=== PATIENT | male | born 1970 | race American Indian/Alaskan Native ===

== ENCOUNTER 2018-04-13 09:57 | Day surgery (SDC) | payer MEDICAID ==
[~2018-04-13 09:57] MED LIST: TETRACAINE 0.5% OD SCH
[2018-04-13] MEDS: VIGAMOX OD SCH ×3 (11:16→11:34)
[2018-04-13] MEDS: AK-Dilate OD SCH ×3 (11:17→11:33)
[2018-04-13] MEDS: MYDRIACYL OD SCH ×3 (11:17→11:33)
[2018-04-13] MEDS ORDERED: VERSED ONE (11:23)
[2018-04-13] MEDS ORDERED: SUBLIMAZE ONE (11:23)
[2018-04-13] MEDS ORDERED: VERSED PO NR (11:46)
[2018-04-13] MEDS ORDERED: XYLOCAINE MPF 2% ONE (12:06)
[2018-04-13] MEDS ORDERED: DIAMOX PO ONE (12:46)
--- NOTE | 2018-04-13 12:48 | Operative Report ---
Operative Report Operative Report: PATIENT'S NAME: DATE OF : DATE OF SURGERY: 04/13/2018 PREOPERATIVE DIAGNOSIS: Cataract right eye POSTOPERATIVE DIAGNOSIS: Same OPERATIVE PROCEDURE: Phacoemulsification with intraocular lens implantation, right eye SURGEON: France Kimball M.D. RN CARDIAC REHAB SURGEON: Devan Lens: [id number] 16.0 D ANESTHESIA: Monitored anesthesia care in combination with topical and intracameral anesthesia because of the established specific risk of reflux, arrhythmias, or anxiety attacks associated with ocular manipulation, as well as the difficulty of the product designer to manage such potentially catastrophic events while simultaneously attempting to complete the surgical procedure and was deemed necessary for the patient's safety to have an Legal Receptionist present during the procedure whenever possible. An Legal Receptionist was utilized to regulate the intravenous sedation of the patient so the patient was cooperative yet not asleep in order for the patient to successfully maintain fixation of the eye on the operating light of the microscope. COMPLICATIONS: [No surgical complications] No blood loss. ALLERGIES: Penicillin ibuprofen metoclopramide PROGNOSIS: Excellent INDICATIONS FOR SURGERY: The patient is undergoing surgery in the hopes of eliminating or improving these visual difficulties. PROCEDURE: After arriving at the surgery center, the patient was given topical anesthetic and dilating drops, as noted in the record. The patient was then taken into the operating room and given more anesthetic drops. The eyelids , lashes, and lid margins were scrubbed with Betadine solution, and the patient was draped. The Nurse Legal Receptionist administered IV sedation and monitored the patient during the procedure. The eye was then fixated with a 0.12, and a stab incision was made in the peripheral clear cornea into the anterior chamber. This was made on my left side. Viscoelastic was next used to fill the anterior chamber. The eye was once again fixated with the 0.12 forceps and a keratome was used make an incision in clear cornea peripherally on my right hand side temporally. The capsule forceps were used to open the central anterior capsule and then make a continuous round capsulotomy. Hydrodissection was carried out utilizing a cannula and balanced salt solution to delineate the cortical material from the capsule and the nucleus from the cortical material. The phaco tip was introduced into the eye and used to remove the anterior cortical material in the area of the capsulotomy. Then the phaco tip was buried into the nucleus, and a chopping instrument was introduced into the eye and used to provide countertraction in the nucleus between this instrument and the phaco tip fracturing the nucleus. This procedure was repeated multiple times, providing multiple small segments of the lens, and then the phaco tip was used to remove each of these segments. An I/A tip was then used to remove the remaining cortex. The anterior chamber was refilled with viscoelastic. An one-piece, acrylic intraocular lens was then placed into an inserting cartridge. The tip of the inserting cartridge was introduced into the keratome incision and into the anterior chamber. The implant was gently advanced through the cartridge and into the eye, where it unfolded, and both haptics were placed in the capsular bag, where it centered nicely and appeared to be well fixated. After placement of the intraocular lens, the I~and~A handpiece was placed back into the eye and used to remove the viscoelastic, including viscoelastic that was behind the optic of the intraocular lens. The anterior chamber was then filled with balanced salt solution, and hydration of the wound was used to cause swelling of the wound and more appropriate watertight closure. When the wound was found to be firm, the patient was asked to comment on how bright the light was. If there was no light perception at all or if the light was substantially dimmer than during the rest of the surgery, the amount of fluid in the eye was decompressed to lower the intraocular pressure until the patient could see the bright light again. This was done to avoid any damage or decreased blood flow to the optic nerve. Please did drop of reassurance to length at the end of the case because patient had previous PKP and those wounds are weak. MEDICATIONS APPLIED AT END OF SURGERY: One drop of Pred Forte and Vigamox The patient was given a shield to wear at night and was instructed not to rub or push on the eye. DISCHARGE SUMMARY: The patient was released in stable condition. The patient and those with the patient were given a written sheet of postoperative instructions and counseling on any abnormal laboratory studies. The patient is to see us tomorrow for follow-up in the office and is to call immediately for any difficulties. France Kimball M.D. Date
--- NOTE | 2018-04-13 12:51 | Short Stay Summary ---
Short Stay Documentation Date of service: 04/13/18 - History H&P: obtained from office - Allergies and Medications Current Medications: Allergies metoclopramide HCl [From Reglan] Allergy (Verified 04/07/18 15:41) Swelling Penicillins Allergy (Verified 04/07/18 15:41) Swelling ibuprofen Adverse Reaction (Verified 04/13/18 11:12) Swelling Home Medications Medication Instructions Recorded Confirmed Last Taken Type Aspirin [Aspirin BABY CHEW TAB] 81 mg PO QDAY 08/13/15 04/13/18 04/12/18 09:00 History Insulin Aspart [Novolog] 0 unit SQ AC 04/07/18 04/13/18 04/12/18 19:00 History Insulin Glargine,Hum.rec.anlog 35 units SQ QHS 04/07/18 04/13/18 04/12/18 22:00 History [Lantus] levETIRAcetam [Keppra TAB] 1,000 mg PO BID 04/07/18 04/13/18 04/12/18 22:00 History Active Medications Acetazolamide (Diamox) 500 mg PO ONCE ONE Stop: 04/13/18 12:47 Midazolam HCl (Versed) 10 mg PO PREOP NR Stop: 04/13/18 23:59 Last Admin: 04/13/18 11:51 Dose: 10 mg Moxifloxacin HCl (Vigamox) 1 drops OD Q5MIN MIKE Stop: 04/13/18 23:59 Last Admin: 04/13/18 11:34 Dose: 1 drops Phenylephrine HCl (Ak-Dilate) 1 drops OD Q5MIN MIKE Stop: 04/13/18 23:59 Last Admin: 04/13/18 11:33 Dose: 1 drops Prednisolone Acetate (Pred Forte 1%) 1 drops OD QID MIKE Tetracaine HCl (Tetracaine 0.5%) 1 drops OD Q5M MIKE Stop: 04/13/18 23:59 Last Admin: 04/13/18 11:16 Dose: 1 drops Tropicamide (Mydriacyl) 1 drops OD Q5MIN MIKE Stop: 04/13/18 23:59 Last Admin: 04/13/18 11:33 Dose: 1 drops - Brief post op/procedure progress note Date of procedure: 04/13/18 Pre-op diagnosis: cataract right eye Post-op diagnosis: same Procedure: Phacoemulsification with intraocular lens insertion right eye Anesthesia: MAC, local Surgeon: JORDANA COLEMAN Estimated blood loss: none Pathology: none Condition: stable - Disposition Condition at discharge: Good Disposition: DC-01 TO HOME OR SELFCARE - Discharge Diagnoses (1) Nuclear sclerosis of right eye Status: Resolved Short Stay Discharge Plan Follow up with: PRIMARY CARE, [Primary Care Provider] - 7 Days
[2018-04-13] MEDS ORDERED: PRED FORTE 1% OD SCH (14:00)
[2018-04-13 15:17] VITALS: BP 117/83
== END 2018-04-13 15:00 | disposition home or self-care (01) ==
LOC: OR 09:57
DX: H25.11 Age-related nuclear cataract, right eye (principal); I25.10 Atherosclerotic heart disease of native coronary artery without angina pectoris; I10 Essential (primary) hypertension; K21.9 Gastro-esophageal reflux disease without esophagitis; G40.909 Epilepsy, unspecified, not intractable, without status epilepticus; G62.9 Polyneuropathy, unspecified; E11.42 Type 2 diabetes mellitus with diabetic polyneuropathy; I25.2 Old myocardial infarction; G47.30 Sleep apnea, unspecified; Z90.49 Acquired absence of other specified parts of digestive tract; Z86.2 Personal history of diseases of the blood and blood-forming organs and certain disorders involving the immune mechanism; Z85.038 Personal history of other malignant neoplasm of large intestine; Z95.5 Presence of coronary angioplasty implant and graft; Z88.0 Allergy status to penicillin; Z88.8 Allergy status to other drugs, medicaments and biological substances; Z98.890 Other specified postprocedural states; Z98.49 Cataract extraction status, unspecified eye
CPT/HCPCS: 66984; 82962; J3010; J2250; V2632

== ENCOUNTER 2018-07-21 19:58 | Inpatient (IN) | payer MEDICAID ==
[2018-07-21 20:39] LABS: Basophils % (Auto) 0.4 % (0.0-1.8); Eosinophils # (Auto) 0.2 K/mm3 (0.0-0.4); Eosinophils % (Auto) 2.5 % (0.0-4.3); Hematocrit 44.2 % (35.5-45.6); Hemoglobin 15.4 gm/dl (11.8-15.2); Lymphocytes # (Auto) 2.4 K/mm3 (1.2-5.4); Lymphocytes % (Auto) 36.7 % (13.4-35.0); Mean Corpuscular HGB Conc 35 % (32-34); Mean Corpuscular Volume 87 fl (84-94); Monocytes # (Auto) 0.4 K/mm3 (0.0-0.8); Monocytes % (Auto) 6.7 % (0.0-7.3); Platelet Count 169 K/mm3 (140-440); Red Blood Count 5.09 M/mm3 (3.65-5.03); Red Cell Distribution Width 13.8 % (13.2-15.2)
[2018-07-21 21:00] LABS: Alanine Aminotransferase 30 units/L (7-56); BUN/Creatinine Ratio 8; Blood Urea Nitrogen 8 mg/dL (9-20); Calcium 8.7 mg/dL (8.4-10.2); Hemolysis Index 16
[2018-07-21] MEDS ORDERED: NITRO-BID 2% TP ONE (22:09)
[2018-07-21] MEDS ORDERED: SUBLIMAZE IV ONE (22:09)
[2018-07-21] MEDS ORDERED: ZOFRAN IV ONE (22:09)
--- NOTE | 2018-07-21 22:26 | Emergency Department Report ---
HPI - General Chief Complaint: Chest Pain Time Seen by Provider: 07/21/18 21:55 - HPI HPI: Room 17 Patient is a 47-year-old male presenting with a chief complaint of chest pain. The patient states for 4 weeks use of intermittent chest pressure cough and shortness of breath. The patient states he's been to several hospitals at one point was diagnosed with pneumonia and started on a ten-day course of antibiotics. Patient states he flew to [facility]. The patient states he went to a hospital yesterday for more chest pain and shortness of breath and they wanted to admit him. The patient stated he did not allow them to admit him to the hospital because he wanted to get back home. The patient states he flew back to [place] today and came straight to the hospital. Patient states he still has chest pressure associated with nausea/vomiting, shortness of breath and diaphoresis. Patient states his last cardiac catheterization o ccurred April 2018 when he had a stent placed. 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 - Social History Smoking Status: Current Some Day Smoker (cigars) Substance Use Type: None (denies illicit drug use) - Medications Home Medications: Home Medications Medication Instructions Recorded Confirmed Last Taken Type Aspirin [Aspirin BABY CHEW TAB] 81 mg PO QDAY 08/13/15 04/13/18 04/12/18 09:00 History Insulin Aspart [Novolog] 0 unit SQ AC 04/07/18 04/13/18 04/12/18 19:00 History Insulin Glargine,Hum.rec.anlog 35 units SQ QHS 04/07/18 04/13/18 04/12/18 22:00 History [Lantus] levETIRAcetam [Keppra TAB] 1,000 mg PO BID 04/07/18 04/13/18 04/12/18 22:00 History Benzonatate [Tessalon Perles] 100 mg PO Q8HR PRN #30 capsule 06/18/18 Unknown Rx ED Review of Systems ROS: Stated complaint: CHEST PAIN Other details as noted in HPI Constitutional: diaphoresis Eyes: denies: eye pain ENT: denies: throat pain Respiratory: shortness of breath Cardiovascular: chest pain Endocrine: no symptoms reported Gastrointestinal: nausea, vomiting Genitourinary: denies: dysuria Musculoskeletal: denies: back pain Neurological: denies: headache Physical Exam - Physical Exam Vital Signs: Vital Signs 07/21/18 20:24 Temperature 97.6 F Pulse Rate 97 H Respiratory 18 Rate Blood Pressure 144/91 O2 Sat by Pulse 96 Oximetry Physical Exam: GENERAL: The patient is well-developed well-nourished male lying on stretcher not appearing to be in acute distress. [] HEENT: Normocephalic. Atraumatic. Extraocular motions are intact. Patient has moist mucous membranes. NECK: Supple. Trachea midline CHEST/LUNGS: Diminished. There is no respiratory distress noted. HEART/CARDIOVASCULAR: Regular. There is no tachycardia. There is no gallop rub or murmur. ABDOMEN: Abdomen is soft, nontender. Patient has normal bowel sounds. There is no abdominal distention. SKIN: There is no rash. There is no edema. There is no diaphoresis. NEURO: The patient is awake, alert, and oriented. The patient is cooperative. The patient has normal speech MUSCULOSKELETAL: There is no evidence of acute injury. ED Course Vital Signs 07/21/18 20:24 Temperature 97.6 F Pulse Rate 97 H Respiratory 18 Rate Blood Pressure 144/91 O2 Sat by Pulse 96 Oximetry ED Medical Decision Making - Lab Data Result diagrams: 07/21/18 20:25 07/21/18 20:25 Laboratory Tests 07/21/18 07/21/18 07/21/18 20: 20:25 20:25 WBC 6.5 RBC 5.09 H Hgb 15.4 H Hct 44.2 MCV 87 MCH 30 MCHC 35 H RDW 13.8 Plt Count 169 Lymph % (Auto) 36.7 H [place] % (Auto) 6.7 Eos % (Auto) 2.5 Baso % (Auto) 0.4 Lymph # 2.4 [place] # 0.4 Eos # 0.2 Baso # 0.0 Seg Neutrophils % 53.7 Seg Neutrophils # 3.5 Sodium 134 L Potassium 3.6 Chloride 97.8 L Carbon Dioxide 25 Anion Gap 15 BUN 8 L Creatinine 1.0 Estimated GFR > 60 BUN/Creatinine Ratio 8 Glucose 324 H POC Glucose 279 H Calcium 8.7 Total Bilirubin 0.40 AST 20 ALT 30 Alkaline Phosphatase 115 Troponin T < 0.010 Total Protein 6.7 Albumin 4.0 Albumin/Globulin Ratio 1.5 - EKG Data -: EKG Interpreted by Me EKG shows normal: sinus rhythm Rate: normal - EKG Data When compared to previous EKG there are: previous EKG unavailable Interpretation: other (no ischemic changes seen) - Radiology Data Radiology results: image reviewed (chest x-ray) interpreted by me: Chest x-ray-no definite focal infiltrates. No pneumothorax - Differential Diagnosis ACS, pericarditis, pneumonia, influenza, bronchitis Critical care attestation.: If time is entered above; I have spent that time in minutes in the direct care of this critically ill patient, excluding procedure time. ED Disposition Clinical Impression: Chest pain Disposition: OP ADMIT IP TO THIS HOSP Is pt being admited?: Yes Does the pt Need Aspirin: Yes Condition: Fair Instructions: Chest Pain (ED) Time of Disposition: 22:35 (hospitalist paged (Dr Rebecca Hodge))
--- NOTE | 2018-07-21 22:35 | XRay Report ---
FINAL REPORT EXAM: XR CHEST ROUTINE 2V HISTORY: cough/SOB TECHNIQUE: PA and lateral views of the chest. Lateral view is limited by patient breathing motion. PRIORS: CXR 06/18/2018 FINDINGS: Lines, tubes, and devices: N/A Lungs and pleura: Trachea is normal in position. Lungs are clear of infiltrate, pleural effusion, va scular congestion, or pneumothorax. No change. Cardiomediastinal silhouette: Cardiac and mediastinal silhouettes are unremarkable. Other: Bony structures are intact. IMPRESSION: No acute cardiopulmonary process seen. No change.
[2018-07-21] MEDS ORDERED: PLAVIX PO ONE (22:36)
--- NOTE | 2018-07-21 23:53 | History and Physical Report ---
History of Present Illness Date of examination: 07/21/18 History of present illness: 47-year-old man with a history of hypertension, diabetes, coronary artery disease, hyperlipidemia, seizure omes to the emergency room complaining of chest pain. Patient was admitted twice since May 20 for pneumonia. He states that over the last 1 month has been having chest pain on the left side of the chest which feels as if someone is sitting on his chest, it's been constant, intensity, 7/10, no radiation, can't identify exacerbating or relieving factors. Recently went to [place], he was seen in the hospital there for seizure, he states he was nauseous and vomiting, he was not able to take his antiepileptic. Admits to shortness of breath, no diaphoresis or palpitation Review Of Systems: Constitutional: no fever, chills, weight loss Ears, eyes, nose, mouth and throat: no nasal congestion, no nasal discharge, no sinus pressure, blurry vision, diplopia Neck: No neck pain or rigidity. Cardiovascular: no palpitations Respiratory: No cough Gastrointestinal: abdominal pain, hematochezia Genitourinary : no dysuria, frequency , hematuria Musculoskeletal: no joint swelling or muscle ache Integumentary: no rash, no pruritis Neurological: no parathesias, focal weakness Endocrine: no cold or heat intolerance, no polyuria or polydipsia Hematologic/Lymphatic: no easy bruising, no easy bleeding, no gland swelling Allergic/Immunologic: no urticaria, no angioedema. PAST MEDICAL HISTORY:hypertension, diabetes, coronary artery disease, hyperlipidemia, seizure PAST SURGICAL HISTORY Appendectomy, right eye SOCIAL HISTORY: Denies alcohol, tobacco, drugs FAMILY HISTORY:cad, DM Medications and Allergies Allergies Allergy/AdvReac Type Severity Reaction Status Date / Time metoclopramide HCl Allergy Swelling Verified 04/07/18 15:41 [From Reglan] Penicillins Allergy Swelling Verified 04/07/18 15:41 ibuprofen AdvReac Swelling Verified 04/13/18 11:12 iv contract dy Allergy Swelling Uncoded 06/18/18 09:34 Home Medications Medication Instructions Recorded Confirmed Last Taken Type Aspirin [Aspirin BABY CHEW TAB] 81 mg PO QDAY 08/13/15 07/22/18 04/12/18 09:00 History Insulin Aspart [Novolog] 0 unit SQ AC 04/07/18 07/22/18 04/12/18 19:00 History Insulin Glargine,Hum.rec.anlog 35 units SQ QHS 04/07/18 07/22/18 04/12/18 22:00 History [Lantus] levETIRAcetam [Keppra TAB] 1,000 mg PO BID 04/07/18 07/22/18 04/12/18 22:00 History Benzonatate [Tessalon Perles] 100 mg PO Q8HR PRN #30 capsule 06/18/18 07/22/18 Unknown Rx Exam - Physical Exam Narrative exam: General Apperance: The patient lying in bed, breathing comfortable HEENT: Normocephalic, atraumatic. Pupils equally round and reactive to light, EOMI, no sclericterus or JVD or thyromegaly or nodule. , no carotid bruit, mucous membranes moist, no exudate or erythema Heart: S1-S2, regular is rhythm Lungs: Clear to auscultation bilaterally, breathing comfortable Abdomen: Positive bowel sounds, soft, nontender, nondistended, no organomegaly Extremities: No edema cyanosis clubbing Skin: no rash, nodule, warm and dry Neuro: cranial nerves 2-12 intact, speech is fluent, motor/sensory intact - Constitutional Vitals: Temp Pulse Resp BP Pulse Ox 97.6 F 97 H 18 144/91 96 07/21/18 20:24 07/21/18 20:24 07/21/18 20:24 07/21/18 20:24 07/21/18 20:24 Results - Labs CBC & Chem 7: 07/21/18 20:25 07/21/18 20:25 Labs: Abnormal lab results 07/21/18 07/21/18 07/21/18 Range/Units 20:19 20:25 20:25 RBC 5.09 H (3.65-5.03) M/mm3 Hgb 15.4 H (11.8-15.2) gm/dl MCHC 35 H (32-34) % Lymph % (Auto) 36.7 H (13.4-35.0) % Sodium 134 L (137-145) mmol/L Chloride 97.8 L (98-107) mmol/L BUN 8 L (9-20) mg/dL Glucose 324 H (75-100) mg/dL POC Glucose 279 H (70-105) - Imaging and Cardiology EKG: image reviewed Chest x-ray: image reviewed Assessment and Plan Assessment Unstable angina hypertension diabetes coronary artery disease hyperlipidemia seizure Plan Check cardiac enzymes, consult cardiology Check fingersticks, start insulin sliding scale DVT prophylaxis
[2018-07-22] MEDS ORDERED: TESSALON PERLES PO PRN (05:02)
[2018-07-22] MEDS: HumaLOG SUB-Q SCH ×4 (07:35→22:08)
--- NOTE | 2018-07-22 08:13 | Progress Note ---
Assessment and Plan Assessment and plan: Patient is a 47 yo man with history of Hypertension, IDDM type 1, CAD, pna, dyslipidemia, cigars and seizure disorder who presented to [facility] ED with chest pains. may, 2018 he went to [facility] with cold (coughing), cp, n/v and abx given, then went to [place], [place] and again sob and cp jul 09 admitted [facility]. Then he flew to [place] for football game on , he had 2 seizures because not taking keppra because n/v, left [facility] AM. 2vCXR: unremarkable Troponin T negative x 3 Chest pains: I consulted Cardiology, ?type of stress test with history of seizure disorder and no stress test done on Tuesday anymore, so keep NPO until seen by Quality Assurance Practice Manager. patient doesnt want to be npo anymore N/V, intractable caused by coughing DM: ssi Seizure disorder: continue keppra CAD with 3 stents by history: cardiology to see History Interval history: Patient was seen and examined. Follow-up on current diagnosis of chest pains and sob. Overnight uneventful. Patient denies any severe headaches. Imaging, nursing note, chart, labs and old chart reviewed. Discussed with patient. Hospitalist Physical - Physical exam Narrative exam: Gen: WDWN, NAD, Awake, Alert, Orientated HEENT: NCAT, EOMI, PERRL, OP Clear Neck: supple, no adenopathy, no thyromegaly, no JVD CVS/Heart: RRR, normal S1S2, pulses present bilaterally Chest/Lungs: CTA B, Symmetrical chest expansion, good air entry bilaterally GI/Abdomen: soft, NTND, good bowel sounds, no guarding or rebound /Bladder: no suprapubic tenderness, no CVA or paraspinal tenderness Extermity/Skin: no c/c/e, no obvious rash MSK: FROM x 4 Neuro: CN 2-12 grossly intact, no new focal deficits Psych: calm - Constitutional Vitals: Temp Pulse Resp BP Pulse Ox 97.8 F 68 20 133/78 97 07/22/18 07:23 07/22/18 07:23 07/22/18 07:23 07/22/18 07:23 07/22/18 07:23 Results - Labs CBC & Chem 7: 07/21/18 20:25 07/21/18 20:25 Labs: Laboratory Last Values WBC 6.5 K/mm3 (4.5-11.0) 07/21/18 20:25 RBC 5.09 M/mm3 (3.65-5.03) H 07/21/18 20:25 Hgb 15.4 gm/dl (11.8-15.2) H 07/21/18 20:25 Hct 44.2 % (35.5-45.6) 07/21/18 20:25 MCV 87 fl (84-94) 07/21/18 20:25 MCH 30 pg (28-32) 07/21/18 20:25 MCHC 35 % (32-34) H 07/21/18 20:25 RDW 13.8 % (13.2-15.2) 07/21/18 20:25 Plt Count 169 K/mm3 (140-440) 07/21/18 20:25 Lymph % (Auto) 36.7 % (13.4-35.0) H 07/21/18 20:25 [place] % (Auto) 6.7 % (0.0-7.3) 07/21/18 20:25 Eos % (Auto) 2.5 % (0.0-4.3) 07/21/18 20:25 Baso % (Auto) 0.4 % (0.0-1.8) 07/21/18 20:25 Lymph # 2.4 K/mm3 (1.2-5.4) 07/21/18 20:25 [place] # 0.4 K/mm3 (0.0-0.8) 07/21/18 20: Eos # 0.2 K/mm3 (0.0-0.4) 07/21/18 20:25 Baso # 0.0 K/mm3 (0.0-0.1) 07/21/18 20:25 Seg Neutrophils % 53.7 % (40.0-70.0) 07/21/18 20:25 Seg Neutrophils # 3.5 K/mm3 (1.8-7.7) 07/21/18 20:25 D-Dimer 153.37 ng/mlDDU (0-234) 07/21/18 23:15 Sodium 134 mmol/L (137-145) L 01/04/19 20:25 Potassium 3.6 mmol/L (3.6-5.0) 07/21/18 20:25 Chloride 97.8 mmol/L (98-107) L 07/21/18 20:25 Carbon Dioxide 25 mmol/L (22-30) 07/21/18 20:25 Anion Gap 15 mmol/L 07/21/18 20:25 BUN 8 mg/dL (9-20) L 07/21/18 20:25 Creatinine 1.0 mg/dL (0.8-1.5) 07/21/18 20:25 Estimated GFR > 60 ml/min 07/21/18 20:25 BUN/Creatinine Ratio 8 % 07/21/18 20:25 Glucose 324 mg/dL (75-100) H 07/21/18 20:25 POC Glucose 209 (70-105) H 07/22/18 06:30 Calcium 8.7 mg/dL (8.4-10.2) 07/21/18 20:25 Total Bilirubin 0.40 mg/dL (0.1-1.2) 07/21/18 20:25 AST 20 units/L (5-40) 07/21/18 20:25 ALT 30 units/L (7-56) 07/21/18 20:25 Alkaline Phosphatase 115 units/L (35-129) 07/21/18 20:25 Troponin T < 0.010 ng/mL (0.00-0.029) 07/22/18 04:48 Total Protein 6.7 g/dL (6.3-8.2) 07/21/18 20:25 Albumin 4.0 g/dL (3.9-5) 07/21/18 20:25 Albumin/Globulin Ratio 1.5 % 07/21/18 20:25 Influenza A (Rapid) Negative (Negative) 07/21/18 22:40 Influenza B (Rapid) Negative (Negative) 07/21/18 22:40
[2018-07-22 08:15] LABS: Bacteria,Urine 1+ /HPF (Negative); Bilirubin,Urine NEG (Negative); Blood,Urine NEG (Negative); Color,Urine Yellow (Yellow); Mucus,Urine FEW /HPF; Protein,Urine <15 mg/dL mg/dL (Negative); RBC,Urine < 1.0 /HPF (0.0-6.0); Sperm,Urine FEW /HPF (NP)
[2018-07-22] MEDS ORDERED: LOVENOX SUB-Q SCH (10:00)
[2018-07-22] MEDS ORDERED: NON-FORMULARY (Levetiracetam [Keppra Tab] 1,000 MG) PO SCH (10:00)
[2018-07-22] MEDS: MORPHINE IV PRN ×2 (10:10→20:30)
[2018-07-22] MEDS ORDERED: ROBITUSSIN AC PO PRN (11:16)
[2018-07-22] MEDS ORDERED: PROVENTIL IH PRN (11:17)
[2018-07-22] MEDS: MUCINEX ER PO SCH ×2 (13:00→22:10)
[2018-07-22] MEDS: KEPPRA PO SCH ×2 (13:00→22:09)
[2018-07-22] MEDS: BABY ASPIRIN PO SCH (13:00)
[2018-07-22] MEDS: TESSALON PERLES PO PRN (13:05)
[2018-07-22] MEDS: LOVENOX SUB-Q SCH (13:35)
[2018-07-22] MEDS ORDERED: ZOFRAN IV ONE (13:42)
[2018-07-22] MEDS: ZOFRAN IV PRN ×2 (13:50→20:30)
[2018-07-22] MEDS: LYRICA PO SCH ×4 (14:00→20:32)
[2018-07-22] MEDS ORDERED: LYRICA 25 MG, LYRICA 75 MG PO SCH (14:00)
[2018-07-22] MEDS: DUONEB *Not for PRN Use IH SCH ×2 (14:27→20:46)
--- NOTE | 2018-07-22 19:22 | Consultation ---
History of Present Illness Consult date: 07/22/18 Requesting physician: KUSH GORE Consult reason: chest pain History of present illness: Patient in the bed sleeping. When I walked in the room and awoke the patient he suddenly began complaining of severe chest pain. Past History Past Medical History: CAD ( ), diabetes, hypertension, hyperlipidemia, seizures Past Surgical History: PTCA Social history: smoking. denies: alcohol abuse, prescription drug abuse Family history: CAD Medications and Allergies Allergies Allergy/AdvReac Type Severity Reaction Status Date / Time metoclopramide HCl Allergy Swelling Verified 04/07/18 15:41 [From Reglan] Penicillins Allergy Swelling Verified 04/07/18 15:41 ibuprofen AdvReac Swelling Verified 04/13/18 11:12 iv contract dy Allergy Swelling Uncoded 06/18/18 09:34 Home Medications Medication Instructions Recorded Confirmed Last Taken Type Aspirin [Aspirin BABY CHEW TAB] 81 mg PO QDAY 08/13/15 07/22/18 04/12/18 09:00 History Insulin Aspart [Novolog] 0 unit SQ AC 04/07/18 07/22/18 04/12/18 19:00 History Insulin Glargine,Hum.rec.anlog 35 units SQ QHS 04/07/18 07/22/18 04/12/18 22:00 History [Lantus] levETIRAcetam [Keppra TAB] 1,000 mg PO BID 04/07/18 07/22/18 04/12/18 22:00 History Benzonatate [Tessalon Perles] 100 mg PO Q8HR PRN #30 capsule 06/18/18 07/22/18 Unknown Rx Active Meds: Active Medications Albuterol (Proventil) 2.5 mg IH Q4HRT PRN PRN Reason: Shortness Of Breath Albuterol/Ipratropium (Duoneb *Not For Prn Use*) 1 ampul IH TIDRT [facility] Last Admin: 07/22/18 14:27 Dose: 1 ampul Documented by: Arformoterol Tartrate (Brovana Nebu) 15 mcg IH Q12HRT [facility] Aspirin (Baby Aspirin) 81 mg PO QDAY [facility] Last Admin: 07/22/18 13:00 Dose: 81 mg Documented by: Benzonatate (Tessalon Perles) 100 mg PO Q8H PRN PRN Reason: Cough Last Admin: 07/22/18 13:05 Dose: 100 mg Documented by: Budesonide (Pulmicort) 0.5 mg IH Q12HRT [facility] Enoxaparin Sodium (Lovenox) 40 mg SUB-Q QDAY@1000 [facility] Last Admin: 07/22/18 13:35 Dose: 40 mg Documented by: Guaifenesin (Mucinex Er) 600 mg PO BID [facility] Last Admin: 07/22/18 13:00 Dose: 600 mg Documented by: Insulin Glargine (Lantus) 35 units SUB-Q QHS [facility] Insulin Human Lispro (Humalog) 0 unit SUB-Q ACHS [facility]; Protocol Last Admin: 07/22/18 16:50 Dose: 6 unit Documented by: Levetiracetam (Keppra) 1,000 mg PO BID [facility] Last Admin: 07/22/18 13:00 Dose: 1,000 mg Documented by: Morphine Sulfate (Morphine) 2 mg IV Q4H PRN PRN Reason: Pain, Moderate (4-6) Ondansetron HCl (Zofran) 4 mg IV Q4H PRN PRN Reason: Nausea And Vomiting Last Admin: 07/22/18 13:50 Dose: 4 mg Documented by: Pregabalin (Lyrica) 75 mg PO TID [facility] Last Admin: 07/22/18 14:00 Dose: 75 mg Documented by: Pregabalin (Lyrica) 25 mg PO TID [facility] Last Admin: 07/22/18 14:00 Dose: 25 mg Documented by: Pseudoephedrine/Acetam/Chlorphenir (Robitussin Ac) 15 ml PO Q4H PRN PRN Reason: Cough Review of Systems Constitutional: no weight loss, no weight gain, no fever, no chills, no sweats Ears, nose, mouth and throat: no ear pain, no ear discharge Cardiovascular: chest pain, dyspnea on exertion, no syncope, no lightheadedness, no leg edema Respiratory: cough Gastrointestinal: no abdominal pain, no BRBPR Genitourinary Male: no hematuria, no flank pain Rectal: no incontinence, no bleeding Musculoskeletal: no neck stiffness, no neck pain Integumentary: no rash, no pruritis Psychiatric: no anxiety, no memory loss Endocrine: no heat intolerance, no polyphagia Hematologic/Lymphatic: no easy bruising, no easy bleeding Allergic/Immunologic: no urticaria Physical Examination Vital Signs Temp Pulse Resp BP Pulse Ox 97.6 F 97 H 18 144/91 96 07/21/18 20:24 07/21/18 20:24 07/21/18 20:24 07/21/18 20:24 07/21/18 20:24 General appearance: no acute distress HEENT: Positive: PERRL, EOMI Neck: Positive: neck supple, trachea midline Cardiac: Positive: Reg Rate and Rhythm Lungs: Positive: Normal Exam, Normal Breath Sounds Neuro: Positive: Grossly Intact Abdomen: Positive: Unremarkable, Soft, Active Bowel Sounds Male genitourinary: Positive: deferred Skin: Negative: Rash, Suspicious Lesions Extremities: Present: warm. Absent: edema Results 07/21/18 20:25 07/21/18 20:25 Cardiac Enzymes 07/21/18 Range/Units 20:25 AST 20 (5-40) units/L CBC 07/21/18 Range/Units 20:25 WBC 6.5 (4.5-11.0) K/mm3 RBC 5.09 H (3.65-5.03) M/mm3 Hgb 15.4 H (11.8-15.2) gm/dl Hct 44.2 (35.5-45.6) % Plt Count 169 (140-440) K/mm3 Lymph # 2.4 (1.2-5.4) K/mm3 [place] # 0.4 (0.0-0.8) K/mm3 Eos # 0.2 (0.0-0.4) K/mm3 Baso # 0.0 (0.0-0.1) K/mm3 Comprehensive Metabolic Panel 07/21/18 Range/Units 20:25 Sodium 134 L (137-145) mmol/L Potassium 3.6 (3.6-5.0) mmol/L Chloride 97.8 L (98-107) mmol/L Carbon Dioxide 25 (22-30) mmol/L BUN 8 L (9-20) mg/dL Creatinine 1.0 (0.8-1.5) mg/dL Glucose 324 H (75-100) mg/dL Calcium 8.7 (8.4-10.2) mg/dL AST 20 (5-40) units/L ALT 30 (7-56) units/L Alkaline Phosphatase 115 (35-129) units/L Total Protein 6.7 (6.3-8.2) g/dL Albumin 4.0 (3.9-5) g/dL EKG interpretations - Telemetry EKG Rhythm: Sinus Rhythm Assessment and Plan Atypical chest pain/Persistent cough (nonproductive) MPI 08/14/15: no ischemia/no necrosis/normal LV systolic function No EKG changes, negative troponin Will attempt to get records from [facility] Recommend ECHO Coronary artery disease status post stents Hypertension hyperlipidemia seizure disorder tobacco abuse diabetes
[2018-07-22] MEDS: BROVANA NEBU IH SCH (20:46)
[2018-07-22] MEDS: PULMICORT IH SCH (20:46)
[2018-07-22] MEDS: LANTUS SUB-Q SCH (22:09)
[2018-07-23] MEDS: ZOFRAN IV PRN (06:45)
[2018-07-23] MEDS: MORPHINE IV PRN ×2 (06:45→17:51)
[2018-07-23] MEDS: PULMICORT IH SCH ×2 (08:30→20:39)
[2018-07-23] MEDS: BROVANA NEBU IH SCH ×2 (08:52→20:39)
[2018-07-23] MEDS: DUONEB *Not for PRN Use IH SCH ×3 (08:59→20:39)
[2018-07-23] MEDS: HumaLOG SUB-Q SCH ×4 (09:58→21:45)
[2018-07-23] MEDS: BABY ASPIRIN PO SCH (11:42)
[2018-07-23] MEDS: KEPPRA PO SCH ×2 (11:42→21:35)
[2018-07-23] MEDS: MUCINEX ER PO SCH ×2 (11:42→21:35)
[2018-07-23] MEDS: LOVENOX SUB-Q SCH (11:43)
[2018-07-23] MEDS: TESSALON PERLES PO PRN (11:54)
[2018-07-23] MEDS: LYRICA PO SCH ×6 (11:55→21:35)
--- NOTE | 2018-07-23 14:45 | Progress Note ---
Assessment and Plan Atypical chest pain/Persistent cough (nonproductive) MPI 08/14/15: no ischemia/no necrosis/normal LV systolic function No EKG changes, negative troponin Will attempt to get records from [facility] ECHO Coronary artery disease status post stents Hypertension hyperlipidemia seizure disorder tobacco abuse diabetes Subjective Date of service: 07/23/18 Principal diagnosis: atypical chest pain Interval history: Patient is sitting up in bed without complaints Objective Vital Signs Temp Pulse Pulse Resp Resp BP BP 07/23/18 14:32 92 H 16 07/23/18 14:26 92 H 16 07/23/18 11:37 97.3 F L 83 20 115/75 07/23/18 08:39 88 18 07/23/18 08:30 88 18 07/23/18 07:26 97.4 F L 83 20 106/73 07/23/18 03:45 97.0 F L 88 20 103/56 07/23/18 00:37 97.0 F L 94 H 18 106/73 07/22/18 22:00 108 H 07/22/18 20:53 84 20 07/22/18 20:00 82 21 07/22/18 19:44 98.0 F 109 H 18 97/62 07/22/18 16:05 97.7 F 114 H 20 115/81 07/22/18 14:54 102 H 18 Pulse Ox 07/23/18 14:32 07/23/18 14:26 07/23/18 11:37 97 07/23/18 08:39 07/23/18 08:30 07/23/18 07:26 93 07/23/18 03:45 95 07/23/18 00:37 95 07/22/18 22:00 07/22/18 20:53 07/22/18 20:00 07/22/18 19:44 97 07/22/18 16:05 94 07/22/18 14:54 - Physical Examination HEENT: Positive: PERRL, EOMI Neck: Positive: neck supple, trachea midline Cardiac: Positive: Reg Rate and Rhythm, Regular Rate Lungs: Positive: Normal Exam, Normal Breath Sounds Neuro: Positive: Grossly Intact Abdomen: Positive: Unremarkable, Soft, Active Bowel Sounds Skin: Negative: Rash, Suspicious Lesions Extremities: Present: warm. Absent: edema - Imaging and Cardiology EKG: image reviewed
--- NOTE | 2018-07-23 15:53 | Progress Note ---
Assessment and Plan Assessment and plan: Patient is a 47 yo man with history of Hypertension, IDDM type 1, CAD, pna, dyslipidemia, cigars and seizure disorder who presented to [facility] ED with chest pains. may, 2018 he went to [facility] with cold (coughing), cp, n/v and abx given, then went to [place], [place] and again sob and cp jul 09 admitted [facility]. Then he flew to [place] for football game on , he had 2 seizures because not taking keppra because n/v, left [facility]. 2vCXR: unremarkable Troponin T negative x 3 Chest pains: I consulted Cardiology, ?type of stress test with history of seizure disorder and no stress test done on Tuesday anymore, so keep NPO until seen by [facility]. patient doesnt want to be npo anymore N/V, intractable with Dysphagia to solids; start ivf, downgrade diet, consult GI DM: ssi Seizure disorder: continue keppra CAD with 3 stents by history: cardiology to see History Interval history: Patient was seen and examined. Follow-up on current diagnosis of chest pains and sob. Overnight uneventful. Patient denies any severe headaches. Imaging, nursing note, chart, labs and old chart reviewed. Discussed with patient. He complains of dyphagia to solids causing n/v. Hospitalist Physical - Physical exam Narrative exam: Gen: WDWN, NAD, Awake, Alert, Orientated HEENT: NCAT, EOMI, PERRL, OP Clear Neck: supple, no adenopathy, no thyromegaly, no JVD CVS/Heart: RRR, normal S1S2, pulses present bilaterally Chest/Lungs: CTA B, Symmetrical chest expansion, good air entry bilaterally GI/Abdomen: soft, NTND, good bowel sounds, no guarding or rebound /Bladder: no suprapubic tenderness, no CVA or paraspinal tenderness Extermity/Skin: no c/c/e, no obvious rash MSK: FROM x 4 Neuro: CN 2-12 grossly intact, no new focal deficits Psych: anxious - Constitutional Vitals: Temp Pulse Resp BP Pulse Ox 97.3 F L 92 H 16 115/75 97 07/23/18 11:37 07/23/18 14:32 01/06/19 14:32 07/23/18 11:37 07/23/18 11:37 General appearance: Present: no acute distress Results - Labs CBC & Chem 7: 07/21/18 20:25 07/21/18 20:25 Labs: Laboratory Last Values WBC 6.5 K/mm3 (4.5-11.0) 07/21/18 20:25 RBC 5.09 M/mm3 (3.65-5.03) H 07/21/18 20:25 Hgb 15.4 gm/dl (11.8-15.2) H 07/21/18 20:25 Hct 44.2 % (35.5-45.6) 07/21/18 20:25 MCV 87 fl (84-94) 07/21/18 20:25 MCH 30 pg (28-32) 07/21/18 20:25 MCHC 35 % (32-34) H 07/21/18 20:25 RDW 13.8 % (13.2-15.2) 07/21/18 20:25 Plt Count 169 K/mm3 (140-440) 07/21/18 20:25 Lymph % (Auto) 36.7 % (13.4-35.0) H 07/21/18 20:25 [place] % (Auto) 6.7 % (0.0-7.3) 07/21/18 20:25 Eos % (Auto) 2.5 % (0.0-4.3) 07/21/18 20:25 Baso % (Auto) 0.4 % (0.0-1.8) 07/21/18 20:25 Lymph # 2.4 K/mm3 (1.2-5.4) 07/21/18 20:25 [place] # 0.4 K/mm3 (0.0-0.8) 07/21/18 20:25 Eos # 0.2 K/mm3 (0.0-0.4) 07/21/18 20:25 Baso # 0.0 K/mm3 (0.0-0.1) 07/21/18 20:25 Seg Neutrophils % 53.7 % (40.0-70.0) 07/21/18 20:25 Seg Neutrophils # 3.5 K/mm3 (1.8-7.7) 07/21/18 20:25 D-Dimer 153.37 ng/mlDDU (0-234) 07/21/18 23:15 Sodium 134 mmol/L (137-145) L 07/21/18 20:25 Potassium 3.6 mmol/L (3.6-5.0) 07/21/18 20:25 Chloride 97.8 mmol/L (98-107) L 07/21/18 20:25 Carbon Dioxide 25 mmol/L (22-30) 07/21/18 20:25 Anion Gap 15 mmol/L 07/21/18 20:25 BUN 8 mg/dL (9-20) L 07/21/18 20:25 Creatinine 1.0 mg/dL (0.8-1.5) 07/21/18 20:25 Estimated GFR > 60 ml/min 07/21/18 20:25 BUN/Creatinine Ratio 8 % 07/21/18 20:25 Glucose 324 mg/dL (75-100) H 07/21/18 20:25 POC Glucose 193 (70-105) H 07/23/18 11:42 Calcium 8.7 mg/dL (8.4-10.2) 07/21/18 20:25 Total Bilirubin 0.40 mg/dL (0.1-1.2) 07/21/18 20:25 AST 20 units/L (5-40) 07/21/18 20:25 ALT 30 units/L (7-56) 07/21/18 20:25 Alkaline Phosphatase 115 units/L (35-129) 07/21/18 20:25 Troponin T < 0.010 ng/mL (0.00-0.029) 07/22/18 04:48 Total Protein 6.7 g/dL (6.3-8.2) 07/21/18 20:25 Albumin 4.0 g/dL (3.9-5) 07/21/18 20:25 Albumin/Globulin Ratio 1.5 % 07/21/18 20:25 Urine Color Yellow (Yellow) 07/22/18 07:44 Urine Turbidity Clear (Clear) 07/22/18 07:44 Urine pH 6.0 (5.0-7.0) 07/22/18 07:44 Ur Specific [place] 1.030 (1.003-1.030) 07/22/18 07:44 Urine Protein <15 mg/dl mg/dL (Negative) 07/22/18 07:44 Urine Glucose (UA) >=500 mg/dL (Negative) 07/22/18 07:44 Urine Ketones Tr mg/dL (Negative) 07/22/18 07:44 Urine Blood Neg (Negative) 07/22/18 07:44 Urine Nitrite Neg (Negative) 07/22/18 07:44 Urine Bilirubin Neg (Negative) 07/22/18 07:44 Urine Urobilinogen 4.0 mg/dL (<2.0) 07/22/18 07:44 Ur Leukocyte Esterase Neg (Negative) 07/22/18 07:44 Urine WBC (Auto) 1.0 /HPF (0.0-6.0) 07/22/18 07:44 Urine RBC (Auto) < 1.0 /HPF (0.0-6.0) 07/22/18 07:44 U Epithel Cells (Auto) 1.0 /HPF (0-13.0) 07/22/18 07:44 Urine Bacteria (Auto) 1+ /HPF (Negative) 07/22/18 07:44 Urine Mucus Few /HPF 07/22/18 07:44 Urine Sperm Few /HPF ([employer]) 07/22/18 07:44 Influenza A (Rapid) Negative (Negative) 07/21/18 22:40 Influenza B (Rapid) Negative (Negative) 07/21/18 22:40
--- NOTE | 2018-07-23 17:55 | Gastroenterology Consultation ---
History of Present Illness - Reason for Consult Consult date: 07/23/18 Dysphagia Requesting physician: KUSH GORE - History of Present Illness The patient is a 47 yo male admitted with chest pain (known hx of CAD) but also dysphagia for meats (particularly chicken and starches) for the last 2-3 weeks. His cardiac testing (here and elsewhere) has been negative, but he is to get a TTE tomorrow. He has no N/V/abdominal pain. He says he has only very mild, and rare indigestion, and takes no meds for this. The dysphagia is in the suprasternal region. There has been no food impaction, or abnormal loss of weight. He has had no imaging or endoscopy. He has no family hx of esophageal cancer. The patient does have a hx of seizures from head trauma. He says he has no problems with liquids, and has seen no melena. He does smoke rare cigars. Past History Past Medical History: CAD ( ), diabetes, hypertension, hyperlipidemia, seizures Past Surgical History: PTCA (Stent x 3) Social history: smoking. denies: alcohol abuse, prescription drug abuse Family history: CAD Medications and Allergies Allergies Allergy/AdvReac Type Severity Reaction Status Date / Time metoclopramide HCl Allergy Swelling Verified 04/07/18 15:41 [From Reglan] Penicillins Allergy Swelling Verified 04/07/18 15:41 ibuprofen AdvReac Swelling Verified 04/13/18 11:12 iv contract dy Allergy Swelling Uncoded 06/18/18 09:34 Home Medications Medication Instructions Recorded Confirmed Last Taken Type Aspirin [Aspirin BABY CHEW TAB] 81 mg PO QDAY 08/13/15 07/22/18 04/12/18 09:00 History Insulin Aspart [Novolog] 0 unit SQ AC 04/07/18 07/22/18 04/12/18 19:00 History Insulin Glargine,Hum.rec.anlog 35 units SQ QHS 04/07/18 07/22/18 04/12/18 22:00 History [Lantus] levETIRAcetam [Keppra TAB] 1,000 mg PO BID 04/07/18 07/22/18 04/12/18 22:00 History Benzonatate [Tessalon Perles] 100 mg PO Q8HR PRN #30 capsule 06/18/18 07/22/18 Unknown Rx Active Meds: Active Medications Albuterol (Proventil) 2.5 mg IH Q4HRT PRN PRN Reason: Shortness Of Breath Albuterol/Ipratropium (Duoneb *Not For Prn Use*) 1 ampul IH TIDRT [facility] Last Admin: 07/23/18 14:25 Dose: 1 ampul Documented by: Arformoterol Tartrate (Brovana Nebu) 15 mcg IH Q12HRT [facility] Last Admin: 07/23/18 08:52 Dose: 15 mcg Documented by: Aspirin (Baby Aspirin) 81 mg PO QDAY [facility] Last Admin: 07/23/18 11:42 Dose: 81 mg Documented by: Benzonatate (Tessalon Perles) 100 mg PO Q8H PRN PRN Reason: Cough Last Admin: 07/23/18 11:54 Dose: 100 mg Documented by: Budesonide (Pulmicort) 0.5 mg IH Q12HRT [facility] Last Admin: 07/23/18 08:30 Dose: 0.5 mg Documented by: Enoxaparin Sodium (Lovenox) 40 mg SUB-Q QDAY@1000 [facility] Last Admin: 07/23/18 11:43 Dose: 40 mg Documented by: Guaifenesin (Mucinex Er) 600 mg PO BID [facility] Last Admin: 07/23/18 11:42 Dose: 600 mg Documented by: Insulin Glargine (Lantus) 35 units SUB-Q QHS [facility] Last Admin: 07/22/18 22:09 Dose: 35 units Documented by: Insulin Human Lispro (Humalog) 0 unit SUB-Q [facility]; Protocol Last Admin: 07/23/18 11:55 Dose: 3 unit Documented by: Levetiracetam (Keppra) 1,000 mg PO BID [facility] Last Admin: 07/23/18 11:42 Dose: 1,000 mg Documented by: Morphine Sulfate (Morphine) 2 mg IV Q4H PRN PRN Reason: Pain, Moderate (4-6) Last Admin: 07/23/18 06:45 Dose: 2 mg Documented by: Ondansetron HCl (Zofran) 4 mg IV Q4H PRN PRN Reason: Nausea And Vomiting Last Admin: 07/23/18 06:45 Dose: 4 mg Documented by: Pregabalin (Lyrica) 75 mg PO TID [facility] Last Admin: 07/23/18 17:11 Dose: 75 mg Documented by: Pregabalin (Lyrica) 25 mg PO TID [facility] Last Admin: 07/23/18 17:11 Dose: 25 mg Documented by: Pseudoephedrine/Acetam/Chlorphenir (Robitussin Ac) 15 ml PO Q4H PRN PRN Reason: Cough I HAVE REVIEWED AND RECONCILED MEDICATIONS Review of Systems - Review of Systems All systems: negative (as noted in the HPI.) Exam - Constitutional Vital Signs: Temp Pulse Resp BP Pulse Ox 97.7 F 101 H 20 101/70 97 07/23/18 16:52 07/23/18 16:52 07/23/18 16:52 07/23/18 16:52 07/23/18 16:52 General appearance: no acute distress - EENT ENT: hearing intact, clear oral mucosa, no thrush - Neck Neck: supple, normal ROM - Respiratory Respiratory effort: normal Respiratory: bilateral: CTA - Cardiovascular Rhythm: regular Heart Sounds: Present: S1 & S2 Extremities: No edema - Gastrointestinal General gastrointestinal: Present: soft, non-tender, non-distended - Integumentary Integumentary: Present: clear, warm, dry - Neurologic Neurological: alert and oriented x3 - Labs CBC & Chem 7: 07/21/18 20:25 07/21/18 20:25 Lab Results: Laboratory Results - last 24 hr 07/22/18 07/23/18 07/23/18 21:28 06:40 11:42 POC Glucose 250 H 152 H 193 H 07/23/18 16:56 POC Glucose 294 H Assessment and Plan - Patient Problems (1) Dysphagia Current Visit: Yes Status: Acute Plan to address problem: - Subacute onset most consistent with reflux-related stricture or web (if not cardiac-related). - Will plan EGD with dilation if TTE tomorrow AM is acceptable. - For now, continue mechanical soft diet and protonix daily.
[2018-07-23] MEDS ORDERED: NACL 0.9% 1000 ML 1,000 ML IV SCH (19:00)
[2018-07-23] MEDS: LANTUS SUB-Q SCH (21:44)
[2018-07-24] MEDS: ZOFRAN IV PRN (06:14)
[2018-07-24] MEDS: MORPHINE IV PRN ×3 (06:15→23:53)
[2018-07-24 06:49] LABS: Hematocrit 41.1 % (35.5-45.6); Hemoglobin 14.1 gm/dl (11.8-15.2); Mean Corpuscular HGB Conc 34 % (32-34); Mean Corpuscular Volume 87 fl (84-94); Platelet Count 159 K/mm3 (140-440); Red Blood Count 4.73 M/mm3 (3.65-5.03); Red Cell Distribution Width 13.9 % (13.2-15.2)
[2018-07-24 07:02] LABS: BUN/Creatinine Ratio 6; Blood Urea Nitrogen 6 mg/dL (9-20); Calcium 8.2 mg/dL (8.4-10.2); Hemolysis Index 23
[2018-07-24] MEDS: LYRICA PO SCH ×6 (08:00→21:31)
[2018-07-24] MEDS: PULMICORT IH SCH (09:47)
[2018-07-24] MEDS: DUONEB *Not for PRN Use IH SCH ×3 (09:48→20:23)
[2018-07-24] MEDS: BROVANA NEBU IH SCH (09:48)
[2018-07-24] MEDS: MUCINEX ER PO SCH ×2 (10:00→21:31)
[2018-07-24] MEDS: KEPPRA PO SCH ×2 (10:00→21:31)
[2018-07-24] MEDS: HumaLOG SUB-Q SCH ×4 (11:00→22:16)
--- NOTE | 2018-07-24 12:00 | Progress Note ---
Assessment and Plan Atypical chest pain/Persistent cough (nonproductive) MPI 08/14/15: no ischemia/no necrosis/normal LV systolic function No EKG changes, negative troponin Will attempt to get records from [facility] reviewed - EF 50-55%, mild LVH. Dysphagia Per GI, most c/w reflux-related stricture or web (if not cardiac-related), will plan EGD with dilation if TTE tomorrow AM is acceptable. May proceed with EGD from cardiac standpoint. Coronary artery disease status post stents Pt reports one PCI in 2005 and another in 05/2018 Pt reports home medication regimen includes ASA 81 and Plavix. Recommend resuming Plavix today following EGD. Hypertension hyperlipidemia seizure disorder tobacco abuse diabetes The patient has been seen in conjunction with Dr. Daniels who agrees with the assessment and plan of care. Subjective Date of service: 07/24/18 Principal diagnosis: atypical chest pain Interval history: pt resting in bed, still c/o intermittent chest pressure and burning which is associated with solid food intake. Objective Last Vital Signs Temp 98.1 F 07/24/18 09:46 Pulse 88 07/24/18 09:51 Resp 18 07/24/18 09:51 BP 112/51 07/24/18 09:46 Pulse Ox 96 07/24/18 09:46 - Physical Examination General: No Apparent Distress HEENT: Positive: PERRL, EOMI Neck: Positive: neck supple, trachea midline Cardiac: Positive: Reg Rate and Rhythm, S1/S2 Lungs: Positive: clear to auscultation Neuro: Positive: Grossly Intact Abdomen: Positive: Unremarkable, Soft, Active Bowel Sounds Skin: Negative: Rash, Suspicious Lesions Extremities: Present: warm. Absent: edema - Labs and Meds CBC 07/24/18 Range/Units 06:26 WBC 5.2 (4.5-11.0) K/mm3 RBC 4.73 (3.65-5.03) M/mm3 Hgb 14.1 (11.8-15.2) gm/dl Hct 41.1 (35.5-45.6) % Plt Count 159 (140-440) K/mm3 Comprehensive Metabolic Panel 07/24/18 Range/Units 06:26 Sodium 139 (137-145) mmol/L Potassium 3.7 (3.6-5.0) mmol/L Chloride 103.4 (98-107) mmol/L Carbon Dioxide 25 (22-30) mmol/L BUN 6 L (9-20) mg/dL Creatinine 1.0 (0.8-1.5) mg/dL Glucose 261 H (75-100) mg/dL Calcium 8.2 L (8.4-10.2) mg/dL - Imaging and Cardiology EKG: image reviewed
--- NOTE | 2018-07-24 12:24 | Progress Note ---
Assessment and Plan Assessment and plan: Patient is a 47 yo man with history of Hypertension, IDDM type 1, CAD, pna, dyslipidemia, cigars and seizure disorder who presented to [facility] ED with chest pains. may, 2018 he went to [facility] with cold (coughing), cp, n/v and abx given, then went to [place], [place] and again sob and cp jul 09 admitted [facility]. Then he flew to [place] for football game on , he had 2 seizures because not taking keppra because n/v, left [facility] AM. 2vCXR: unremarkable Troponin T negative x 3 Chest pains: I consulted Cardiology, ?type of stress test with history of seizure disorder and no stress test done on Tuesday anymore, so keep NPO until seen by Customer Orders Clerk. patient doesnt want to be npo anymore N/V, intractable with Dysphagia to solids; start ivf, downgrade diet, consult GI DM: ssi Seizure disorder: continue keppra CAD with 3 stents by history: cardiology did evaluate and ordered ECHO which appears unremarkable. EGD tomorrow History Interval history: Patient was seen and examined. Follow-up on current diagnosis of chest pains and sob. Overnight uneventful. Patient denies any severe headaches. Imaging, nursing note, chart, labs and old chart reviewed. Discussed with patient. He complains of dyphagia to solids causing n/v. Hospitalist Physical - Physical exam Narrative exam: Gen: WDWN, NAD, Awake, Alert, Orientated HEENT: NCAT, EOMI, PERRL, OP Clear Neck: supple, no adenopathy, no thyromegaly, no JVD CVS/Heart: RRR, normal S1S2, pulses present bilaterally Chest/Lungs: CTA B, Symmetrical chest expansion, good air entry bilaterally GI/Abdomen: soft, NTND, good bowel sounds, no guarding or rebound /Bladder: no suprapubic tenderness, no CVA or paraspinal tenderness Extermity/Skin: no c/c/e, no obvious rash MSK: FROM x 4 Neuro: CN 2-12 grossly intact, no new focal deficits Psych: anxious - Constitutional Vitals: Temp Pulse Resp BP Pulse Ox 98.1 F 88 18 112/51 96 07/24/18 09:46 07/24/18 09:51 07/24/18 09:51 07/24/18 09:46 07/24/18 09:46 General appearance: Present: no acute distress Results - Labs CBC & Chem 7: 07/24/18 06:26 07/24/18 06:26 Labs: Laboratory Last Values WBC 5.2 K/mm3 (4.5-11.0) 07/24/18 06:26 RBC 4.73 M/mm3 (3.65-5.03) 07/24/18 06:26 Hgb 14.1 gm/dl (11.8-15.2) 07/24/18 06:26 Hct 41.1 % (35.5-45.6) 07/24/18 06:26 MCV 87 fl (84-94) 07/24/18 06:26 MCH 30 pg (28-32) 07/24/18 06:26 MCHC 34 % (32-34) 07/24/18 06:26 RDW 13.9 % (13.2-15.2) 07/24/18 06:26 Plt Count 159 K/mm3 (140-440) 07/24/18 06:26 Lymph % (Auto) 36.7 % (13.4-35.0) H 07/21/18 20:25 Valencia % (Auto) 6.7 % (0.0-7.3) 07/21/18 20:25 Eos % (Auto) 2.5 % (0.0-4.3) 07/21/18 20:25 Baso % (Auto) 0.4 % (0.0-1.8) 07/21/18 20:25 Lymph # 2.4 K/mm3 (1.2-5.4) 07/21/18 20:25 Valencia # 0.4 K/mm3 (0.0-0.8) 07/21/18 20:25 Eos # 0.2 K/mm3 (0.0-0.4) 07/21/18 20:25 Baso # 0.0 K/mm3 (0.0-0.1) 07/21/18 20:25 Seg Neutrophils % 53.7 % (40.0-70.0) 07/21/18 20:25 Seg Neutrophils # 3.5 K/mm3 (1.8-7.7) 07/21/18 20:25 D-Dimer 153.37 ng/mlDDU (0-234) 07/21/18 23:15 Sodium 139 mmol/L (137-145) 07/24/18 06:26 Potassium 3.7 mmol/L (3.6-5.0) 07/24/18 06:26 Chloride 103.4 mmol/L (98-107) 07/24/18 06:26 Carbon Dioxide 25 mmol/L (22-30) 07/24/18 06:26 Anion Gap 14 mmol/L 07/24/18 06:26 BUN 6 mg/dL (9-20) L 07/24/18 06:26 Creatinine 1.0 mg/dL (0.8-1.5) 07/24/18 06:26 Estimated GFR > 60 ml/min 07/24/18 06:26 BUN/Creatinine Ratio 6 % 07/24/18 06:26 Glucose 261 mg/dL (75-100) H 07/24/18 06:26 POC Glucose 225 (70-105) H 07/24/18 05:52 Calcium 8.2 mg/dL (8.4-10.2) L 07/24/18 06:26 Total Bilirubin 0.40 mg/dL (0.1-1.2) 07/21/18 20:25 AST 20 units/L (5-40) 07/21/18 20:25 ALT 30 units/L (7-56) 07/21/18 20:25 Alkaline Phosphatase 115 units/L (35-129) 07/21/18 20:25 Troponin T < 0.010 ng/mL (0.00-0.029) 07/22/18 04:48 Total Protein 6.7 g/dL (6.3-8.2) 07/21/18 20:25 Albumin 4.0 g/dL (3.9-5) 07/21/18 20:25 Albumin/Globulin Ratio 1.5 % 07/21/18 20:25 Urine Color Yellow (Yellow) 07/22/18 07:44 Urine Turbidity Clear (Clear) 07/22/18 07:44 Urine pH 6.0 (5.0-7.0) 07/22/18 07:44 Ur Specific Elizabeth 1.030 (1.003-1.030) 07/22/18 07:44 Urine Protein <15 mg/dl mg/dL (Negative) 07/22/18 07:44 Urine Glucose (UA) >=500 mg/dL (Negative) 07/22/18 07:44 Urine Ketones Tr mg/dL (Negative) 07/22/18 07:44 Urine Blood Neg (Negative) 07/22/18 07:44 Urine Nitrite Neg (Negative) 07/22/18 07:44 Urine Bilirubin Neg (Negative) 07/22/18 07:44 Urine Urobilinogen 4.0 mg/dL (<2.0) 07/22/18 07:44 Ur Leukocyte Esterase Neg (Negative) 07/22/18 07:44 Urine WBC (Auto) 1.0 /HPF (0.0-6.0) 07/22/18 07:44 Urine RBC (Auto) < 1.0 /HPF (0.0-6.0) 07/22/18 07:44 U Epithel Cells (Auto) 1.0 /HPF (0-13.0) 07/22/18 07:44 Urine Bacteria (Auto) 1+ /HPF (Negative) 07/22/18 07:44 Urine Mucus Few /HPF 07/22/18 07:44 Urine Sperm Few /HPF (SLASHER HAND) 07/22/18 07:44 Influenza A (Rapid) Negative (Negative) 07/21/18 22:40 Influenza B (Rapid) Negative (Negative) 07/21/18 22:40
[2018-07-24] MEDS: BABY ASPIRIN PO SCH (13:39)
[2018-07-24] MEDS: LOVENOX SUB-Q SCH (13:40)
[2018-07-24] MEDS ORDERED: NACL 0.9% 1000 ML 1,000 ML IV SCH ×2 (15:00→17:00)
--- NOTE | 2018-07-24 16:58 | Anesthesia Consultation ---
Anesthesia Consult and Med Hx Date of service: 07/24/18 - Airway Anesthetic Teeth Evaluation: Poor ROM Head & Neck: Adequate Mental/Hyoid Distance: Adequate Mallampati Class: Class II Intubation Access Assessment: Probably Good - Pre-Operative Health Status ASA Pre-Surgery Classification: ASA3 Proposed Anesthetic Plan: MAC - Pulmonary Hx Smoking: Yes Hx Asthma: No COPD: No Hx Pneumonia: Yes Hx Sleep Apnea: Yes - Cardiovascular System Hx Hypertension: Yes Hx Heart Attack/AMI: Yes (2007 and 2015 with stents placement) - Central Nervous System Hx Seizures: Yes Hx Psychiatric Problems: Yes - Endocrine Hx End Stage Renal Disease: No - Other Systems Hx Cancer: Yes Hx Obesity: Yes (BMi 39.1)
--- NOTE | 2018-07-24 16:59 | Anesthesia Day of Surgery ---
Anesthesia Day of Surgery - Day of Surgery Patient Examined: Yes Patient H&P Reviewed: Yes Patient is NPO: Yes
[2018-07-24] MEDS ORDERED: DIPRIVAN 10 MG/ML IV ONE (17:05)
--- NOTE | 2018-07-24 17:14 | Post Operative Note ---
Pre-op diagnosis: Dysphagia Post-op diagnosis: other (Gastritis/Esophagitis) Findings: 1. Moderate natalie esophagitis; random biopsy of mid-esophagus 2. Mild antrum gastritis; cold bx 3. Normal duodenum Procedure: EGD with cold biopsy Anesthesia: MAC Surgeon: ROBERTO MORRIS Estimated blood loss: minimal Pathology: list (1. Gastric antrum. 2. Middle third of esophagus.) Specimen disposition: to lab Condition: stable Disposition: floor (1. Protonix daily, and fluconazole x 7 days. 2. Resume diabetic diet. 3. Compliance with DM diet and weight loss encouraged.)
[2018-07-24] MEDS: PROTONIX PO SCH (18:48)
[2018-07-24] MEDS: DIFLUCAN PO SCH (18:49)
--- NOTE | 2018-07-24 20:01 | Operative Report ---
PROCEDURE PERFORMED: Esophagogastroduodenoscopy with cold biopsy. PREOPERATIVE DIAGNOSIS: Dysphagia. POSTOPERATIVE DIAGNOSES: Gastritis and esophagitis. ENDOSCOPIST: José Miguel Pardo MD INSTRUMENT: Animated Speech video endoscope. MEDICATIONS: MAC anesthesia by Anesthesia Services. COMPLICATIONS: No apparent complications. ESTIMATED BLOOD LOSS: Minimal. SPECIMENS: 1. Gastric antrum. 2. Middle third of the esophagus. IMPLANTS: None. ASSISTANTS: None. CONDITION AT COMPLETION: Stable. TECHNIQUE: The patient was informed of the risks and benefits of the procedure. He signed the informed consent to proceed. He was placed in the left lateral decubitus position. The above sedative medications were given. His vital signs remained stable throughout the procedure. The instrument was advanced from the mouth to the second portion of the duodenum under direct visualization. At that point, the bowel was insufflated and the endoscope was slowly withdrawn. FINDINGS: 1. Normal duodenum. 2. Mild erythema in the antrum of the stomach consistent with gastritis, status post cold biopsy. 3. No significant hiatal hernia. 4. Moderate Anita esophagitis throughout the mid and lower third of the esophagus with underlying esophagitis. ____ cold biopsies were taken of the middle third. RECOMMENDATIONS: 1. Protonix daily therapy. 2. Fluconazole for the next 7 days. 3. Resume diabetic diet. 4. Compliance with diabetic diet and weight loss encouraged. 5. Okay to discharge the patient home for our service and follow up in clinic. JOB# [id number] DARREN/NTS
[2018-07-24] MEDS: LANTUS SUB-Q SCH (21:31)
[2018-07-25 08:01] VITALS: BP 129/69
[2018-07-25] MEDS: DUONEB *Not for PRN Use IH SCH ×2 (09:02→14:02)
[2018-07-25] MEDS: MUCINEX ER PO SCH (09:53)
[2018-07-25] MEDS: DIFLUCAN PO SCH (09:53)
[2018-07-25] MEDS: PROTONIX PO SCH (09:53)
[2018-07-25] MEDS: LOVENOX SUB-Q SCH (09:53)
[2018-07-25] MEDS: BABY ASPIRIN PO SCH (09:53)
[2018-07-25] MEDS: KEPPRA PO SCH (09:53)
[2018-07-25] MEDS: HumaLOG SUB-Q SCH (09:58)
[2018-07-25] MEDS: LYRICA PO SCH ×2 (09:58)
--- NOTE | 2018-07-25 11:30 | Discharge Summary ---
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 In may, 2018 he went to [facility] with cold (coughing), cp, n/v and abx given, then went to [place], [place] and again sob and cp jul 09 admitted at [facility]. Then he flew to [place] for the football game on , he had 2 seizures because not taking keppra because n/v, left [facility]. * 2vCXR: unremarkable * Troponin T negative x 3 Chest pains due to Esophagitis/GERD N/V, intractable with Dysphagia to solids from [place] Esophagitis DM uncontrolled DM Seizure disorder: continue keppra CAD with 3 stents by history: cardiology did evaluate and ordered ECHO which appears unremarkable. EGD by Dr. Roberto Morris Date: 07/24/18 17:12 Pre-op diagnosis: Dysphagia Post-op diagnosis: other (Gastritis/Esophagitis) Findings: 1. Moderate natalie esophagitis; random biopsy of mid-esophagus 2. Mild antrum gastritis; cold bx 3. Normal duodenum Procedure: EGD with cold biopsy Anesthesia: MAC Surgeon: ROBERTO MORRIS Estimated blood loss: minimal Pathology: list (1. Gastric antrum. 2. Middle third of esophagus.) Specimen disposition: to lab Condition: stable Disposition: floor (1. Protonix daily, and fluconazole x 7 days. 2. Resume diabetic diet. 3. Compliance with DM diet and weight loss encouraged.) Disposition: TO HOME OR SELFCARE Time spent for discharge: 36 minutes Core Measure Documentation - Palliative Care Palliative Care/ Comfort Measures: Not Applicable - Core Measures Any of the following diagnoses?: none - VTE Discharge Requirements Deep Vein Thrombosis/Pulmonary Embolism Present on Admission: No Has pt received <5 days of overlap therapy or INR<2.0: No Anticoagulant overlap therapy prescribed at discharge: No Contraindication No Overlap Therapy order at DC: Not Indicated Exam - Physical Exam Narrative exam: Gen: WDWN, NAD, Awake, Alert, Orientated HEENT: NCAT, EOMI, PERRL, OP Clear Neck: supple, no adenopathy, no thyromegaly, no JVD CVS/Heart: RRR, normal S1S2, pulses present bilaterally Chest/Lungs: CTA B, Symmetrical chest expansion, good air entry bilaterally GI/Abdomen: soft, NTND, good bowel sounds, no guarding or rebound /Bladder: no suprapubic tenderness, no CVA or paraspinal tenderness Extermity/Skin: no c/c/e, no obvious rash MSK: FROM x 4 Neuro: CN 2-12 grossly intact, no new focal deficits Psych: anxious - Constitutional Vitals: Temp Pulse Resp BP Pulse Ox 98.1 F 86 18 129/69 95 07/25/18 08:00 07/25/18 08:00 07/25/18 08:00 07/25/18 08:00 07/25/18 08:00 Plan Activity: other (no strenous activity until cleared by PCP) Diet: low salt, diabetic Special Instructions: record daily BP diary, record blood sugar diary, smoking cessation Follow up with: [facility] [Provider Group] - 7 Days LINNEA JIMENEZ MD [Staff Physician] - 14 Days Prescriptions: Fluconazole [Diflucan TAB] 100 mg PO QDAY #7 tablet Pantoprazole [Protonix TAB] 40 mg PO QDAY #30 tablet
--- NOTE | 2018-07-25 13:14 | Gastroenterology Progress Note ---
Addendum entered and electronically signed by ROBERTO MORRIS MD 07/25/18 19:23: I have personally interviewed and examined the patient. I agree with the above A/P. Patient to f/u in the clinic for biopsy results. Original Note: Assessment and Plan 1.dysphagia -s/p EGD yesterday that showed moderate natalie esophagitis and mild gastritis -bx results pending -clinically, patient reports dysphagia is improved today. Denies abd pain or N/V. Tolerating diet. -continue PPI and fluconazole x 7 days -optimize glycemic control (compliance with DM diet/wt loss encouraged) -continue supportive care -patient okay to be d/c per GI standpoint on current medications with follow up in clinic in 2-3 weeks -will sign off, please call if needed Subjective Date of service: 07/25/18 Principal diagnosis: dysphagia Interval history: Patient w/o acute distress. Reports feeling better today with dysphagia improve d. Tolerating diet. Denies abd pain or N/V. Objective - Constitutional Vitals: Temp Pulse Resp BP Pulse Ox 98.1 F 87 18 129/69 95 07/25/18 08:00 07/25/18 10:00 07/25/18 08:00 07/25/18 08:00 07/25/18 08:00 General appearance: no acute distress - Respiratory Respiratory: bilateral: CTA - Cardiovascular Rhythm: regular Heart Sounds: Present: S1 & S2 - Gastrointestinal General gastrointestinal: Present: soft, non-tender, non-distended, normal bowel sounds - Labs CBC & Chem 7: 07/24/18 06:26 07/24/18 06:26 Labs: Laboratory Results - last 24 hr 07/24/18 07/24/18 07/24/18 11:27 16:21 21:55 POC Glucose 208 H 110 H 215 H 07/25/18 06:23 POC Glucose 114 H
--- NOTE | 2018-07-25 13:55 | Progress Note ---
Assessment and Plan Atypical chest pain/Persistent cough (nonproductive) Chest pain currently resolved MPI 08/14/15: no ischemia/no necrosis/normal LV systolic function No EKG changes, negative troponin Echo reviewed - EF 50-55%, mild LVH. Dysphagia S/p EGD. GI recs noted. Coronary artery disease status post stents Pt reports one PCI in 2005 and another in 05/2018 Cont home medication regimen, including ASA 81 and Plavix. Hypertension hyperlipidemia seizure disorder tobacco abuse diabetes Currently stable cardiac status. Pt may discharge home from cardiology standpoint. Recommend pt follow up with his primary cardiology team at [facility] within 1-2 weeks of hospital discharge. Pt verbalizes understanding. The patient has been seen in conjunction with Dr. Daniels who agrees with the assessment and plan of care. Subjective Date of service: 07/25/18 Principal diagnosis: dysphagia Interval history: pt resting in bed, no current complaints. Objective Last Vital Signs Temp 98.1 F 07/25/18 08:00 Pulse 87 07/25/18 10:00 Resp 18 07/25/18 08:00 BP 129/69 07/25/18 08:00 Pulse Ox 95 07/25/18 08:00 - Physical Examination General: No Apparent Distress HEENT: Positive: PERRL, EOMI Neck: Positive: neck supple, trachea midline Cardiac: Positive: Reg Rate and Rhythm, S1/S2 Lungs: Positive: clear to auscultation Neuro: Positive: Grossly Intact Abdomen: Positive: Unremarkable, Soft, Active Bowel Sounds Skin: Negative: Rash, Suspicious Lesions Extremities: Present: warm. Absent: edema - Imaging and Cardiology EKG: image reviewed
[2018-07-25] MEDS ORDERED: PLAVIX PO SCH (14:00)
[2018-07-25] MEDS: BROVANA NEBU IH SCH (14:01)
[2018-07-25] MEDS: PULMICORT IH SCH ×2 (14:01→14:02)
== END 2018-07-25 14:00 | disposition home or self-care (01) | DRG 369 ==
LOC: ED 19:58 → 4A 23:53
PROVIDERS: ADMIT Internal Medicine; ATTEND Internal Medicine
PROC: 0DB28ZX Excision of Middle Esophagus, Via Natural or Artificial Opening Endoscopic, Diagnostic (ICD-10-PCS; principal; 2018-07-24)
PROC: 0DB68ZX Excision of Stomach, Via Natural or Artificial Opening Endoscopic, Diagnostic (ICD-10-PCS; 2018-07-24)
DX: B37.81 Candidal esophagitis (principal); I25.110 Atherosclerotic heart disease of native coronary artery with unstable angina pectoris; K21.0 Gastro-esophageal reflux disease with esophagitis; I25.2 Old myocardial infarction; E10.9 Type 1 diabetes mellitus without complications; F41.9 Anxiety disorder, unspecified; F17.210 Nicotine dependence, cigarettes, uncomplicated; E78.5 Hyperlipidemia, unspecified; I10 Essential (primary) hypertension; G40.909 Epilepsy, unspecified, not intractable, without status epilepticus; R13.10 Dysphagia, unspecified; E66.9 Obesity, unspecified; K29.70 Gastritis, unspecified, without bleeding; Z90.49 Acquired absence of other specified parts of digestive tract; Z94.7 Corneal transplant status; Z68.39 Body mass index [BMI] 39.0-39.9, adult; Z82.49 Family history of ischemic heart disease and other diseases of the circulatory system; Z83.3 Family history of diabetes mellitus; Z88.0 Allergy status to penicillin; Z88.8 Allergy status to other drugs, medicaments and biological substances; Z91.041 Radiographic dye allergy status; Z79.4 Long term (current) use of insulin; Z95.5 Presence of coronary angioplasty implant and graft
CPT/HCPCS: 36415; 71046; 80048; 80053; 81001; 82962; 84484; 85025; 85027; 85379; 87400; 88305; 88342; 93005; 93010; 93306; 94640; 99406; G0378; J1650; J1815; J2270; J2405; J2704; J3010; J7030

== ENCOUNTER 2018-08-01 20:09 | Emergency (ER) | payer MEDICAID ==
[2018-08-01 21:11] LABS: Basophils % (Auto) 0.9 % (0.0-1.8); Eosinophils # (Auto) 0.1 K/mm3 (0.0-0.4); Eosinophils % (Auto) 2.1 % (0.0-4.3); Hematocrit 48.6 % (35.5-45.6); Hemoglobin 16.5 gm/dl (11.8-15.2); Lymphocytes % (Auto) 38.5 % (13.4-35.0); Mean Corpuscular HGB Conc 34 % (32-34); Mean Corpuscular Volume 86 fl (84-94); Monocytes # (Auto) 0.4 K/mm3 (0.0-0.8); Monocytes % (Auto) 7.9 % (0.0-7.3); Platelet Count 183 K/mm3 (140-440); Red Blood Count 5.63 M/mm3 (3.65-5.03); Red Cell Distribution Width 13.8 % (13.2-15.2)
[2018-08-01 21:29] LABS: Alanine Aminotransferase 30 units/L (7-56); Albumin 4.1 g/dL (3.9-5); BUN/Creatinine Ratio 12; Blood Urea Nitrogen 12 mg/dL (9-20); Calcium 9.1 mg/dL (8.4-10.2); Hemolysis Index 27
[2018-08-01] MEDS ORDERED: ALUM-MAG HYDROX-SIMETH 200-200-20MG/5ML PO ONE (21:48)
[2018-08-01] MEDS ORDERED: LIDOCAINE VISCOUS 2% PO ONE (21:48)
--- NOTE | 2018-08-01 21:52 | Emergency Department Report ---
ED General Adult HPI - General Chief complaint: Dyspnea/Respdistress Stated complaint: SOB Time Seen by Provider: 08/01/18 21:42 Source: patient Mode of arrival: Ambulatory Limitations: No Limitations - History of Present Illness Initial comments: Patient is 47 years old male with history of asthma, diabetes and coronary artery disease with 3 stents. Patient was recently discharged from the hospital for similar complaint. Patient presented today complaining of difficulty breathing, nausea vomiting and diarrhea. He also stated that he has been having and chest tightness minutes of the left side. Cold sweats. Sore throat. Patient denied any fever. - Related Data Home Medications Medication Instructions Recorded Confirmed Last Taken Aspirin [Aspirin BABY CHEW TAB] 81 mg PO QDAY 08/13/15 07/22/18 04/12/18 09:00 Insulin Aspart [NovoLOG 100 0 unit SQ AC 04/07/18 07/22/18 04/12/18 19:00 UNITS/ML VIAL] Insulin Glargine,Hum.rec.anlog 35 units SQ QHS 04/07/18 07/22/18 04/12/18 22:00 [Lantus] levETIRAcetam [Keppra TAB] 1,000 mg PO BID 04/07/18 07/22/18 04/12/18 22:00 Previous Rx's Medication Instructions Recorded Last Taken Type Benzonatate [Tessalon Perles] 100 mg PO Q8HR PRN #30 capsule 06/18/18 Unknown Rx Fluconazole [Diflucan TAB] 100 mg PO QDAY #7 tablet 07/25/18 Unknown Rx Pantoprazole [Protonix TAB] 40 mg PO QDAY #30 tablet 07/25/18 Unknown Rx Allergies Allergy/AdvReac Type Severity Reaction Status Date / Time metoclopramide HCl Allergy Swelling Verified 04/07/18 15:41 [From Reglan] Penicillins Allergy Swelling Verified 04/07/18 15:41 ibuprofen AdvReac Swelling Verified 04/13/18 11:12 iv contract dy Allergy Swelling Uncoded 06/18/18 09:34 ED Review of Systems ROS: Stated complaint: SOB Other details as noted in HPI Comment: All other systems reviewed and negative Constitutional: denies: chills, fever Respiratory: shortness of breath, SOB with exertion. denies: cough, orthopnea, SOB at rest, wheezing Cardiovascular: chest pain Gastrointestinal: denies: abdominal pain, nausea, vomiting, diarrhea, constipat ion, hematemesis, melena, hematochezia Musculoskeletal: denies: back pain Neurological: denies: headache, weakness, numbness, paresthesias, confusion, abnormal gait ED Past Medical Hx - Past Medical History Previous Medical History?: Yes Hx Hypertension: Yes Hx Heart Attack/AMI: Yes (2007 and 2015 with stents placement) Hx Congestive Heart Failure: No Hx Diabetes: Yes (Type 1) Hx Seizures: Yes Hx Psychiatric Treatment: Yes (anxiety) Hx Asthma: No Hx COPD: No Hx HIV: No - Surgical History Hx Coronary Stent: Yes (2007, 3 stents) Hx Appendectomy: Yes 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 - Social History Smoking Status: Former Smoker Substance Use Type: None - Medications Home Medications: Home Medications Medication Instructions Recorded Confirmed Last Taken Type Aspirin [Aspirin BABY CHEW TAB] 81 mg PO QDAY 08/13/15 07/22/18 04/12/18 09:00 History Insulin Aspart [NovoLOG 100 0 unit SQ AC 04/07/18 07/22/18 04/12/18 19:00 History UNITS/ML VIAL] Insulin Glargine,Hum.rec.anlog 35 units SQ QHS 04/07/18 07/22/18 04/12/18 22:00 History [Lantus] levETIRAcetam [Keppra TAB] 1,000 mg PO BID 04/07/18 07/22/18 04/12/18 22:00 History Benzonatate [Tessalon Perles] 100 mg PO Q8HR PRN #30 capsule 06/18/18 07/22/18 Unknown Rx Fluconazole [Diflucan TAB] 100 mg PO QDAY #7 tablet 07/25/18 Unknown Rx Pantoprazole [Protonix TAB] 40 mg PO QDAY #30 tablet 07/25/18 Unknown Rx ED Physical Exam - General Limitations: No Limitations General appearance: alert, in no apparent distress - Head Head exam: Present: atraumatic, normocephalic, normal inspection - Eye Eye exam: Present: normal appearance - ENT ENT exam: Present: normal exam, normal orophraynx, mucous membranes moist - Neck Neck exam: Present: normal inspection, full ROM. Absent: tenderness, meningism us, lymphadenopathy, thyromegaly - Respiratory Respiratory exam: Present: normal lung sounds bilaterally. Absent: respiratory distress, wheezes, rales, rhonchi, stridor, accessory muscle use, decreased breath sounds, prolonged expiratory - Cardiovascular Cardiovascular Exam: Present: regular rate, normal rhythm, normal heart sounds - GI/Abdominal GI/Abdominal exam: Present: soft, normal bowel sounds. Absent: distended, tenderness, guarding, rebound, rigid, organomegaly, mass, bruit, pulsatile mass, hernia - Extremities Exam Extremities exam: Present: normal inspection, full ROM, normal capillary refill. Absent: pedal edema, calf tenderness - Back Exam Back exam: Present: normal inspection, full ROM. Absent: tenderness, CVA tenderness (R), CVA tenderness (L), muscle spasm, paraspinal tenderness, vertebral tenderness - Neurological Exam Neurological exam: Present: alert, oriented X3, CN II-XII intact, normal gait - Skin Skin exam: Present: warm, intact, normal color ED Course Vital Signs 08/01/18 08/01/18 08/01/18 20:18 22:00 22:14 Temperature 97.8 F Pulse Rate 109 H 92 H Respiratory 20 18 18 Rate Blood Pressure 142/89 120/84 O2 Sat by Pulse 100 98 Oximetry 08/01/18 08/01/18 08/01/18 22:16 22:30 22:46 Temperature 98.5 F Pulse Rate 97 H 92 H 100 H Respiratory 20 22 16 Rate Blood Pressure 120/84 136/88 120/84 O2 Sat by Pulse 98 Oximetry 08/01/18 08/01/18 23:00 23:16 Temperature Pulse Rate 92 H 94 H Respiratory 16 18 Rate Blood Pressure 131/86 136/88 O2 Sat by Pulse Oximetry ED Medical Decision Making - Lab Data Result diagrams: 08/01/18 20:51 08/01/18 20:51 - EKG Data -: EKG Interpreted by Ca EKG shows normal: sinus rhythm Rate: tachycardia - EKG Data Interpretation: no acute changes - Radiology Data Radiology results: report reviewed Referring Physician: MARLO GONZALEZ Patient Name: QUINCY CORDERO Date of : 1970 Sex: Male Report Date: 2018-08-01 Report Status: Finalized Findings [address] [address] XRay Report Signed Patient: QUINCY CORDERO JR MR#: [id number] : 1970 Acct:[id number] Age/Sex: 47 / M ADM Date: 08/01/18 Loc: ED Attending Dr: Ordering Physician: NOEMI BENNETT Date of Service: 08/01/18 Procedure(s): XR chest routine 2V Accession Number(s): [id number] cc: NOEMI BENNETT Fluoro Time In Minutes: FINAL REPORT EXAM: XR CHEST ROUTINE 2V HISTORY: DEEP with chest pain TECHNIQUE: 2 views of the chest. PRIORS: 07/21/2018 FINDINGS: The cardiomediastinal silhouette appears normal. The lungs are clear. The bones and soft tissues are unremarkable. IMPRESSION: No evidence of acute cardiopulmonary disease Transcribed By: YANI Dictated By: JOSÉ LUIS SAUCEDA MD Electronically Authenticated By: JOSÉ LUIS SAUCEDA MD Signed Date/Time: 08/01/182218 DD/ 20 TD/TT: 08/01/182220 - Medical Decision Making Patient is 47 years old male with history of asthma, diabetes and coronary artery disease with 3 stents. Patient was recently discharged from the hospital for similar complaint. Patient presented today complaining of difficulty breathing, nausea vomiting and diarrhea. He also stated that he has been having and chest tightness minutes of the left side. Cold sweats. Sore throat. Patient denied any fever. Patient is stated that he is feeling much better after GI cocktail. At sets of troponin is negative. Chest x-ray is negative for acute findings. 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 Also patient would need to follow up with his GI doctor. [facility] agreed with the plan. Critical care attestation.: If time is entered above; I have spent that time in minutes in the direct care of this critically ill patient, excluding procedure time. ED Disposition Clinical Impression: Chest pain, Esophagitis Disposition: DC-01 TO HOME OR SELFCARE Is pt being admited?: No Condition: Stable Instructions: Chest Pain (ED), Diet for Ulcers and Gastritis (ED) Referrals: MARU KNIGHT MD [Primary Care Provider] - 3-5 Days
--- NOTE | 2018-08-01 22:19 | XRay Report ---
FINAL REPORT EXAM: XR CHEST ROUTINE 2V HISTORY: DEEP with chest pain TECHNIQUE: 2 views of the chest. PRIORS: 07/21/2018 FINDINGS: The cardiomediastinal silhouette appears normal. The lungs are clear. The bones and soft tissues are unremarkable. IMPRESSION: No evidence of acute cardiopulmonary disease
[2018-08-01 23:18] VITALS: BP 136/88
== END 2018-08-02 00:52 | disposition home or self-care (01) ==
LOC: ED 20:09
DX: K20.9 Esophagitis, unspecified (principal); R07.89 Other chest pain; I11.0 Hypertensive heart disease with heart failure; E10.9 Type 1 diabetes mellitus without complications; J45.909 Unspecified asthma, uncomplicated; F41.9 Anxiety disorder, unspecified; Z95.1 Presence of aortocoronary bypass graft; Z79.4 Long term (current) use of insulin; Z79.82 Long term (current) use of aspirin; Z88.0 Allergy status to penicillin; Z88.5 Allergy status to narcotic agent; Z90.49 Acquired absence of other specified parts of digestive tract; Z87.891 Personal history of nicotine dependence
CPT/HCPCS: 36415; 71046; 80053; 83880; 84484; 85025; 85379; 93005; 93010; 99284

== ENCOUNTER 2018-08-17 22:07 | Inpatient (IN) | payer MEDICAID ==
[2018-08-18 00:26] LABS: Basophils % (Auto) 0.6 % (0.0-1.8); Eosinophils # (Auto) 0.2 K/mm3 (0.0-0.4); Eosinophils % (Auto) 2.7 % (0.0-4.3); Hematocrit 46.6 % (35.5-45.6); Hemoglobin 16.2 gm/dl (11.8-15.2); Lymphocytes # (Auto) 2.6 K/mm3 (1.2-5.4); Lymphocytes % (Auto) 45.5 % (13.4-35.0); Mean Corpuscular HGB Conc 35 % (32-34); Mean Corpuscular Volume 86 fl (84-94); Monocytes # (Auto) 0.5 K/mm3 (0.0-0.8); Monocytes % (Auto) 8.5 % (0.0-7.3); Platelet Count 180 K/mm3 (140-440); Red Blood Count 5.43 M/mm3 (3.65-5.03); Red Cell Distribution Width 13.6 % (13.2-15.2)
[2018-08-18] MEDS ORDERED: LIDOCAINE VISCOUS 2% PO ONE (00:29)
[2018-08-18] MEDS ORDERED: ZOFRAN IV ONE ×2 (00:30→01:14)
[2018-08-18] MEDS ORDERED: NACL 0.9% 1000 ML 1,000 ML IV ONE (00:30)
[2018-08-18 00:49] LABS: Alanine Aminotransferase 32 units/L (7-56); Albumin 4.2 g/dL (3.9-5); BUN/Creatinine Ratio 10; Blood Urea Nitrogen 11 mg/dL (9-20); Calcium 9.3 mg/dL (8.4-10.2); Hemolysis Index 18
--- NOTE | 2018-08-18 00:55 | Emergency Department Report ---
ED General Adult HPI - General Chief complaint: Sore Throat Stated complaint: CP Time Seen by Provider: 08/17/18 23:16 Source: patient Mode of arrival: Ambulatory Limitations: No Limitations - History of Present Illness Initial comments: Patient presents to emergency department with chief complaint difficulty with swallowing. The patient was diagnosed with esophagitis secondary to candidiasis EGD. The patient has been on 21 days of Diflucan to no avail. Patient presents to the ED today because he cannot eat or drink anything without vomiting. Dandy vang states he feels like his throat was closing off. Patient has chest pain, shortness breath, headache. -: Gradual Radiation: non-radiation Severity scale (0 -10): 3 Quality: burning Consistency: constant Improves with: rest Worsens with: eating Associated Symptoms: denies other symptoms Treatments Prior to Arrival: none - Related Data Home Medications Medication Instructions Recorded Confirmed Last Taken Aspirin [Aspirin BABY CHEW TAB] 81 mg PO QDAY 08/13/15 07/22/18 04/12/18 09:00 Insulin Aspart [NovoLOG 100 0 unit SQ AC 04/07/18 07/22/18 04/12/18 19:00 UNITS/ML VIAL] Insulin Glargine,Hum.rec.anlog 35 units SQ QHS 04/07/18 07/22/18 04/12/18 22:00 [Lantus] levETIRAcetam [Keppra TAB] 1,000 mg PO BID 04/07/18 07/22/18 04/12/18 22:00 Previous Rx's Medication Instructions Recorded Last Taken Type Benzonatate [Tessalon Perles] 100 mg PO Q8HR PRN #30 capsule 06/18/18 Unknown Rx Fluconazole [Diflucan TAB] 100 mg PO QDAY #7 tablet 07/25/18 Unknown Rx Pantoprazole [Protonix TAB] 40 mg PO QDAY #30 tablet 07/25/18 Unknown Rx Budesonide/Formoterol Fumarate 10.2 gm IH DAILY #1 hfa.aer.ad 08/02/18 Unknown Rx [Symbicort 160-4.5 Mcg Inhaler] Fluconazole [Diflucan TAB] 100 mg PO QDAY #7 tablet 08/02/18 Unknown Rx Sucralfate [Carafate] 1 gm PO ACHS #120 tablet 08/02/18 Unknown Rx Allergies Allergy/AdvReac Type Severity Reaction Status Date / Time metoclopramide HCl Allergy Swelling Verified 04/07/18 15:41 [From Reglan] Penicillins Allergy Swelling Verified 04/07/18 15:41 ibuprofen AdvReac Swelling Verified 04/13/18 11:12 iv contract dy Allergy Swelling Uncoded 06/18/18 09:34 ED Review of Systems ROS: Stated complaint: CP Other details as noted in HPI Comment: All other systems reviewed and negative Constitutional: denies: chills, fever Eyes: denies: eye pain, eye discharge, vision change ENT: denies: ear pain, throat pain Respiratory: denies: cough, shortness of breath, wheezing Cardiovascular: denies: chest pain, palpitations Endocrine: no symptoms reported Gastrointestinal: denies: abdominal pain, nausea, diarrhea Genitourinary: denies: urgency, dysuria Musculoskeletal: denies: back pain, joint swelling, arthralgia Skin: denies: rash, lesions Neurological: denies: headache, weakness, paresthesias Psychiatric: denies: anxiety, depression Hematological/Lymphatic: denies: easy bleeding, easy bruising ED Past Medical Hx - Past Medical History Previous Medical History?: Yes Hx Hypertension: Yes Hx Heart Attack/AMI: Yes (2007 and 2015 with 3 stents placement) Hx Congestive Heart Failure: No Hx Diabetes: Yes (Type 1) Hx Seizures: Yes Hx Psychiatric Treatment: Yes (anxiety) Hx Asthma: No Hx COPD: No Hx HIV: No - Surgical History Hx Coronary Stent: Yes (2007, 3 stents) Hx Appendectomy: Yes 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 - Social History Smoking Status: Light Tobacco Smoker Substance Use Type: None - Medications Home Medications: Home Medications Medication Instructions Recorded Confirmed Last Taken Type Aspirin [Aspirin BABY CHEW TAB] 81 mg PO QDAY 08/13/15 07/22/18 04/12/18 09:00 History Insulin Aspart [NovoLOG 100 0 unit SQ AC 04/07/18 07/22/18 04/12/18 19:00 Hist ory UNITS/ML VIAL] Insulin Glargine,Hum.rec.anlog 35 units SQ QHS 04/07/18 07/22/18 04/12/18 22:00 History [Lantus] levETIRAcetam [Keppra TAB] 1,000 mg PO BID 04/07/18 07/22/18 04/12/18 22:00 History Benzonatate [Tessalon Perles] 100 mg PO Q8HR PRN #30 capsule 06/18/18 07/22/18 Unknown Rx Fluconazole [Diflucan TAB] 100 mg PO QDAY #7 tablet 07/25/18 Unknown Rx Pantoprazole [Protonix TAB] 40 mg PO QDAY #30 tablet 07/25/18 Unknown Rx Budesonide/Formoterol Fumarate 10.2 gm IH DAILY #1 hfa.aer.ad 08/02/18 Unknown Rx [Symbicort 160-4.5 Mcg Inhaler] Fluconazole [Diflucan TAB] 100 mg PO QDAY #7 tablet 08/02/18 Unknown Rx Sucralfate [Carafate] 1 gm PO ACHS #120 tablet 08/02/18 Unknown Rx ED Physical Exam - General Limitations: No Limitations General appearance: alert, in no apparent distress - Head Head exam: Present: atraumatic, normocephalic - Eye Eye exam: Present: normal appearance, PERRL, EOMI - ENT ENT exam: Present: mucous membranes dry - Neck Neck exam: Present: normal inspection - Respiratory Respiratory exam: Present: normal lung sounds bilaterally. Absent: respiratory distress, wheezes, rales - Cardiovascular Cardiovascular Exam: Present: normal rhythm, tachycardia. Absent: systolic murmur, diastolic murmur, rubs, gallop - GI/Abdominal GI/Abdominal exam: Present: soft, normal bowel sounds. Absent: distended, tenderness - Rectal Rectal exam: Present: deferred - Extremities Exam Extremities exam: Present: normal inspection - Back Exam Back exam: Present: normal inspection - Neurological Exam Neurological exam: Present: alert, oriented X3, CN II-XII intact. Absent: motor sensory deficit - Psychiatric Psychiatric exam: Present: normal affect, normal mood - Skin Skin exam: Present: warm, dry, intact, normal color. Absent: rash ED Course Vital Signs 08/17/18 08/17/18 22:24 23:22 Temperature 97.7 F 97.7 F Pulse Rate 99 H 90 Respiratory 19 Rate Blood Pressure 135/90 Blood Pressure 138/107 [Left] O2 Sat by Pulse 98 98 Oximetry ED Medical Decision Making - Lab Data Result diagrams: 08/18/18 00:09 08/18/18 00:09 Lab Results 08/18/18 08/18/18 Range/Units 00:09 00:09 WBC 5.6 (4.5-11.0) K/mm3 RBC 5.43 H (3.65-5.03) M/mm3 Hgb 16.2 H (11.8-15.2) gm/dl Hct 46.6 H (35.5-45.6) % MCV 86 (84-94) fl MCH 30 (28-32) pg MCHC 35 H (32-34) % RDW 13.6 (13.2-15.2) % Plt Count 180 (140-440) K/mm3 Lymph % (Auto) 45.5 H (13.4-35.0) % [place] % (Auto) 8.5 H (0.0-7.3) % Eos % (Auto) 2.7 (0.0-4.3) % Baso % (Auto) 0.6 (0.0-1.8) % Lymph # 2.6 (1.2-5.4) K/mm3 [place] # 0.5 (0.0-0.8) K/mm3 Eos # 0.2 (0.0-0.4) K/mm3 Baso # 0.0 (0.0-0.1) K/mm3 Seg Neutrophils % 42.7 (40.0-70.0) % Seg Neutrophils # 2.4 (1.8-7.7) K/mm3 Sodium 137 (137-145) mmol/L Potassium 4.1 (3.6-5.0) mmol/L Chloride 96.7 L (98-107) mmol/L Carbon Dioxide 26 (22-30) mmol/L Anion Gap 18 mmol/L BUN 11 (9-20) mg/dL Creatinine 1.1 (0.8-1.5) mg/dL Estimated GFR > 60 ml/min BUN/Creatinine Ratio 10 % Glucose 317 H (75-100) mg/dL Calcium 9.3 (8.4-10.2) mg/dL Total Bilirubin 0.40 (0.1-1.2) mg/dL AST 21 (5-40) units/L ALT 32 (7-56) units/L Alkaline Phosphatase 106 (35-129) units/L Total Protein 7.4 (6.3-8.2) g/dL Albumin 4.2 (3.9-5) g/dL Albumin/Globulin Ratio 1.3 % - Medical Decision Making The patient failed a PO challenge Spoke with Dr. Burrows from [facility] and the patient was discussed in detail including his prior EGD. He feels the patient needs to be admitted due to him not being able to eat or drink with plans to repeat EGD Critical care attestation.: If time is entered above; I have spent that time in minutes in the direct care of this critically ill patient, excluding procedure time. ED Disposition Clinical Impression: Dysphagia Disposition: DC-[id number] OP ADMIT IP TO THIS HOSP Is pt being admited?: Yes Does the pt Need Aspirin: No Condition: Stable Referrals: BRYAN FABIAN MD [Primary Care Provider] - 3-5 Days
[2018-08-18] MEDS ORDERED: MORPHINE IV ONE (01:14)
[2018-08-18] MEDS ORDERED: D50W (25GM) Syringe IV PRN ×2 (02:04→15:03)
[2018-08-18] MEDS ORDERED: SODIUM CHLORIDE FLUSH SYRINGE 10 ML IV PRN (02:04)
[2018-08-18] MEDS ORDERED: ZOFRAN IV PRN (02:04)
[2018-08-18] MEDS ORDERED: MORPHINE IV PRN (02:04)
--- NOTE | 2018-08-18 02:09 | History and Physical Report ---
History of Present Illness Date of examination: 08/18/18 History of present illness: 47-year-old man with a history of hypertension, diabetes, coronary artery disease, hyperlipidemia, seizure omes to the emergency room complaining of dysphagia to solid and liquid. He is s/p EGD which showed esophagitis due to Anita. He was given a seven-day course of fluconazole, without any improvement in his symptoms, he saw his primary care physician who gave him 14 day supply same medication. Patient stated he has no improvement in his symptoms Review of systems Constitutional: no weight loss, chills, fever Ears, eyes, nose, mouth and throat: no nasal congestion, no nasal discharge, no sinus pressure, no vision change, no red eye. Neck: No neck pain or rigidity. Cardiovascular: no palpitations, chest pain Respiratory: no cough, shortness of breath Gastrointestinal: no hematochezia, abdominal pain Genitourinary : no frequency , no hematuria Musculoskeletal: no joint swelling or muscle ache Integumentary: no rash, no pruritis Neurological: no parathesias, no focal weakness Endocrine: no cold or heat intolerance, no polyuria or polydipsia Hematologic/Lymphatic: no easy bruising, no easy bleeding, no gland swelling Allergic/Immunologic: no urticaria, no angioedema. PAST MEDICAL HISTORY:hypertension, diabetes, coronary artery disease, hyperlipidemia, seizure PAST SURGICAL HISTORY Appendectomy, right eye SOCIAL HISTORY: Denies alcohol, tobacco, drugs FAMILY HISTORY:cad, DM Medications and Allergies Allergies Allergy/AdvReac Type Severity Reaction Status Date / Time metoclopramide HCl Allergy Swelling Verified 04/07/18 15:41 [From Reglan] Penicillins Allergy Swelling Verified 04/07/18 15:41 ibuprofen AdvReac Swelling Verified 04/13/18 11:12 iv contract dy Allergy Swelling Uncoded 06/18/18 09:34 Home Medications Medication Instructions Recorded Confirmed Last Taken Type Aspirin [Aspirin BABY CHEW TAB] 81 mg PO QDAY 08/13/15 08/18/18 04/12/18 09:00 History Insulin Aspart [NovoLOG 100 0 unit SQ AC 04/07/18 08/18/18 04/12/18 19:00 History UNITS/ML VIAL] Insulin Glargine,Hum.rec.anlog 35 units SQ QHS 04/07/18 08/18/18 04/12/18 22:00 History [Lantus] levETIRAcetam [Keppra TAB] 1,000 mg PO BID 04/07/18 08/18/18 04/12/18 22:00 History Benzonatate [Tessalon Perles] 100 mg PO Q8HR PRN #30 capsule 06/18/18 08/18/18 Unknown Rx Pantoprazole [Protonix TAB] 40 mg PO QDAY #30 tablet 07/25/18 08/18/18 Unknown Rx Sucralfate [Carafate] 1 gm PO ACHS #120 tablet 08/02/18 08/18/18 Unknown Rx Active Meds: Active Medications Dextrose (D50w (25gm) Syringe) 50 ml IV PRN PRN PRN Reason: Hypoglycemia Enoxaparin Sodium (Lovenox) 30 mg SUB-Q QDAY MIKE Sodium Chloride (Nacl 0.45% 1000 Ml) 1,000 mls @ 75 mls/hr IV DIRECT MIKE Morphine Sulfate (Morphine) 2 mg IV Q4H PRN PRN Reason: Pain, Moderate (4-6) Ondansetron HCl (Zofran) 4 mg IV Q4H PRN PRN Reason: Nausea And Vomiting Sodium Chloride (Sodium Chloride Flush Syringe 10 Ml) 10 ml IV BID MIKE Sodium Chloride (Sodium Chloride Flush Syringe 10 Ml) 10 ml IV PRN PRN PRN Reason: LINE FLUSH Exam - Physical Exam Narrative exam: General Apperance: The patient lying in bed, breathing comfortable HEENT: Normocephalic, atraumatic. Pupils equally round and reactive to light, EOMI, no sclericterus or JVD or thyromegaly or nodule. , no carotid bruit, mucous membranes moist, no exudate or erythema Heart: S1-S2, regular is rhythm Lungs: Clear to auscultation bilaterally, breathing comfortable Abdomen: Positive bowel sounds, soft, nontender, nondistended, no organomegaly Extremities: No edema cyanosis clubbing Skin: no rash, nodule, warm and dry Neuro: cranial nerves 2-12 intact, speech is fluent, motor/sensory intact - Constitutional Vitals: Temp Pulse Resp BP Pulse Ox 97.7 F 90 19 148/100 97 08/17/18 23:22 08/17/18 23:22 08/17/18 23:22 08/18/18 01:00 08/18/18 01:00 Results - Labs CBC & Chem 7: 08/18/18 00:09 08/18/18 00:09 Labs: Abnormal lab results 08/18/18 08/18/18 Range/Units 00:09 00:09 RBC 5.43 H (3.65-5.03) M/mm3 Hgb 16.2 H (11.8-15.2) gm/dl Hct 46.6 H (35.5-45.6) % MCHC 35 H (32-34) % Lymph % (Auto) 45.5 H (13.4-35.0) % [place] % (Auto) 8.5 H (0.0-7.3) % Chloride 96.7 L (98-107) mmol/L Glucose 317 H (75-100) mg/dL Assessment and Plan Assessment Dysphagia to solid/liquid hypertension diabetes coronary artery disease hyperlipidemia seizure Plan NPO, consult GI Check fingersticks,DVT prophylaxis
[2018-08-18] MEDS ORDERED: NACL 0.45% 1000 ML 1,000 ML IV SCH (03:00)
[2018-08-18 06:15] LABS: Basophils % (Auto) 0.6 % (0.0-1.8); Eosinophils # (Auto) 0.1 K/mm3 (0.0-0.4); Eosinophils % (Auto) 2.5 % (0.0-4.3); Hematocrit 44.7 % (35.5-45.6); Hemoglobin 15.3 gm/dl (11.8-15.2); Lymphocytes # (Auto) 2.7 K/mm3 (1.2-5.4); Lymphocytes % (Auto) 49.8 % (13.4-35.0); Mean Corpuscular HGB Conc 34 % (32-34); Mean Corpuscular Volume 86 fl (84-94); Monocytes # (Auto) 0.5 K/mm3 (0.0-0.8); Monocytes % (Auto) 8.6 % (0.0-7.3); Platelet Count 150 K/mm3 (140-440); Red Cell Distribution Width 13.5 % (13.2-15.2)
[2018-08-18 06:33] LABS: BUN/Creatinine Ratio 11; Blood Urea Nitrogen 12 mg/dL (9-20); Calcium 8.9 mg/dL (8.4-10.2); Hemolysis Index 17
--- NOTE | 2018-08-18 07:49 | Progress Note ---
Assessment and Plan Assessment and plan: Patient is a 47 yo black man with a history of Hypertension, IDDM type 1, CAD, pna, dyslipidemia, cigar smoking and seizure disorder who initially presented to [facility] ED with chest pains on 07/21/2018 and he was seen by Cardiology and chest pains was thought to be GI related because he was having dysphagia; therefore, he underwent EGD on 07/24/2018 which showed Moderate anita esophagitis and antrum gastritis. I discharged him on 07/25/2018. He came back to [facility] ED on 08/01/2018 with similar compliant and GI cocktail helped his symptoms and he was discharged from ED. He comes back this morning 08/18/2018 with same symptoms. HIV testing never done here, will request. Chest pains due to Esophagitis/GERD N/V, intractable with Dysphagia to solids from Tristan Esophagitis DM uncontrolled DM: SSI, ada diet Seizure disorder: continue keppra CAD with 3 stents by history: Cardiology seen recently Patient saw PCP, Dr. Perez in the office after discharge, HIV testing was done in his office which patient said was negative less than 3 weeks ago. I called Dr. Perez to see if he wants patient transferred to his service and the result of HIV==>will transfer to Dr. Perez's service and he will follow up HIV test results prolonged inpatient services 32 minutes History Interval history: Patient was seen and examined. Follow-up on current diagnosis of Dysphagia/Anita esophagitis. Overnight uneventful. Imaging, nursing note, chart, labs and old chart reviewed. Discussed with patient. Hospitalist Physical - Physical exam Narrative exam: Gen: WDWN, NAD, Awake, Alert, Orientated HEENT: NCAT, EOMI, PERRL, OP Clear Neck: supple, no adenopathy, no thyromegaly, no JVD CVS/Heart: RRR, normal S1S2, pulses present bilaterally Chest/Lungs: CTA B, Symmetrical chest expansion, good air entry bilaterally GI/Abdomen: soft, NTND, good bowel sounds, no guarding or rebound /Bladder: no suprapubic tenderness, no CVA or paraspinal tenderness Extermity/Skin: no c/c/e, no obvious rash MSK: FROM x 4 Neuro: CN 2-12 grossly intact, no new focal deficits Psych: calm - Constitutional Vitals: Temp Pulse Resp BP Pulse Ox 98.3 F 88 19 147/82 95 08/18/18 05:38 08/18/18 05:38 08/18/18 05:38 08/18/18 05:38 08/18/18 05:38 Results - Labs CBC & Chem 7: 08/18/18 05:57 08/18/18 05:57 Labs: Laboratory Last Values WBC 5.5 K/mm3 (4.5-11.0) 08/18/18 05:57 RBC 5.20 M/mm3 (3.65-5.03) H 08/18/18 05:57 Hgb 15.3 gm/dl (11.8-15.2) H 08/18/18 05:57 Hct 44.7 % (35.5-45.6) 08/18/18 05:57 MCV 86 fl (84-94) 08/18/18 05:57 MCH 29 pg (28-32) 08/18/18 05:57 MCHC 34 % (32-34) 08/18/18 05:57 RDW 13.5 % (13.2-15.2) 08/18/18 05:57 Plt Count 150 K/mm3 (140-440) 08/18/18 05:57 Lymph % (Auto) 49.8 % (13.4-35.0) H 08/18/18 05:57 [place] % (Auto) 8.6 % (0.0-7.3) H 08/18/18 05:57 Eos % (Auto) 2.5 % (0.0-4.3) 08/18/18 05:57 Baso % (Auto) 0.6 % (0.0-1.8) 08/18/18 05:57 Lymph # 2.7 K/mm3 (1.2-5.4) 08/18/18 05:57 Barron # 0.5 K/mm3 (0.0-0.8) 08/18/18 05:57 Eos # 0.1 K/mm3 (0.0-0.4) 08/18/18 05:57 Baso # 0.0 K/mm3 (0.0-0.1) 08/18/18 05:57 Seg Neutrophils % 38.5 % (40.0-70.0) L 08/18/18 05:57 Seg Neutrophils # 2.1 K/mm3 (1.8-7.7) 08/18/18 05:57 Sodium 140 mmol/L (137-145) 08/18/18 05:57 Potassium 4.2 mmol/L (3.6-5.0) 08/18/18 05:57 Chloride 102.6 mmol/L (98-107) 08/18/18 05:57 Carbon Dioxide 28 mmol/L (22-30) 08/18/18 05:57 Anion Gap 14 mmol/L 08/18/18 05:57 BUN 12 mg/dL (9-20) 08/18/18 05:57 Creatinine 1.1 mg/dL (0.8-1.5) 08/18/18 05:57 Estimated GFR > 60 ml/min 08/18/18 05:57 BUN/Creatinine Ratio 11 % 08/18/18 05:57 Glucose 292 mg/dL (75-100) H 08/18/18 05:57 Calcium 8.9 mg/dL (8.4-10.2) 08/18/18 05:57 Total Bilirubin 0.40 mg/dL (0.1-1.2) 08/18/18 00:09 AST 21 units/L (5-40) 08/18/18 00:09 ALT 32 units/L (7-56) 08/18/18 00:09 Alkaline Phosphatase 106 units/L (35-129) 08/18/18 00:09 Total Protein 7.4 g/dL (6.3-8.2) 08/18/18 00:09 Albumin 4.2 g/dL (3.9-5) 08/18/18 00:09 Albumin/Globulin Ratio 1.3 % 08/18/18 00:09
--- NOTE | 2018-08-18 09:35 | Gastroenterology Consultation ---
Addendum entered and electronically signed by LINNEA JIMENEZ MD 08/18/18 18:31: pt seen and examined, chart reviewed, consult below reviewed - pt presents w/ dysphagia - denies other GI complaints vss p.e.: nad abd: soft - EGD today - other rec as noted below Original Note: History of Present Illness - Reason for Consult Consult date: 08/18/18 esophagitis Requesting physician: TANNER LAU - History of Present Illness Patient is a 47 y/o male with PMH of CAD, DM, HTN, COPD, hyperlipidemia, and seizures who presented to ED with c/o difficulty swallowing to which GI has been consulted. Patient is previously known to our service from a recent consult on 07/23/2018 for similar symptoms with undergoing an EGD on 07/24/2018 that showed natalie esophagitis and mild gastritis. This morning patient was resting in bed w/o acute distress. He reports his dysphagia has continued w/o change despite completing previously prescribed Diflucan, along with being compliant with daily PPI. He c/o dysphagia to both liquids and solids with associated N/V and epigastric discomfort. Denies CP, SOB, wt loss, signs of bleeding or LGI symptoms. Takes daily ASA. Past History Past Surgical History: appendectomy, PTCA ( (Stent x 3)), Other (right eye) Social history: smoking (occasional cigars). denies: alcohol abuse Family history: CAD, diabetes Medications and Allergies Allergies Allergy/AdvReac Type Severity Reaction Status Date / Time metoclopramide HCl Allergy Swelling Verified 04/07/18 15:41 [From Reglan] Penicillins Allergy Swelling Verified 04/07/18 15:41 ibuprofen AdvReac Swelling Verified 04/13/18 11:12 iv contract dy Allergy Swelling Uncoded 06/18/18 09:34 Home Medications Medication Instructions Recorded Confirmed Last Taken Type Aspirin [Aspirin BABY CHEW TAB] 81 mg PO QDAY 08/13/15 08/18/18 04/12/18 09:00 History Insulin Aspart [NovoLOG 100 0 unit SQ AC 04/07/18 08/18/18 04/12/18 19:00 History UNITS/ML VIAL] Insulin Glargine,Hum.rec.anlog 35 units SQ QHS 04/07/18 08/18/18 04/12/18 22:00 History [Lantus] levETIRAcetam [Keppra TAB] 1,000 mg PO BID 04/07/18 08/18/18 04/12/18 22:00 History Benzonatate [Tessalon Perles] 100 mg PO Q8HR PRN #30 capsule 06/18/18 08/18/18 Unknown Rx Pantoprazole [Protonix TAB] 40 mg PO QDAY #30 tablet 07/25/18 08/18/18 Unknown Rx Sucralfate [Carafate] 1 gm PO ACHS #120 tablet 08/02/18 08/18/18 Unknown Rx Active Meds: Active Medications Dextrose (D50w (25gm) Syringe) 50 ml IV PRN PRN PRN Reason: Hypoglycemia Enoxaparin Sodium (Lovenox) 40 mg SUB-Q QDAY@1000 MIKE Sodium Chloride (Nacl 0.45% 1000 Ml) 1,000 mls @ 75 mls/hr IV DIRECT MIKE Last Admin: 08/18/18 05:51 Dose: 75 mls/hr Documented by: Morphine Sulfate (Morphine) 2 mg IV Q4H PRN PRN Reason: Pain, Moderate (4-6) Last Admin: 08/18/18 05:50 Dose: 2 mg Documented by: Ondansetron HCl (Zofran) 4 mg IV Q4H PRN PRN Reason: Nausea And Vomiting Sodium Chloride (Sodium Chloride Flush Syringe 10 Ml) 10 ml IV BID MIKE Sodium Chloride (Sodium Chloride Flush Syringe 10 Ml) 10 ml IV PRN PRN PRN Reason: LINE FLUSH medications reviewed/updated as required Review of Systems - Review of Systems All systems: negative Gastrointestinal: abdominal pain (epigastric), nausea, vomiting, other (dysphagia) Exam - Constitutional Vital Signs: Temp Pulse Resp BP Pulse Ox 98.3 F 88 19 147/82 95 08/18/18 05:38 08/18/18 05:38 08/18/18 05:38 08/18/18 05:38 08/18/18 05:38 General appearance: no acute distress - EENT Eyes: PERRL, EOM intact ENT: hearing intact - Respiratory Respiratory: bilateral: CTA (anterior) - Cardiovascular Rhythm: regular Heart Sounds: Present: S1 & S2 - Gastrointestinal General gastrointestinal: Present: soft, non-tender, non-distended, normal bowel sounds - Neurologic Neurological: alert and oriented x3 - Labs CBC & Chem 7: 08/18/18 05:57 08/18/18 05:57 Lab Results: Laboratory Results - last 24 hr 08/18/18 08/18/18 08/18/18 00:09 00:09 05:57 WBC 5.6 5.5 RBC 5.43 H 5.20 H Hgb 16.2 H 15.3 H Hct 46.6 H 44.7 MCV 86 86 MCH 30 29 MCHC 35 H 34 RDW 13.6 13.5 Plt Count 180 150 Lymph % (Auto) 45.5 H 49.8 H [place] % (Auto) 8.5 H 8.6 H Eos % (Auto) 2.7 2.5 Baso % (Auto) 0.6 0.6 Lymph # 2.6 2.7 [place] # 0.5 0.5 Eos # 0.2 0.1 Baso # 0.0 0.0 Seg Neutrophils % 42.7 38.5 L Seg Neutrophils # 2.4 2.1 Sodium 137 Potassium 4.1 Chloride 96.7 L Carbon Dioxide 26 Anion Gap 18 BUN 11 Creatinine 1.1 Estimated GFR > 60 BUN/Creatinine Ratio 10 Glucose 317 H POC Glucose Calcium 9.3 Total Bilirubin 0.40 AST 21 ALT 32 Alkaline Phosphatase 106 Total Protein 7.4 Albumin 4.2 Albumin/Globulin Ratio 1.3 08/18/18 08/18/18 05:57 08:05 WBC RBC Hgb Hct MCV MCH MCHC RDW Plt Count Lymph % (Auto) [place] % (Auto) Eos % (Auto) Baso % (Auto) Lymph # [place] # Eos # Baso # Seg Neutrophils % Seg Neutrophils # Sodium 140 Potassium 4.2 Chloride 102.6 Carbon Dioxide 28 Anion Gap 14 BUN 12 Creatinine 1.1 Estimated GFR > 60 BUN/Creatinine Ratio 11 Glucose 292 H POC Glucose 215 H Calcium 8.9 Total Bilirubin AST ALT Alkaline Phosphatase Total Protein Albumin Albumin/Globulin Ratio Assessment and Plan 1.dysphagia 2.N/V 3.epigastric discomfort -patient presented with continued dysphagia with associated N/V and epigastric discomfort despite completing treat with Diflucan and daily PPI as previously presecirbed for similar symptoms -s/p EGD on 07/24/18 that showed moderate natalie esophagitis and mild gastritis -bx results were positive for natalie and H.pylori (no evidence of malignancy) -will schedule for repeat EGD today for further evaluation -Keep NPO -start on treatment for H. pylori (give Flagyl, clarithromycin and PPI x 14 days given PCN allergy) -optimize glycemic control (compliance with DM diet/wt loss encouraged) -continue supportive care -will follow
[2018-08-18] MEDS ORDERED: LOVENOX SUB-Q SCH ×2 (10:00)
[2018-08-18] MEDS ORDERED: SODIUM CHLORIDE FLUSH SYRINGE 10 ML IV SCH (10:00)
[2018-08-18] MEDS ORDERED: NACL 0.9% 1000 ML 1,000 ML ONE ×2 (12:59→16:19)
[2018-08-18] MEDS ORDERED: NACL 0.9% 1000 ML 1,000 ML IV SCH (14:00)
[2018-08-18] MEDS ORDERED: HumaLOG SUB-Q SCH (16:30)
--- NOTE | 2018-08-18 16:52 | Anesthesia Consultation ---
Anesthesia Consult and Med Hx Date of service: 08/18/18 - Airway Anesthetic Teeth Evaluation: Good ROM Head & Neck: Adequate Mental/Hyoid Distance: Adequate Mallampati Class: Class IV Intubation Access Assessment: Difficult - Pulmonary Exam CTA: Yes - Cardiac Exam Cardiac Exam: RRR - Pre-Operative Health Status ASA Pre-Surgery Classification: ASA3 Proposed Anesthetic Plan: MAC - Pulmonary Hx Smoking: Yes (cigars) Hx Asthma: Yes COPD: No Hx Sleep Apnea: Yes - Cardiovascular System Hx Hypertension: Yes Hx Coronary Artery Disease: Yes Hx Heart Attack/AMI: Yes (2007 and 2015 with 3 stents placement) Hx Percutaneous Transluminal Coronary Angioplasty (PTCA): Yes - Central Nervous System Hx Seizures: Yes Hx Psychiatric Problems: Yes - Endocrine Hx End Stage Renal Disease: No Hx Non-Insulin Dependent Diabetes: Yes - Other Systems Hx Cancer: Yes Hx Obesity: Yes (BMi 39.1)
--- NOTE | 2018-08-18 16:55 | Anesthesia Day of Surgery ---
Anesthesia Day of Surgery - Day of Surgery Patient Examined: Yes Patient H&P Reviewed: Yes Patient is NPO: Yes
[2018-08-18] MEDS ORDERED: DIPRIVAN 10 MG/ML IV ONE (18:09)
--- NOTE | 2018-08-18 18:30 | Post Operative Note ---
Pre-op diagnosis: dysphagia Post-op diagnosis: same Findings: EGD: hiatal hernia - irregular z-line - Blak[place] 54 F - gastritis (bx's) - negative other Procedure: EGD Anesthesia: MAC Surgeon: LINNEA JIMENEZ Estimated blood loss: none Pathology: list Specimen disposition: to lab Condition: stable Disposition: floor
[2018-08-18] MEDS ORDERED: ZOFRAN ONE (18:51)
--- NOTE | 2018-08-18 19:28 | Operative Report ---
PROCEDURE: EGD with cold biopsies. INDICATION: 1. GERD. 2. Dysphagia. MEDICATIONS: Propofol per SENIOR OPERATIONS MANAGER. COMPLICATIONS: None. DESCRIPTION OF PROCEDURE: The patient brought to procedure suite. The patient had the procedure discussed with him at length. All risks, complications, and benefits discussed, after which the patient signed for the procedure to be performed. The patient was placed in left lateral decubitus position. Mouth block was placed in the patient's oral cavity. After adequate sedation medication as above, endoscope was introduced into the mouth and brought to the second portion of duodenum. Retroflexion view performed. The patient's vital signs remained stable throughout the procedure. FINDINGS: There was an irregular Z line with a small hiatal hernia at GE junction at 38 cm from the gums. No obvious strictures or rings were noted. The esophagus showed a small hiatal hernia. The esophagus otherwise appeared to be normal. There is mild antral gastritis noted. Biopsies were taken and sent to pathology. Remaining stomach otherwise appeared to be normal. Duodenum appeared to be normal. Retroflexion view performed in the stomach showed no other pathology other than noted above. After this, especially using standard technique, Blakely dilatation using a 6-Czech balloon was performed. Post-procedure appearance was satisfactory. The patient tolerated the procedure well. No complications noted during the procedure. IMPRESSION: 1. Hiatal hernia 2. Otherwise, normal esophagus. 3. Gastritis, biopsies performed. 4. Otherwise, normal esophagogastroduodenoscopy. 5. Blakely dilatation as noted above. RECOMMENDATIONS: 1. PPI daily. 2. Advance diet. 3. Avoid NSAIDs and aspirin. 4. Okay to discharge from GI standpoint, call if needed. JOB# [id number] CAB/NTS
--- NOTE | 2018-08-18 20:15 | Event Note ---
Date: 08/18/18 Patient being discharged at his request and GI PO Protonix qd-patient has the Protonix at home
--- NOTE | 2018-08-19 08:39 | Discharge Summary ---
Providers - Providers Date of Admission: 08/18/18 02:04 Date of discharge: 08/18/18 Attending physician: KUSH GORE 08/18/18 02:04 Consult to Physician [CONS] Routine Comment: DR KARY MADRIGAL W/DR HOPKINS @[id number] Consulting Provider: KARO HOPKINS Physician Instructions: Reason For Exam: esophagitis Primary care physician: BRYAN FABIAN Hospitalization Condition: Stable Hospital course: Patient is a 47 yo black man with a history of Hypertension, IDDM type 1, CAD, PNA, dyslipidemia, cigar smoking and seizure disorder who initially presented to [facility] ED with chest pains on 07/21/2018 and he was seen by Cardiology and chest pains was thought to be GI related because he was having dysphagia; therefore, he underwent EGD on 07/24/2018 which showed Moderate natalie esophagitis and antrum gastritis. I discharged him on 07/25/2018. He came back to [facility] ED on 08/01/2018 with similar compliant and GI cocktail helped his symptoms and he was discharged from ED. He comes back this morning 08/18/2018 with same symptoms. HIV testing never done here, will request. HIV test done in Dr. Perez' office on 08/14/2018 was negative. Chest pains due to Esophagitis/GERD N/V, intractable with Dysphagia to solids from [place] Esophagitis DM uncontrolled DM: SSI, ada diet Seizure disorder: continue keppra CAD with 3 stents by history: Cardiology seen recently Procedure: EGD Plan: f/u bx's - PPI qd - advance diet - ok to d/c from GI standpoint with follow up Dr. Pardo as outpt - Dr. Mendez on this wknd, call if needed Original Note: Pre-op diagnosis: dysphagia Post-op diagnosis: same Findings: EGD: hiatal hernia - irregular z-line - Blakely 54 F - gastritis (bx's) - negative other Disposition: [place]-01 TO HOME OR SELFCARE Time spent for discharge: 36 MIN Core Measure Documentation - Palliative Care Palliative Care/ Comfort Measures: Not Applicable - Core Measures Any of the following diagnoses?: none - VTE Discharge Requirements Deep Vein Thrombosis/Pulmonary Embolism Present on Admission: No Has pt received <5 days of overlap therapy or INR<2.0: No Anticoagulant overlap therapy prescribed at discharge: No Contraindication No Overlap Therapy order at DC: Not Indicated Exam - Physical Exam Narrative exam: Gen: WDWN, NAD, Awake, Alert, Orientated HEENT: NCAT, EOMI, PERRL, OP Clear Neck: supple, no adenopathy, no thyromegaly, no JVD CVS/Heart: RRR, normal S1S2, pulses present bilaterally Chest/Lungs: CTA B, Symmetrical chest expansion, good air entry bilaterally GI/Abdomen: soft, NTND, good bowel sounds, no guarding or rebound /Bladder: no suprapubic tenderness, no CVA or paraspinal tenderness Extermity/Skin: no c/c/e, no obvious rash MSK: FROM x 4 Neuro: CN 2-12 grossly intact, no new focal deficits Psych: calm - Constitutional Vitals: Temp Pulse Resp BP Pulse Ox 98.1 F 87 20 105/64 97 08/18/18 18:32 08/18/18 18:47 08/18/18 18:47 08/18/18 18:47 08/18/18 18:47 Plan Activity: other (NO STRENOUS ACTIVITY UNTIL CLEARED BY PCP) Diet: low salt Additional Instructions: Take Protonix Follow up with: BRYAN FABIAN MD [Primary Care Provider] - 3-5 Days Prescriptions: ALBUTEROL Inhaler (OR & NICU) [ProAir HFA Inhaler] 2 puff IH QID PRN #1 inhalation PRN Reason: Shortness Of Breath
[2018-08-20 11:23] VITALS: BP 105/64
== END 2018-08-18 21:17 | disposition home or self-care (01) | DRG 370 ==
LOC: ED 22:07 → 3A 08-18 02:04
PROVIDERS: ADMIT Internal Medicine; ATTEND Internal Medicine
PROC: 0D758ZZ Dilation of Esophagus, Via Natural or Artificial Opening Endoscopic (ICD-10-PCS; principal; 2018-08-18)
PROC: 0DB68ZX Excision of Stomach, Via Natural or Artificial Opening Endoscopic, Diagnostic (ICD-10-PCS; 2018-08-18)
DX: B37.81 Candidal esophagitis (principal); K22.8 Other specified diseases of esophagus; G40.909 Epilepsy, unspecified, not intractable, without status epilepticus; R13.10 Dysphagia, unspecified; I25.10 Atherosclerotic heart disease of native coronary artery without angina pectoris; K44.9 Diaphragmatic hernia without obstruction or gangrene; E78.5 Hyperlipidemia, unspecified; F41.9 Anxiety disorder, unspecified; F17.210 Nicotine dependence, cigarettes, uncomplicated; K21.9 Gastro-esophageal reflux disease without esophagitis; G47.30 Sleep apnea, unspecified; Z90.49 Acquired absence of other specified parts of digestive tract; Z82.49 Family history of ischemic heart disease and other diseases of the circulatory system; Z83.3 Family history of diabetes mellitus; Z79.899 Other long term (current) drug therapy; Z88.0 Allergy status to penicillin; Z88.6 Allergy status to analgesic agent; Z91.041 Radiographic dye allergy status; Z79.82 Long term (current) use of aspirin; Z79.4 Long term (current) use of insulin; I25.2 Old myocardial infarction; Z95.5 Presence of coronary angioplasty implant and graft; Z94.7 Corneal transplant status
CPT/HCPCS: 36415; 80048; 80053; 82962; 85025; 88305; 88342; 93005; 93010; 99406; G0378; J2270; J2405; J2704; J7030

== ENCOUNTER 2018-09-10 01:19 | Emergency (ER) | payer MEDICAID ==
[2018-09-10] MEDS ORDERED: NACL 0.9% 1000 ML 1,000 ML IV ONE (01:42)
[2018-09-10 03:22] LABS: Basophils % (Auto) 0.6 % (0.0-1.8); Eosinophils # (Auto) 0.1 K/mm3 (0.0-0.4); Eosinophils % (Auto) 1.4 % (0.0-4.3); Hematocrit 47.6 % (35.5-45.6); Hemoglobin 16.4 gm/dl (11.8-15.2); Lymphocytes # (Auto) 2.6 K/mm3 (1.2-5.4); Lymphocytes % (Auto) 42.9 % (13.4-35.0); Mean Corpuscular HGB Conc 34 % (32-34); Mean Corpuscular Volume 86 fl (84-94); Monocytes # (Auto) 0.5 K/mm3 (0.0-0.8); Monocytes % (Auto) 9.1 % (0.0-7.3); Platelet Count 161 K/mm3 (140-440); Red Blood Count 5.54 M/mm3 (3.65-5.03)
[2018-09-10] MEDS ORDERED: ZOFRAN IV ONE (03:35)
[2018-09-10] MEDS ORDERED: SUBLIMAZE IV ONE ×2 (03:35→05:27)
[2018-09-10] MEDS ORDERED: PEPCID IV ONE (03:36)
[2018-09-10 03:37] LABS: Alanine Aminotransferase 37 units/L (7-56); Albumin 4.3 g/dL (3.9-5); BUN/Creatinine Ratio 9; Blood Urea Nitrogen 11 mg/dL (9-20); Calcium 9.3 mg/dL (8.4-10.2); Hemolysis Index 20
--- NOTE | 2018-09-10 03:52 | Emergency Department Report ---
HPI - General Chief Complaint: Abdominal Pain Time Seen by Provider: 09/10/18 03:29 - HPI HPI: Room 3 The patient is a 47-year-old male presenting with a chief complaint of abdominal pain and vomiting. The patient states she was in his usual state of health until this evening developed periumbilical and epigastric abdominal pain feeling as though something was "cutting" him. Patient states his pain has been constant. Patient states he then developed nausea vomiting and noticed blood next with his vomitus. Patient denies bright red blood per rectum or melena. Patient states his last bowel movement occurred this morning. Patient denies diarrhea or fever. The patient gets his pain a score of 10/10. Patient was recently diagnosed with H. 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 - Family History Family history: no significant - Social History Smoking Status: Current Every Day Smoker (cigars) Substance Use Type: None (denies illicit drug use) - Medications Home Medications: Home Medications Medication Instructions Recorded Confirmed Last Taken Type Aspirin [Aspirin BABY CHEW TAB] 81 mg PO QDAY 08/13/15 08/18/18 04/12/18 09:00 History Insulin Aspart [NovoLOG 100 0 unit SQ AC 04/07/18 08/18/18 04/12/18 19:00 History UNITS/ML VIAL] Insulin Glargine,Hum.rec.anlog 35 units SQ QHS 04/07/18 08/18/18 04/12/18 22:00 History [Lantus] levETIRAcetam [Keppra TAB] 1,000 mg PO BID 04/07/18 08/18/18 04/12/18 22:00 History Benzonatate [Tessalon Perles] 100 mg PO Q8HR PRN #30 capsule 06/18/18 08/18/18 Unknown Rx Pantoprazole [Protonix TAB] 40 mg PO QDAY #30 tablet 07/25/18 08/18/18 Unknown Rx Sucralfate [Carafate] 1 gm PO ACHS #120 tablet 08/02/18 08/18/18 Unknown Rx ALBUTEROL Inhaler (OR & NICU) 2 puff IH QID PRN #1 inhalation 08/18/18 Unknown Rx [ProAir HFA Inhaler] HYDROcodone/APAP 5-325 [[place] [facility] 1 - 2 each PO Q6HR PRN #14 tablet 09/10/18 Un known Rx 5/325] Promethazine [Phenergan TAB] 25 mg PO Q6HR PRN #20 tab 09/10/18 Unknown Rx Promethazine [Phenergan] 25 mg [place] Q6HR PRN #5 supp.rect 09/10/18 Unknown Rx ED Review of Systems ROS: Stated complaint: ABDOMINAL PAIN/VOMITING/DIAG H.PYLORI Other details as noted in HPI Constitutional: denies: fever Eyes: denies: eye pain ENT: denies: throat pain Respiratory: no symptoms reported Cardiovascular: denies: chest pain Endocrine: no symptoms reported Gastrointestinal: abdominal pain, nausea, vomiting, hematemesis. denies: melena Genitourinary: denies: dysuria Musculoskeletal: denies: back pain Neurological: denies: headache Physical Exam - Physical Exam Vital Signs: Vital Signs 09/10/18 09/10/18 01:25 01:37 Temperature 97.9 F 97.9 F Pulse Rate 116 H 116 H Respiratory 18 Rate Blood Pressure 152/103 152/103 O2 Sat by Pulse 99 98 Oximetry Physical Exam: GENERAL: The patient is well-developed well-nourished male lying on stretcher not appearing to be in acute distress. [] HEENT: Normocephalic. Atraumatic. Extraocular motions are intact. Patient has moist mucous membranes. NECK: Supple. Trachea midline CHEST/LUNGS: Clear to auscultation. There is no respiratory distress noted. HEART/CARDIOVASCULAR: Regular. There is no tachycardia. There is no gallop rub or murmur. ABDOMEN: Abdomen is soft, with diffuse tenderness to palpation. There is no garry ound or guarding. Patient has normal bowel sounds. There is no abdominal distention. SKIN: There is no rash. There is no edema. There is no diaphoresis. NEURO: The patient is awake, alert, and oriented. The patient is cooperative. The patient has normal speech MUSCULOSKELETAL:There is no evidence of acute injury. ED Course Vital Signs 09/10/18 09/10/18 01:25 01:37 Temperature 97.9 F 97.9 F Pulse Rate 116 H 116 H Respiratory 18 Rate Blood Pressure 152/103 152/103 O2 Sat by Pulse 99 98 Oximetry - Consultations Consultation #1: 09/10/18 05:32 Gastroenterology paged 09/10/18 05:[address] Burrows- recommends prescription for analgesics and have patient call office tomorrow to schedule follow-up appointment ED Medical Decision Making - Lab Data Result diagrams: 09/10/18 01:51 09/10/18 01:51 Laboratory Tests 09/10/18 09/10/18 09/10/18 01:50 01:51 01:51 WBC 6.0 RBC 5.54 H Hgb 16.4 H Hct 47.6 H MCV 86 MCH 30 MCHC 34 RDW 14.0 Plt Count 161 Lymph % (Auto) 42.9 H Posey % (Auto) 9.1 H Eos % (Auto) 1.4 Baso % (Auto) 0.6 Lymph # 2.6 Posey # 0.5 Eos # 0.1 Baso # 0.0 Seg Neutrophils % 46.0 Seg Neutrophils # 2.7 Sodium 141 Potassium 3.9 Chloride 99.5 Carbon Dioxide 29 Anion Gap 16 BUN 11 Creatinine 1.2 Estimated GFR > 60 BUN/Creatinine Ratio 9 Glucose 187 H POC Glucose 184 H Calcium 9.3 Total Bilirubin 0.50 AST 26 ALT 37 Alkaline Phosphatase 94 Total Protein 7.3 Albumin 4.3 Albumin/Globulin Ratio 1.4 Lipase 18 Urine Color Urine Turbidity Urine pH Ur Specific Ribera Urine Protein Urine Glucose (UA) Urine Ketones Urine Blood Urine Nitrite Urine Bilirubin Urine Urobilinogen Ur Leukocyte Esterase Urine WBC (Auto) Urine RBC (Auto) U Epithel Cells (Auto) 09/10/18 01:59 WBC RBC Hgb Hct MCV MCH MCHC RDW Plt Count Lymph % (Auto) Posey % (Auto) Eos % (Auto) Baso % (Auto) Lymph # Posey # Eos # Baso # Seg Neutrophils % Seg Neutrophils # Sodium Potassium Chloride Carbon Dioxide Anion Gap BUN Creatinine Estimated GFR BUN/Creatinine Ratio Glucose POC Glucose Calcium Total Bilirubin AST ALT Alkaline Phosphatase Total Protein Albumin Albumin/Globulin Ratio Lipase Urine Color Yellow Urine Turbidity Clear Urine pH 6.0 Ur Specific Ribera 1.029 Urine Protein <15 mg/dl Urine Glucose (UA) >=500 Urine Ketones Neg Urine Blood Neg Urine Nitrite Neg Urine Bilirubin Neg Urine Urobilinogen 4.0 Ur Leukocyte Esterase Neg Urine WBC (Auto) < 1.0 Urine RBC (Auto) < 1.0 U Epithel Cells (Auto) < 1.0 - Radiology Data Radiology results: report reviewed (CT abdomen and pelvis), image reviewed (CT abdomen and pelvis) - Differential Diagnosis gastritis, peptic ulcer disease, small bowel obstruction Critical care attestation.: If time is entered above; I have spent that time in minutes in the direct care of this critically ill patient, excluding procedure time. ED Disposition Clinical Impression: Abdominal pain, Nausea & vomiting, Gastritis Disposition: TO HOME OR SELFCARE Is pt being admited?: No Does the pt Need Aspirin: No Condition: Stable Instructions: Abdominal Pain (ED) Additional Instructions: Return to the emergency department immediately should you develop worsening symptoms, fever, inability to tolerate food or liquid or any other concerns. Prescriptions: HYDROcodone/APAP 5-325 [[place] [facility] 5/325] 1 - 2 each PO Q6HR PRN #14 tablet PRN Reason: Pain Promethazine [Phenergan TAB] 25 mg PO Q6HR PRN #20 tab PRN Reason: Nausea Promethazine [Phenergan] 25 mg NJ Q6HR PRN #5 supp.rect PRN Reason: Vomiting Referrals: PRIMARY CARE, [Primary Care Provider] - 3-5 Days LINNEA DAILEY MD [Staff Physician] - [facility] (Dr. Dailey was a private equity analyst. Please follow up with him for further evaluation) Time of Disposition: 05:46
[2018-09-10 04:00] LABS: Bilirubin,Urine NEG (Negative); Blood,Urine NEG (Negative); Color,Urine Yellow (Yellow); Protein,Urine <15 mg/dL mg/dL (Negative); WBC,Urine < 1.0 /HPF (0.0-6.0)
[2018-09-10 04:12] LABS: RBC,Urine < 1.0 /HPF (0.0-6.0)
[2018-09-10 05:24] VITALS: BP 129/88
--- NOTE | 2018-09-10 05:28 | Cat Scan Report ---
FINAL REPORT PROCEDURE: CT ABDOMEN PELVIS WO CON TECHNIQUE: Computerized axial tomography of the abdomen and pelvis was performed without intravenous contrast. This study is performed without intravascular contrast material and its sensitivity for ab dominal and pelvic pathology, including neoplasms, inflammation, abscess, free fluid, thrombosis, art erial dissection and infarction, is reduced compared with a contrast enhanced study. HISTORY: epigastric, periumbilical abdominal pain, hemateme COMPARISON: No prior studies are available for comparison. FINDINGS: Visualized lower thorax: No significant abnormality. Liver: Normal size and attenuation. Spleen: Normal size and attenuation. Gallbladder and biliary system: Normal. Pancreas: Normal. Adrenals: Normal. Kidneys: There are no kidney stones or ureteral stones. There is no hydronephrosis.. GI tract: There is no bowel obstruction, colitis or enteritis. The appendix is not identified.. Lymph nodes and mesentery: There is mild induration of the small bowel mesentery with borderline enla rged lymph nodes. This is nonspecific. Mesenteric adenitis or panniculitis considered.. Vasculature: Normal. Bladder: Normal. Reproductive organs: Normal. Peritoneum: There is no ascites or free air, abscess or adenopathy.. Musculoskeletal structures: No significant abnormality. Other: None. IMPRESSION: There are no kidney stones or ureteral stones. There is no hydronephrosis.. There is no bowel obstruction, colitis or enteritis. The appendix is not identified.. There is mild induration of the small bowel mesentery with borderline enlarged lymph nodes. This is n onspecific. Mesenteric adenitis or panniculitis considered.. There is no ascites or free air, abscess or adenopathy.. .
== END 2018-09-10 06:03 | disposition home or self-care (01) ==
LOC: ED 01:19
DX: K29.70 Gastritis, unspecified, without bleeding (principal); R11.2 Nausea with vomiting, unspecified; I10 Essential (primary) hypertension; E11.9 Type 2 diabetes mellitus without complications; F41.9 Anxiety disorder, unspecified; J45.909 Unspecified asthma, uncomplicated; F17.200 Nicotine dependence, unspecified, uncomplicated; Z90.49 Acquired absence of other specified parts of digestive tract; Z88.0 Allergy status to penicillin; Z88.5 Allergy status to narcotic agent; Z79.82 Long term (current) use of aspirin; Z79.4 Long term (current) use of insulin
CPT/HCPCS: 36415; 74176; 80053; 81001; 82962; 83690; 85025; 96361; 96374; 96375; 96376; 99284; J2405; J3010; J7030

== ENCOUNTER 2018-09-27 21:58 | Emergency (ER) | payer MEDICAID ==
--- NOTE | 2018-09-27 22:20 | Emergency Department Report ---
Chief Complaint: Anxiety Stated Complaint: N/V/D/SWEATING/ANXIETY Time Seen by Provider: 09/27/18 22:14 - HPI History of Present Illness: This is a 47 y.o. male that presents to ER with concern of possible opioid withdrawal. Patient had cornea transplant on left last Tuesday. Patient is afraid to take keppra because he took to many percocet and tramadol pills since surgery. patient states he is completely out of percocet and have a few tramadols left. - ROS Review of Systems: sluggish and anxious - Exam Vital Signs: Vital Signs 09/27/18 09/27/18 22:17 22:21 Temperature 97.9 F Pulse Rate 105 H Respiratory 24 Rate Blood Pressure 165/114 [Right] O2 Sat by Pulse 99 Oximetry MSE screening note: Focused history and physical exam performed. Due to findings the following was ordered: labs ED Disposition for MSE Condition: Stable
[2018-09-27 22:40] LABS: Basophils # (Auto) 0.1 K/mm3 (0.0-0.1); Basophils % (Auto) 0.9 % (0.0-1.8); Eosinophils # (Auto) 0.2 K/mm3 (0.0-0.4); Eosinophils % (Auto) 2.2 % (0.0-4.3); Hematocrit 49.5 % (35.5-45.6); Hemoglobin 17.2 gm/dl (11.8-15.2); Lymphocytes # (Auto) 2.6 K/mm3 (1.2-5.4); Lymphocytes % (Auto) 36.2 % (13.4-35.0); Mean Corpuscular HGB Conc 35 % (32-34); Mean Corpuscular Volume 85 fl (84-94); Monocytes # (Auto) 0.4 K/mm3 (0.0-0.8); Monocytes % (Auto) 6.1 % (0.0-7.3); Platelet Count 210 K/mm3 (140-440); Red Blood Count 5.81 M/mm3 (3.65-5.03); Red Cell Distribution Width 13.7 % (13.2-15.2)
[2018-09-27 23:15] LABS: BUN/Creatinine Ratio 10; Blood Urea Nitrogen 10 mg/dL (9-20); Calcium 9.4 mg/dL (8.4-10.2); Hemolysis Index 9
[2018-09-27 23:27] LABS: Amphetamine Screen,Urine PRESUMPTIVE NEGATIVE; Benzodiazepines Screen,Urine PRESUMPTIVE NEGATIVE; Cannabinoid Screen,Urine PRESUMPTIVE NEGATIVE; Cocaine Screen,Urine PRESUMPTIVE NEGATIVE; Methadone Screen,Urine PRESUMPTIVE NEGATIVE; Opiate Screen,Urine PRESUMPTIVE NEGATIVE
[2018-09-27 23:34] LABS: Bilirubin,Urine NEG (Negative); Blood,Urine NEG (Negative); Color,Urine Yellow (Yellow); Mucus,Urine 2+ /HPF
[2018-09-27 23:54] VITALS: BP 154/106
[2018-09-28 00:47] LABS: Alanine Aminotransferase 30 units/L (7-56); Albumin 4.3 g/dL (3.9-5)
[2018-09-28 00:48] LABS: Bilirubin,Direct < 0.2 mg/dL (0-0.2)
--- NOTE | 2018-09-28 00:54 | Emergency Department Report ---
ED General Adult HPI - General Chief complaint: Anxiety Stated complaint: N/V/D/SWEATING/ANXIETY Time Seen by Provider: 09/27/18 22:14 Source: patient Mode of arrival: Ambulatory Limitations: No Limitations - History of Present Illness Initial comments: 47-year-old male presents to ED with nausea, vomiting, cold sweats 3 days. Patient believes he may have taken too much pain medicine following his corneal transplant surgery. States he took 14 percocet and 20 tramadol over the course of 4 days. Patient thought he was taking the medication every 6 hours. States he would fall asleep and wake up and take another dose, thinking 6 hours had passed, but in reality less time had gone by. -: days(s) (3) Severity scale (0 -10): 3 Consistency: intermittent Improves with: none Worsens with: none Associated Symptoms: nausea/vomiting - Related Data Home Medications Medication Instructions Recorded Confirmed Last Taken Aspirin [Aspirin BABY CHEW TAB] 81 mg PO QDAY 08/13/15 08/18/18 04/12/18 09:00 Insulin Aspart [NovoLOG 100 0 unit SQ AC 04/07/18 08/18/18 04/12/18 19:00 UNITS/ML VIAL] Insulin Glargine,Hum.rec.anlog 35 units SQ QHS 04/07/18 08/18/18 04/12/18 22:00 [Lantus] levETIRAcetam [Keppra TAB] 1,000 mg PO BID 04/07/18 08/18/18 04/12/18 22:00 Previous Rx's Medication Instructions Recorded Last Taken Type Benzonatate [Tessalon Perles] 100 mg PO Q8HR PRN #30 capsule 06/18/18 Unknown Rx Pantoprazole [Protonix TAB] 40 mg PO QDAY #30 tablet 07/25/18 Unknown Rx Sucralfate [Carafate] 1 gm PO ACHS #120 tablet 08/02/18 Unknown Rx ALBUTEROL Inhaler (OR & NICU) 2 puff IH QID PRN #1 inhalation 08/18/18 Unknown Rx [ProAir HFA Inhaler] HYDROcodone/APAP 5-325 [[place] 1 - 2 each PO Q6HR PRN #14 tablet 09/10/18 Unknown Rx 5/325] Promethazine [Phenergan TAB] 25 mg PO Q6HR PRN #20 tab 09/10/18 Unknown Rx Promethazine [Phenergan] 25 mg [place] Q6HR PRN #5 supp.rect 09/10/18 Unknown Rx Ondansetron [Zofran Odt] 4 mg PO Q8HR PRN #20 tab.rapdis 09/28/18 Unknown Rx Allergies Allergy/AdvReac Type Severity Reaction Status Date / Time metoclopramide HCl Allergy Swelling Verified 04/07/18 15:41 [From Reglan] Penicillins Allergy Swelling Verified 04/07/18 15:41 ibuprofen AdvReac Swelling Verified 04/13/18 11:12 iv contract dy Allergy Swelling Uncoded 06/18/18 09:34 ED Review of Systems ROS: Stated complaint: N/V/D/SWEATING/ANXIETY Other details as noted in HPI Comment: All other systems reviewed and negative Constitutional: chills Gastrointestinal: nausea, vomiting Psychiatric: anxiety ED Past Medical Hx - Past Medical History Hx Hypertension: Yes Hx Heart Attack/AMI: Yes (2007 and 2015 with 3 stents placement) Hx Congestive Heart Failure: No Hx Diabetes: Yes Hx Seizures: Yes Hx Psychiatric Treatment: Yes (anxiety) Hx Asthma: Yes Hx COPD: No Hx HIV: No Additional medical history: H.pylori - Surgical History Hx Coronary Stent: Yes (2007, 3 stents) Hx Appendectomy: Yes 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 - Social History Smoking Status: Never Smoker Substance Use Type: None - Medications Home Medications: Home Medications Medication Instructions Recorded Confirmed Last Taken Type Aspirin [Aspirin BABY CHEW TAB] 81 mg PO QDAY 08/13/15 08/18/18 04/12/18 09:00 History Insulin Aspart [NovoLOG 100 0 unit SQ AC 04/07/18 08/18/18 04/12/18 19:00 History UNITS/ML VIAL] Insulin Glargine,Hum.rec.anlog 35 units SQ QHS 04/07/18 08/18/18 04/12/18 22:00 History [Lantus] levETIRAcetam [Keppra TAB] 1,000 mg PO BID 04/07/18 08/18/18 04/12/18 22:00 History Benzonatate [Tessalon Perles] 100 mg PO Q8HR PRN #30 capsule 06/18/18 08/18/18 Unknown Rx Pantoprazole [Protonix TAB] 40 mg PO QDAY #30 tablet 07/25/18 08/18/18 Unknown Rx Sucralfate [Carafate] 1 gm PO ACHS #120 tablet 08/02/18 08/18/18 Unknown Rx ALBUTEROL Inhaler (OR & NICU) 2 puff IH QID PRN #1 inhalation 08/18/18 Unknown Rx [ProAir HFA Inhaler] HYDROcodone/APAP 5-325 [[place] 1 - 2 each PO Q6HR PRN #14 tablet 09/10/18 Unknown Rx 5/325] Promethazine [Phenergan TAB] 25 mg PO Q6HR PRN #20 tab 09/10/18 Unknown Rx Promethazine [Phenergan] 25 mg [place] Q6HR PRN #5 supp.rect 09/10/18 Unknown Rx Ondansetron [Zofran Odt] 4 mg PO Q8HR PRN #20 tab.rapdis 09/28/18 Unknown Rx ED Physical Exam - General Limitations: No Limitations General appearance: alert, in no apparent distress - Head Head exam: Present: atraumatic, normocephalic - Eye Eye exam: Present: normal appearance - ENT ENT exam: Present: mucous membranes moist - Neck Neck exam: Present: normal inspection - Respiratory Respiratory exam: Present: normal lung sounds bilaterally. Absent: respiratory distress - Cardiovascular Cardiovascular Exam: Present: regular rate, normal rhythm - GI/Abdominal GI/Abdominal exam: Present: soft. Absent: distended - Extremities Exam Extremities exam: Present: normal inspection - Neurological Exam Neurological exam: Present: alert, oriented X3 - Psychiatric Psychiatric exam: Present: normal affect, normal mood - Skin Skin exam: Present: warm, dry, intact, normal color ED Course Vital Signs 09/27/18 09/27/18 09/27/18 22:17 22:21 23:53 Temperature 97.9 F 97.9 F Pulse Rate 105 H 93 H Respiratory 24 18 Rate Blood Pressure 165/114 154/106 [Right] O2 Sat by Pulse 99 98 Oximetry ED Medical Decision Making - Lab Data Result diagrams: 09/27/18 22:28 09/27/18 22:28 - Medical Decision Making Labs normal, including Tylenol level and LFTs. Outpatient follow-up advised. Return precautions given. Critical care attestation.: If time is entered above; I have spent that time in minutes in the direct care of this critically ill patient, excluding procedure time. ED Disposition Clinical Impression: Nausea & vomiting Disposition: DC-01 TO HOME OR SELFCARE Is pt being admited?: No Condition: Stable Instructions: Acute Nausea and Vomiting (ED) Prescriptions: Ondansetron [Zofran Odt] 4 mg PO Q8HR PRN #20 tab.rapdis PRN Reason: Vomiting Referrals: PRIMARY CARE, [Referring] - 3-5 Days Time of Disposition: 00:54
== END 2018-09-28 01:11 | disposition home or self-care (01) ==
LOC: ED 21:58
DX: R11.2 Nausea with vomiting, unspecified (principal); I10 Essential (primary) hypertension; I25.2 Old myocardial infarction; E11.9 Type 2 diabetes mellitus without complications; F41.9 Anxiety disorder, unspecified; J45.909 Unspecified asthma, uncomplicated; Z95.5 Presence of coronary angioplasty implant and graft; Z90.49 Acquired absence of other specified parts of digestive tract; Z79.899 Other long term (current) drug therapy; Z88.1 Allergy status to other antibiotic agents; Z88.2 Allergy status to sulfonamides; Z88.6 Allergy status to analgesic agent; Z91.09 Other allergy status, other than to drugs and biological substances
CPT/HCPCS: 36415; 80048; 80076; 80307; 81001; 85025; 99283; G0480; 80320

== ENCOUNTER 2018-10-22 11:18 | Emergency (ER) | payer MEDICAID ==
[2018-10-22 11:27] VITALS: BP 142/96
[2018-10-22] MEDS ORDERED: PERCOCET 5/325 PO STA (11:28)
--- NOTE | 2018-10-22 11:32 | Emergency Department Report ---
Blank Doc - Documentation Documentation: was at sisters house and walking on a floating deck that gave way and he fell thru the deck resulting in pain to back and right knee.
--- NOTE | 2018-10-22 11:58 | XRay Report ---
PROCEDURE: XR KNEE 3V RT TECHNIQUE: 3 views right knee HISTORY: fall thru floating deck COMPARISONS: None FINDINGS: Enthesophyte superior pole patella. No joint effusion. Joint space is maintained. No advanced arthrit ic change. No acute fracture noted. IMPRESSION: No acute fracture or malalignment.. This document is electronically signed by Frederic Ricketts MD., October 22 2018 11:56:26 AM ET
--- NOTE | 2018-10-22 12:01 | XRay Report ---
PROCEDURE: XR SPINE LUMBOSACRAL 2-3V TECHNIQUE: 3 views lumbosacral spine HISTORY: fall thru floating deck COMPARISONS: None FINDINGS: Vertebral body height and alignment unremarkable. Mild multilevel osteophyte formation. No significan t disc space narrowing. Sacrum and coccyx appear unremarkable. SI joints unremarkable. IMPRESSION: No acute abnormality identified Mild spondylosis. This document is electronically signed by Frederic Ricketts MD., October 22 2018 11:59:08 AM ET
--- NOTE | 2018-10-22 14:07 | Emergency Department Report ---
ED Fall HPI - General Chief Complaint: Fall Stated Complaint: FALLEN/BACK INJURY Time Seen by Provider: 10/22/18 11:27 Source: patient Mode of arrival: Wheelchair - History of Present Illness Initial Comments: This is a 47-year-old male nontoxic, well nourished in appearance, no acute signs of distress presents to the ED with c/o of acute lower back pain and right knee pain. Patient stated that today he fell from a few stairs at his sisters house. Patient denies any head trauma or neck pain. Patient deneis any other trauma or pain. Denies any bladder or bowel instability. Patient denies any urinary symptoms. Denies any fever, chills, nausea, vomiting, headache, stiff neck, chest pain or shortness of breath. Patient denies any numbness or tingling. Posterior allergies to penicillin, ibuprofen and metoclopramide. MD Complaint: fall -: This morning Fall From: down stairs (#) Fall Witnessed: yes, by bystander Place Fall Occurred: home Loss of Consciousness: none Prolonged Down Time?: no Symptoms Prior to Fall: none Location: back Location - Extremities: Right: Knee Severity: mild Severity scale (0 -10): 8 Quality: aching Context: tripped/slipped Associated Symptoms: denies. denies: headache, neck pain, numbness, weakness, chest paint, shortness of breath, abdominal pain, hematuria, unable to walk, lightheaded, vertigo, confusion - Related Data Home Medications Medication Instructions Recorded Confirmed Last Taken Aspirin [Aspirin BABY CHEW TAB] 81 mg PO QDAY 08/13/15 08/18/18 04/12/18 09:00 Insulin Aspart [NovoLOG 100 0 unit SQ AC 04/07/18 08/18/18 04/12/18 19:00 UNITS/ML VIAL] Insulin Glargine,Hum.rec.anlog 35 units SQ QHS 04/07/18 08/18/18 04/12/18 22:00 [Lantus] levETIRAcetam [Keppra TAB] 1,000 mg PO BID 04/07/18 08/18/18 04/12/18 22:00 Previous Rx's Medication Instructions Recorded Last Taken Type Benzonatate [Tessalon Perles] 100 mg PO Q8HR PRN #30 capsule 12/02/18 Unknown Rx Pantoprazole [Protonix TAB] 40 mg PO QDAY #30 tablet 07/25/18 Unknown Rx Sucralfate [Carafate] 1 gm PO ACHS #120 tablet 08/02/18 Unknown Rx ALBUTEROL Inhaler (OR & NICU) 2 puff IH QID PRN #1 inhalation 08/18/18 Unknown Rx [ProAir HFA Inhaler] HYDROcodone/APAP 5-325 [[place] 1 - 2 each PO Q6HR PRN #14 tablet 09/10/18 Unknown Rx 5/325] Promethazine [Phenergan TAB] 25 mg PO Q6HR PRN #20 tab 09/10/18 Unknown Rx Promethazine [Phenergan] 25 mg [place] Q6HR PRN #5 supp.rect 09/10/18 Unknown Rx Ondansetron [Zofran Odt] 4 mg PO Q8HR PRN #20 tab.rapdis 09/28/18 Unknown Rx Acetaminophen/Codeine [Tylenol 1 tab PO Q6H PRN #12 tab 10/22/18 Unknown Rx /Codeine # 3 tab] Cyclobenzaprine [Flexeril] 10 mg PO QHS PRN #10 tablet 10/22/18 Unknown Rx Allergies Allergy/AdvReac Type Severity Reaction Status Date / Time metoclopramide HCl Allergy Swelling Verified 04/07/18 15:41 [From Reglan] Penicillins Allergy Swelling Verified 04/07/18 15:41 ibuprofen AdvReac Swelling Verified 04/13/18 11:12 iv contract dy Allergy Swelling Uncoded 06/18/18 09:34 ED Review of Systems ROS: Stated complaint: FALLEN/BACK INJURY Other details as noted in HPI Constitutional: denies: chills, fever Eyes: denies: eye pain, eye discharge, vision change ENT: denies: ear pain, throat pain Respiratory: denies: cough, shortness of breath, wheezing Cardiovascular: denies: chest pain, palpitations Endocrine: no symptoms reported Gastrointestinal: denies: abdominal pain, nausea, diarrhea Genitourinary: denies: urgency, dysuria Musculoskeletal: back pain, arthralgia. 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 - Social History Smoking Status: Never Smoker Substance Use Type: None - Medications Home Medications: Home Medications Medication Instructions Recorded Confirmed Last Taken Type Aspirin [Aspirin BABY CHEW TAB] 81 mg PO QDAY 08/13/15 08/18/18 04/12/18 09:00 History Insulin Aspart [NovoLOG 100 0 unit SQ AC 04/07/18 08/18/18 04/12/18 19:00 History UNITS/ML VIAL] Insulin Glargine,Hum.rec.anlog 35 units SQ QHS 04/07/18 08/18/18 04/12/18 22:00 History [Lantus] levETIRAcetam [Keppra TAB] 1,000 mg PO BID 04/07/18 08/18/18 04/12/18 22:00 History Benzonatate [Tessalon Perles] 100 mg PO Q8HR PRN #30 capsule 06/18/18 08/18/18 Unknown Rx Pantoprazole [Protonix TAB] 40 mg PO QDAY #30 tablet 07/25/18 08/18/18 Unknown Rx Sucralfate [Carafate] 1 gm PO ACHS #120 tablet 08/02/18 08/18/18 Unknown Rx ALBUTEROL Inhaler (OR & NICU) 2 puff IH QID PRN #1 inhalation 08/18/18 Unknown Rx [ProAir HFA Inhaler] HYDROcodone/APAP 5-325 [[place] 1 - 2 each PO Q6HR PRN #14 tablet 09/10/18 Unknown Rx 5/325] Promethazine [Phenergan TAB] 25 mg PO Q6HR PRN #20 tab 09/10/18 Unknown Rx Promethazine [Phenergan] 25 mg TX Q6HR PRN #5 supp.rect 09/10/18 Unknown Rx Ondansetron [Zofran Odt] 4 mg PO Q8HR PRN #20 tab.rapdis 09/28/18 Unknown Rx Acetaminophen/Codeine [Tylenol 1 tab PO Q6H PRN #12 tab 10/22/18 Unknown Rx /Codeine # 3 tab] Cyclobenzaprine [Flexeril] 10 mg PO QHS PRN #10 tablet 10/22/18 Unknown Rx ED Physical Exam - General Limitations: No Limitations General appearance: alert, in no apparent distress - Head Head exam: Present: atraumatic, normocephalic - Eye Eye exam: Present: normal appearance - Neck Neck exam: Present: normal inspection, full ROM. Absent: tenderness, meningismus, lymphadenopathy - Respiratory Respiratory exam: Present: normal lung sounds bilaterally. Absent: respiratory distress, wheezes, rales, rhonchi, stridor, chest wall tenderness, accessory muscle use, decreased breath sounds, prolonged expiratory - Cardiovascular Cardiovascular Exam: Present: regular rate, normal rhythm, normal heart sounds. Absent: irregular rhythm, systolic murmur, diastolic murmur, rubs, gallop - GI/Abdominal GI/Abdominal exam: Present: soft, normal bowel sounds. Absent: distended, tenderness, guarding, rebound, rigid, diminished bowel sounds - Rectal Rectal exam: Present: deferred - Extremities Exam Extremities exam: Present: normal inspection, full ROM, tenderness, normal capillary refill. Absent: joint swelling, calf tenderness - Expanded Lower Extremity Exam Right Hip exam: Present: normal inspection, full ROM. Absent: tenderness, swelling Upper Leg exam: Present: normal inspection, full ROM. Absent: tenderness, swelling Knee exam: Present: normal inspection, full ROM, tenderness, swelling, abrasion, full knee extension. Absent: laceration, ecchymosis, deformity, crepidus, dislocation, erythema, effusion, pain w/ pronation/supination, posterior draw sign, pain/laxity with valgus, pain/laxity with varus Lower Leg exam: Present: normal inspection, full ROM. Absent: tenderness, swelling Ankle exam: Present: normal inspection, full ROM. Absent: tenderness, swelling Foot/Toe exam: Present: normal inspection, full ROM. Absent: tenderness, swelling Neuro vascular tendon exam: Present: no vascular compromise Gait: Positive: observed and limited by pain - Back Exam Back exam: Present: normal inspection, full ROM, paraspinal tenderness (lumbar parapsinal). Absent: tenderness, CVA tenderness (R), CVA tenderness (L), muscle spasm, vertebral tenderness, rash noted - Expanded Back Exam Expanded Back exam: Absent: saddle anesthesia Back exam: Negative Straight Leg Raising: Left, Right - Neurological Exam Neurological exam: Present: alert, oriented X3, normal gait - Psychiatric Psychiatric exam: Present: normal affect, normal mood - Skin Skin exam: Present: warm, dry, intact, normal color. Absent: rash ED Course Vital Signs 10/22/18 11:25 Temperature 97.6 F Pulse Rate 99 H Respiratory 18 Rate Blood Pressure 142/96 O2 Sat by Pulse 97 Oximetry - Reevaluation(s) Reevaluation #1: 10/22/18 14:09 Patient is speaking in full sentences with no signs of distress noted. ED Medical Decision Making - Medical Decision Making This is a 47-year-old male that presents with low back strain and right knee strain. Patient is stable was examined by me. There is no spinal tenderness. There is no cauda equina syndrome during examination. No bladder or bowel instability. Patient received pain medication in the ED which stated his symptoms has resolved and subsided. Patient is from [place] in stable condition home after discharge due to possible drowsiness of Percocet that was given in the ER. Patient is discharged with muscle relaxant and Motrin. Patient also received a knee immobilizer. Patient was instructed not to operate any machinery while taking muscle relaxant as they cause her drowsiness. Patient was referred to Follow-up with a primary care doctor in 3-5 days or if symptoms worsen and continue return to emergency room as soon as possible. At time of discharge, the patient does not seem toxic or ill in appearance. No acute signs of distress noted. Patient agrees to discharge treatment plan of care. No further questions noted by the patient. This chart is dictated with using [employer] Critical care attestation.: If time is entered above; I have spent that time in minutes in the direct care of this critically ill patient, excluding procedure time. ED Disposition Clinical Impression: Low back strain Qualifiers: Encounter type: initial encounter Qualified Code(s): S39.012A - Strain of muscle, fascia and tendon of lower back, initial encounter Strain of right knee Qualifiers: Encounter type: initial encounter Qualified Code(s): S86.911A - Strain of unspecified muscle(s) and tendon(s) at lower leg level, right leg, initial encounter Fall Qualifiers: Encounter type: initial encounter Qualified Code(s): W19.XXXA - Unspecified fall, initial encounter Disposition: DC-01 TO HOME OR SELFCARE Is pt being admited?: No Does the pt Need Aspirin: No Condition: Stable Instructions: Knee Pain (ED), Knee Immobilizer (ED), RICE Therapy (ED), Acetaminophen/Codeine (By mouth), Low Back Strain (ED) Additional Instructions: Follow-up with your primary care doctor in 3-5 days or if symptoms worsen such as bladder or bowel stability, chest pain, short of breath, numbness or tingling sensation in extremities, headache, dizziness, visual changes, nausea vomiting, or abdominal pain, return back to emergency room as was possible. Take Flexeril as prescribed. Do not operate heavy machinery while taking Flexeril due to sedation Do not operate any machinery while taking Tylenol with codeine as this may cause drowsiness. Prescriptions: Cyclobenzaprine [Flexeril] 10 mg PO QHS PRN #10 tablet PRN Reason: Muscle Spasm Acetaminophen/Codeine [Tylenol /Codeine # 3 tab] 1 tab PO Q6H PRN #12 tab PRN Reason: Pain , Severe (7-10) Referrals: MONICA GURROLA MD [Primary Care Provider] - 3-5 Days PRIMARY CAREMD [Referring] - 3-5 Days JULIA MAGANA MD [Staff Physician] - 3-5 Days [facility] [Outside] - 3-5 Days [facility] [Outside] - 3-5 Days QUOC JEFFERSON MD [Staff Physician] - 3-5 Days Forms: Work/School Release Form(ED)
== END 2018-10-22 14:29 | disposition home or self-care (01) ==
LOC: ED 11:18
DX: S86.911A Strain of unspecified muscle(s) and tendon(s) at lower leg level, right leg, initial encounter (principal); S39.012A Strain of muscle, fascia and tendon of lower back, initial encounter; W10.9XXA Fall (on) (from) unspecified stairs and steps, initial encounter; Y93.89 Activity, other specified; Y92.89 Other specified places as the place of occurrence of the external cause; Y99.8 Other external cause status
CPT/HCPCS: 72100

== ENCOUNTER 2018-12-11 00:41 | Emergency (ER) | payer MEDICAID ==
--- NOTE | 2018-12-11 02:17 | Emergency Department Report ---
ED General Adult HPI - General Chief complaint: Dyspnea/Respdistress Stated complaint: HIGH BP Time Seen by Provider: 12/11/18 02:06 Source: patient Mode of arrival: Ambulatory Limitations: No Limitations - History of Present Illness Initial comments: Patient is 48 years old male with history of asthma, hypertension and seizure. Patient presented to the ER with multiple complaints. Patient stated that he been having some shortness of breath for the last 2-3 days. Patient also stated that he has been diagnosed with esophageal candidemia exists most likely secondary to his chronic use of steroid. He also stated that he had history of coronary artery disease and stent. Patient denied any fever or chills. Patient also denied any difficulty swallowing. - Related Data Home Medications Medication Instructions Recorded Confirmed Last Taken Aspirin [Aspirin BABY CHEW TAB] 81 mg PO QDAY 08/13/15 08/18/18 04/12/18 09:00 Insulin Aspart [NovoLOG 100 0 unit SQ AC 04/07/18 08/18/18 04/12/18 19:00 UNITS/ML VIAL] Insulin Glargine,Hum.rec.anlog 35 units SQ QHS 04/07/18 08/18/18 04/12/18 22:00 [Lantus] levETIRAcetam [Keppra TAB] 1,000 mg PO BID 04/07/18 08/18/18 04/12/18 22:00 Previous Rx's Medication Instructions Recorded Last Taken Type Benzonatate [Tessalon Perles] 100 mg PO Q8HR PRN #30 capsule 06/18/18 Unknown Rx Pantoprazole [Protonix TAB] 40 mg PO QDAY #30 tablet 07/25/18 Unknown Rx Sucralfate [Carafate] 1 gm PO ACHS #120 tablet 08/02/18 Unknown Rx ALBUTEROL Inhaler (OR & NICU) 2 puff IH QID PRN #1 inhalation 08/18/18 Unknown Rx [ProAir HFA Inhaler] HYDROcodone/APAP 5-325 [[place] 1 - 2 each PO Q6HR PRN #14 tablet 09/10/18 Unknown Rx 5/325] Promethazine [Phenergan TAB] 25 mg PO Q6HR PRN #20 tab 09/10/18 Unknown Rx Promethazine [Phenergan] 25 mg MD Q6HR PRN #5 supp.rect 09/10/18 Unknown Rx Ondansetron [Zofran Odt] 4 mg PO Q8HR PRN #20 tab.rapdis 09/28/18 Unknown Rx Acetaminophen/Codeine [Tylenol 1 tab PO Q6H PRN #12 tab 10/22/18 Unknown Rx /Codeine # 3 tab] Cyclobenzaprine [Flexeril] 10 mg PO QHS PRN #10 tablet 10/22/18 Unknown Rx Allergies Allergy/AdvReac Type Severity Reaction Status Date / Time metoclopramide HCl Allergy Swelling Verified 04/07/18 15:41 [From Reglan] Penicillins Allergy Swelling Verified 04/07/18 15:41 ibuprofen AdvReac Swelling Verified 04/13/18 11:12 iv contract dy Allergy Swelling Uncoded 06/18/18 09:34 ED Review of Systems ROS: Stated complaint: HIGH BP Other details as noted in HPI Comment: All other systems reviewed and negative Respiratory: shortness of breath, SOB at rest. denies: cough, orthopnea, wheezing Cardiovascular: palpitations. 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 - Social History Smoking Status: Never Smoker Substance Use Type: None - Medications Home Medications: Home Medications Medication Instructions Recorded Confirmed Last Taken Type Aspirin [Aspirin BABY CHEW TAB] 81 mg PO QDAY 08/13/15 08/18/18 04/12/18 09:00 History Insulin Aspart [NovoLOG 100 0 unit SQ AC 04/07/18 08/18/18 04/12/18 19:00 History UNITS/ML VIAL] Insulin Glargine,Hum.rec.anlog 35 units SQ QHS 04/07/18 08/18/18 04/12/18 22:00 History [Lantus] levETIRAcetam [Keppra TAB] 1,000 mg PO BID 04/07/18 08/18/18 04/12/18 22:00 History Benzonatate [Tessalon Perles] 100 mg PO Q8HR PRN #30 capsule 06/18/18 08/18/18 Unknown Rx Pantoprazole [Protonix TAB] 40 mg PO QDAY #30 tablet 07/25/18 08/18/18 Unknown Rx Sucralfate [Carafate] 1 gm PO ACHS #120 tablet 08/02/18 08/18/18 Unknown Rx ALBUTEROL Inhaler (OR & NICU) 2 puff IH QID PRN #1 inhalation 08/18/18 Unknown Rx [ProAir HFA Inhaler] HYDROcodone/APAP 5-325 [[place] 1 - 2 each PO Q6HR PRN #14 tablet 09/10/18 Unknown Rx 5/325] Promethazine [Phenergan TAB] 25 mg PO Q6HR PRN #20 tab 09/10/18 Unknown Rx Promethazine [Phenergan] 25 mg MD Q6HR PRN #5 supp.rect 09/10/18 Unknown Rx Ondansetron [Zofran Odt] 4 mg PO Q8HR PRN #20 tab.rapdis 09/28/18 Unknown Rx Acetaminophen/Codeine [Tylenol 1 tab PO Q6H PRN #12 tab 10/22/18 Unknown Rx /Codeine # 3 tab] Cyclobenzaprine [Flexeril] 10 mg PO QHS PRN #10 tablet 10/22/18 Unknown Rx ED Physical Exam - General Limitations: No Limitations General appearance: alert, in no apparent distress - Head Head exam: Present: atraumatic, normocephalic, normal inspection - Eye Eye exam: Present: normal appearance, PERRL - ENT ENT exam: Present: normal exam, normal orophraynx, mucous membranes moist - Neck Neck exam: Present: normal inspection, full ROM. Absent: tenderness, meningismus, lymphadenopathy, thyromegaly - Respiratory Respiratory exam: Present: normal lung sounds bilaterally - Cardiovascular Cardiovascular Exam: Present: regular rate, normal rhythm, normal heart sounds - GI/Abdominal GI/Abdominal exam: Present: soft, normal bowel sounds. Absent: distended, tenderness, guarding, rebound, rigid, organomegaly, mass, pulsatile mass, hernia - Extremities Exam Extremities exam: Present: normal inspection, full ROM, normal capillary refill. Absent: pedal edema, calf tenderness - Back Exam Back exam: Present: normal inspection, full ROM - Neurological Exam Neurological exam: Present: alert, oriented X3, CN II-XII intact, normal gait - Skin Skin exam: Present: warm, intact, normal color ED Course Vital Signs 12/11/18 12/11/18 12/11/18 00:44 00:46 01:28 Temperature 98.6 F 98.6 F 97.9 F Pulse Rate 115 H 113 H 110 H Respiratory 18 16 20 Rate Blood Pressure 155/114 155/114 Blood Pressure 150/110 [Right] O2 Sat by Pulse 99 99 100 Oximetry 12/11/18 12/11/18 12/11/18 01:42 02:00 03:00 Temperature 98.2 F Pulse Rate 103 H 96 H 99 H Respiratory 28 H 11 L 13 Rate Blood Pressure 158/101 150/82 Blood Pressure 158/101 [Right] O2 Sat by Pulse 99 99 100 Oximetry ED Medical Decision Making - Lab Data Result diagrams: 12/11/18 02:21 12/11/18 02:21 - EKG Data -: EKG Interpreted by Ga EKG shows normal: sinus rhythm Rate: normal - EKG Data Interpretation: no acute changes - Radiology Data Radiology results: report reviewed Chest x-ray is unremarkable. - Medical Decision Making Patient is 48 years old male with history of asthma, hypertension and seizure. Patient presented to the ER with multiple complaints. Patient stated that he been having some shortness of breath for the last 2-3 days. Patient also stated that he has been diagnosed with esophageal candidemia exists most likely secondary to his chronic use of steroid. He also stated that he had history of coronary artery disease and stent. Patient denied any fever or chills. Patient also denied any difficulty swallowing. Patient stated that he is feeling much better. Labs reviewed and is unremarkable. D-dimer is negative. Troponin is negative. EKG is unremarkable. Chest x-ray is negative for acute finding. I advised patient to follow-up with Dr. Funes for his esophageal candidiasis. I also advised him to return to the ER if symptoms are not improved. Critical care attestation.: If time is entered above; I have spent that time in minutes in the direct care of this critically ill patient, excluding procedure time. ED Disposition Clinical Impression: Shortness of breath, Leg pain Disposition: DC- TO HOME OR SELFCARE Is pt being admited?: No Condition: Stable Instructions: Dyspnea (ED) Referrals: PRIYA HOUSTON MD [Primary Care Provider] - 3-5 Days ADRIANE VELASQUEZ MD [Staff Physician] - 3-5 Days
[2018-12-11 02:45] LABS: Basophils % (Auto) 0.6 % (0.0-1.8); Eosinophils # (Auto) 0.1 K/mm3 (0.0-0.4); Eosinophils % (Auto) 1.7 % (0.0-4.3); Hematocrit 47.9 % (35.5-45.6); Hemoglobin 16.5 gm/dl (11.8-15.2); Mean Corpuscular HGB Conc 34 % (32-34); Mean Corpuscular Volume 86 fl (84-94); Monocytes # (Auto) 0.5 K/mm3 (0.0-0.8); Monocytes % (Auto) 7.8 % (0.0-7.3); Platelet Count 146 K/mm3 (140-440); Red Blood Count 5.59 M/mm3 (3.65-5.03); Red Cell Distribution Width 13.8 % (13.2-15.2)
[2018-12-11 03:03] LABS: Albumin 3.6 g/dL (3.9-5); BUN/Creatinine Ratio 13; Blood Urea Nitrogen 14 mg/dL (9-20); Calcium 9.2 mg/dL (8.4-10.2); Hemolysis Index 122
[2018-12-11] MEDS ORDERED: NEURONTIN PO ONE (03:08)
--- NOTE | 2018-12-11 03:09 | XRay Report ---
PROCEDURE: XR CHEST 1V AP TECHNIQUE: Chest radiograph single view. HISTORY: chest pain COMPARISONS: July 30, 2018 . FINDINGS: Heart: Normal. Mediastinum/Vessels: Normal. Lungs/Pleural space: Normal. Bony thorax: No acute osseous abnormality. Life support devices: None. IMPRESSION: No acute cardiopulmonary abnormality. This document is electronically signed by Elyssa David DO., Dec 11 2018 03:07:27 AM ET
[2018-12-11] MEDS ORDERED: ULTRAM PO ONE (03:14)
[2018-12-11] MEDS ORDERED: ZOFRAN ODT PO ONE (03:15)
[2018-12-11 03:34] LABS: Alanine Aminotransferase 31 units/L (7-56)
[2018-12-11 06:02] VITALS: BP 151/91
== END 2018-12-11 04:18 | disposition home or self-care (01) ==
LOC: ED 00:41
DX: R06.02 Shortness of breath (principal); M79.606 Pain in leg, unspecified; I10 Essential (primary) hypertension; E11.9 Type 2 diabetes mellitus without complications; I25.2 Old myocardial infarction; F41.9 Anxiety disorder, unspecified; R56.9 Unspecified convulsions; J45.909 Unspecified asthma, uncomplicated; Z90.89 Acquired absence of other organs; Z95.5 Presence of coronary angioplasty implant and graft; Z79.4 Long term (current) use of insulin; Z88.8 Allergy status to other drugs, medicaments and biological substances; Z88.0 Allergy status to penicillin; Z88.6 Allergy status to analgesic agent; Z91.041 Radiographic dye allergy status
CPT/HCPCS: 36415; 71045; 80053; 83880; 84484; 85025; 85379; 93005; 93010; Q0162

== ENCOUNTER 2019-01-12 08:46 | Day surgery (SDC) | payer MEDICAID ==
--- NOTE | 2019-01-12 09:13 | Anesthesia Consultation ---
Anesthesia Consult and Med Hx Date of service: 01/12/19 - Airway Anesthetic Teeth Evaluation: Crowns ROM Head & Neck: Adequate Mental/Hyoid Distance: Adequate Mallampati Class: Class II Intubation Access Assessment: Probably Good - Pulmonary Exam CTA: Yes - Cardiac Exam Cardiac Exam: RRR - Pre-Operative Health Status ASA Pre-Surgery Classification: ASA3 Proposed Anesthetic Plan: General (Was seen by through freight engineer one day ago and told he was cleared for anesthesia) - Pulmonary Hx Smoking: Yes (cigars) Hx Asthma: Yes COPD: No Hx Pneumonia: Yes Hx Sleep Apnea: Yes - Cardiovascular System Hx Hypertension: Yes Hx Coronary Artery Disease: Yes Hx Heart Attack/AMI: Yes (2007 and 2016 with 3 stents placement) Hx Percutaneous Transluminal Coronary Angioplasty (PTCA): Yes - Central Nervous System Hx Seizures: Yes Hx Psychiatric Problems: Yes - Endocrine Hx End Stage Renal Disease: No Hx Non-Insulin Dependent Diabetes: Yes - Other Systems Hx Cancer: Yes Hx Obesity: Yes (BMi 39.1)
--- NOTE | 2019-01-12 09:14 | Anesthesia Day of Surgery ---
Anesthesia Day of Surgery - Day of Surgery Patient Examined: Yes Patient H&P Reviewed: Yes Patient is NPO: Yes
[2019-01-12] MEDS ORDERED: NACL 0.9% 1000 ML 1,000 ML IV SCH (10:00)
[2019-01-12] MEDS ORDERED: DIPRIVAN 10 MG/ML IV ONE ×2 (10:03)
--- NOTE | 2019-01-12 11:25 | Procedure Note ---
Date of procedure: 01/12/19 Pre-op diagnosis: Dysphagia/ Colon Polyp Screening Post-op diagnosis: other (No Colon Polyps noted/Minor,Internal Hemorrhoid/ Mild, Anita Esophagitis/Gastritis) Procedure: EGD with Biopsy and Colonoscopy Anesthesia: MAC Surgeon: ANTOINETTE STEPHENSON Estimated blood loss: minimal Pathology: list Specimen disposition: to lab Condition: stable Disposition: same day (Treat with PPI and Fluconazole. Advice patient to avoid aspirin and NSAID for 5 days. Follow up in 1 to 2 weeks ([phone]).)
[2019-01-12 11:47] VITALS: BP 102/63
--- NOTE | 2019-01-12 13:25 | Operative Report ---
PROCEDURE: EGD. INDICATIONS FOR SURGERY: A 48-year-old -[place] gentleman with an underlying history of diabetes mellitus type 2, asthma, seizure disorder, hypertension and coronary artery disease. He also has a history of smoking cigars and has been advised not to do so. EGD was done because he has been having some problems with dysphagia. DESCRIPTION OF PROCEDURE: The procedure was done after getting informed consent with MAC anesthesia. Instrument was passed through the hypopharynx into the esophagus, which showed evidence of mild Anita esophagitis. Photo documentation and biopsy was obtained. The patient's dysphagia was possibly secondary to the Anita esophagitis. The distal esophagus was patent. The stomach showed some antral gastritis. Biopsy was done from the gastric antrum, gastric body and angularis incisura to rule out for H. pylori and atrophic gastritis. Pylorus is patent. Duodenum in the first and the second portion appeared normal. There was minimal bleeding from the biopsy sites. No complications associated with the procedure. ASSESSMENT: Dysphagia secondary to mild Anita esophagitis, gastritis. No peptic ulcer disease noted. Patent pylorus. PLAN: Plan is to treat the patient with PPI and fluconazole. Have the patient avoid aspirin and aspirin-related products for the next few days and follow up in the office in 1-2 weeks' time. A colonoscopy will be done as part of colon polyp screening. RNMonserrat was in the room throughout the entirety of the procedure. JOB# [id number] CARLY/HERNÁN
--- NOTE | 2019-01-12 13:49 | Operative Report ---
PROCEDURE: Colonoscopy. INDICATIONS: This is a 48-year-old -[place] gentleman with multiple medical issues like coronary artery disease, hypertension, diabetes mellitus type 2, and asthma. EGD done prior to this test had shown presence of mild Anita esophagitis and gastritis. Colonoscopy was done as part of colon polyp screening. DESCRIPTION OF PROCEDURE: The procedure was done after getting informed consent with MAC anesthesia. Initial rectal exam was unremarkable. Instrument was passed through the rectum onto the cecum, which was identified with the ileocecal valve and the appendiceal orifice. The scope was retroflexed in the cecum. No additional pathology was noted in the cecum on withdrawn. The cecum, ascending colon, transverse colon, descending colon, and sigmoid showed normal mucosa. There was no evidence of any polyps, colitis or diverticular disease. Rectum showed minor internal hemorrhoids on the retroverted view. There were no biopsies done and no bleeding associated with the procedure and no complications associated with the procedure. ASSESSMENT: Colon polyp screening, no colon polyps noted. Minor internal hemorrhoid. EGD had shown presence of mild Anita esophagitis and gastritis. PLAN: The patient is to be treated with fluconazole and omeprazole, asked to avoid aspirin and aspirin-related products because of the mild bleeding associated with the biopsies done during the EGD and asked to follow up in the office in 1-2 weeks' time. RN, Monserrat Smith was in the room throughout the entirety of the procedure. JOB# [id number] CARLY/HERNÁN
== END 2019-01-12 08:47 | disposition home or self-care (01) ==
LOC: GIO 08:46
DX: Z12.11 Encounter for screening for malignant neoplasm of colon (principal); K57.30 Diverticulosis of large intestine without perforation or abscess without bleeding; K64.8 Other hemorrhoids; K29.50 Unspecified chronic gastritis without bleeding; B37.81 Candidal esophagitis; I25.10 Atherosclerotic heart disease of native coronary artery without angina pectoris; I10 Essential (primary) hypertension; E78.5 Hyperlipidemia, unspecified; E11.9 Type 2 diabetes mellitus without complications; J45.909 Unspecified asthma, uncomplicated; F17.210 Nicotine dependence, cigarettes, uncomplicated; K21.0 Gastro-esophageal reflux disease with esophagitis; Z98.41 Cataract extraction status, right eye; G47.30 Sleep apnea, unspecified; E66.9 Obesity, unspecified; E11.51 Type 2 diabetes mellitus with diabetic peripheral angiopathy without gangrene; F41.9 Anxiety disorder, unspecified; Z79.899 Other long term (current) drug therapy; Z88.0 Allergy status to penicillin; Z79.82 Long term (current) use of aspirin; Z79.4 Long term (current) use of insulin; Z95.5 Presence of coronary angioplasty implant and graft; G40.909 Epilepsy, unspecified, not intractable, without status epilepticus; Z80.0 Family history of malignant neoplasm of digestive organs; Z90.49 Acquired absence of other specified parts of digestive tract; Z68.36 Body mass index [BMI] 36.0-36.9, adult; Z98.890 Other specified postprocedural states; Z85.89 Personal history of malignant neoplasm of other organs and systems; Z88.8 Allergy status to other drugs, medicaments and biological substances
CPT/HCPCS: 43239; 45378; 88305; 88342; J2704; J7030

== ENCOUNTER 2019-04-25 16:37 | Emergency (ER) | payer MEDICAID ==
[2019-04-25 17:05] VITALS: BP 148/92
--- NOTE | 2019-04-25 18:18 | XRay Report ---
CHEST 2 VIEWS INDICATION / CLINICAL INFORMATION: cough with chest pain. COMPARISON: Chest x-ray 12/11/2018 FINDINGS: SUPPORT DEVICES: None. HEART / MEDIASTINUM: No significant abnormality. LUNGS / PLEURA: No significant pulmonary or pleural abnormality. No pneumothorax. ADDITIONAL FINDINGS: No significant additional findings. IMPRESSION: 1. No acute findings. Signer Name: Yamil Carrion MD Signed: 04/25/2019 6:14 PM Workstation Name: [id number]
[2019-04-25] MEDS ORDERED: methylPREDNISolone Sod Succinate 125 MG/2 ML INJ IV ONE (20:13)
[2019-04-25] MEDS ORDERED: IPRATROPIUM/ALBUTEROL SULFATE 3 ML AMPUL.NEB IH ONE (20:13)
[2019-04-25 20:35] LABS: Basophils # (Auto) 0.1 K/mm3 (0.0-0.1); Basophils % (Auto) 2.2 % (0.0-1.8); Eosinophils # (Auto) 0.2 K/mm3 (0.0-0.4); Eosinophils % (Auto) 3.2 % (0.0-4.3); Hematocrit 44.2 % (35.5-45.6); Hemoglobin 15.6 gm/dl (11.8-15.2); Lymphocytes # (Auto) 1.4 K/mm3 (1.2-5.4); Lymphocytes % (Auto) 23.7 % (13.4-35.0); Mean Corpuscular HGB Conc 35 % (32-34); Mean Corpuscular Volume 85 fl (84-94); Monocytes # (Auto) 0.4 K/mm3 (0.0-0.8); Monocytes % (Auto) 7.3 % (0.0-7.3); Platelet Count 164 K/mm3 (140-440); Red Blood Count 5.23 M/mm3 (3.65-5.03); Red Cell Distribution Width 13.9 % (13.2-15.2)
[2019-04-25] MEDS ORDERED: SODIUM CHLORIDE 0.9% 1000 ML 1,000 ML IV ONE (20:53)
[2019-04-25] MEDS ORDERED: ONDANSETRON 4 MG/2 ML INJ IV ONE (20:53)
[2019-04-25 20:56] LABS: Alanine Aminotransferase 20 units/L (7-56); Albumin 3.7 g/dL (3.9-5); BUN/Creatinine Ratio 8; Blood Urea Nitrogen 8 mg/dL (9-20); Calcium 8.4 mg/dL (8.4-10.2); Hemolysis Index 77
--- NOTE | 2019-04-25 23:01 | Emergency Department Report ---
- General Chief Complaint: Upper Respiratory Infection Stated Complaint: CHEST PAIN/DEEP Time Seen by Provider: 04/25/19 17:45 Source: patient Mode of arrival: Ambulatory Limitations: No Limitations - History of Present Illness Initial Comments: Patient is a 48-year-old Afro-[place] male with a history of seizures, hypertension, [id number] diabetes, coronary artery disease status post MD who presents to the ED with complaint of acute onset persistent nasal and sinus congestion, frontal sinus pressure, persistent dry cough, nausea and vomiting for the last 2 weeks. Patient states that he just returned from a trip to [place], and had to go to the hospital while in [place] and was treated with Diflucan for 14 days for a suspected fungal esophagitis. Patient also complains of subjective fever, diaphoresis, generalized weakness and fatigue. Patient denies chest pain, shortness of breath, abdominal pain, diarrhea, change in vision, syncope, seizures, hemoptysis, dysuria, urinary frequency and urgency and back pain. MD Complaint: fever, cough, sore throat, rhinorrhea, nasal congestion, sinus pain -: Gradual, week(s) (2) Severity: severe Severity scale (0 -10): 7 Quality: aching Consistency: constant Improves With: OTC cold medicine Worsens With: nothing Context: sick contacts, recent travel, other (recent trip) Associated Symptoms: denies other symptoms, fever, chills, myalgias, headache, rhinorrhea, nasal congestion, sore throat, cough, nausea, vomiting. denies: shortness of breath, abdominal pain, rash, confusion, right sweats, epistaxis, hoarseness, ear pain - Related Data Home Medications Medication Instructions Recorded Confirmed Last Taken Aspirin [Aspirin BABY CHEW TAB] 81 mg PO QDAY 08/13/15 01/12/19 01/11/19 Insulin Glargine,Hum.rec.anlog 40 units SQ QHS 04/07/18 08/18/18 01/11/19 [Lantus] levETIRAcetam [Keppra TAB] 1,000 mg PO BID 04/07/18 01/12/19 01/11/19 Previous Rx's Medication Instructions Recorded Last Taken Type ALBUTEROL Inhaler (OR & NICU) 2 puff IH QID PRN #1 inhalation 08/18/18 Unknown Rx [ProAir HFA Inhaler] Fluconazole [Diflucan ORAL SOLN] 100 mg PO QDAY 10 Days #10 01/12/19 Unknown Rx oral.liqd raNITIdine HCl [Zantac] 150 mg PO BID 30 Days #60 tablet 01/12/19 Unknown Rx Benzonatate [Tessalon Perles] 100 mg PO Q8HR #30 capsule 04/25/19 Unknown Rx Cetirizine HCl [Zyrtec 10mg tab] 10 mg PO DAILY #30 tablet 04/25/19 Unknown Rx Doxycycline Hyclate [Doxycycline 100 mg PO Q12HR #20 tab 04/25/19 Unknown Rx Hyclate TAB] Ondansetron [Zofran Odt] 4 mg PO Q6HR PRN #21 tab.rapdis 04/25/19 Unknown Rx methylPREDNISolone [Medrol 4MG 4 mg PO DAILY #21 tab.ds.pk 04/25/19 Unknown Rx DOSEPAK (21 tabs)] Allergies Allergy/AdvReac Type Severity Reaction Status Date / Time metoclopramide HCl Allergy Swelling Verified 04/25/19 17:07 [From Reglan] Penicillins Allergy Swelling Verified 04/25/19 17:07 ibuprofen AdvReac Swelling Verified 04/25/19 17:07 iv contract dy Allergy Swelling Uncoded 04/25/19 17:07 ED Review of Systems ROS: Stated complaint: CHEST PAIN/DEEP Other details as noted in HPI Constitutional: denies: chills, fever Eyes: denies: eye pain, eye discharge, vision change ENT: congestion. denies: ear pain, throat pain Respiratory: cough. denies: shortness of breath, SOB with exertion, SOB at rest, wheezing Cardiovascular: denies: chest pain, palpitations, dyspnea on exertion, syncope, paroxysmal nocturnal dyspnea Endocrine: no symptoms reported Gastrointestinal: nausea, vomiting. denies: abdominal pain, diarrhea, constipation, hematemesis Genitourinary: denies: urgency, dysuria Musculoskeletal: denies: back pain, joint swelling, arthralgia Skin: denies: rash, lesions Neurological: headache. 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 - Social History Smoking Status: Unknown if ever smoked Substance Use Type: None - Medications Home Medications: Home Medications Medication Instructions Recorded Confirmed Last Taken Type Aspirin [Aspirin BABY CHEW TAB] 81 mg PO QDAY 08/13/15 01/12/19 01/11/19 History Insulin Glargine,Hum.rec.anlog 40 units SQ QHS 04/07/18 08/18/18 01/11/19 History [Lantus] levETIRAcetam [Keppra TAB] 1,000 mg PO BID 04/07/18 01/12/19 01/11/19 History ALBUTEROL Inhaler (OR & NICU) 2 puff IH QID PRN #1 inhalation 08/18/18 01/12/19 Unknown Rx [ProAir HFA Inhaler] Fluconazole [Diflucan ORAL SOLN] 100 mg PO QDAY 10 Days #10 01/12/19 Unknown Rx oral.liqd raNITIdine HCl [Zantac] 150 mg PO BID 30 Days #60 tablet 01/12/19 Unknown Rx Benzonatate [Tessalon Perles] 100 mg PO Q8HR #30 capsule 04/25/19 Unknown Rx Cetirizine HCl [Zyrtec 10mg tab] 10 mg PO DAILY #30 tablet 04/25/19 Unknown Rx Doxycycline Hyclate [Doxycycline 100 mg PO Q12HR #20 tab 04/25/19 Unknown Rx Hyclate TAB] Ondansetron [Zofran Odt] 4 mg PO Q6HR PRN #21 tab.rapdis 04/25/19 Unknown Rx methylPREDNISolone [Medrol 4MG 4 mg PO DAILY #21 tab.ds.pk 04/25/19 Unknown Rx DOSEPAK (21 tabs)] ED Physical Exam - General Limitations: No Limitations General appearance: alert, in no apparent distress - Head Head exam: Present: atraumatic, normocephalic, normal inspection - Eye Eye exam: Present: normal appearance, PERRL, EOMI Pupils: Present: normal accommodation - ENT ENT exam: Present: normal orophraynx, mucous membranes moist, TM's normal bilaterally, normal external ear exam, other (grossly congested nasal passages) - Neck Neck exam: Present: normal inspection, full ROM. Absent: tenderness - Respiratory Respiratory exam: Present: normal lung sounds bilaterally, wheezes (mildly diffuse intermittent wheezes). Absent: respiratory distress, rales, rhonchi, stridor, chest wall tenderness, accessory muscle use, decreased breath sounds, prolonged expiratory - Cardiovascular Cardiovascular Exam: Present: regular rate, normal rhythm, normal heart sounds. Absent: systolic murmur, diastolic murmur, rubs, gallop - GI/Abdominal GI/Abdominal exam: Present: soft, normal bowel sounds. Absent: tenderness, guarding, hyperactive bowel sounds, hypoactive bowel sounds, organomegaly, mass - Rectal Rectal exam: Present: deferred - Extremities Exam Extremities exam: Present: normal inspection, full ROM, normal capillary refill - Back Exam Back exam: Present: normal inspection, full ROM. Absent: muscle spasm, paraspinal tenderness, vertebral tenderness - Neurological Exam Neurological exam: Present: alert, oriented X3, CN II-XII intact, normal gait - Psychiatric Psychiatric exam: Present: normal affect, normal mood - Skin Skin exam: Present: warm, dry, intact, normal color. Absent: rash ED Course Vital Signs 04/25/19 04/25/19 04/25/19 16:46 16:47 17:44 Temperature 98 F Pulse Rate 95 H 86 85 Respiratory 18 18 Rate Blood Pressure 148/92 148/92 O2 Sat by Pulse 99 100 100 Oximetry - Reevaluation(s) Reevaluation #1: 04/25/19 23:19 This is a 48-year-old -[place] male who presented to the ED with nasal and sinus congestion, dry cough, nausea and vomiting for the last 2 weeks. In the ED, patient is alert and oriented 3 and is not in distress. Patient received DuoNeb treatment in the ED, Solu-Medrol, also treated with antiemetics and also given normal saline 1 L IV bolus. Chest x-ray shows no acute cardiopulmonary abnormalities or pneumonitis. On reevaluation, patient's symptoms improved significantly. Patient was discharged home on medications and advised follow-up with his primary care physician in 7-10 days for reevaluation. Patient was also advised to return to the ED immediately if symptoms get worse. ED Medical Decision Making - Lab Data Result diagrams: 04/25/19 20:12 04/25/19 20:19 - Radiology Data Radiology results: report reviewed, image reviewed Chest x-ray shows no acute cardiopulmonary abnormalities or pneumonitis. - Medical Decision Making This is a 48-year-old -[place] male who presented to the ED with nasal and sinus congestion, dry cough, nausea and vomiting for the last 2 weeks. In the ED, patient is alert and oriented 3 and is not in distress. Patient received DuoNeb treatment in the ED, Solu-Medrol, also treated with antiemetics and also given normal saline 1 L IV bolus. Chest x-ray shows no acute cardiopulmonary abnormalities or pneumonitis. On reevaluation, patient's symptoms improved significantly. Patient was discharged home on medications and advised follow-up with his primary care physician in 7-10 days for reevaluation. Patient was also advised to return to the ED immediately if symptoms get worse. - Differential Diagnosis acute bronchitis; acute URI; Sinusitis; Pneumonia Critical care attestation.: If time is entered above; I have spent that time in minutes in the direct care of this critically ill patient, excluding procedure time. ED Disposition Clinical Impression: Acute upper respiratory infection, Nausea and vomiting in adult Acute frontal sinusitis Qualifiers: Recurrence: recurrent Qualified Code(s): J01.11 - Acute recurrent frontal sinusitis Acute bronchitis Qualifiers: Bronchitis organism: other organism Qualified Code(s): J20.8 - Acute bronchitis due to other specified organisms Disposition: DC-01 TO HOME OR SELFCARE Is pt being admited?: No Does the pt Need Aspirin: No Condition: Stable Instructions: Acute Bronchitis (ED), Acute Bacterial Rhinosinusitis (ED), Acute Nausea and Vomiting (ED), Upper Respiratory Infection (ED) Additional Instructions: Take medication with food, drink plenty of fluids and follow-up with your primary care physician in 7-10 days for reevaluation. Return to the ED immediately if symptoms get worse. Prescriptions: Doxycycline Hyclate [Doxycycline Hyclate TAB] 100 mg PO Q12HR #20 tab methylPREDNISolone [Medrol 4MG DOSEPAK (21 tabs)] 4 mg PO DAILY #21 tab.ds.pk Benzonatate [Tessalon Perles] 100 mg PO Q8HR #30 capsule Ondansetron [Zofran Odt] 4 mg PO Q6HR PRN #21 tab.rapdis PRN Reason: Nausea Cetirizine HCl [Zyrtec 10mg tab] 10 mg PO DAILY #30 tablet Referrals: MONICA GURROLA MD [Primary Care Provider] - 3-5 Days Time of Disposition: 23:15 Print Language: JAPANESE
== END 2019-04-25 23:00 | disposition home or self-care (01) ==
LOC: ED 16:37
DX: J20.9 Acute bronchitis, unspecified (principal); J01.10 Acute frontal sinusitis, unspecified; I10 Essential (primary) hypertension; F41.9 Anxiety disorder, unspecified; J45.909 Unspecified asthma, uncomplicated; Z90.49 Acquired absence of other specified parts of digestive tract
CPT/HCPCS: 36415; 71046; 80053; 85025; 94640; 96361; 96374; 96375; 99284; J2405; J2930; J7030

== ENCOUNTER 2019-06-06 06:02 | Observation (INO) | payer MEDICAID ==
[2019-06-06] MEDS ORDERED: ASPIRIN 325 MG TAB PO ONE (06:12)
--- NOTE | 2019-06-06 06:42 | XRay Report ---
CHEST 1 VIEW INDICATION: Chest Pain. COMPARISON: 04/25/2019. FINDINGS: Support devices: None. Heart: Within normal limits. Lungs/Pleura: No acute air space or interstitial disease. Additional findings: None. IMPRESSION: No acute abnormality. Signer Name: Antonino Ventura MD Signed: 06/06/2019 6:37 AM Workstation Name: [id number]
[2019-06-06 07:27] LABS: BUN/Creatinine Ratio 11; Blood Urea Nitrogen 10 mg/dL (9-20); Calcium 9.1 mg/dL (8.4-10.2); Hemolysis Index 7
[2019-06-06 07:53] LABS: Basophils % (Auto) 0.6 % (0.0-1.8); Eosinophils # (Auto) 0.1 K/mm3 (0.0-0.4); Eosinophils % (Auto) 1.9 % (0.0-4.3); Hematocrit 47.1 % (35.5-45.6); Hemoglobin 16.1 gm/dl (11.8-15.2); Lymphocytes # (Auto) 2.4 K/mm3 (1.2-5.4); Lymphocytes % (Auto) 31.1 % (13.4-35.0); Mean Corpuscular HGB Conc 34 % (32-34); Mean Corpuscular Volume 87 fl (84-94); Monocytes # (Auto) 0.6 K/mm3 (0.0-0.8); Monocytes % (Auto) 8.2 % (0.0-7.3); Platelet Count 155 K/mm3 (140-440); Red Cell Distribution Width 13.9 % (13.2-15.2)
--- NOTE | 2019-06-06 08:08 | Emergency Department Report ---
ED General Adult HPI - General Chief complaint: Chest Pain Stated complaint: COLD, CHEST PAIN,BACK AND LEG PAIN Time Seen by Provider: 06/06/19 07:41 Source: patient Mode of arrival: Ambulatory Limitations: No Limitations - History of Present Illness Initial comments: Patient is a 48-year-old male that presents emergency room with complaints of body aches, cough, chest pain, nausea vomiting, sob. Patient states she's had these symptoms for 3 weeks. Patient states the symptoms started after returning from [facility]. Patient states she's been seen in [facility] and by his primary care. Patient states she has taken for antibiotics, cough syrup and prednisone pack's. Patient states he is not getting any relief. Patient states he's having difficulties breathing today. Patient states his chest pain is a 9 out of 10. Patient states the chest pain is in both sides of his chest laterally. . Patient states that he is still having occasional fever. Patient states his symptoms are worse with exertion and better with rest. Patient states she's also taken Diflucan for this problem. -: Sudden - Related Data Home Medications Medication Instructions Recorded Confirmed Last Taken Aspirin [Aspirin BABY CHEW TAB] 81 mg PO QDAY 08/13/15 01/12/19 01/11/19 Insulin Glargine,Hum.rec.anlog 40 units SQ QHS 04/07/18 08/18/18 01/11/19 [Lantus] levETIRAcetam [Keppra TAB] 1,000 mg PO BID 04/07/18 01/12/19 01/11/19 Previous Rx's Medication Instructions Recorded Last Taken Type ALBUTEROL Inhaler (OR & NICU) 2 puff IH QID PRN #1 inhalation 08/18/18 Unknown Rx [ProAir HFA Inhaler] Fluconazole [Diflucan ORAL SOLN] 100 mg PO QDAY 10 Days #10 01/12/19 Unknown Rx oral.liqd raNITIdine HCl [Zantac] 150 mg PO BID 30 Days #60 tablet 01/12/19 Unknown Rx Benzonatate [Tessalon Perles] 100 mg PO Q8HR #30 capsule 04/25/19 Unknown Rx Cetirizine HCl [Zyrtec 10mg tab] 10 mg PO DAILY #30 tablet 04/25/19 Unknown Rx Doxycycline Hyclate [Doxycycline 100 mg PO Q12HR #20 tab 10/09/19 Unknown Rx Hyclate TAB] Ondansetron [Zofran Odt] 4 mg PO Q6HR PRN #21 tab.rapdis 04/25/19 Unknown Rx methylPREDNISolone [Medrol 4MG 4 mg PO DAILY #21 tab.ds.pk 04/25/19 Unknown Rx DOSEPAK (21 tabs)] Allergies Allergy/AdvReac Type Severity Reaction Status Date / Time metoclopramide HCl Allergy Swelling Verified 04/25/19 17:07 [From Reglan] Penicillins Allergy Swelling Verified 04/25/19 17:07 ibuprofen AdvReac Swelling Verified 04/25/19 17:07 iv contract dy Allergy Swelling Uncoded 04/25/19 17:07 ED Review of Systems ROS: Stated complaint: COLD, CHEST PAIN,BACK AND LEG PAIN Other details as noted in HPI Constitutional: denies: chills, fever Eyes: denies: eye pain, eye discharge, vision change ENT: denies: ear pain, throat pain Respiratory: cough, shortness of breath, SOB with exertion, SOB at rest, wheezing Cardiovascular: chest pain, dyspnea on exertion. denies: palpitations Endocrine: no symptoms reported Gastrointestinal: denies: abdominal pain, nausea, diarrhea Genitourinary: denies: urgency, dysuria Musculoskeletal: denies: back pain, joint swelling, arthralgia Skin: denies: rash, lesions Neurological: denies: headache, weakness, paresthesias Psychiatric: denies: anxiety, depression Hematological/Lymphatic: denies: easy bleeding, easy bruising ED Past Medical Hx - Past Medical History Previous Medical History?: Yes Hx Hypertension: Yes Hx Heart Attack/AMI: Yes Hx Congestive Heart Failure: No Hx Diabetes: Yes Hx Seizures: Yes Hx Psychiatric Treatment: Yes (anxiety) Hx Asthma: Yes Hx COPD: No Hx HIV: No Additional medical history: H.pylori - Surgical History Past Surgical History?: Yes Hx Coronary Stent: Yes (CARDIAC STENTS X3) Hx Appendectomy: Yes 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 - Family History Family history: no significant - Social History Smoking Status: Never Smoker Substance Use Type: None - Medications Home Medications: Home Medications Medication Instructions Recorded Confirmed Last Taken Type Aspirin [Aspirin BABY CHEW TAB] 81 mg PO QDAY 08/13/15 01/12/19 01/11/19 History Insulin Glargine,Hum.rec.anlog 40 units SQ QHS 04/07/18 08/18/18 01/11/19 Hist ory [Lantus] levETIRAcetam [Keppra TAB] 1,000 mg PO BID 04/07/18 01/12/19 01/11/19 History ALBUTEROL Inhaler (OR & NICU) 2 puff IH QID PRN #1 inhalation 08/18/18 01/12/19 Unknown Rx [ProAir HFA Inhaler] Fluconazole [Diflucan ORAL SOLN] 100 mg PO QDAY 10 Days #10 01/12/19 Unknown Rx oral.liqd raNITIdine HCl [Zantac] 150 mg PO BID 30 Days #60 tablet 01/12/19 Unknown Rx Benzonatate [Tessalon Perles] 100 mg PO Q8HR #30 capsule 04/25/19 Unknown Rx Cetirizine HCl [Zyrtec 10mg tab] 10 mg PO DAILY #30 tablet 04/25/19 Unknown Rx Doxycycline Hyclate [Doxycycline 100 mg PO Q12HR #20 tab 04/25/19 Unknown Rx Hyclate TAB] Ondansetron [Zofran Odt] 4 mg PO Q6HR PRN #21 tab.rapdis 04/25/19 Unknown Rx methylPREDNISolone [Medrol 4MG 4 mg PO DAILY #21 tab.ds.pk 04/25/19 Unknown Rx DOSEPAK (21 tabs)] ED Physical Exam - General Limitations: No Limitations General appearance: alert, in distress - Head Head exam: Present: atraumatic, normocephalic - Eye Eye exam: Present: normal appearance, PERRL Pupils: Present: normal accommodation - ENT ENT exam: Present: mucous membranes dry - Neck Neck exam: Present: normal inspection - Respiratory Respiratory exam: Present: respiratory distress, wheezes, decreased breath sounds - Cardiovascular Cardiovascular Exam: Present: regular rate, normal rhythm. Absent: systolic murmur, diastolic murmur, rubs, gallop - GI/Abdominal GI/Abdominal exam: Present: soft, normal bowel sounds. Absent: distended, tenderness, guarding - Rectal Rectal exam: Present: deferred - Extremities Exam Extremities exam: Present: normal inspection - Back Exam Back exam: Present: normal inspection - Neurological Exam Neurological exam: Present: alert, oriented X3 - Psychiatric Psychiatric exam: Present: normal affect, normal mood - Skin Skin exam: Present: warm, dry, intact, normal color. Absent: rash ED Course Vital Signs 06/06/19 06/06/19 06/06/19 06:08 07:45 08:58 Temperature 98.7 F Pulse Rate 95 H 95 H 95 H Pulse Rate [ Anterior Bilateral Throughout] Respiratory 18 18 16 Rate Respiratory Rate [Anterior Bilateral Throughout] Blood Pressure 129/89 Blood Pressure 136/86 155/93 [Left] O2 Sat by Pulse 98 98 95 Oximetry 06/06/19 06/06/19 10:05 10:53 Temperature Pulse Rate 95 H Pulse Rate [ 99 H Anterior Bilateral Throughout] Respiratory 14 Rate Respiratory 18 Rate [Anterior Bilateral Throughout] Blood Pressure Blood Pressure 136/56 [Left] O2 Sat by Pulse 96 Oximetry - Reevaluation(s) Reevaluation #1: Patient continues to wheeze. Patient continues of shortness of breath. Patient was given magnesium. Nuclear med study is pending due to the hospital being out of the medication.. 06/06/19 10:02 Reevaluation #2: I discussed all results with patient. Patient agrees with plan of care and admission. Patient will be admitted to the hospitalist service. 06/06/19 10:51 - Consultations Consultation #1: Hospitalist consult for admission. Hospitalist admit patient. Bridge orders place. 06/06/19 10:45 ED Medical Decision Making - Lab Data Result diagrams: 06/06/19 06:43 06/06/19 06:43 - EKG Data -: EKG Interpreted by Ne EKG shows normal: sinus rhythm, axis, intervals, QRS complexes, ST-T waves Rate: normal - Radiology Data Radiology results: report reviewed, image reviewed CHEST 1 VIEW INDICATION: Chest Pain. COMPARISON: 04/25/2019. FINDINGS: Support devices: None. Heart: Within normal limits. Lungs/Pleura: No acute air space or interstitial disease. Additional findings: None. IMPRESSION: No acute abnormality. CT CHEST WITHOUT CONTRAST INDICATION: Chest pain. Shortness of breath. Cough. TECHNIQUE: Axial CT images were obtained through the chest without contrast. Lack of IV contrast limits evaluation of the vascular and solid organs. Coronal and sagittal reformats were produced. All CT scans at this location are performed using CT dose reduction for ALARA by means of automated exposure control. COMPARISON: One view of the chest from earlier today. FINDINGS: MEDIASTINUM: No significant abnormality. HEART: No significant abnormality. THORACIC AORTA AND ARTERIES: The aorta is normal in caliber. No significant atherosclerosis is seen. LUNGS: The lungs are clear without a pleural effusion or pneumothorax. ADDITIONAL FINDINGS: None. UPPER ABDOMEN: No significant abnormality. SKELETAL SYSTEM: No significant abnormality. IMPRESSION: No significant abnormality of the chest. NUCLEAR MEDICINE VENTILATION/PERFUSION LUNG SCAN INDICATION: SOB. History of DVT. Recent flight to [place] 3 weeks ago. TECHNIQUE: 18.3 mCi of Xe-133 were given by inhalation. 5.2 mCi of Tc-99m MAA were given by IV. COMPARISON: CT chest without contrast and one view of the chest from earlier today. FINDINGS: VENTILATION: No significant ventilation defects. PERFUSION: No significant perfusion defects. ADDITIONAL FINDINGS: None. IMPRESSION: 1. Low probability for pulmonary embolism. - Medical Decision Making Patient is a 48-year-old male that presents emergency room with complaints of chest pain, shortness of breath and cough and worsening asthma times to reach. Patient states she's been seen in 2 different ERs and at his primary care's office and he has received a total of 4 rounds of antibiotics. Patient has also used prednisone pack. Patient found to have status asthmaticus. Patient will be admitted to the hospitalist service for further evaluation treatment as well as observation and rule out ACS. Patient given multiple medications to treat the status asthmaticus. Patient responded well to therapy. Patient admitted to the hospitalist service. Patient's labs unremarkable. Patient had multiple diagnostics done. Patient's chest CT negative. Patient's chest x-ray negative. Patient nuclear scan negative for a PE. - Differential Diagnosis ACS. Status asthmaticus. sob . CP. Failure of outpatient treatment. Critical Care Time: Yes Critical care time in (mins) excluding proc time.: 35 Critical care attestation.: If time is entered above; I have spent that time in minutes in the direct care of this critically ill patient, excluding procedure time. Critical Care Time: 35 minutes ED Disposition Clinical Impression: SOB (shortness of breath), Failure of outpatient treatment, Hx of heart artery stent Chest pain Qualifiers: Chest pain type: unspecified Qualified Code(s): R07.9 - Chest pain, unspecified Status asthmaticus Qualifiers: Asthma severity: severe Asthma persistence: unspecified Qualified Code(s): J45.902 - Unspecified asthma with status asthmaticus Coronary artery disease Qualifiers: Coronary Disease-Associated Artery/Lesion type: [place] artery [place] vs. transplanted heart: [place] heart Associated angina: with unspecified angina Qualified Code(s): I25.119 - Atherosclerotic heart disease of [place] coronary artery with unspecified angina pectoris Disposition: -09 OP ADMIT IP TO THIS HOSP Is pt being admited?: Yes Does the pt Need Aspirin: No Condition: Critical Time of Disposition: 10:51
[2019-06-06] MEDS ORDERED: methylPREDNISolone Sod Succinate 125 MG/2 ML INJ IV ONE (09:03)
[2019-06-06] MEDS ORDERED: diphenhydrAMINE 50 MG/ML VIAL IV ONE (09:04)
[2019-06-06] MEDS ORDERED: IPRATROPIUM/ALBUTEROL SULFATE 3 ML AMPUL.NEB IH ONE (09:07)
[2019-06-06] MEDS ORDERED: diphenhydrAMINE 50 MG/ML VIAL ONE (09:13)
[2019-06-06] MEDS ORDERED: ASPIRIN 325 MG TAB ONE (09:14)
--- NOTE | 2019-06-06 09:53 | Cat Scan Report ---
CT CHEST WITHOUT CONTRAST INDICATION: Chest pain. Shortness of breath. Cough. TECHNIQUE: Axial CT images were obtained through the chest without contrast. Lack of IV contrast limits evaluati on of the vascular and solid organs. Coronal and sagittal reformats were produced. All CT scans at [facility] location are performed using CT dose reduction for ALARA by means of automated exposure control. COMPARISON: One view of the chest from earlier today. FINDINGS: MEDIASTINUM: No significant abnormality. HEART: No significant abnormality. THORACIC AORTA AND ARTERIES: The aorta is normal in caliber. No significant atherosclerosis is seen. LUNGS: The lungs are clear without a pleural effusion or pneumothorax. ADDITIONAL FINDINGS: None. UPPER ABDOMEN: No significant abnormality. SKELETAL SYSTEM: No significant abnormality. IMPRESSION: No significant abnormality of the chest. Signer Name: Rafal Hughes MD Signed: 06/06/2019 9:48 AM Workstation Name: [id number]
[2019-06-06] MEDS ORDERED: MAGNESIUM SULFATE 2 GM/50 ML BAG IV ONE (10:16)
--- NOTE | 2019-06-06 12:10 | Nuclear Medicine Report ---
NUCLEAR MEDICINE VENTILATION/PERFUSION LUNG SCAN INDICATION: SOB. History of DVT. Recent flight to [place] 3 weeks ago. TECHNIQUE: 18.3 mCi of Xe-133 were given by inhalation. 5.2 mCi of Tc-99m MAA were given by IV. COMPARISON: CT chest without contrast and one view of the chest from earlier today. FINDINGS: VENTILATION: No significant ventilation defects. PERFUSION: No significant perfusion defects. ADDITIONAL FINDINGS: None. IMPRESSION: 1. Low probability for pulmonary embolism. Signer Name: Rafal Hughes MD Signed: 06/06/2019 12:06 PM Workstation Name: [id number]
--- NOTE | 2019-06-06 13:39 | History and Physical Report ---
History of Present Illness Date of examination: 06/06/19 Date of admission: 06/06/19 10:46 Chief complaint: SOB with N/V and cough History of present illness: Patient is a 47 y/o male with PMH of recent natalie esophagitis, CAD, DM, HTN, COPD, hyperlipidemia, and seizures who presented to ED with c/o body aches, cough, chest pain, nausea vomiting and sob with exertion. Patient states he's had these symptoms for 3 weeks. Patient states the symptoms started after returning from [facility]. Patient states she's been seen in [facility] [place] and by his primary care. Patient states he has taken antibiotics, cough syrup and prednisone pack's. Patient states he is not getting any relief. Patient states the chest pain is in both sides of his chest laterally when he cough. Patient states that he is still having occasional fever. Patient states his symptoms are worse with exertion and better with rest. During his previous admission EGD on 07/24/2018 that showed natalie esophagitis and mild gastritis. He reports his dysphagia has continued w/o change despite completing previously prescribed Diflucan, along with being compliant with daily PPI. In ther ER his CXR showed no infiltrates, CTA showed no PE. He is being admitted for further evaluation and Mx Review of System: Constitutional: no fever, no chills, no weight loss Ears, eyes, nose, mouth and throat: no nasal congestion, no nasal discharge, no sinus pressure, no vision change, no red eye. Neck: No neck pain or rigidity. Cardiovascular: no chest pain, no orthopnea, no palpitations, no leg swelling Respiratory: + shortness of breath, + cough, + congestion, + wheezing Gastrointestinal: no abdominal pain, no nausea, no vomiting Genitourinary : no dysuria, no hematuria Musculoskeletal: no joint swelling or muscle ache Integumentary: no rash, no pruritis Neurological: no parathesias, no numbness, no tingling Endocrine: no cold or heat intolerance, no polyuria or polydipsia Hematologic/Lymphatic: no easy bruising, no easy bleeding, no gland swelling Allergic/Immunologic: no urticaria, no angioedema. Past History Past Medical History: acute SD, COPD, diabetes, hypertension, hyperlipidemia, seizures Past Surgical History: Other (angiogram with PCI) Social history: smoking (cigers ). denies: alcohol abuse, prescription drug abuse Family history: diabetes, hypertension Medications and Allergies Allergies Allergy/AdvReac Type Severity Reaction Status Date / Time metoclopramide HCl Allergy Swelling Verified 04/25/19 17:07 [From Reglan] Penicillins Allergy Swelling Verified 04/25/19 17:07 ibuprofen AdvReac Swelling Verified 04/25/19 17:07 iv contract dy Allergy Swelling Uncoded 04/25/19 17:07 Home Medications Medication Instructions Recorded Confirmed Last Taken Type Aspirin [Aspirin BABY CHEW TAB] 81 mg PO QDAY 08/13/15 06/06/19 01/11/19 History Insulin Glargine,Hum.rec.anlog 42 units SQ QHS 04/07/18 06/06/19 01/11/19 His tory [Lantus] levETIRAcetam [Keppra TAB] 1,000 mg PO BID 04/07/18 06/06/19 01/11/19 History ALBUTEROL Inhaler (OR & NICU) 2 puff IH QID PRN #1 inhalation 08/18/18 06/06/19 Unknown Rx [ProAir HFA Inhaler] Fluconazole [Diflucan ORAL SOLN] 100 mg PO QDAY 10 Days #10 01/12/19 06/06/19 Unknown Rx oral.liqd raNITIdine HCl [Zantac] 150 mg PO BID 30 Days #60 tablet 01/12/19 06/06/19 Unknown Rx Benzonatate [Tessalon Perles] 100 mg PO Q8HR #30 capsule 04/25/19 06/06/19 Unknown Rx Cetirizine HCl [Zyrtec 10mg tab] 10 mg PO DAILY #30 tablet 04/25/19 06/06/19 Unknown Rx Doxycycline Hyclate [Doxycycline 100 mg PO Q12HR #20 tab 04/25/19 06/06/19 Unknown Rx Hyclate TAB] Ondansetron [Zofran Odt] 4 mg PO Q6HR PRN #21 tab.rapdis 04/25/19 06/06/19 Unknown Rx methylPREDNISolone [Medrol 4MG 4 mg PO DAILY #21 tab.ds.pk 04/25/19 06/06/19 Unknown Rx DOSEPAK (21 tabs)] Exam - Physical Exam Narrative exam: GENERAL: well-developed morbidly obese AAM lying on bed appeared to be in no discomfort. HEENT: Normocephalic. Atraumatic. No conjunctival congestion or icterus. Patient has moist mucous membranes. NECK: Supple. Trachea midline. CHEST/LUNGS: + wheezes auscultated bilaterally, breathing nonlabored. No crackles or rhonchi. HEART/CARDIOVASCULAR: Regular in rate and rhythm. S1 and S2 positive. ABDOMEN: Abdomen is soft, nontender. Patient has normal bowel sounds. SKIN: There is no rash. Warm and dry. NEURO: No focal motor deficit. Follows command. MUSCULOSKELETAL: No joint effusion or tenderness. EXTRIMITY: No edema, no cyanosis or clubbing. PSYCH: Cooperative. - Constitutional Vitals: Temp Pulse Resp BP Pulse Ox 98.4 F 92 H 20 145/92 91 06/06/19 12:09 06/06/19 12:09 06/06/19 12:09 06/06/19 12:09 06/06/19 12:09 Results - Labs CBC & Chem 7: 06/06/19 06:43 06/06/19 06:43 Labs: Abnormal lab results 06/06/19 06/06/19 Range/Units 06:43 06:43 RBC 5.40 H (3.65-5.03) M/mm3 Hgb 16.1 H (11.8-15.2) gm/dl Hct 47.1 H (35.5-45.6) % [place] % (Auto) 8.2 H (0.0-7.3) % Glucose 164 H (75-100) mg/dL Assessment and Plan Acute Asthma/COPD exacerbation - We'll admit the patient to telemetry - Will provide scheduled nebulizer breathing treatment and as needed - Place on empiric steroid , chest x-ray was unremarkable - Provide supplemental oxygen to keep oxygen saturation above 92% - Consider to consult pulmonary if no improvement in next 24 hours Nausea vomiting - likely from [place] Esophagitis related dysphagia - supportive care, consult GI Chest pain, likely due to chronic cough and underlying dysphagia Recent h/o PNA, completed abx, no infiltrates on cxr h/o natalie esophagitis - completed fluconazole, has outpt f/u with GI CAD s/p PCI, cont home meds DM type on insulin - - We'll place on sliding scale of insulin, consistent carb diet HTN - - We will resume home medications, monitor BP Morbid obesity, wt reduction diet and exercise when clinically stable Seizure disorder: continue keppra Tobacco abuse, counselled - Provide DVT prophylaxis with Lovenox. Radiological data: Pulmonary VQ scan: 1. Low probability for pulmonary embolism. CTA chest: No significant abnormality of the chest. Chest x-ray: No acute abnormality.
[2019-06-06] MEDS: IPRATROPIUM/ALBUTEROL SULFATE 3 ML AMPUL.NEB IH SCH ×2 (14:16→19:57)
[2019-06-06] MEDS: methylPREDNISolone Sod Succinate 40 MG/1 ML INJ IV SCH (15:21)
[2019-06-06] MEDS ORDERED: hydrALAZINE 20 MG/1 ML INJ IV PRN (16:32)
[2019-06-06] MEDS ORDERED: ACETAMINOPHEN 325 MG TAB PO PRN (16:32)
[2019-06-06] MEDS: oxyCODONE /ACETAMINOPHEN 5-325MG TAB PO PRN (18:08)
[2019-06-06] MEDS: ONDANSETRON 4 MG/2 ML INJ IV PRN (18:46)
[2019-06-06] MEDS ORDERED: NON-FORMULARY EACH (Levetiracetam [Keppra Tab] 1,000 MG) PO SCH (22:00)
[2019-06-06] MEDS: ENOXAPARIN 40 MG/0.4 ML INJ SUB-Q SCH (22:15)
[2019-06-06] MEDS: INSULIN GLARGINE 100 UNITS/ML SUB-Q SCH (22:15)
[2019-06-06] MEDS: levETIRAcetam 500 MG TAB PO SCH (22:16)
[2019-06-06] MEDS: INSULIN REGULAR, HUMAN 100 UNITS/1 ML SUB-Q SCH (22:16)
[2019-06-06] MEDS: FAMOTIDINE 10 MG TAB PO SCH (22:16)
[2019-06-06] MEDS: DOCUSATE SODIUM 100 MG CAP PO SCH (22:20)
[2019-06-07] MEDS: IPRATROPIUM/ALBUTEROL SULFATE 3 ML AMPUL.NEB IH SCH ×4 (02:01→20:09)
[2019-06-07] MEDS: oxyCODONE /ACETAMINOPHEN 5-325MG TAB PO PRN ×2 (02:58→21:56)
[2019-06-07] MEDS: INSULIN REGULAR, HUMAN 100 UNITS/1 ML SUB-Q SCH ×4 (08:00→21:55)
[2019-06-07] MEDS: ONDANSETRON 4 MG/2 ML INJ IV PRN (08:42)
[2019-06-07] MEDS: methylPREDNISolone Sod Succinate 40 MG/1 ML INJ IV SCH (10:15)
[2019-06-07] MEDS: levETIRAcetam 500 MG TAB PO SCH ×2 (10:15→21:55)
[2019-06-07] MEDS: ASPIRIN 81 MG TAB CHEW PO SCH (10:15)
[2019-06-07] MEDS: DOCUSATE SODIUM 100 MG CAP PO SCH ×2 (10:15→21:59)
[2019-06-07] MEDS: FAMOTIDINE 10 MG TAB PO SCH ×2 (10:15→21:55)
--- NOTE | 2019-06-07 11:44 | Gastroenterology Consultation ---
<JANE SPARKS - Last Filed: 06/07/19 13:40> History of Present Illness - Reason for Consult Consult date: 06/07/19 N/V Requesting physician: IDRIS ROSADO - History of Present Illness Patient is a 47 y/o male with PMH of CAD, DM, HTN, COPD, HLD, and seizures who presented to ED with multiple complaints to include occasional fever, body aches, cough, CP, N/V, and SOB with exertion x 3 weeks after returning from [facility]. Previously was treated with antibiotics, cough syrup, and prednisone by primary care w/o improvement in symptoms. Upon admission, CXR showed no infiltrates and CTA negative for PE. GI has been consulted for N/V and recurrent dysphagia. Reports N/V now improving with antiemetics. Previous diarrhea also now resolved. Admits to associated odynophagia but denies wt loss, abd pain or signs fo GI bleeding. Patient is previously known to our service for dysphagia with undergoing multiple EGDs this year (07/24/18, 08/18/18, and last 01/12/19 that showed natalie esophagitis and gastritis (bx + H pylori; s/p tx). Past History Past Medical History: acute LA, COPD, diabetes, hypertension, hyperlipidemia, seizures Past Surgical History: appendectomy, Other (angiogram with PCI; eye surgery) Social history: smoking (cigers ). denies: alcohol abuse, prescription drug abuse Family history: diabetes, hypertension Medications and Allergies Allergies Allergy/AdvReac Type Severity Reaction Status Date / Time metoclopramide HCl Allergy Swelling Verified 04/25/19 17:07 [From Reglan] Penicillins Allergy Swelling Verified 04/25/19 17:07 ibuprofen AdvReac Swelling Verified 04/25/19 17:07 iv contract dy Allergy Swelling Uncoded 04/25/19 17:07 Home Medications Medication Instructions Recorded Confirmed Last Taken Type Aspirin [Aspirin BABY CHEW TAB] 81 mg PO QDAY 08/13/15 06/06/19 01/11/19 History Insulin Glargine,Hum.rec.anlog 42 units SQ QHS 04/07/18 06/06/19 01/11/19 History [Lantus] levETIRAcetam [Keppra TAB] 1,000 mg PO BID 04/07/18 06/06/19 01/11/19 History ALBUTEROL Inhaler (OR & NICU) 2 puff IH QID PRN #1 inhalation 08/18/18 06/06/19 Unknown Rx [ProAir HFA Inhaler] Fluconazole [Diflucan ORAL SOLN] 100 mg PO QDAY 10 Days #10 01/12/19 06/06/19 Unknown Rx oral.liqd raNITIdine HCl [Zantac] 150 mg PO BID 30 Days #60 tablet 01/12/19 06/06/19 Unknown Rx Benzonatate [Tessalon Perles] 100 mg PO Q8HR #30 capsule 04/25/19 06/06/19 Unknown Rx Cetirizine HCl [Zyrtec 10mg tab] 10 mg PO DAILY #30 tablet 04/25/19 06/06/19 Unknown Rx Doxycycline Hyclate [Doxycycline 100 mg PO Q12HR #20 tab 04/25/19 06/06/19 Unknown Rx Hyclate TAB] Ondansetron [Zofran Odt] 4 mg PO Q6HR PRN #21 tab.rapdis 04/25/19 06/06/19 Unknown Rx methylPREDNISolone [Medrol 4MG 4 mg PO DAILY #21 tab.ds.pk 04/25/19 06/06/19 Unknown Rx DOSEPAK (21 tabs)] Active Meds: Active Medications Acetaminophen (Tylenol) 650 mg PO Q4H PRN PRN Reason: Pain MILD(1-3)/Fever >100.5/LOVE Albuterol/Ipratropium (Duoneb *Not For Prn Use*) 1 ampul IH Q6HRT [facility] Last Admin: 06/07/19 09:30 Dose: 1 ampul Documented by: Aspirin (Baby Aspirin) 81 mg PO QDAY [facility] Last Admin: 06/07/19 10:15 Dose: 81 mg Documented by: Docusate Sodium (Colace) 100 mg PO BID [facility] Last Admin: 06/07/19 10:15 Dose: Not Given Documented by: Enoxaparin Sodium (Enoxaparin) 40 mg SUB-Q QDAY@2200 [facility] Last Admin: 06/06/19 22:15 Dose: 40 mg Documented by: Famotidine (Pepcid) 10 mg PO BID [facility] Last Admin: 06/07/19 10:15 Dose: 10 mg Documented by: Hydralazine HCl (Apresoline) 5 mg IV Q30MIN PRN PRN Reason: Hypertension Insulin Glargine (Lantus) 20 units SUB-Q QHS [facility] Last Admin: 06/06/19 22:15 Dose: 20 units Documented by: Insulin Human Regular (Humulin R) 0 units SUB-Q ACHS [facility]; Protocol Last Admin: 06/07/19 08:00 Dose: 2 units Documented by: Levetiracetam (Keppra) 1,000 mg PO BID [facility] Last Admin: 06/07/19 10:15 Dose: 1,000 mg Documented by: Methylprednisolone Sodium Succinate (Solu-Medrol) 40 mg IV Q24HR [facility] Last Admin: 06/07/19 10:15 Dose: 40 mg Documented by: Ondansetron HCl (Zofran) 4 mg IV Q8H PRN PRN Reason: Nausea And Vomiting Last Admin: 06/07/19 08:42 Dose: 4 mg Documented by: Oxycodone/Acetaminophen (Percocet 5/325) 1 tab PO Q6H PRN PRN Reason: Pain, Moderate (4-6) Last Admin: 06/07/19 02:58 Dose: 1 tab Documented by: medications reviewed/updated as required Review of Systems - Review of Systems All systems: negative Gastrointestinal: nausea, vomiting, other (dysphagia/odynophagia) Exam - Constitutional Vital Signs: Temp Pulse Resp BP Pulse Ox 98.0 F 99 H 16 117/77 93 06/07/19 04:37 06/07/19 10:59 06/07/19 09:30 06/07/19 04:37 06/07/19 04:37 General appearance: no acute distress - EENT Eyes: PERRL, EOM intact ENT: hearing intact - Respiratory Respiratory effort: normal - Cardiovascular Rhythm: other (tachycardia) - Gastrointestinal General gastrointestinal: Present: soft, non-tender, non-distended, normal bowel sounds - Integumentary Integumentary: Present: warm, dry - Neurologic Neurological: alert and oriented x3 - Labs CBC & Chem 7: 06/06/19 06:43 06/06/19 06:43 Lab Results: Laboratory Results - last 24 hr 06/06/19 06/06/19 06/07/19 12:50 22:14 09:00 POC Glucose 365 H 256 H Troponin T 0.018 Assessment and Plan 1.dysphagia/odynophagia-recurrent 2.N/V-improving -s/p multiple EGDs this year (07/24/18, 08/18/18, and last 01/12/19) that showed natalie esophagitis and gastritis (bx + H pylori; s/p tx) -etiology-likely recurrent natalie esophagitis given recent steroids -will order esophagram for further evaluation -consider repeat EGD based on results -continue PPI -start on carafate -optimize glycemic control -continue supportive care -further recommendations to follow <KARO HOPKINS - Last Filed: 06/07/19 17:39> Medications and Allergies Active Meds: Active Medications Acetaminophen (Tylenol) 650 mg PO Q4H PRN PRN Reason: Pain MILD(1-3)/Fever >100.5/LOVE Albuterol/Ipratropium (Duoneb *Not For Prn Use*) 1 ampul IH Q6HRT [facility] Last Admin: 06/07/19 14:22 Dose: 1 ampul Documented by: Aspirin (Baby Aspirin) 81 mg PO QDAY [facility] Last Admin: 06/07/19 10:15 Dose: 81 mg Documented by: Docusate Sodium (Colace) 100 mg PO BID [facility] Last Admin: 06/07/19 10:15 Dose: Not Given Documented by: Enoxaparin Sodium (Enoxaparin) 40 mg SUB-Q QDAY@2200 [facility] Last Admin: 06/06/19 22:15 Dose: 40 mg Documented by: Famotidine (Pepcid) 10 mg PO BID [facility] Last Admin: 06/07/19 10:15 Dose: 10 mg Documented by: Hydralazine HCl (Apresoline) 5 mg IV Q30MIN PRN PRN Reason: Hypertension Insulin Glargine (Lantus) 20 units SUB-Q QHS [facility] Last Admin: 06/06/19 22:15 Dose: 20 units Documented by: Insulin Human Regular (Humulin R) 0 units SUB-Q [facility]; Protocol Last Admin: 06/07/19 16:57 Dose: 2 units Documented by: Levetiracetam (Keppra) 1,000 mg PO BID [facility] Last Admin: 06/07/19 10:15 Dose: 1,000 mg Documented by: Methylprednisolone Sodium Succinate (Solu-Medrol) 40 mg IV Q24HR [facility] Last Admin: 06/07/19 10:15 Dose: 40 mg Documented by: Ondansetron HCl (Zofran) 4 mg IV Q8H PRN PRN Reason: Nausea And Vomiting Last Admin: 06/07/19 08:42 Dose: 4 mg Documented by: Oxycodone/Acetaminophen (Percocet 5/325) 1 tab PO Q6H PRN PRN Reason: Pain, Moderate (4-6) Last Admin: 06/07/19 02:58 Dose: 1 tab Documented by: Pantoprazole Sodium (Protonix) 40 mg IV QDAY [facility] Last Admin: 06/07/19 14:00 Dose: 40 mg Documented by: Sucralfate (Carafate) 1 gm PO ACHS [facility] Last Admin: 06/07/19 16:57 Dose: 1 gm Documented by: Exam - Constitutional Vital Signs: Temp Pulse Resp BP Pulse Ox 98.0 F 101 H 16 117/77 93 06/07/19 04:37 06/07/19 14:00 06/07/19 14:00 06/07/19 04:37 06/07/19 04:37 - Labs CBC & Chem 7: 06/06/19 06:43 06/06/19 06:43 Lab Results: Laboratory Results - last 24 hr 06/06/19 06/07/19 06/07/19 22:14 09:00 11:46 POC Glucose 365 H 256 H 232 H 06/07/19 16:31 POC Glucose 223 H Assessment and Plan Pt seen and examined; agree with note above. h/o natalie esophagitis. most recent egd in December with bx's negative for natalie. esophagram for dysphagia sx's as above. currently on droplet precautions so will hold off on further endoscopy while acute medical issues are being managed/evaluated.
[2019-06-07] MEDS: PANTOPRAZOLE 40 MG INJ IV SCH (14:00)
--- NOTE | 2019-06-07 15:13 | Progress Note ---
Assessment and Plan Assessment and plan: Acute Asthma/COPD exacerbation - Admitted the patient to telemetry - Will provide scheduled nebulizer breathing treatment and as needed - Place on empiric steroid , chest x-ray was unremarkable - Provide supplemental oxygen to keep oxygen saturation above 92% - Consult Pulmonology Nausea vomiting - likely from Tristan Esophagitis related dysphagia - supportive care, consulted GI -He was evaluated by Dr. Burrows Chest pain, likely due to chronic cough and underlying dysphagia Recent h/o PNA, completed abx, no infiltrates on cxr h/o natalie esophagitis - completed fluconazole, has outpt f/u with GI CAD s/p PCI, cont home meds DM type on insulin - - We'll place on sliding scale of insulin, consistent carb diet HTN - - We will resume home medications, monitor BP Morbid obesity, wt reduction diet and exercise when clinically stable Seizure disorder: continue keppra Tobacco abuse, counselled -DVT prophylaxis with Lovenox. History Interval history: Cough SOB Nausea and vomiting Hospitalist Physical - Physical exam Narrative exam: Gen: Not in acute distress, lying in bed, HEENT: Normocephalic, atraumatic Neck: supple, no JVD Heart: S1 and S2 reg, no murmurs, rubs or gallop Lungs: Clear to auscultation bilaterally, Abd: soft, non tender, non distended, normal BS, Ext: No edema, no clubbing, no cyanosis Neuro: Awake, alert, oriented X 3, no focal neurological signs - Constitutional Vitals: Temp Pulse Resp BP Pulse Ox 98.0 F 101 H 16 117/77 93 06/07/19 04:37 06/07/19 14:00 06/07/19 14:00 06/07/19 04:37 06/07/19 04:37 Results - Labs CBC & Chem 7: 06/06/19 06:43 06/06/19 06:43 Labs: Laboratory Last Values WBC 7.7 K/mm3 (4.5-11.0) 06/06/19 06:43 RBC 5.40 M/mm3 (3.65-5.03) H 06/06/19 06:43 Hgb 16.1 gm/dl (11.8-15.2) H 06/06/19 06:43 Hct 47.1 % (35.5-45.6) H 06/06/19 06:43 MCV 87 fl (84-94) 06/06/19 06:43 MCH 30 pg (28-32) 06/06/19 06:43 MCHC 34 % (32-34) 06/06/19 06:43 RDW 13.9 % (13.2-15.2) 06/06/19 06:43 Plt Count 155 K/mm3 (140-440) 06/06/19 06:43 Lymph % (Auto) 31.1 % (13.4-35.0) 06/06/19 06:43 Camas % (Auto) 8.2 % (0.0-7.3) H 06/06/19 06:43 Eos % (Auto) 1.9 % (0.0-4.3) 06/06/19 06:43 Baso % (Auto) 0.6 % (0.0-1.8) 06/06/19 06:43 Lymph # 2.4 K/mm3 (1.2-5.4) 06/06/19 06:43 [place] # 0.6 K/mm3 (0.0-0.8) 06/06/19 06:43 Eos # 0.1 K/mm3 (0.0-0.4) 06/06/19 06:43 Baso # 0.0 K/mm3 (0.0-0.1) 06/06/19 06:43 Seg Neutrophils % 58.2 % (40.0-70.0) 06/06/19 06:43 Seg Neutrophils # 4.5 K/mm3 (1.8-7.7) 06/06/19 06:43 Sodium 141 mmol/L (137-145) 06/06/19 06:43 Potassium 3.9 mmol/L (3.6-5.0) 06/06/19 06:43 Chloride 103.4 mmol/L (98-107) 06/06/19 06:43 Carbon Dioxide 23 mmol/L (22-30) 06/06/19 06:43 Anion Gap 19 mmol/L 06/06/19 06:43 BUN 10 mg/dL (9-20) 06/06/19 06:43 Creatinine 0.9 mg/dL (0.8-1.5) 06/06/19 06:43 Estimated GFR > 60 ml/min 06/06/19 06:43 BUN/Creatinine Ratio 11 % 06/06/19 06:43 Glucose 164 mg/dL (75-100) H 06/06/19 06:43 POC Glucose 232 (70-105) H 06/07/19 11:46 Calcium 9.1 mg/dL (8.4-10.2) 06/06/19 06:43 Troponin T 0.018 ng/mL (0.00-0.029) 06/06/19 12:50 Active Medications - Current Medications Current Medications: Generic Name Dose Route Start Last Admin Trade Name Freq PRN Reason Stop Dose Admin Acetaminophen 650 mg 06/06/19 16:32 Tylenol PO Q4H PRN Pain MILD(1-3)/Fever >100.5/LOVE Albuterol/Ipratropium 1 ampul 06/06/19 14:00 06/07/19 14:22 Duoneb *Not For Prn Use* IH 1 ampul Q6HRT [facility] Administration Aspirin 81 mg 06/07/19 10:00 06/07/19 10:15 Baby Aspirin PO 81 mg QDAY [facility] Administration Docusate Sodium 100 mg 06/06/19 22:00 06/07/19 10:15 Colace PO Not Given BID [facility] Enoxaparin Sodium 40 mg 06/06/19 22:00 06/06/19 22:15 Enoxaparin SUB-Q 40 mg QDAY@2200 [facility] Administration Famotidine 10 mg 06/06/19 22:00 06/07/19 10:15 Pepcid PO 10 mg BID [facility] Administration Hydralazine HCl 5 mg 06/06/19 16:32 Apresoline IV Q30MIN PRN Hypertension Insulin Glargine 20 units 06/06/19 22:00 06/06/19 22:15 Lantus SUB-Q 20 units QHS [facility] Administration Insulin Human Regular 0 units 06/06/19 22:00 06/07/19 12:34 Humulin R SUB-Q 2 units ACHS [facility] Administration Protocol Levetiracetam 1,000 mg 06/06/19 22:00 06/07/19 10:15 Keppra PO 1,000 mg BID [facility] Administration Methylprednisolone Sodium Succinate 40 mg 06/06/19 14:00 06/07/19 10:15 Solu-Medrol IV 40 mg Q24HR [facility] Administration Ondansetron HCl 4 mg 06/06/19 18:08 06/07/19 08:42 Zofran IV 4 mg Q8H PRN Administration Nausea And Vomiting Oxycodone/Acetaminophen 1 tab 06/06/19 16:32 06/07/19 02:58 Percocet 5/325 PO 1 tab Q6H PRN Administration Pain, Moderate (4-6) Pantoprazole Sodium 40 mg 06/07/19 14:00 06/07/19 14:00 Protonix IV 40 mg QDAY [facility] Administration Sucralfate 1 gm 06/07/19 16:30 Carafate PO ACHS [facility] Nutrition/Malnutrition Assess - Dietary Evaluation Nutrition/Malnutrition Findings: Nutrition Notes Start: 06/07/19 11:17 Freq: Status: Active Protocol: Document 06/07/19 11:17 RICHELLE (Rec: 06/07/19 12:08 RICHELLE [id number]) Co-Sign 06/07/19 11:17 Nutrition Notes 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 Pt stated he vomited 30 minutes prior, and threw up dinner from last night. Pt stated his last full meal was a week ago. Pt said he's willing to try glucerna. Explained the full liquid diet to pt. Pt wants to continue his regular diet. Burn Absent Trauma Absent GI Symptoms Nausea,Vomiting Current % PO Negligible Minimum of two criteria No Energy Intake (severe) < or equal to 50% Estimated Energy Requirement > or equal to 5 days #1 Nutrition Diagnosis Inadequate oral intake Etiology N/V As Evidenced by Signs and Symptoms Pt vomiting 30 minutes prior to assessment. Last full meal was a week ago. Is patient on ventilator? No Is Patient Ambulatory and/or Out of Bed Yes REE-([place]-St. Jeor-ambulatory/OOB) [ 2700.425 NUTR.MSJOOB] Kcal/Kg value to use for calculation 18 Approximate Energy Requirements Using 2180 kcal/Kg Calculation Used for Recommendations Kcal/kg Additional Notes Protein: 78-98g/kg (0.8-1g/kg AdjBW 98) Fluid: 1ml/kcal Nutrition Intervention Change Diet Order: Change to cardiac consistent carb diet Add Supplement/Snack (indicate name/kcal Glucerna chocolate or /protein ) strawberry daily Provides kCal: 220 Provides Protein (gm) 10 Goal #1 Meet at least 80% of energy and protein needs via PO and ONS intakes Anticipated Discharge Needs: Cardiac consistent carb diet Follow-Up By: 06/12/19 Additional Comments F/U for PO and ONS intakes.
[2019-06-07] MEDS: SUCRALFATE 1 GM TAB PO SCH ×2 (16:57→21:55)
[2019-06-07] MEDS: INSULIN GLARGINE 100 UNITS/ML SUB-Q SCH (21:54)
[2019-06-07] MEDS: ENOXAPARIN 40 MG/0.4 ML INJ SUB-Q SCH (21:55)
[2019-06-08] MEDS: IPRATROPIUM/ALBUTEROL SULFATE 3 ML AMPUL.NEB IH SCH ×3 (01:13→13:58)
[2019-06-08] MEDS: INSULIN REGULAR, HUMAN 100 UNITS/1 ML SUB-Q SCH ×3 (08:00→17:06)
[2019-06-08] MEDS: SUCRALFATE 1 GM TAB PO SCH ×3 (08:00→17:06)
[2019-06-08 08:06] LABS: Hematocrit 46.1 % (35.5-45.6); Hemoglobin 15.6 gm/dl (11.8-15.2); Mean Corpuscular HGB Conc 34 % (32-34); Mean Corpuscular Volume 87 fl (84-94); Platelet Count 169 K/mm3 (140-440); Red Blood Count 5.32 M/mm3 (3.65-5.03); Red Cell Distribution Width 14.1 % (13.2-15.2)
[2019-06-08 08:34] VITALS: BP 135/74
[2019-06-08 08:53] LABS: BUN/Creatinine Ratio 15; Blood Urea Nitrogen 17 mg/dL (9-20); Calcium 8.9 mg/dL (8.4-10.2); Hemolysis Index 11
[2019-06-08] MEDS: PANTOPRAZOLE 40 MG INJ IV SCH (10:07)
[2019-06-08] MEDS: methylPREDNISolone Sod Succinate 40 MG/1 ML INJ IV SCH (10:07)
[2019-06-08] MEDS: FAMOTIDINE 10 MG TAB PO SCH (10:08)
[2019-06-08] MEDS: ASPIRIN 81 MG TAB CHEW PO SCH (10:08)
[2019-06-08] MEDS: DOCUSATE SODIUM 100 MG CAP PO SCH ×2 (10:08→10:18)
[2019-06-08] MEDS: levETIRAcetam 500 MG TAB PO SCH (10:08)
[2019-06-08] MEDS: ONDANSETRON 4 MG/2 ML INJ IV PRN (10:09)
--- NOTE | 2019-06-08 12:44 | Event Note ---
Date: 06/08/19 Reviewed imaging and interviewed patient at bedside. All symptoms are from the GI tract, nausea, choking sensation when drinking liquids and pain with swallowing (dysphagia). Patient is currently on room air with no active pulmonary complaints. If he truly has active natalie, steroids would only make it worse. At this point, will sign off but suggest stopping systemic steroid therapy for Asthma
--- NOTE | 2019-06-08 12:52 | Discharge Summary ---
Providers - Providers Date of Admission: 06/06/19 10:46 Date of discharge: 06/08/19 Attending physician: IDRIS ROSADO 06/07/19 10:09 Consult to Physician [CONS] Routine Comment: Consulting Provider: KARO HOPKINS Physician Instructions: Reason For Exam: N/V Primary care physician: SURGICAL ONCOLOGIST Hospitalization Condition: Critical Pertinent studies: Radiological data: Pulmonary VQ scan: 1. Low probability for pulmonary embolism. CTA chest: No significant abnormality of the chest. Chest x-ray: No acute abnormality. Hospital course: Patient is a 47 y/o male with PMH of recent natalie esophagitis, CAD, DM, HTN, COPD, hyperlipidemia, and seizures who presented to ED with c/o body aches, cough, chest pain, nausea vomiting and sob with exertion. Patient states his symptoms are worse with exertion and better with rest. During his previous admission EGD on 07/24/2018 that showed natalie esophagitis and mild gastritis. He reports his dysphagia has continued w/o change despite completing previously prescribed Diflucan, along with being compliant with daily PPI. In ther ER his CXR showed no infiltrates, CTA showed no PE. He was admitted for further evaluation and Mx. Discharge Diagnosis and Mx: Acute Asthma/COPD exacerbation - Admitted the patient to telemetry - Provided scheduled nebulizer breathing treatment and as needed - Placed on empiric steroid , chest x-ray was unremarkable - Provided supplemental oxygen to keep oxygen saturation above 92% - Consulted Pulmonology, symptom improved with supportive care - discharged home in stable condition Nausea vomiting - likely from Tristan Esophagitis related dysphagia - supportive care, consulted GI -He was evaluated by Dr. Hopkins - was tolerating diet - will f/u outpt Chest pain, likely due to chronic cough and underlying dysphagia - resolved Recent h/o PNA, completed abx, no infiltrates on cxr h/o natalie esophagitis - completed fluconazole, has outpt f/u with GI CAD s/p PCI, cont home meds DM type on insulin - Placed on sliding scale of insulin, consistent carb diet HTN - Resumed home medications, monitored BP Morbid obesity, wt reduction diet and exercise as outpt Seizure disorder: continue keppra Tobacco abuse, counselled -DVT prophylaxis with Lovenox. Disposition: - TO HOME OR SELFCARE Time spent for discharge: 34 minutes Core Measure Documentation - Palliative Care Palliative Care/ Comfort Measures: Not Applicable - Core Measures Any of the following diagnoses?: none Exam - Physical Exam Narrative exam: GENERAL: well-developed morbidly obese AAM lying on bed appeared to be in no discomfort. HEENT: Normocephalic. Atraumatic. No conjunctival congestion or icterus. Patient has moist mucous membranes. NECK: Supple. Trachea midline. CHEST/LUNGS: + wheezes auscultated bilaterally, breathing nonlabored. No crackles or rhonchi. HEART/CARDIOVASCULAR: Regular in rate and rhythm. S1 and S2 positive. ABDOMEN: Abdomen is soft, nontender. Patient has normal bowel sounds. SKIN: There is no rash. Warm and dry. NEURO: No focal motor deficit. Follows command. MUSCULOSKELETAL: No joint effusion or tenderness. EXTRIMITY: No edema, no cyanosis or clubbing. PSYCH: Cooperative. - Constitutional Vitals: Temp Pulse Resp BP Pulse Ox 97.5 F L 94 H 18 135/74 99 06/08/19 08:29 06/08/19 08:29 06/08/19 08:29 06/08/19 08:29 06/08/19 08:29 Plan Activity: advance as tolerated Weight Bearing Status: Weight Bear as Tolerated Diet: advance as tolerated Special Instructions: record blood sugar diary, smoking cessation Additional Instructions: F/u with GI in one week Follow up with: PRIMARY CARE, [Primary Care Provider] - 7 Days Prescriptions: Sucralfate [Carafate] 1 gm PO ACHS #30 tablet Ipratropium/Albuterol Sulfate [DUONEB *Not for PRN Use*] 1 ampul IH Q6HRT PRN #30 ampul.neb PRN Reason: Shortness Of Breath
--- NOTE | 2019-06-08 14:05 | Gastroenterology Progress Note ---
Assessment and Plan 1. Dysphagia - improved, tolerating po; had recent EGD by Dr Johnson in December without esophageal stricture 2. History of natalie esophagitis - path from December neg for natalie -no further inpt work-up from gi stand point. instructed to f/u with his primary GI physician after d/c if repeat endoscopy is indicated based on symptoms. will sign off, please call as needed Subjective Date of service: 06/08/19 Principal diagnosis: dysphagia Interval history: pt seen and examined; tolerating po. no n/v and denies abd pain Objective - Constitutional Vitals: Temp Pulse Resp BP Pulse Ox 97.5 F L 85 18 135/74 99 06/08/19 08:29 06/08/19 13:59 06/08/19 13:59 06/08/19 08:29 06/08/19 08:29 General appearance: no acute distress - Respiratory Respiratory effort: normal Respiratory: bilateral: CTA - Cardiovascular Rhythm: regular Heart Sounds: Present: S1 & S2 - Gastrointestinal General gastrointestinal: Present: soft, non-tender, non-distended - Neurologic Neurological: alert and oriented x3 - Labs CBC & Chem 7: 06/08/19 06:45 06/08/19 06:45 Labs: Laboratory Results - last 24 hr 06/07/19 06/07/19 06/08/19 16:31 20:34 06:45 WBC 14.1 H RBC 5.32 H Hgb 15.6 H Hct 46.1 H MCV 87 MCH 29 MCHC 34 RDW 14.1 Plt Count 169 Sodium Potassium Chloride Carbon Dioxide Anion Gap BUN Creatinine Estimated GFR BUN/Creatinine Ratio Glucose POC Glucose 223 H 284 H Calcium NT-Pro-B Natriuret Pep 06/08/19 06/08/19 06/08/19 06:45 08:38 11:21 WBC RBC Hgb Hct MCV MCH MCHC RDW Plt Count Sodium 140 Potassium 4.0 Chloride 100.2 Carbon Dioxide 25 Anion Gap 19 BUN 17 Creatinine 1.1 Estimated GFR > 60 BUN/Creatinine Ratio 15 Glucose 132 H POC Glucose 116 H Calcium 8.9 NT-Pro-B Natriuret Pep 34.55
== END 2019-06-08 17:10 | disposition home or self-care (01) ==
LOC: ED 06:02 → 4A 10:46
PROVIDERS: ADMIT Internal Medicine; ATTEND Internal Medicine
DX: I25.10 Atherosclerotic heart disease of native coronary artery without angina pectoris (principal); J44.1 Chronic obstructive pulmonary disease with (acute) exacerbation; R11.2 Nausea with vomiting, unspecified; R07.89 Other chest pain; E11.9 Type 2 diabetes mellitus without complications; I10 Essential (primary) hypertension; F41.9 Anxiety disorder, unspecified; E78.5 Hyperlipidemia, unspecified; R56.9 Unspecified convulsions; I25.2 Old myocardial infarction; E66.01 Morbid (severe) obesity due to excess calories; F17.290 Nicotine dependence, other tobacco product, uncomplicated; Z98.61 Coronary angioplasty status; Z87.39 Personal history of other diseases of the musculoskeletal system and connective tissue; Z71.6 Tobacco abuse counseling; Z79.82 Long term (current) use of aspirin; Z79.4 Long term (current) use of insulin; Z79.899 Other long term (current) drug therapy; Z88.0 Allergy status to penicillin; Z88.6 Allergy status to analgesic agent; Z91.041 Radiographic dye allergy status; Z88.8 Allergy status to other drugs, medicaments and biological substances; Z68.38 Body mass index [BMI] 38.0-38.9, adult
CPT/HCPCS: 36415; 71045; 71250; 78582; 80048; 82962; 83880; 84484; 85025; 85027; 93005; 93010; 94640; 94644; 96365; 96372; 96375; 96376; 99291; A9540; A9558; C9113; G0378; J1200; J1650; J2405; J2920; J2930; J3475; J1815

== ENCOUNTER 2019-08-07 07:24 | Emergency (ER) | payer MEDICAID ==
[2019-08-07 07:31] VITALS: BP 176/103
[2019-08-07] MEDS ORDERED: MORPHINE 4 MG/1 ML INJ IV ONE (07:58)
[2019-08-07] MEDS ORDERED: ONDANSETRON 4 MG/2 ML INJ IV ONE (07:58)
--- NOTE | 2019-08-07 08:24 | Emergency Department Report ---
ED Abdominal Pain HPI - General Chief Complaint: Abdominal Pain Stated Complaint: LFT SIDE EXTREME PAIN Time Seen by Provider: 08/07/19 07:49 Source: patient Mode of arrival: Ambulatory Limitations: No Limitations - History of Present Illness Initial Comments: This pleasant 48-year-old male presents to the emergency department with chief complaint of left upper quadrant abdominal pain. Patient reports this started suddenly this morning. He rates the severity of his pain as a 10 out of 10. The pain does not radiate. Patient reports he recently returned from a flight from [facility] which was 14 hour flight and was having some substernal chest pain, burping belching and symptoms of reflux. When he was in [facility] he went to a doctor treated him for eosinophilic esophagitis but he states his symptoms never improved. Patient states that Wilmer they did some tests in the emergency department and discharged him with infectious disease and GI follow-up which was supposed to be today. He states today he started having the sudden onset of sharp stabbing pain in the left upper quadrant. He reports the pain is aggravated with movement and deep breaths and there are no alleviating factors. He reports associated "strong smelling burping," he denies chest pain, shortness of breath, fever, chills, night sweats, headache, dizziness, blurred vision, lower extremity edema or pain. He has a past medical history asthma, diabetes, VA, hypertension, anxiety, seizures, peptic ulcer disease, previous surgeries include an appendectomy and cardiac stents 3. Current medications include aspirin, insulin, Keppra, Zantac, albuterol and Carafate. Allergies include Reglan, penicillin, ibuprofen and IV contrast dye which all cause swelling. - Related Data Home Medications Medication Instructions Recorded Confirmed Last Taken Aspirin [Aspirin BABY CHEW TAB] 81 mg PO QDAY 08/13/15 06/06/19 01/11/19 Insulin Glargine,Hum.rec.anlog 42 units SQ QHS 04/07/18 06/06/19 01/11/19 [Lantus] levETIRAcetam [Keppra TAB] 1,000 mg PO BID 04/07/18 06/06/19 01/11/19 Previous Rx's Medication Instructions Recorded Last Taken Type raNITIdine HCl [Zantac] 150 mg PO BID 30 Days #60 tablet 01/12/19 Unknown Rx Benzonatate [Tessalon Perles] 100 mg PO Q8HR #30 capsule 04/25/19 Unknown Rx Cetirizine HCl [Zyrtec 10mg tab] 10 mg PO DAILY #30 tablet 04/25/19 Unknown Rx Ipratropium/Albuterol Sulfate 1 ampul IH Q6HRT PRN #30 ampul.neb 06/08/19 Unknown Rx [DUONEB *Not for PRN Use*] Sucralfate [Carafate] 1 gm PO ACHS #30 tablet 06/08/19 Unknown Rx methylPREDNISolone [Medrol 4MG 4 mg PO ONCE #1 tab.ds.pk 08/07/19 Unknown Rx DOSEPAK (21 tabs)] traMADoL [Ultram 50 MG tab] 50 mg PO Q4HR PRN #9 tablet 08/07/19 Unknown Rx Allergies Allergy/AdvReac Type Severity Reaction Status Date / Time Penicillins Allergy Severe Anaphylaxis Verified 08/07/19 08:16 metoclopramide HCl Allergy Unknown Verified 08/07/19 08:17 [From Reglan] ibuprofen AdvReac Unknown Swelling Verified 08/07/19 08:15 iv contract dy Allergy Severe Anaphylaxis Uncoded 08/07/19 08:14 ED Review of Systems ROS: Stated complaint: LFT SIDE EXTREME PAIN Other details as noted in HPI Comment: All other systems reviewed and negative Constitutional: denies: chills, fever Eyes: denies: eye pain, eye discharge, vision change ENT: denies: ear pain, throat pain Respiratory: denies: cough, shortness of breath, wheezing Cardiovascular: as per HPI. denies: chest pain, palpitations Endocrine: no symptoms reported Gastrointestinal: abdominal pain. denies: nausea, diarrhea, melena, hematochezia Genitourinary: denies: urgency, dysuria Musculoskeletal: denies: back pain, joint swelling, arthralgia Skin: denies: rash, lesions Neurological: denies: headache, weakness, paresthesias Psychiatric: denies: anxiety, depression Hematological/Lymphatic: denies: easy bleeding, easy bruising ED Past Medical Hx - Past Medical History Previous Medical History?: Yes Hx Hypertension: Yes Hx Heart Attack/AMI: Yes Hx Congestive Heart Failure: No Hx Diabetes: Yes Hx Seizures: Yes Hx Psychiatric Treatment: Yes (anxiety) Hx Asthma: Yes Hx COPD: No Hx HIV: No Additional medical history: H.pylori - Surgical History Past Surgical History?: Yes Hx Coronary Stent: Yes (CARDIAC STENTS X3) Hx Appendectomy: Yes 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 - Social History Smoking Status: Never Smoker Substance Use Type: None - Medications Home Medications: Home Medications Medication Instructions Recorded Confirmed Last Taken Type Aspirin [Aspirin BABY CHEW TAB] 81 mg PO QDAY 08/13/15 06/06/19 01/11/19 History Insulin Glargine,Hum.rec.anlog 42 units SQ QHS 04/07/18 06/06/19 01/11/19 History [Lantus] levETIRAcetam [Keppra TAB] 1,000 mg PO BID 04/07/18 06/06/19 01/11/19 History raNITIdine HCl [Zantac] 150 mg PO BID 30 Days #60 tablet 01/12/19 06/06/19 Unknown Rx Benzonatate [Tessalon Perles] 100 mg PO Q8HR #30 capsule 04/25/19 06/06/19 Unknown Rx Cetirizine HCl [Zyrtec 10mg tab] 10 mg PO DAILY #30 tablet 04/25/19 06/06/19 Unknown Rx Ipratropium/Albuterol Sulfate 1 ampul IH Q6HRT PRN #30 ampul.neb 06/08/19 Unknown Rx [DUONEB *Not for PRN Use*] Sucralfate [Carafate] 1 gm PO ACHS #30 tablet 06/08/19 Unknown Rx methylPREDNISolone [Medrol 4MG 4 mg PO ONCE #1 tab.ds.pk 08/07/19 Unknown Rx DOSEPAK (21 tabs)] traMADoL [Ultram 50 MG tab] 50 mg PO Q4HR PRN #9 tablet 08/07/19 Unknown Rx ED Physical Exam - General Limitations: No Limitations General appearance: alert, in no apparent distress - Head Head exam: Present: atraumatic, normocephalic - Eye Eye exam: Present: normal appearance, PERRL, EOMI Pupils: Present: normal accommodation - ENT ENT exam: Present: normal exam, normal orophraynx, mucous membranes moist - Neck Neck exam: Present: normal inspection, full ROM. Absent: tenderness, meningis mus - Respiratory Respiratory exam: Present: normal lung sounds bilaterally, chest wall tenderness (TTP over left lower chest wall ). Absent: respiratory distress, wheezes, rales, rhonchi, stridor - Cardiovascular Cardiovascular Exam: Present: regular rate, normal rhythm, normal heart sounds. Absent: systolic murmur, diastolic murmur, rubs, gallop - GI/Abdominal GI/Abdominal exam: Present: soft, tenderness (tenderness to the left upper quadrant), normal bowel sounds, other (negative Greer sign, negative McBurney's point tenderness). Absent: distended, guarding, rebound, rigid - Rectal Rectal exam: Present: deferred - Extremities Exam Extremities exam: Present: normal inspection, full ROM, other (no lower extremity edema, negative Homans sign bilaterally.). Absent: tenderness, pedal edema - Back Exam Back exam: Present: normal inspection, full ROM. Absent: tenderness, CVA tenderness (R), CVA tenderness (L) - Neurological Exam Neurological exam: Present: alert, oriented X3, normal gait - Psychiatric Psychiatric exam: Present: normal affect, normal mood, anxious - Skin Skin exam: Present: warm, dry, intact, normal color. Absent: rash ED Course Vital Signs 08/07/19 07:30 Temperature 97.7 F Pulse Rate 89 Respiratory 16 Rate Blood Pressure 176/103 O2 Sat by Pulse 98 Oximetry ED Medical Decision Making - Lab Data Result diagrams: 08/07/19 08:17 08/07/19 08:17 - EKG Data -: EKG Interpreted by Il EKG shows normal: sinus rhythm Rate: normal (85) - EKG Data When compared to previous EKG there are: no significant change (from 06/06/19) Interpretation: no acute changes, normal EKG 08/07/19 08:[address] or T-wave abnormalities, no STEMI, normal axis, normal intervals. No ectopy. - Radiology Data Radiology results: report reviewed, image reviewed XRay Report Signed Patient: QUINCY CORDERO JR MR#: [id number] : 1970 Acct:[id number] Age/Sex: 48 / M ADM Date: 08/07/19 Loc: ED Attending Dr: Ordering Physician: NOEMI RAE Date of Service: 08/07/19 Procedure(s): XR chest routine 2V Accession Number(s): [id number] cc: NOEMI RAE Fluoro Time In Minutes: CHEST 2 VIEWS INDICATION: severe LUQ pain, hx of PUD. COMPARISON: 06/06/2019 FINDINGS: Support devices: None. Heart: Within normal limits. Pulmonary vasculature: Normal. Lungs/pleura: No acute air space or interstitial disease. No pneumothorax. Additional findings: The stomach is distended with air. No free air under the diaphragm. IMPRESSION: 1. No acute cardiopulmonary process. 2. Gaseous distention of the stomach. Signer Name: Julia Carter MD Signed: 08/07/2019 9:41 AM Workstation Name: [id number] Transcribed By: REF Dictated By: JULIA CARTER MD Electronically Authenticated By: JULIA CARTER MD Signed Date/Time: 08/07/19 0941 Cat Scan Report Signed Patient: QUINCY CORDERO JR MR#: [id number] : 1970 Acct:[id number] Age/Sex: 48 / M ADM Date: 08/07/19 Loc: ED Attending Dr: Ordering Physician: NOEMI RAE Date of Service: 08/07/19 Procedure(s): CT abdomen pelvis wo con Accession Number(s): [id number] cc: NOEMI RAE CT ABDOMEN AND PELVIS WITHOUT CONTRAST HISTORY: Left upper quadrant abdominal pain for 3 days COMPARISON: 09/10/2018 TECHNIQUE: Axial CT images were obtained through the abdomen and pelvis without IV contrast. Sagittal and coronal reformatted images. All CT scans at this location are performed using CT dose reduction for ALARA by means of automated exposure control. FINDINGS: CT ABDOMEN: Lung Bases: Clear. Liver: No significant abnormality. Biliary: No significant abnormality. Spleen: No significant abnormality. Unenlarged. Pancreas: No significant abnormality. Adrenals: No significant abnormality. Kidneys: No significant abnormality. Lymphatics: No lymphadenopathy. Small mesenteric lymph nodes have resolved since the previous exam. Vasculature: No significant abnormality. Bowel/Peritoneum: No significant abnormality. No free air. No free fluid. Appendectomy changes are suspected. CT PELVIS: : No significant abnormality. Bladder is empty. Osseous Structures: No significant abnormality. Additional Findings: Small umbilical hernia containing fat is unchanged. IMPRESSION: No acute process is identified in the abdomen or pelvis. No clear explanation for left upper quadrant abdominal pain. Small umbilical hernia containing fat. Signer Name: Shimon Sesay Jr, MD Signed: 08/07/2019 9:34 AM Workstation Name: [id number] Transcribed By: TTR Dictated By: SHIMON SESAY JR, MD Electronically Authenticated By: SHIMON SESAY JR, MD Signed Date/Time: 08/07/19 0934 - Medical Decision Making Patient presented to emergency department with chief complaint of sudden onset of left-sided lower rib and left upper quadrant abdominal pain that started after coughing today. He reports the pain is aggravated by palpation, cough and movement. Due to his recent travel to [facility] although he is technically PERC negative with him having a recent plane trip 14 hours I did order a d-dimer that was negative ruling out PE. Chest x-ray was ordered and was negative for pneumonia, pneumomediastinum, pneumoperitoneum, pneumothorax, or any obvious f ractures of the ribs. CAT scan was ordered of the abdomen and negative for acute findings. There is a finding of some distention of the stomach which could be possibly causing the patient's pain. He reports he has had a history of eosinophilic esophagitis in the past was recently treated but did not have relief. He does have a GI follow-up. The patient does have a cardiac history and EKG was unchanged. Cardiac enzymes 2 were negative. Heart scores 3 which is a low risk and he can go home and follow up with Cardiology. Patient has reproducible chest wall pain no pain on exertion or shortness of breath or nausea and radiating pain making my suspicion for ACS unlikely. He has no teari ng or ripping pain to the back, no widening of the mediastinum, normal equal radial pulses bilaterally making acute aortic dissection unlikely. He did get some pain relief with morphine in the emergency department. I educated him about the importance of returning to the ER if any change or worsening symptoms he verbalizes understanding. - Differential Diagnosis PE, ACS, pneumonia, perforated gastric ulcer, PUD, esophagitis, GERD, strai Critical care attestation.: If time is entered above; I have spent that time in minutes in the direct care of this critically ill patient, excluding procedure time. ED Disposition Clinical Impression: Chest wall pain Disposition: DC-01 TO HOME OR SELFCARE Is pt being admited?: No Condition: Stable Instructions: Chest Pain (ED) Prescriptions: methylPREDNISolone [Medrol 4MG DOSEPAK (21 tabs)] 4 mg PO ONCE #1 tab.ds.pk traMADoL [Ultram 50 MG tab] 50 mg PO Q4HR PRN #9 tablet PRN Reason: Pain Referrals: PRIMARY CARE, [Primary Care Provider] - 3-5 Days [facility] [Provider Group] - 3-5 Days JENNIFER ARAIZA MD [Staff Physician] - 3-5 Days Forms: Work/School Release Form(ED) Time of Disposition: 12:14
[2019-08-07 08:38] LABS: Basophils % (Auto) 0.7 % (0.0-1.8); Eosinophils # (Auto) 0.2 K/mm3 (0.0-0.4); Eosinophils % (Auto) 4.1 % (0.0-4.3); Hemoglobin 15.3 gm/dl (11.8-15.2); Lymphocytes % (Auto) 33.3 % (13.4-35.0); Mean Corpuscular HGB Conc 35 % (32-34); Mean Corpuscular Volume 86 fl (84-94); Monocytes # (Auto) 0.4 K/mm3 (0.0-0.8); Monocytes % (Auto) 7.4 % (0.0-7.3); Platelet Count 176 K/mm3 (140-440); Red Blood Count 5.09 M/mm3 (3.65-5.03); Red Cell Distribution Width 13.3 % (13.2-15.2)
[2019-08-07 09:30] LABS: Alanine Aminotransferase 20 units/L (7-56); Albumin 3.8 g/dL (3.9-5); BUN/Creatinine Ratio 7; Blood Urea Nitrogen 7 mg/dL (9-20); Hemolysis Index 2
--- NOTE | 2019-08-07 09:38 | Cat Scan Report ---
CT ABDOMEN AND PELVIS WITHOUT CONTRAST HISTORY: Left upper quadrant abdominal pain for 3 days COMPARISON: 09/10/2018 TECHNIQUE: Axial CT images were obtained through the abdomen and pelvis without IV contrast. Sagittal and coronal reformatted images. All CT scans at this location are performed using CT dose reduction for ALARA by means of automated exposure control. FINDINGS: CT ABDOMEN: Lung Bases: Clear. Liver: No significant abnormality. Biliary: No significant abnormality. Spleen: No significant abnormality. Unenlarged. Pancreas: No significant abnormality. Adrenals: No significant abnormality. Kidneys: No significant abnormality. Lymphatics: No lymphadenopathy. Small mesenteric lymph nodes have resolved since the previous exam. Vasculature: No significant abnormality. Bowel/Peritoneum: No significant abnormality. No free air. No free fluid. Appendectomy changes are ricardo spected. CT PELVIS: : No significant abnormality. Bladder is empty. Osseous Structures: No significant abnormality. Additional Findings: Small umbilical hernia containing fat is unchanged. IMPRESSION: No acute process is identified in the abdomen or pelvis. No clear explanation for left upper quadrant abdominal pain. Small umbilical hernia containing fat. Signer Name: Shimon Sesay Jr, MD Signed: 08/07/2019 9:34 AM Workstation Name: [id number]
--- NOTE | 2019-08-07 09:45 | XRay Report ---
CHEST 2 VIEWS INDICATION: severe LUQ pain, hx of PUD. COMPARISON: 06/06/2019 FINDINGS: Support devices: None. Heart: Within normal limits. Pulmonary vasculature: Normal. Lungs/pleura: No acute air space or interstitial disease. No pneumothorax. Additional findings: The stomach is distended with air. No free air under the diaphragm. IMPRESSION: 1. No acute cardiopulmonary process. 2. Gaseous distention of the stomach. Signer Name: Zaid Cifuentes MD Signed: 08/07/2019 9:41 AM Workstation Name: [id number]
[2019-08-07 09:59] LABS: Bilirubin,Direct < 0.2 mg/dL (0-0.2)
[2019-08-07] MEDS ORDERED: SODIUM CHLORIDE 0.9% 1000 ML 1,000 ML IV ONE (10:15)
[2019-08-07] MEDS ORDERED: ALUM-MAG HYDROXIDE-SIMETHICONE 200-200-20MG/5ML ORAL LIQD 30 ML PO ONE (10:15)
[2019-08-07] MEDS ORDERED: LIDOCAINE VISCOUS 2% 15 ML ORAL LIQD PO ONE (10:15)
[2019-08-07] MEDS ORDERED: MORPHINE 4 MG/1 ML INJ IM ONE (11:43)
[2019-08-07 12:06] LABS: Bilirubin,Urine NEG (Negative); Blood,Urine NEG (Negative); Color,Urine Yellow (Yellow); Mucus,Urine FEW /HPF; Protein,Urine <15 mg/dL mg/dL (Negative); WBC,Urine < 1.0 /HPF (0.0-6.0)
== END 2019-08-07 13:00 | disposition home or self-care (01) ==
LOC: ED 07:24
DX: R07.89 Other chest pain (principal); I10 Essential (primary) hypertension; E11.9 Type 2 diabetes mellitus without complications; I25.2 Old myocardial infarction; G40.909 Epilepsy, unspecified, not intractable, without status epilepticus; J45.909 Unspecified asthma, uncomplicated; Z90.49 Acquired absence of other specified parts of digestive tract; Z98.890 Other specified postprocedural states; Z79.899 Other long term (current) drug therapy; Z88.0 Allergy status to penicillin; Z88.8 Allergy status to other drugs, medicaments and biological substances
CPT/HCPCS: 36415; 71046; 74176; 80048; 80076; 81001; 83690; 84484; 85025; 85379; 93005; 93010; 96372; 96374; 96375; 99284; J2270; J2405; J7030

== ENCOUNTER 2019-08-24 12:17 | Emergency (ER) | payer MEDICAID ==
[2019-08-24] MEDS ORDERED: levETIRAcetam 1000 MG/NS 0.75% 1,000 MG/100 ML BAG IV ONE (13:08)
--- NOTE | 2019-08-24 13:12 | Event Note ---
ED Screening Note ED Screening Note: Sz while on facetime states he takes keppra and is compliant, also several days of neuropathic type pain in legs. denies swelling or injury This initial assessment/diagnostic orders/clinical plan/treatment(s) is/are subject to change based on patients health status, clinical progression and re- assessment by fellow clinical providers in the ED. Further treatment and workup at subsequent clinical providers discretion. Patient/guardian urged not to elope from the ED as their condition may be serious if not clinically assessed and managed. Initial orders include: electrolytes load with keppra
[2019-08-24 13:45] LABS: Basophils % (Auto) 0.7 % (0.0-1.8); Eosinophils # (Auto) 0.1 K/mm3 (0.0-0.4); Eosinophils % (Auto) 1.7 % (0.0-4.3); Hematocrit 44.4 % (35.5-45.6); Hemoglobin 15.6 gm/dl (11.8-15.2); Lymphocytes # (Auto) 1.3 K/mm3 (1.2-5.4); Lymphocytes % (Auto) 20.8 % (13.4-35.0); Mean Corpuscular HGB Conc 35 % (32-34); Mean Corpuscular Volume 86 fl (84-94); Monocytes # (Auto) 0.5 K/mm3 (0.0-0.8); Monocytes % (Auto) 8.1 % (0.0-7.3); Platelet Count 156 K/mm3 (140-440); Red Blood Count 5.19 M/mm3 (3.65-5.03); Red Cell Distribution Width 13.2 % (13.2-15.2)
[2019-08-24 14:03] LABS: BUN/Creatinine Ratio 14; Blood Urea Nitrogen 13 mg/dL (9-20); Calcium 9.1 mg/dL (8.4-10.2); Hemolysis Index 11
--- NOTE | 2019-08-24 15:57 | Emergency Department Report ---
ED Seizure HPI - General Chief Complaint: Seizure Stated Complaint: LBS/LFT LEG PAIN Time Seen by Provider: 08/24/19 14:45 Source: patient Mode of arrival: Ambulatory Limitations: No Limitations - History of Present Illness MD Complaint: seizure -: Sudden Description of Episode: other (the patient was on the video chair when he had a reported seizure while he remained seated. The person with him he was on the video chat with had alerted him once he had regained his focus that it appeared he had had a seizure. There was no loss of bowel or bladder. There was no biting of tongue. There is no reported tonic-clonic activity) -: second(s) Witnessed:: Yes Trauma: No Seizure History: known seizure disorder Place: home Possible Precipitating Event: none Associated Symptoms: denies: chest pain, confusion, cough, diaphoresis, fever/chills, loss of appetite, malaise, rash, weakness, tongue injury, shoulder dislocation Treatments Prior to Arrival: none - Related Data Home Medications Medication Instructions Recorded Confirmed Last Taken Aspirin [Aspirin BABY CHEW TAB] 81 mg PO QDAY 08/13/15 06/06/19 01/11/19 Insulin Glargine,Hum.rec.anlog 42 units SQ QHS 04/07/18 06/06/19 01/11/19 [Lantus] levETIRAcetam [Keppra TAB] 1,000 mg PO BID 04/07/18 06/06/19 01/11/19 Previous Rx's Medication Instructions Recorded Last Taken Type raNITIdine HCl [Zantac] 150 mg PO BID 30 Days #60 tablet 01/12/19 Unknown Rx Benzonatate [Tessalon Perles] 100 mg PO Q8HR #30 capsule 04/25/19 Unknown Rx Cetirizine HCl [Zyrtec 10mg tab] 10 mg PO DAILY #30 tablet 04/25/19 Unknown Rx Ipratropium/Albuterol Sulfate 1 ampul IH Q6HRT PRN #30 ampul.neb 06/08/19 Unknown Rx [DUONEB *Not for PRN Use*] Sucralfate [Carafate] 1 gm PO ACHS #30 tablet 06/08/19 Unknown Rx methylPREDNISolone [Medrol 4MG 4 mg PO ONCE #1 tab.ds.pk 08/07/19 Unknown Rx DOSEPAK (21 tabs)] traMADoL [Ultram 50 MG tab] 50 mg PO Q4HR PRN #9 tablet 08/07/19 Unknown Rx Allergies Allergy/AdvReac Type Severity Reaction Status Date / Time Penicillins Allergy Severe Anaphylaxis Verified 08/07/19 08:16 metoclopramide HCl Allergy Unknown Verified 08/07/19 08:17 [From Reglan] ibuprofen AdvReac Unknown Swelling Verified 08/07/19 08:15 iv contract dy Allergy Severe Anaphylaxis Uncoded 08/07/19 08:14 ED Review of Systems ROS: Stated complaint: LBS/LFT LEG PAIN Other details as noted in HPI Comment: All other systems reviewed and negative ED Past Medical Hx - Past Medical History Previous Medical History?: Yes Hx Hypertension: Yes Hx Heart Attack/AMI: Yes Hx Congestive Heart Failure: No Hx Diabetes: Yes Hx Seizures: Yes Hx Psychiatric Treatment: Yes (anxiety) Hx Asthma: Yes Hx COPD: No Hx HIV: No Additional medical history: H.pylori - Surgical History Past Surgical History?: Yes Hx Coronary Stent: Yes (CARDIAC STENTS X3) Hx Appendectomy: Yes 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 - Social History Smoking Status: Never Smoker Substance Use Type: None - Medications Home Medications: Home Medications Medication Instructions Recorded Confirmed Last Taken Type Aspirin [Aspirin BABY CHEW TAB] 81 mg PO QDAY 08/13/15 06/06/19 01/11/19 History Insulin Glargine,Hum.rec.anlog 42 units SQ QHS 04/07/18 06/06/19 01/11/19 History [Lantus] levETIRAcetam [Keppra TAB] 1,000 mg PO BID 04/07/18 06/06/19 01/11/19 History raNITIdine HCl [Zantac] 150 mg PO BID 30 Days #60 tablet 01/12/19 06/06/19 Unknown Rx Benzonatate [Tessalon Perles] 100 mg PO Q8HR #30 capsule 04/25/19 06/06/19 Unknown Rx Cetirizine HCl [Zyrtec 10mg tab] 10 mg PO DAILY #30 tablet 04/25/19 06/06/19 Unknown Rx Ipratropium/Albuterol Sulfate 1 ampul IH Q6HRT PRN #30 ampul.neb 06/08/19 Unkno wn Rx [DUONEB *Not for PRN Use*] Sucralfate [Carafate] 1 gm PO ACHS #30 tablet 06/08/19 Unknown Rx methylPREDNISolone [Medrol 4MG 4 mg PO ONCE #1 tab.ds.pk 08/07/19 Unknown Rx DOSEPAK (21 tabs)] traMADoL [Ultram 50 MG tab] 50 mg PO Q4HR PRN #9 tablet 08/07/19 Unknown Rx ED Physical Exam - General Limitations: No Limitations General appearance: alert, in no apparent distress - Head Head exam: Present: atraumatic, normocephalic - Eye Eye exam: Present: normal appearance, PERRL, EOMI Pupils: Present: normal accommodation - ENT ENT exam: Present: normal exam, normal orophraynx, mucous membranes moist, TM's normal bilaterally - Neck Neck exam: Present: normal inspection. Absent: meningismus - Respiratory Respiratory exam: Present: normal lung sounds bilaterally. Absent: respiratory distress - Cardiovascular Cardiovascular Exam: Present: regular rate, normal rhythm. Absent: systolic murmur, diastolic murmur, rubs, gallop - GI/Abdominal GI/Abdominal exam: Present: soft, normal bowel sounds - Rectal Rectal exam: Present: deferred - Extremities Exam Extremities exam: Present: normal inspection - Back Exam Back exam: Present: normal inspection - Neurological Exam Neurological exam: Present: alert, oriented X3 - Psychiatric Psychiatric exam: Present: normal affect, normal mood - Skin Skin exam: Present: warm, dry, intact, normal color. Absent: rash ED Course Vital Signs 08/24/19 12:22 Temperature 97.7 F Pulse Rate 101 H Respiratory 16 Rate Blood Pressure 144/88 O2 Sat by Pulse 97 Oximetry ED Medical Decision Making - Lab Data Result diagrams: 08/24/19 13:26 08/24/19 13:26 - Medical Decision Making This patient presents with symptoms consistent with acute seizure, most likely due to his current medication profile. I considered, but think less likely, seco ndary etiologies of epileptic seizures to include drug / toxin etiologies (ETOH, stimulants, medication side effects), metabolic disturbances (glucose, Na), acute PROVISIONING SPECIALIST infections (meningitis, encephalitis, abscess), ICH / tumor / CVA. Presentation not consistent with non-epileptic type seizure to include syncope, neurologic etiologies (vertebrobasilar insufficiency, movement disorder, migraine), impact seizure related to head trauma. Plan: BZDs, labs, CT brain, seizure precautions, reassess Mr. oh remained stable throughout his entire hospital visit states that he feels like he has returned to baseline. He is alert and oriented 3 speak in full sentences, stories and educating law and HIV is in good spirits Critical care attestation.: If time is entered above; I have spent that time in minutes in the direct care of this critically ill patient, excluding procedure time. ED Disposition Clinical Impression: Simple seizure Disposition: DC-01 TO HOME OR SELFCARE Is pt being admited?: No Does the pt Need Aspirin: No Condition: Stable Instructions: Recurrent Seizures Adult (ED) Referrals: PRIMARY CARE, [Primary Care Provider] - 3-5 Days PRIYA HOUSTON MD [Staff Physician] - 3-5 Days ALEXEY SCHRADER MD [Staff Physician] - 3-5 Days KELLY STINOSN MD [Staff Physician] - 3-5 Days MATA DAO [PHYSICIAN [employer] LABORER STUDENT] - 3-5 Days JULIUS PATE MD [Referring] - 3-5 Days COURTNEY CHURCHILL MD [Staff Physician] - 3-5 Days
[2019-08-24 16:11] VITALS: BP 118/61
== END 2019-08-24 16:51 | disposition home or self-care (01) ==
LOC: ED 12:17
DX: R56.9 Unspecified convulsions (principal); M79.605 Pain in left leg; I10 Essential (primary) hypertension; E11.9 Type 2 diabetes mellitus without complications; J45.909 Unspecified asthma, uncomplicated; F41.9 Anxiety disorder, unspecified; Z98.890 Other specified postprocedural states; Z95.5 Presence of coronary angioplasty implant and graft; Z88.8 Allergy status to other drugs, medicaments and biological substances; Z88.0 Allergy status to penicillin; Z79.899 Other long term (current) drug therapy; Z91.041 Radiographic dye allergy status
CPT/HCPCS: 36415; 80048; 82962; 83735; 85025; 96374; 99284; J1953; 96365

== ENCOUNTER 2019-09-04 11:36 | Emergency (ER) | payer MEDICAID ==
--- NOTE | 2019-09-04 13:28 | Event Note ---
{null, ED Screening Note ED Screening Note: states that he has burning in the right leg and swelling yesterday just flew [address] [facility] (+)N/V/D (+)subjective fever (+) left sided abd pain states he had a seizure this morning, states he takes takes keppra 1000mg BID, has not been able to take his medication down no SOB This initial assessment/diagnostic orders/clinical plan/treatment(s) is/are subject to change based on patients health status, clinical progression and re- assessment by fellow clinical providers in the ED. Further treatment and workup at subsequent clinical providers discretion. Patient/guardian urged not to elope from the ED as their condition may be serious if not clinically assessed and managed. Initial orders include: labs, UA, RLE }
--- NOTE | 2019-09-04 13:58 | XRay Report ---
{null, CHEST 2 VIEWS INDICATION: cough. COMPARISON: 08/07/2019 FINDINGS: Support devices: None. Heart: Within normal limits. Lungs/pleura: No acute air space or interstitial disease. No pneumothorax. Additional findings: None. IMPRESSION: 1. No acute findings. Signer Name: Seven Carmona MD Signed: 09/04/2019 1:54 PM Workstation Name: [id number] }
[2019-09-04 14:32] LABS: Basophils # (Auto) 0.1 K/mm3 (0.0-0.1); Eosinophils # (Auto) 0.2 K/mm3 (0.0-0.4); Eosinophils % (Auto) 3.2 % (0.0-4.3); Hemoglobin 16.2 gm/dl (11.8-15.2); Mean Corpuscular HGB Conc 35 % (32-34); Mean Corpuscular Volume 86 fl (84-94); Monocytes # (Auto) 0.6 K/mm3 (0.0-0.8); Monocytes % (Auto) 8.7 % (0.0-7.3); Platelet Count 150 K/mm3 (140-440); Red Blood Count 5.45 M/mm3 (3.65-5.03); Red Cell Distribution Width 13.5 % (13.2-15.2)
--- NOTE | 2019-09-04 14:59 | Vascular Lab Report ---
{null, DUPLEX DOPPLER LOWER EXTREMITY VEINS, RIGHT INDICATION: RLE pain/swelling, recent travel from [place]. TECHNIQUE: Duplex doppler imaging was performed through the veins of the right lower extremity using venous comp ression and other maneuvers. COMPARISON: None available. FINDINGS: Common Femoral vein: Negative. Superficial Femoral vein: Negative. Popliteal vein: Negative. Calf veins: Negative. Additional findings: None. IMPRESSION: 1. No sonographic evidence for DVT in the right lower extremity. Signer Name: Lenin Portillo MD Signed: 09/04/2019 2:55 PM Workstation Name: [id number] }
[2019-09-04 15:00] LABS: Alanine Aminotransferase 33 units/L (7-56); Albumin 4.3 g/dL (3.9-5); BUN/Creatinine Ratio 9; Blood Urea Nitrogen 9 mg/dL (9-20); Calcium 9.5 mg/dL (8.4-10.2); Hemolysis Index 23
[2019-09-04 15:34] LABS: Bilirubin,Urine NEG (Negative); Blood,Urine NEG (Negative); Color,Urine Yellow (Yellow); Mucus,Urine FEW /HPF; Protein,Urine <15 mg/dL mg/dL (Negative); WBC,Urine < 1.0 /HPF (0.0-6.0)
[2019-09-04] MEDS ORDERED: SODIUM CHLORIDE 0.9% 1000 ML 1,000 ML IV ONE (15:49)
[2019-09-04] MEDS ORDERED: ONDANSETRON 4 MG/2 ML INJ IV ONE (15:49)
[2019-09-04] MEDS ORDERED: levETIRAcetam 1000 MG/NS 0.75% 1,000 MG/100 ML BAG IV ONE (15:52)
--- NOTE | 2019-09-04 15:53 | Emergency Department Report ---
{null, ED N/V/D HPI - General Chief complaint: Abdominal Pain Stated complaint: VOMITING/LEG PAIN Time Seen by Provider: 09/04/19 13:25 Source: patient Mode of arrival: Ambulatory Limitations: No Limitations - History of Present Illness Initial comments: 48-year-old male with a past medical history of diabetes, seizure disorder, and asthma presents to the ER today complaining of nausea, vomiting and diarrhea. Patient states that his symptoms started 2 days ago while he was visiting in [place]. He returned yesterday about 745pm. Patient states that he has vomited about 4 times, and he feels like he cannot hold anything down. He reports no hematemesis. He also has been having diarrhea, he states that he had 4 episodes of diarrhea yesterday and 4 episodes today. He reports pain in his left upper quadrant intermittently. Patient states that he had some leftover Zofran which she took, but it did not help. Patient states that he had a seizure (typical of his seizures) this morning because he has not been able to tolerate his Keppra in the past 2 days. He reports no fever or chills. Denies any obvious ill contacts. Denies any bad food intake or recent antibiotic use. Patient also complains of pain to his right lower leg which started about 4 days ago while in [place]. He reports mild swelling to his foot. He states he is concerned for possible blood clot. He denies hx of DVT or PE. He reports no chest pain or SOB. MD complaint: nausea, vomiting, diarrhea, abdominal pain -: Gradual - Related Data Home Medications Medication Instructions Recorded Confirmed Last Taken Aspirin [Aspirin BABY CHEW TAB] 81 mg PO QDAY 08/13/15 06/06/19 01/11/19 Insulin Glargine,Hum.rec.anlog 42 units SQ QHS 04/07/18 06/06/19 01/11/19 [Lantus] levETIRAcetam [Keppra TAB] 1,000 mg PO BID 04/07/18 06/06/19 01/11/19 Previous Rx's Medication Instructions Recorded Last Taken Type raNITIdine HCl [Zantac] 150 mg PO BID 30 Days #60 tablet 01/12/19 Unknown Rx Benzonatate [Tessalon Perles] 100 mg PO Q8HR #30 capsule 04/25/19 Unknown Rx Cetirizine HCl [Zyrtec 10mg tab] 10 mg PO DAILY #30 tablet 04/25/19 Unknown Rx Ipratropium/Albuterol Sulfate 1 ampul IH Q6HRT PRN #30 ampul.neb 06/08/19 Unknown Rx [DUONEB *Not for PRN Use*] Sucralfate [Carafate] 1 gm PO ACHS #30 tablet 06/08/19 Unknown Rx methylPREDNISolone [Medrol 4MG 4 mg PO ONCE #1 tab.ds.pk 08/07/19 Unknown Rx DOSEPAK (21 tabs)] traMADoL [Ultram 50 MG tab] 50 mg PO Q4HR PRN #9 tablet 08/07/19 Unknown Rx Ondansetron [Zofran ODT TAB] 8 mg PO Q8HR PRN #12 tab.rapdis 09/04/19 Unknown Rx Allergies Allergy/AdvReac Type Severity Reaction Status Date / Time Penicillins Allergy Severe Anaphylaxis Verified 08/07/19 08:16 metoclopramide HCl Allergy Unknown Verified 08/07/19 08:17 [From Reglan] ibuprofen AdvReac Unknown Swelling Verified 08/07/19 08:15 iv contract dy Allergy Severe Anaphylaxis Uncoded 08/07/19 08:14 ED Review of Systems ROS: Stated complaint: VOMITING/LEG PAIN Other details as noted in HPI Constitutional: denies: chills, fever ENT: denies: throat pain, congestion Respiratory: cough (dry). denies: orthopnea, shortness of breath, SOB with exertion, SOB at rest, wheezing Cardiovascular: denies: chest pain, palpitations, edema Gastrointestinal: abdominal pain, nausea, vomiting, diarrhea. denies: hematemesis, melena, hematochezia Genitourinary: denies: urgency, dysuria, frequency, hematuria, testicular pain Musculoskeletal: myalgia. 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 - Social History Smoking Status: Never Smoker Substance Use Type: None - Medications Home Medications: Home Medications Medication Instructions Recorded Confirmed Last Taken Type Aspirin [Aspirin BABY CHEW TAB] 81 mg PO QDAY 08/13/15 06/06/19 01/11/19 History Insulin Glargine,Hum.rec.anlog 42 units SQ QHS 04/07/18 06/06/19 01/11/19 History [Lantus] levETIRAcetam [Keppra TAB] 1,000 mg PO BID 04/07/18 06/06/19 01/11/19 History raNITIdine HCl [Zantac] 150 mg PO BID 30 Days #60 tablet 01/12/19 06/06/19 Unknown Rx Benzonatate [Tessalon Perles] 100 mg PO Q8HR #30 capsule 04/25/19 06/06/19 Unknown Rx Cetirizine HCl [Zyrtec 10mg tab] 10 mg PO DAILY #30 tablet 04/25/19 06/06/19 Unknown Rx Ipratropium/Albuterol Sulfate 1 ampul IH Q6HRT PRN #30 ampul.neb 06/08/19 Unknown Rx [DUONEB *Not for PRN Use*] Sucralfate [Carafate] 1 gm PO ACHS #30 tablet 06/08/19 Unknown Rx methylPREDNISolone [Medrol 4MG 4 mg PO ONCE #1 tab.ds.pk 08/07/19 Unknown Rx DOSEPAK (21 tabs)] traMADoL [Ultram 50 MG tab] 50 mg PO Q4HR PRN #9 tablet 08/07/19 Unknown Rx Ondansetron [Zofran ODT TAB] 8 mg PO Q8HR PRN #12 tab.rapdis 09/04/19 Unknown Rx ED Physical Exam - General Limitations: No Limitations General appearance: alert, in no apparent distress - Head Head exam: Present: atraumatic, normocephalic, normal inspection - Eye Eye exam: Present: normal appearance, PERRL, EOMI Pupils: Present: normal accommodation - ENT ENT exam: Present: normal exam, normal orophraynx, mucous membranes moist - Neck Neck exam: Present: normal inspection, full ROM - Respiratory Respiratory exam: Present: normal lung sounds bilaterally - Cardiovascular Cardiovascular Exam: Present: regular rate, normal rhythm, normal heart sounds - GI/Abdominal GI/Abdominal exam: Present: soft. Absent: distended, tenderness, guarding - Extremities Exam Extremities exam: Present: calf tenderness (Mild ttp bilateral calf muscles. No apparant swelling, no erythema nor ecchymosis. distal pulses nl, sensation intact and strength normal bilaterally) - Back Exam Back exam: Present: full ROM - Neurological Exam Neurological exam: Present: alert, oriented X3, CN II-XII intact - Psychiatric Psychiatric exam: Present: normal affect, normal mood - Skin Skin exam: Present: intact ED Course Vital Signs 09/04/19 11:49 Temperature 97.5 F L Pulse Rate 97 H Respiratory 20 Rate Blood Pressure 149/100 O2 Sat by Pulse 98 Oximetry ED Medical Decision Making - Lab Data Result diagrams: 09/04/19 14:11 09/04/19 14:11 - Medical Decision Making 48 year old male presents to ED c/o n/v/d as well leg pain. He returned for [facility] yesterday. He has also had a dry cough but no SOB, chest pain or wheezing. Patient resting comfortably, currently on his phone. He is now asking for peanut butter and jelly sandwich. No vomiting or diarrhea during stay. No seizure during his stay. He has soft non tender abdomen. Labs and CXR reviewed and unremarkable. Venous dopplers negative. Patient is well appearing, non toxic and currently no acute pain nor respiratoiry distress. He is alert and neurologically intact. Suspect viral illness at this time. His leg pain could be related to muscle cramps or his neuropathy. Patient states he is going to f/u with his PCP tomorrow. He is stable and appropriate for d/c but if any worse he is to return to ED. Critical care attestation.: If time is entered above; I have spent that time in minutes in the direct care of this critically ill patient, excluding procedure time. ED Disposition Clinical Impression: Gastroenteritis, Leg pain, Asthma, Seizure disorder Disposition: - TO HOME OR SELFCARE Is pt being admited?: No Does the pt Need Aspirin: No Condition: Stable Instructions: Asthma (ED), Gastroenteritis (ED), Recurrent Seizures Adult (ED), Leg Cramps (ED) Additional Instructions: Recommend lots of fluids. Take Zofran to help with nausea. You can take immodium to help with any diarrhea. Recommend restarting your Keppra as prescribed. Recommend close follow up with you PCP. Return to ED if anything worsens of changes. Prescriptions: Ondansetron [Zofran ODT TAB] 8 mg PO Q8HR PRN #12 tab.rapdis PRN Reason: Vomiting Referrals: PRIMARY CARE,MD [Primary Care Provider] - 3-5 Days Time of Disposition: 18:06 }
--- NOTE | 2019-09-04 18:00 | Vascular Lab Report ---
{null, DUPLEX DOPPLER LOWER EXTREMITY VEINS, LEFT INDICATION: Calf pain/recent travel to [place]. TECHNIQUE: Duplex doppler imaging was performed through the veins of the left lower extremity using venous compr ession and other maneuvers. COMPARISON: None available. FINDINGS: Common Femoral vein: Negative. Superficial Femoral vein: Negative. Popliteal vein: Negative. Calf veins: Negative. Additional findings: None. IMPRESSION: 1. No sonographic evidence for DVT in the left lower extremity. Signer Name: Fidencio Mix MD Signed: 09/04/2019 5:56 PM Workstation Name: [id number] }
[2019-09-04 18:30] VITALS: BP 137/87
== END 2019-09-04 18:29 | disposition home or self-care (01) ==
LOC: ED 11:36
DX: K52.9 Noninfective gastroenteritis and colitis, unspecified (principal); G40.909 Epilepsy, unspecified, not intractable, without status epilepticus; M79.604 Pain in right leg; J45.909 Unspecified asthma, uncomplicated; E11.9 Type 2 diabetes mellitus without complications; I25.2 Old myocardial infarction; F41.9 Anxiety disorder, unspecified; I10 Essential (primary) hypertension; Z88.0 Allergy status to penicillin; Z88.6 Allergy status to analgesic agent; Z88.8 Allergy status to other drugs, medicaments and biological substances; Z79.899 Other long term (current) drug therapy; Z95.5 Presence of coronary angioplasty implant and graft; Z90.49 Acquired absence of other specified parts of digestive tract
CPT/HCPCS: 36415; 71046; 80053; 81001; 82550; 83690; 85025; 93971; 96361; 96365; 96375; 99284; J1953; J2405; J7030

== ENCOUNTER 2019-09-06 12:00 | Emergency (ER) | payer MEDICAID ==
[2019-09-06] MEDS ORDERED: SODIUM CHLORIDE 0.9% 1000 ML 1,000 ML IV ONE (12:30)
[2019-09-06] MEDS ORDERED: FAMOTIDINE 20 MG/2 ML INJ IV ONE (12:30)
[2019-09-06] MEDS ORDERED: ONDANSETRON 4 MG/2 ML INJ IV ONE ×2 (12:30→18:35)
--- NOTE | 2019-09-06 12:54 | XRay Report ---
CHEST 1 VIEW 09/06/2019 12:38 PM INDICATION / CLINICAL INFORMATION: productive cough. COMPARISON: 09/04/2019 FINDINGS: SUPPORT DEVICES: None. HEART / MEDIASTINUM: No significant abnormality. LUNGS / PLEURA: No significant pulmonary or pleural abnormality. No pneumothorax. ADDITIONAL FINDINGS: No significant additional findings. IMPRESSION: 1. No acute findings. Signer Name: Rudy Ramos MD Signed: 09/06/2019 12:50 PM Workstation Name: [id number]
[2019-09-06 13:58] LABS: Basophils % (Auto) 0.6 % (0.0-1.8); Eosinophils # (Auto) 0.2 K/mm3 (0.0-0.4); Eosinophils % (Auto) 3.5 % (0.0-4.3); Hematocrit 44.1 % (35.5-45.6); Hemoglobin 15.2 gm/dl (11.8-15.2); Lymphocytes # (Auto) 1.6 K/mm3 (1.2-5.4); Lymphocytes % (Auto) 28.7 % (13.4-35.0); Mean Corpuscular HGB Conc 34 % (32-34); Mean Corpuscular Volume 86 fl (84-94); Monocytes # (Auto) 0.5 K/mm3 (0.0-0.8); Monocytes % (Auto) 9.1 % (0.0-7.3); Platelet Count 150 K/mm3 (140-440); Red Blood Count 5.15 M/mm3 (3.65-5.03); Red Cell Distribution Width 13.5 % (13.2-15.2)
[2019-09-06 14:02] LABS: Alanine Aminotransferase 22 units/L (7-56); BUN/Creatinine Ratio 9; Blood Urea Nitrogen 8 mg/dL (9-20); Calcium 8.9 mg/dL (8.4-10.2); Hemolysis Index 1
[2019-09-06] MEDS ORDERED: KETOROLAC 30 MG/1 ML INJ ONE (14:26)
--- NOTE | 2019-09-06 16:48 | Emergency Department Report ---
<IGNACIO DAVID - Last Filed: 09/06/19 18:08> ED General Adult HPI - General Chief complaint: Upper Respiratory Infection Stated complaint: FLU SX Time Seen by Provider: 09/06/19 12:26 Source: patient Mode of arrival: Stretcher Limitations: No Limitations - History of Present Illness Initial comments: Patient is a 48-year-old F [place] male who is presenting with a productive cough as well as nausea vomiting diarrhea body aches for the past 5 to 6 days. Patient states that he flew to [facility] on 08/27/2019 for work assignment. Patient states the day after arrival on the he began feeling as though he may be coming down with a slight cold. Patient was in [facility] for 2 days and then flew to [facility]. Patient left [facility] on the of this month and arrived back in [facility] on the morning of the . Patient states that before leaving [facility] he started having the symptoms which she is complaining of today. Patient has a productive cough. He has pain in the left side when he coughs. He has had subjective fevers. Patient has had nausea vomiting diarrhea and body aches. Patient denies any headache or neck stiffness at this time. Patient did not travel to any regions of [place] that are well known for having coronavirus - Related Data Home Medications Medication Instructions Recorded Confirmed Last Taken Aspirin [Aspirin BABY CHEW TAB] 81 mg PO QDAY 08/13/15 06/06/19 01/11/19 Insulin Glargine,Hum.rec.anlog 42 units SQ QHS 04/07/18 06/06/19 01/11/19 [Lantus] levETIRAcetam [Keppra TAB] 1,000 mg PO BID 04/07/18 06/06/19 01/11/19 Previous Rx's Medication Instructions Recorded Last Taken Type raNITIdine HCl [Zantac] 150 mg PO BID 30 Days #60 tablet 01/12/19 Unknown Rx Benzonatate [Tessalon Perles] 100 mg PO Q8HR #30 capsule 04/25/19 Unknown Rx Cetirizine HCl [Zyrtec 10mg tab] 10 mg PO DAILY #30 tablet 04/25/19 Unknown Rx Ipratropium/Albuterol Sulfate 1 ampul IH Q6HRT PRN #30 ampul.neb 06/08/19 Unknown Rx [DUONEB *Not for PRN Use*] Sucralfate [Carafate] 1 gm PO ACHS #30 tablet 06/08/19 Unknown Rx methylPREDNISolone [Medrol 4MG 4 mg PO ONCE #1 tab.ds.pk 08/07/19 Unknown Rx DOSEPAK (21 tabs)] traMADoL [Ultram 50 MG tab] 50 mg PO Q4HR PRN #9 tablet 08/07/19 Unknown Rx Ondansetron [Zofran ODT TAB] 8 mg PO Q8HR PRN #12 tab.rapdis 09/04/19 Unknown Rx Allergies Allergy/AdvReac Type Severity Reaction Status Date / Time Penicillins Allergy Severe Anaphylaxis Verified 08/07/19 08:16 metoclopramide HCl Allergy Unknown Verified 08/07/19 08:17 [From Reglan] ibuprofen AdvReac Unknown Swelling Verified 08/07/19 08:15 iv contract dy Allergy Severe Anaphylaxis Uncoded 08/07/19 08:14 ED Review of Systems Comment: All other systems reviewed and negative ED Past Medical Hx - Past Medical History Previous Medical History?: Yes Hx Hypertension: Yes Hx Heart Attack/AMI: Yes Hx Congestive Heart Failure: No Hx Diabetes: Yes Hx Seizures: Yes Hx Psychiatric Treatment: Yes (anxiety) Hx Asthma: Yes Hx COPD: No Hx HIV: No Additional medical history: H.pylori - Surgical History Hx Coronary Stent: Yes (CARDIAC STENTS X3) Hx Appendectomy: Yes 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 - Social History Smoking Status: Former Smoker Substance Use Type: None - Medications Home Medications: Home Medications Medication Instructions Recorded Confirmed Last Taken Type Aspirin [Aspirin BABY CHEW TAB] 81 mg PO QDAY 08/13/15 06/06/19 01/11/19 History Insulin Glargine,Hum.rec.anlog 42 units SQ QHS 04/07/18 06/06/19 01/11/19 History [Lantus] levETIRAcetam [Keppra TAB] 1,000 mg PO BID 04/07/18 06/06/19 01/11/19 History raNITIdine HCl [Zantac] 150 mg PO BID 30 Days #60 tablet 01/12/19 06/06/19 Unknown Rx Benzonatate [Tessalon Perles] 100 mg PO Q8HR #30 capsule 04/25/19 06/06/19 Unknown Rx Cetirizine HCl [Zyrtec 10mg tab] 10 mg PO DAILY #30 tablet 04/25/19 06/06/19 Unknown Rx Ipratropium/Albuterol Sulfate 1 ampul IH Q6HRT PRN #30 ampul.neb 06/08/19 Unknown Rx [DUONEB *Not for PRN Use*] Sucralfate [Carafate] 1 gm PO ACHS #30 tablet 06/08/19 Unknown Rx methylPREDNISolone [Medrol 4MG 4 mg PO ONCE #1 tab.ds.pk 08/07/19 Unknown Rx DOSEPAK (21 tabs)] traMADoL [Ultram 50 MG tab] 50 mg PO Q4HR PRN #9 tablet 08/07/19 Unknown Rx Ondansetron [Zofran ODT TAB] 8 mg PO Q8HR PRN #12 tab.rapdis 09/04/19 Unknown Rx ED Physical Exam - General Limitations: No Limitations General appearance: alert, in no apparent distress - Head Head exam: Present: atraumatic, normocephalic - Eye Eye exam: Present: normal appearance, PERRL, EOMI - ENT ENT exam: Present: mucous membranes moist - Neck Neck exam: Present: normal inspection - Respiratory Respiratory exam: Present: normal lung sounds bilaterally, decreased breath sounds (Left lower lung). Absent: respiratory distress, wheezes, rales, rhonchi, accessory muscle use - Cardiovascular Cardiovascular Exam: Present: regular rate, normal rhythm, normal heart sounds. Absent: systolic murmur, diastolic murmur, rubs, gallop - GI/Abdominal GI/Abdominal exam: Present: soft, normal bowel sounds. Absent: distended, tenderness, guarding, rebound - Rectal Rectal exam: Present: deferred - Extremities Exam Extremities exam: Present: normal inspection - Back Exam Back exam: Present: normal inspection - Neurological Exam Neurological exam: Present: alert, oriented X3 - Psychiatric Psychiatric exam: Present: normal affect, normal mood - Skin Skin exam: Present: warm, dry, intact, normal color. Absent: rash ED Course - Reevaluation(s) Reevaluation #1: 09/06/19 16:48 Spoke at length with the health department regarding this patient. He was suggested that the patient have flu testing chest x-ray and be placed in isolation. After the flu test was negative and the chest x-rays were negative as well and the patient has not developed any fever or worsening respiratory function health department states they believe that the likely weakness of the patient having coronavirus is very slight. Patient states he just started feeling symptoms just after arriving. [facility] department states they have his information and the patient can self restrict himself at his home. They will get in contact with the patient for follow-up. Patient still is having some pain in the left side when he takes a deep breath. He has had multiple long flights over the last week. CT angiogram of the chest will be ordered to rule out PE at this time. Reevaluation #2: 09/06/19 18:09 Because of the patient's risk factors for pulmonary embolus a VQ scan was ordered. CT angiogram was not ordered secondary to the patient being allergic to contrast dye. The patient went to get his VQ however the machine malfunctioned therefore were not able to obtain a result therefore a d-dimer has been ordered and the patient will be reassessed after the d-dimer results ED Medical Decision Making - Lab Data Result diagrams: 09/06/19 13:05 09/06/19 13:05 Lab Results 09/06/19 09/06/19 09/06/19 Range/Units 13:05 13:05 13:05 WBC 5.6 (4.5-11.0) K/mm3 RBC 5.15 H (3.65-5.03) M/mm3 Hgb 15.2 (11.8-15.2) gm/dl Hct 44.1 (35.5-45.6) % MCV 86 (84-94) fl MCH 30 (28-32) pg MCHC 34 (32-34) % RDW 13.5 (13.2-15.2) % Plt Count 150 (140-440) K/mm3 Lymph % (Auto) 28.7 (13.4-35.0) % Roosevelt % (Auto) 9.1 H (0.0-7.3) % Eos % (Auto) 3.5 (0.0-4.3) % Baso % (Auto) 0.6 (0.0-1.8) % Lymph # 1.6 (1.2-5.4) K/mm3 Roosevelt # 0.5 (0.0-0.8) K/mm3 Eos # 0.2 (0.0-0.4) K/mm3 Baso # 0.0 (0.0-0.1) K/mm3 Seg Neutrophils % 58.1 (40.0-70.0) % Seg Neutrophils # 3.3 (1.8-7.7) K/mm3 Sodium 140 (137-145) mmol/L Potassium 3.9 (3.6-5.0) mmol/L Chloride 102.4 (98-107) mmol/L Carbon Dioxide 23 (22-30) mmol/L Anion Gap 19 mmol/L BUN 8 L (9-20) mg/dL Creatinine 0.9 (0.8-1.5) mg/dL Estimated GFR > 60 ml/min BUN/Creatinine Ratio 9 % Glucose 272 H (75-100) mg/dL Lactic Acid 1.50 (0.7-2.0) mmol/L Calcium 8.9 (8.4-10.2) mg/dL Total Bilirubin 0.30 (0.1-1.2) mg/dL AST 13 (5-40) units/L ALT 22 (7-56) units/L Alkaline Phosphatase 107 (35-129) units/L Total Protein 7.2 (6.3-8.2) g/dL Albumin 4.0 (3.9-5) g/dL Albumin/Globulin Ratio 1.3 % Influenza A (Rapid) (Negative) Influenza B (Rapid) (Negative) 09/06/19 Range/Units 14:12 WBC (4.5-11.0) K/mm3 RBC (3.65-5.03) M/mm3 Hgb (11.8-15.2) gm/dl Hct (35.5-45.6) % MCV (84-94) fl MCH (28-32) pg MCHC (32-34) % RDW (13.2-15.2) % Plt Count (140-440) K/mm3 Lymph % (Auto) (13.4-35.0) % Roosevelt % (Auto) (0.0-7.3) % Eos % (Auto) (0.0-4.3) % Baso % (Auto) (0.0-1.8) % Lymph # (1.2-5.4) K/mm3 Roosevelt # (0.0-0.8) K/mm3 Eos # (0.0-0.4) K/mm3 Baso # (0.0-0.1) K/mm3 Seg Neutrophils % (40.0-70.0) % Seg Neutrophils # (1.8-7.7) K/mm3 Sodium (137-145) mmol/L Potassium (3.6-5.0) mmol/L Chloride (98-107) mmol/L Carbon Dioxide (22-30) mmol/L Anion Gap mmol/L BUN (9-20) mg/dL Creatinine (0.8-1.5) mg/dL Estimated GFR ml/min BUN/Creatinine Ratio % Glucose (75-100) mg/dL Lactic Acid (0.7-2.0) mmol/L Calcium (8.4-10.2) mg/dL Total Bilirubin (0.1-1.2) mg/dL AST (5-40) units/L ALT (7-56) units/L Alkaline Phosphatase (35-129) units/L Total Protein (6.3-8.2) g/dL Albumin (3.9-5) g/dL Albumin/Globulin Ratio % Influenza A (Rapid) Negative (Negative) Influenza B (Rapid) Negative (Negative) - Radiology Data CHEST 1 VIEW 09/06/2019 12:38 PM INDICATION / CLINICAL INFORMATION: productive cough. COMPARISON: 09/04/2019 FINDINGS: SUPPORT DEVICES: None. HEART / MEDIASTINUM: No significant abnormality. LUNGS / PLEURA: No significant pulmonary or pleural abnormality. No pneumothorax. ADDITIONAL FINDINGS: No significant additional findings. IMPRESSION: 1. No acute findings. Signer Name: Rudy Ramos MD Signed: 09/06/2019 12:50 PM Workstation Name: [id number] ED Disposition Clinical Impression: Febrile illness, acute, Viral syndrome Disposition: DC-01 TO HOME OR SELFCARE Condition: Stable Instructions: Viral Syndrome (ED) Referrals: PRIMARY CARE, [Primary Care Provider] - 3-5 Days <ASHLEY EDWARDS - Last Filed: 09/06/19 20:21> ED Review of Systems ROS: Stated complaint: FLU SX Other details as noted in HPI ED Course Vital Signs 09/06/19 09/06/19 09/06/19 12:13 12:16 12:27 Temperature Pulse Rate 98 H 99 H Respiratory 11 L 20 Rate Blood Pressure 141/96 141/96 141/96 Blood Pressure [Left] O2 Sat by Pulse 94 99 Oximetry 09/06/19 09/06/19 09/06/19 12:30 12:50 16:00 Temperature 98.4 F Pulse Rate 89 79 Respiratory 26 H 29 H Rate Blood Pressure 146/103 104/53 Blood Pressure [Left] O2 Sat by Pulse 99 98 Oximetry 09/06/19 09/06/19 17:00 18:18 Temperature Pulse Rate 75 91 H Respiratory 18 18 Rate Blood Pressure 143/88 Blood Pressure 143/96 [Left] O2 Sat by Pulse 99 Oximetry ED Medical Decision Making - Lab Data Result diagrams: 09/06/19 13:05 09/06/19 13:05 - Medical Decision Making Patient is a 48-year-old male, signed out to me by my colleague Dr. David. Patient is presenting with a productive cough as well as nausea vomiting diarrhea body aches for the past 5 to 6 days. Patient states that he flew to [facility] on 08/27/2019 for work assignment. Patient states the day after arrival on the he began feeling as though he may be coming down with a slight cold. Patient was in [facility] for 2 days and then flew to [facility]. Patient left [facility] on the of this month and arrived back in [facility] on the morning of the . Patient states that before leaving [facility] he started having the symptoms which she is complaining of today. Patient has a productive cough. He has pain in the left side when he coughs. He has had subjective fevers. Patient has had nausea vomiting diarrhea and body aches. Patient denies any headache or neck stiffness at this time. Patient did not travel to any regions of [place] that are well known for having coronavirus. Health department contacted and case reported to [facility] by my colleague. They stated that they will follow-up with the patient at home. Labs reviewed and is unremarkable. Patient had a pleuritic chest pain and given his recent history of travels pulmonary embolism concern was raised however patient d-dimer is negative. Patient stated that he is feeling much better. Patient given Robitussin for cough and congestion and prescription for Zofran and advised to follow-up with his primary care physician in the next 2 to 3 days and to return to the ER if symptoms are not improved. Critical care attestation.: If time is entered above; I have spent that time in minutes in the direct care of this critically ill patient, excluding procedure time. ED Disposition Is pt being admited?: No
[2019-09-06] MEDS ORDERED: ONDANSETRON 4 MG/2 ML INJ ONE (18:31)
[2019-09-06 21:13] VITALS: BP 129/89
== END 2019-09-06 21:25 | disposition home or self-care (01) ==
LOC: ED 12:00
DX: B34.9 Viral infection, unspecified (principal); R50.9 Fever, unspecified; I10 Essential (primary) hypertension; I25.2 Old myocardial infarction; E11.9 Type 2 diabetes mellitus without complications; F41.9 Anxiety disorder, unspecified; J45.909 Unspecified asthma, uncomplicated; Z88.0 Allergy status to penicillin; Z91.041 Radiographic dye allergy status; Z88.8 Allergy status to other drugs, medicaments and biological substances; Z79.899 Other long term (current) drug therapy; Z79.82 Long term (current) use of aspirin; Z79.4 Long term (current) use of insulin; Z87.891 Personal history of nicotine dependence; Z90.49 Acquired absence of other specified parts of digestive tract; Z95.5 Presence of coronary angioplasty implant and graft; Z86.69 Personal history of other diseases of the nervous system and sense organs
CPT/HCPCS: 36415; 71045; 80053; 82140; 85025; 85379; 87040; 87400; 96365; 96375; 96376; 99284; J1885; J1956; J2405; J7030; 78582; A9540; A9558

== ENCOUNTER 2020-03-28 17:10 | Emergency (ER) | payer MEDICAID ==
[2020-03-28] MEDS ORDERED: levETIRAcetam 500 MG TAB PO ONE (18:45)
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
[2020-03-28] MEDS ORDERED: HYDROcodone/ACETAMINOPHEN 5-325 MG TAB PO ONE (19:20)
[2020-03-28] MEDS ORDERED: ONDANSETRON 4 MG ODT TAB PO ONE (19:20)
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
[2020-03-28 19:37] VITALS: BP 129/77
== END 2020-03-28 20:30 | disposition home or self-care (01) ==
LOC: ED 17:10
DX: M79.671 Pain in right foot (principal); R56.9 Unspecified convulsions; I25.2 Old myocardial infarction; I10 Essential (primary) hypertension; E11.9 Type 2 diabetes mellitus without complications; F41.9 Anxiety disorder, unspecified; J45.909 Unspecified asthma, uncomplicated; Z90.49 Acquired absence of other specified parts of digestive tract; Z98.890 Other specified postprocedural states; Z79.4 Long term (current) use of insulin; Z79.899 Other long term (current) drug therapy; Z88.0 Allergy status to penicillin; Z88.8 Allergy status to other drugs, medicaments and biological substances
CPT/HCPCS: Q0162

== ENCOUNTER 2020-04-03 12:34 | Emergency (ER) | payer MEDICAID ==
[2020-04-03] MEDS ORDERED: ONDANSETRON 4 MG/2 ML INJ IV ONE (15:22)
--- NOTE | 2020-04-03 15:29 | Emergency Department Report ---
HPI - General Chief Complaint: High BP Time Seen by Provider: 04/03/20 14:50 - HPI HPI: This is a 49-year-old male who presents to the emergency department with a complaint of elevated blood pressure and a cough. Patient has been dealing with some right foot pain for the past few weeks. He says that at first he was told that there was a small broken bone to the outside of the foot. Since that time he has been dealing with a galley boy who says that the patient has a small abscess or infection there. However the galley boy did not feel that it should be incised and/or drained. She was seen the galley boy today when they noticed he was having elevated blood pressure. Along with a chronic cough, the galley boy recommended that the patient come to the emergency department. Patient says that he has had a mixed dry and productive cough over the past few weeks. Recently there was a small amount of blood-tinged sputum. He denies any fever, chest pain, back pain, lower extremity swelling, shortness of breath. He has a past medical history of asthma, diabetes, coronary artery disease with multiple cardiac stents, hypertension, seizures. 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 - Social History Smoking Status: Never Smoker Substance Use Type: None - Medications Home Medications: Home Medications Medication Instructions Recorded Confirmed Last Taken Type Aspirin [Aspirin BABY CHEW TAB] 81 mg PO QDAY 08/13/15 06/06/19 01/11/19 History Insulin Glargine,Hum.rec.anlog 42 units SQ QHS 04/07/18 06/06/19 01/11/19 History [Lantus] levETIRAcetam [Keppra TAB] 1,000 mg PO BID 04/07/18 06/06/19 01/11/19 History raNITIdine HCl [Zantac] 150 mg PO BID 30 Days #60 tablet 01/12/19 06/06/19 Unknown Rx Cetirizine HCl [Zyrtec 10mg tab] 10 mg PO DAILY #30 tablet 04/25/19 06/06/19 Unknown Rx Ipratropium/Albuterol Sulfate 1 ampul IH Q6HRT PRN #30 ampul.neb 06/08/19 Unknown Rx [DUONEB *Not for PRN Use*] Sucralfate [Carafate] 1 gm PO ACHS #30 tablet 06/08/19 Unknown Rx methylPREDNISolone [Medrol 4MG 4 mg PO ONCE #1 tab.ds.pk 08/07/19 Unknown Rx DOSEPAK (21 tabs)] traMADoL [Ultram 50 MG tab] 50 mg PO Q4HR PRN #9 tablet 08/07/19 Unknown Rx Ondansetron [Zofran ODT TAB] 8 mg PO Q8HR PRN #12 tab.rapdis 09/04/19 Unknown Rx Ondansetron [Zofran Odt] 4 mg PO Q8HR PRN #14 tab.rapdis 09/06/19 Unknown Rx guaiFENesin [Robitussin] 10 ml PO TID PRN #100 ml 09/06/19 Unknown Rx Acetaminophen/Codeine [Tylenol 1 tab PO Q6H PRN #12 tab 02/14/20 Unknown Rx /Codeine # 3 tab] Capsaicin 0.075% [Zostrix Hp 1 applicatio TP TID #1 tube 02/14/20 Unknown Rx 0.075%] HYDROcodone/APAP 5-325 [[place] 1 - 2 each PO Q6HR PRN #14 tablet 03/03/20 Unknown Rx 5/325] HYDROcodone/APAP 5-325 [[place] 1 each PO Q6HR PRN #12 tablet 03/28/20 Unknown Rx 5/325] levETIRAcetam [Keppra TAB] 500 mg PO BID #150 tablet 03/28/20 Unknown Rx Azithromycin [Zithromax Z-RIRI] 250 mg PO DAILY #6 tab 04/03/20 Unknown Rx Benzonatate [Tessalon Perles] 100 mg PO Q8HR #20 capsule 04/03/20 Unknown Rx Ondansetron [Zofran Odt] 4 mg PO Q8HR PRN #15 tab.rapdis 04/03/20 Unknown Rx ED Review of Systems ROS: Stated complaint: 2WKS COLD/DOC SENT Other details as noted in HPI Comment: All other systems reviewed and negative Constitutional: denies: chills, fever Eyes: denies: eye pain, vision change ENT: denies: ear pain, throat pain Respiratory: cough. denies: shortness of breath Cardiovascular: denies: chest pain, edema Gastrointestinal: denies: abdominal pain, diarrhea Genitourinary: denies: dysuria, discharge Musculoskeletal: arthralgia. denies: back pain Skin: lesions. denies: rash Neurological: denies: headache, weakness Physical Exam - Physical Exam Vital Signs: Vital Signs 04/03/20 12:39 Temperature 98.1 F Pulse Rate 104 H Respiratory 20 Rate Blood Pressure 129/96 O2 Sat by Pulse 100 Oximetry Physical Exam: GENERAL: The patient is well-developed well-nourished. HENT: Normocephalic. Atraumatic. Patient has moist mucous membranes. EYES: Extraocular motions are intact. NECK: Supple. Trachea is midline. CHEST/LUNGS: Clear to auscultation. A productive sounding cough is heard during examination. There is no respiratory distress noted. HEART/CARDIOVASCULAR: Regular. There is no tachycardia. There is no murmur. ABDOMEN: Abdomen is soft, nontender. Patient has normal bowel sounds. There is no abdominal distention. SKIN: Skin is warm and dry. There is a small abscess to the right distal lateral foot at the tarsal metatarsal junction. NEURO: The patient is awake, alert, and oriented. The patient is cooperative. The patient has no focal neurologic deficits. Normal speech. +2/4 dorsalis pedis pulses. MUSCULOSKELETAL: There is some tenderness to the right distal lateral foot where the patient has a small abscess. There is no limitation range of motion. ED Course Vital Signs 04/03/20 12:39 Temperature 98.1 F Pulse Rate 104 H Respiratory 20 Rate Blood Pressure 129/96 O2 Sat by Pulse 100 Oximetry ED Medical Decision Making - Lab Data Result diagrams: 04/03/20 15:19 04/03/20 15:19 - Radiology Data Radiology results: image reviewed interpreted by me: Chest x-ray does not show any acute process. There are no pleural effusions, obvious pneumonia and there is no pneumothorax. No significant cardiomegaly. - Medical Decision Making This patient was sent in from the office of his galley boy secondary to alleged hypertension and a lingering cough. Patient's blood pressure has been within the normal range since being in the emergency department and overall his vitals have been reassuring. A chest x-ray was done that does not show any pneumonia, pleural effusions, pneumothorax, focal consolidation or any other acute process. X-ray was done of the right foot secondary to pain and a small abscess but there was no signs of osteomyelitis, nor any fracture or dislocation. Patient's labs were mostly unremarkable except for hyperglycemia with a blood sugar of about 400. No significant elevation in the anion gap and therefore the patient does not appear in diabetic ketoacidosis. He was given a liter of fluid and a dose of IV insulin and his blood sugar came down to about 215. Patient had 2 episodes of vomiting while in the emergency department and was given some IV Zofran. It appeared to be posttussive emesis. Prior to discharge the patient w as able to drink fluid and keep it down without any return of nausea or vomiting. He will be discharged home with Tessalon Perles for cough, and a Z- Riri. The patient has been instructed to follow-up with his primary care physician and galley boy. He will return to the ER with any worsening of his symptoms or with any acute distress. Critical Care Time: No Critical care attestation.: If time is entered above; I have spent that time in minutes in the direct care of this critically ill patient, excluding procedure time. ED Disposition Clinical Impression: Bronchitis, Hyperglycemia, Foot pain, right, Abscess of right foot Nausea & vomiting Qualifiers: Vomiting type: unspecified Vomiting Intractability: non-intractable Qualified Code(s): R11.2 - Nausea with vomiting, unspecified Disposition: DC- TO HOME OR SELFCARE Is pt being admited?: No Condition: Stable Instructions: Acute Bronchitis (ED), Acute Nausea and Vomiting (ED), Abscess (ED), Diabetic Hyperglycemia (ED) Additional Instructions: Please follow-up with your primary care physician and galley boy. Take the medications as prescribed. Return to the emergency department with any worsening of your symptoms or with any acute distress. Try to stay away from foods that are high in sugar, carbohydrates and starches. Keep a blood sugar log. Prescriptions: Benzonatate [Tessalon Perles] 100 mg PO Q8HR #20 capsule Azithromycin [Zithromax Z-RIRI] 250 mg PO DAILY #6 tab Ondansetron [Zofran Odt] 4 mg PO Q8HR PRN #15 tab.rapdis PRN Reason: Nausea Referrals: PRIMARY CARE, [Primary Care Provider] - 2-3 Days Time of Disposition: 18:28
[2020-04-03 15:51] LABS: Basophils % (Auto) 0.6 % (0.0-1.8); Eosinophils # (Auto) 0.1 K/mm3 (0.0-0.4); Eosinophils % (Auto) 1.9 % (0.0-4.3); Hematocrit 52.4 % (35.5-45.6); Hemoglobin 18.3 gm/dl (11.8-15.2); Lymphocytes # (Auto) 1.8 K/mm3 (1.2-5.4); Lymphocytes % (Auto) 23.6 % (13.4-35.0); Mean Corpuscular HGB Conc 35 % (32-34); Mean Corpuscular Volume 87 fl (84-94); Monocytes # (Auto) 0.7 K/mm3 (0.0-0.8); Monocytes % (Auto) 8.9 % (0.0-7.3); Platelet Count 181 K/mm3 (140-440); Red Blood Count 6.01 M/mm3 (3.65-5.03); Red Cell Distribution Width 14.1 % (13.2-15.2)
--- NOTE | 2020-04-03 16:03 | XRay Report ---
RIGHT FOOT 3 VIEW(S) INDICATION / CLINICAL INFORMATION: Right foot pain and swelling COMPARISON: Right foot x-ray 03/28/2020 FINDINGS: BONES / JOINT(S): No acute fracture or subluxation. Moderate degenerative arthrosis first MTP joint. Mild degenerative arthrosis of first, second, third and fourth DIP joints. SOFT TISSUES: Soft tissue ulcer with bandage overlying the lateral aspect of fifth toe MTP joint with out cortical destruction to suggest osteomyelitis. ADDITIONAL FINDINGS: None. Signer Name: Yamil Carrion MD Signed: 04/03/2020 3:59 PM Workstation Name: [id number]
--- NOTE | 2020-04-03 16:04 | XRay Report ---
CHEST 2 VIEWS INDICATION / CLINICAL INFORMATION: Cough and hypertension. COMPARISON: 09/06/2019 FINDINGS: SUPPORT DEVICES: None. HEART / MEDIASTINUM: No significant abnormality. LUNGS / PLEURA: No significant pulmonary or pleural abnormality. No pneumothorax. ADDITIONAL FINDINGS: No significant additional findings. IMPRESSION: 1. No acute findings. Signer Name: Yamil Carrion MD Signed: 04/03/2020 3:59 PM Workstation Name: [id number]
[2020-04-03 16:06] LABS: BUN/Creatinine Ratio 9; Blood Urea Nitrogen 11 mg/dL (9-20); Calcium 9.9 mg/dL (8.4-10.2); Hemolysis Index 18
[2020-04-03] MEDS ORDERED: SODIUM CHLORIDE 0.9% 1000 ML 1,000 ML IV ONE (16:17)
[2020-04-03] MEDS ORDERED: INSULIN REGULAR, HUMAN 100 UNITS/1 ML ONE (16:30)
[2020-04-03] MEDS ORDERED: INSULIN REGULAR, HUMAN 100 UNIT/ML 3ML VIAL IV SCH (17:00)
[2020-04-03 18:39] VITALS: BP 126/76
== END 2020-04-03 18:40 | disposition home or self-care (01) ==
LOC: ED 12:34
DX: J40 Bronchitis, not specified as acute or chronic (principal); L02.611 Cutaneous abscess of right foot; E11.65 Type 2 diabetes mellitus with hyperglycemia; R11.2 Nausea with vomiting, unspecified; I25.2 Old myocardial infarction; I10 Essential (primary) hypertension; R56.9 Unspecified convulsions; F41.9 Anxiety disorder, unspecified; Z90.49 Acquired absence of other specified parts of digestive tract; Z79.4 Long term (current) use of insulin; Z79.2 Long term (current) use of antibiotics; Z79.899 Other long term (current) drug therapy; Z88.0 Allergy status to penicillin; Z88.8 Allergy status to other drugs, medicaments and biological substances
CPT/HCPCS: 36415; 71046; 73630; 80048; 82962; 85025; 85379; 96361; 96374; 96375; 99284; J2405; J7030; J1815

== ENCOUNTER 2020-04-17 11:22 | Outpatient (CLI) | payer MEDICAID ==
--- NOTE | 2020-04-17 12:59 | XRay Report ---
RIGHT FOOT 3 VIEWS INDICATION: RIGHT FOOT PAIN. COMPARISON: 04/03/2020 IMPRESSION: Soft tissue ulcer and bandage in the lateral foot is no longer identified. The bony stru ctures are intact. No evidence for fracture, suspicious bone lesion or osteomyelitis. Minimal degener ative changes are noted in the midfoot. Signer Name: Shimon Sesay Jr, MD Signed: 04/17/2020 12:55 PM Workstation Name: [id number]
== END 2020-04-17 11:23 | disposition home or self-care (01) ==
LOC: XRAY 11:22
PROVIDERS: ATTEND Podiatrist
DX: M19.071 Primary osteoarthritis, right ankle and foot (principal)

== ENCOUNTER 2020-04-29 19:23 | Emergency (ER) | payer MEDICAID ==
[2020-04-30] MEDS ORDERED: LORazepam 2 MG/ML VIAL IV ONE (00:32)
--- NOTE | 2020-04-30 00:44 | Emergency Department Report ---
ED Seizure HPI - General Chief Complaint: Seizure Stated Complaint: SEIZURE Source: patient Mode of arrival: Ambulatory Limitations: No Limitations - History of Present Illness Initial Comments: Patient is a 49-year-old -Portuguese male with a history of hypertension, coronary artery disease s/p AMI, bol-zkecofo-mwtafctja diabetes, asthma, anxiety and seizure who presents to the ED with acute onset severe left maxillary premolar and molar dental injuries and gum pain after suffering a single seizure episode at home 8 hours ago. Patient states that he takes Keppra 500 mg every 12 hours for his seizure but of late has been having recurrent seizures more frequently. Patient states that he has not seen his primary care physician but has a scheduled appointment to see him to adjust his medications. Patient states that he also contacted a dentist who advised him to come to the ED for pain control. Patient denies dizziness, syncope, chest pain, shortness of breath, fever, chills, cough, nausea, vomiting, abdominal pain, back pain, neck pain, change in vision, urinary or bowel incontinence or numbness and tingling or weakness of upper and lower extremities bilaterally. MD Complaint: seizure, loss of consciousness, other (left maxillary premolar and molar injury) -: Sudden, hour(s) (8) Description of Episode: loss of consciousness, tonic-clonic movement, bladder incontinence Duration of Episode: 10 -: second(s) Witnessed:: Yes Trauma: Yes (dental injury; head injury) Seizure History: known seizure disorder, compliant with medication Place: home Possible Precipitating Event: medication Associated Symptoms: denies other symptoms, loss of appetite, malaise. denies: chest pain, confusion, cough, diaphoresis, fever/chills, rash, shortness of breath, syncope, weakness, tongue injury, shoulder dislocation, other Treatments Prior to Arrival: none - Related Data Home Medications Medication Instructions Recorded Confirmed Last Taken Aspirin [Aspirin BABY CHEW TAB] 81 mg PO QDAY 08/13/15 06/06/19 01/11/19 Insulin Glargine,Hum.rec.anlog 42 units SQ QHS 04/07/18 06/06/19 01/11/19 [Lantus] Previous Rx's Medication Instructions Recorded Last Taken Type raNITIdine HCl [Zantac] 150 mg PO BID 30 Days #60 tablet 01/12/19 Unknown Rx Cetirizine HCl [Zyrtec 10mg tab] 10 mg PO DAILY #30 tablet 04/25/19 Unknown Rx Ipratropium/Albuterol Sulfate 1 ampul IH Q6HRT PRN #30 ampul.neb 06/08/19 Unknown Rx [DUONEB *Not for PRN Use*] Sucralfate [Carafate] 1 gm PO ACHS #30 tablet 06/08/19 Unknown Rx methylPREDNISolone [Medrol 4MG 4 mg PO ONCE #1 tab.ds.pk 08/07/19 Unknown Rx DOSEPAK (21 tabs)] traMADoL [Ultram 50 MG tab] 50 mg PO Q4HR PRN #9 tablet 08/07/19 Unknown Rx Ondansetron [Zofran ODT TAB] 8 mg PO Q8HR PRN #12 tab.rapdis 09/04/19 Unknown Rx Ondansetron [Zofran Odt] 4 mg PO Q8HR PRN #14 tab.rapdis 09/06/19 Unknown Rx guaiFENesin [Robitussin] 10 ml PO TID PRN #100 ml 09/06/19 Unknown Rx Acetaminophen/Codeine [Tylenol 1 tab PO Q6H PRN #12 tab 02/14/20 Unknown Rx /Codeine # 3 tab] Capsaicin 0.075% [Zostrix Hp 1 applicatio TP TID #1 tube 02/14/20 Unknown Rx 0.075%] HYDROcodone/APAP 5-325 [[place] 1 - 2 each PO Q6HR PRN #14 tablet 03/03/20 Unknown Rx 5/325] HYDROcodone/APAP 5-325 [[place] 1 each PO Q6HR PRN #12 tablet 03/28/20 Unknown Rx 5/325] levETIRAcetam [Keppra TAB] 500 mg PO BID #150 tablet 03/28/20 Unknown Rx Azithromycin [Zithromax Z-RIRI] 250 mg PO DAILY #6 tab 04/03/20 Unknown Rx Benzonatate [Tessalon Perles] 100 mg PO Q8HR #20 capsule 04/03/20 Unknown Rx Ondansetron [Zofran Odt] 4 mg PO Q8HR PRN #15 tab.rapdis 04/03/20 Unknown Rx Acetaminophen/Codeine [Tylenol 1 tab PO Q6H PRN #12 tab 10/14/20 Unknown Rx /Codeine # 3 tab] Clindamycin [Clindamycin CAP] 300 mg PO Q8HR #60 capsule 04/30/20 Unknown Rx levETIRAcetam [Keppra TAB] 1,000 mg PO BID #60 04/30/20 Unknown Rx Allergies Allergy/AdvReac Type Severity Reaction Status Date / Time Penicillins Allergy Severe Anaphylaxis Verified 04/03/20 12:38 metoclopramide HCl Allergy Unknown Verified 04/03/20 12:38 [From Reglan] ibuprofen AdvReac Unknown Swelling Verified 04/03/20 12:38 iv contract dy Allergy Severe Anaphylaxis Uncoded 08/07/19 08:14 ED Review of Systems ROS: Stated complaint: SEIZURE Other details as noted in HPI Constitutional: malaise. denies: chills, fever Eyes: denies: eye pain, eye discharge, vision change ENT: dental pain (Left maxillary premolar and molar dental injury; swollen gum with pain). denies: ear pain, throat pain Respiratory: denies: cough, shortness of breath, wheezing Cardiovascular: denies: chest pain, palpitations, syncope, paroxysmal nocturnal dyspnea Endocrine: no symptoms reported Gastrointestinal: denies: abdominal pain, nausea, diarrhea Genitourinary: denies: urgency, dysuria, frequency, hematuria Musculoskeletal: denies: back pain, joint swelling, arthralgia Skin: denies: rash, lesions Neurological: headache, other (Seizure). 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 - Social History Smoking Status: Never Smoker Substance Use Type: None - Medications Home Medications: Home Medications Medication Instructions Recorded Confirmed Last Taken Type Aspirin [Aspirin BABY CHEW TAB] 81 mg PO QDAY 08/13/15 06/06/19 01/11/19 History Insulin Glargine,Hum.rec.anlog 42 units SQ QHS 04/07/18 06/06/19 01/11/19 History [Lantus] raNITIdine HCl [Zantac] 150 mg PO BID 30 Days #60 tablet 01/12/19 06/06/19 Unknown Rx Cetirizine HCl [Zyrtec 10mg tab] 10 mg PO DAILY #30 tablet 04/25/19 06/06/19 Unk nown Rx Ipratropium/Albuterol Sulfate 1 ampul IH Q6HRT PRN #30 ampul.neb 06/08/19 Unknown Rx [DUONEB *Not for PRN Use*] Sucralfate [Carafate] 1 gm PO ACHS #30 tablet 06/08/19 Unknown Rx methylPREDNISolone [Medrol 4MG 4 mg PO ONCE #1 tab.ds.pk 08/07/19 Unknown Rx DOSEPAK (21 tabs)] traMADoL [Ultram 50 MG tab] 50 mg PO Q4HR PRN #9 tablet 08/07/19 Unknown Rx Ondansetron [Zofran ODT TAB] 8 mg PO Q8HR PRN #12 tab.rapdis 09/04/19 Unknown Rx Ondansetron [Zofran Odt] 4 mg PO Q8HR PRN #14 tab.rapdis 09/06/19 Unknown Rx guaiFENesin [Robitussin] 10 ml PO TID PRN #100 ml 09/06/19 Unknown Rx Acetaminophen/Codeine [Tylenol 1 tab PO Q6H PRN #12 tab 02/14/20 Unknown Rx /Codeine # 3 tab] Capsaicin 0.075% [Zostrix Hp 1 applicatio TP TID #1 tube 02/14/20 Unknown Rx 0.075%] HYDROcodone/APAP 5-325 [[place] 1 - 2 each PO Q6HR PRN #14 tablet 03/03/20 Unknown Rx 5/325] HYDROcodone/APAP 5-325 [[place] 1 each PO Q6HR PRN #12 tablet 03/28/20 Unknown Rx 5/325] levETIRAcetam [Keppra TAB] 500 mg PO BID #150 tablet 03/28/20 Unknown Rx Azithromycin [Zithromax Z-RIRI] 250 mg PO DAILY #6 tab 04/03/20 Unknown Rx Benzonatate [Tessalon Perles] 100 mg PO Q8HR #20 capsule 04/03/20 Unknown Rx Ondansetron [Zofran Odt] 4 mg PO Q8HR PRN #15 tab.rapdis 04/03/20 Unknown Rx Acetaminophen/Codeine [Tylenol 1 tab PO Q6H PRN #12 tab 04/30/20 Unknown Rx /Codeine # 3 tab] Clindamycin [Clindamycin CAP] 300 mg PO Q8HR #60 capsule 04/30/20 Unknown Rx levETIRAcetam [Keppra TAB] 1,000 mg PO BID #60 04/30/20 Unknown Rx ED Physical Exam - General Limitations: No Limitations General appearance: alert, in no apparent distress - Head Head exam: Present: atraumatic, normocephalic, normal inspection - Eye Eye exam: Present: normal appearance, PERRL, EOMI Pupils: Present: normal accommodation - ENT ENT exam: Present: mucous membranes moist, TM's normal bilaterally, normal external ear exam, other (Swollen, tender left lateral maxillary gingiva; severely tender left maxillary premolar and molar teeth) - Neck Neck exam: Present: normal inspection, full ROM. Absent: tenderness, lymphadenopathy, thyromegaly - Respiratory Respiratory exam: Present: normal lung sounds bilaterally. Absent: respiratory distress, wheezes, rales, stridor, chest wall tenderness, accessory muscle use, decreased breath sounds, prolonged expiratory - Cardiovascular Cardiovascular Exam: Present: normal rhythm, tachycardia, normal heart sounds. Absent: systolic murmur, diastolic murmur, rubs, gallop - GI/Abdominal GI/Abdominal exam: Present: soft, normal bowel sounds. Absent: tenderness, guarding, rebound, hyperactive bowel sounds - Extremities Exam Extremities exam: Present: normal inspection, full ROM, normal capillary refill - Back Exam Back exam: Present: normal inspection, full ROM. Absent: tenderness, CVA tenderness (R), CVA tenderness (L), muscle spasm, paraspinal tenderness, vertebral tenderness - Neurological Exam Neurological exam: Present: alert, oriented X3, CN II-XII intact, normal gait, reflexes normal - Psychiatric Psychiatric exam: Present: normal affect, normal mood, anxious - Skin Skin exam: Present: warm, dry, intact, normal color. Absent: rash ED Course Vital Signs 04/29/20 04/30/20 19:59 00:43 Temperature 98.3 F 97.8 F Pulse Rate 103 H 95 H Respiratory 18 18 Rate Blood Pressure 133/92 115/87 O2 Sat by Pulse 99 98 Oximetry ED Medical Decision Making - Lab Data Result diagrams: 04/30/20 00:38 04/30/20 00:38 - EKG Data EKG shows normal: sinus rhythm Rate: normal - EKG Data Interpretation: normal EKG 04/30/20 06:29 EKG shows normal sinus rhythm with a ventricular rate of [address] or T wave abnormalities. - Radiology Data Radiology results: report reviewed, image reviewed Findings [facility] [address] [place] [address] Cat Scan Report Signed Patient: QUINCY CORDERO JR MR#: [id number] : 1970 Acct:[id number] Age/Sex: 49 / M ADM Date: 04/29/20 Loc: ED Attending Dr: Ordering Physician: NOEMI ROWLAND Date of Service: 04/30/20 Procedure(s): CT head/brain wo con Accession Number(s): [id number] cc: NOEMI ROWLAND CT HEAD WITHOUT CONTRAST INDICATION: Seizure. TECHNIQUE: All CT scans at this location are performed using CT dose reduction for ALARA by means of automated exposure control. COMPARISON: CT 03/03/2020 FINDINGS: HEMORRHAGE: None. EXTRA-AXIAL SPACES: Normal in size and morphology for the patient's age. VENTRICULAR SYSTEM: Normal in size and morphology for the patient's age. BRAIN PARENCHYMA: No acute findings. MIDLINE SHIFT OR HERNIATION: None. ORBITS: Normal as visualized. SOFT TISSUES OF HEAD: Normal. CALVARIUM: Normal. VISUALIZED PARANASAL SINUSES AND MASTOID AIR CELLS: Clear. ADDITIONAL FINDINGS: None. IMPRESSION: 1. No acute intracranial abnormality. Signer Name: Lenin Portillo MD Signed: 04/30/2020 1:17 AM Workstation Name: [id number] Transcribed By: MICHAEL Dictated By: Lenin Portillo MD Electronically Authenticated By: Lenin Portillo MD Signed Date/Time: 04/30/20116 DD/ 3 TD/TT: Findings [facility] [address] [place] [address] XRay Report Signed Patient: QUINCY CORDERO JR MR#: [id number] : 1970 Acct:[id number] Age/Sex: 49 / M ADM Date: 04/29/20 Loc: ED Attending Dr: Ordering Physician: NOEMI ROWLAND Date of Service: 04/30/20 Procedure(s): XR chest 1V ap Accession Number(s): [id number] cc: NOEMI ROWLAND Fluoro Time In Minutes: CHEST 1 VIEW INDICATION: dyspnea. COMPARISON: 04/03/2020 FINDINGS: Support devices: None. Heart: Normal. Lungs/Pleura: No acute pulmonary or pleural findings. IMPRESSION: 1. No acute findings. Signer Name: Lenin Portillo MD Signed: 04/30/2020 1:22 AM Workstation Name: [id number] Transcribed By: Dictated By: Lenin Portillo MD Electronically Authenticated By: Lenin Portillo MD Signed Date/Time: 04/30/20121 DD/ 1 TD/TT: - Medical Decision Making This is a 49-year-old -Portuguese male with a history of hypertension, coronary artery disease s/p AMI, ijf-nxgjqen-[id number] diabetes, asthma, anxiety and seizure who presents to the ED with acute onset severe left maxillary premolar and molar dental injuries and gum pain after suffering a single seizure episode at home 8 hours ago. Patient states that he takes Keppra 500 mg every 12 hours for his seizure but of late has been having recurrent seizures more frequently. Patient states that he has not seen his primary care physician but has a scheduled appointment to see him to adjust his medications. Patient states that he also contacted a dentist who advised him to come to the ED for pain control. In the ED, patient is alert and oriented x3 and is not in distress, cutting out conversation normally in the postictal state and is tachycardic and afebrile in triage. Lab test results were reviewed and are all nonactionable including initial and 3-hour troponin levels. EKG shows normal sinus rhythm with a ventricular rate of [address] or T wave abnormalities. Chest x-ray showed no acute cardiopulmonary abnormalities or pneumonitis. The head CT scan without contrast showed no acute intracranial abnormalities or hemorrhage. Patient was treated in the ED for seizure with Keppra 1 g IV x1, Ativan 1 mg IV x1 and also given normal saline 1 L IV bolus x1. Patient was also treated for pain and also given initial oral antibiotics in the ED. On reevaluation, patient's pain is well controlled medications. Patient's tachycardia also resolved on reevaluation. Patient was discharged home and advised to increase the dose of his seizure medication to Keppra 1 g p.o. every 12 hours, and to follow-up with his primary care physician in 3 to 5 days for reevaluation. Patient was also given a prescription for prophylactic oral antibiotics and pain medications as needed for his dental injury. Patient was advised to ensure that he follows up with a dentist as scheduled previously. Patient was otherwise advised return to the ED immediately if symptoms get worse. - Differential Diagnosis Seizure; dental injury; dental caries; head injury; dehydration; dizziness Critical care attestation.: If time is entered above; I have spent that time in minutes in the direct care of this critically ill patient, excluding procedure time. ED Disposition Clinical Impression: Seizure disorder, Dental caries Dental injury Qualifiers: Encounter type: initial encounter Qualified Code(s): S09.93XA - Unspecified injury of face, initial encounter Disposition: TO HOME OR SELFCARE Is pt being admited?: No Does the pt Need Aspirin: No Condition: Stable Instructions: Recurrent Seizures Adult (ED), Acute dental trauma (ED), Dental Caries (ED) Additional Instructions: Take medication with food, drink plenty of fluids and follow-up with your primary care physician in 3 to 5 days for reevaluation. Consider following up with a dentist as previously scheduled. Return to the ED immediately if symptoms get worse. Prescriptions: Clindamycin [Clindamycin CAP] 300 mg PO Q8HR #60 capsule levETIRAcetam [Keppra TAB] 1,000 mg PO BID #60 Acetaminophen/Codeine [Tylenol /Codeine # 3 tab] 1 tab PO Q6H PRN #12 tab PRN Reason: Severe pain Referrals: [facility] [Outside] - 3-5 Days [facility] [Outside] - 3-5 Days Forms: Work/School Release Form(ED) Time of Disposition: 06:09 Print Language: SOUTH AFRICAN
[2020-04-30] MEDS ORDERED: levETIRAcetam 1000 MG/NS 0.75% 1,000 MG/100 ML BAG IV ONE (01:00)
[2020-04-30 01:16] LABS: Basophils % (Auto) 0.7 % (0.0-1.8); Eosinophils # (Auto) 0.1 K/mm3 (0.0-0.4); Eosinophils % (Auto) 2.3 % (0.0-4.3); Hematocrit 46.9 % (35.5-45.6); Hemoglobin 16.2 gm/dl (11.8-15.2); Lymphocytes # (Auto) 2.3 K/mm3 (1.2-5.4); Lymphocytes % (Auto) 36.6 % (13.4-35.0); Mean Corpuscular HGB Conc 35 % (32-34); Mean Corpuscular Volume 87 fl (84-94); Monocytes # (Auto) 0.5 K/mm3 (0.0-0.8); Monocytes % (Auto) 7.6 % (0.0-7.3); Platelet Count 171 K/mm3 (140-440)
--- NOTE | 2020-04-30 01:21 | Cat Scan Report ---
CT HEAD WITHOUT CONTRAST INDICATION: Seizure. TECHNIQUE: All CT scans at this location are performed using CT dose reduction for ALARA by means of automated e xposure control. COMPARISON: CT 03/03/2020 FINDINGS: HEMORRHAGE: None. EXTRA-AXIAL SPACES: Normal in size and morphology for the patient's age. VENTRICULAR SYSTEM: Normal in size and morphology for the patient's age. BRAIN PARENCHYMA: No acute findings. MIDLINE SHIFT OR HERNIATION: None. ORBITS: Normal as visualized. SOFT TISSUES OF HEAD: Normal. CALVARIUM: Normal. VISUALIZED PARANASAL SINUSES AND MASTOID AIR CELLS: Clear. ADDITIONAL FINDINGS: None. IMPRESSION: 1. No acute intracranial abnormality. Signer Name: Lenin Portillo MD Signed: 04/30/2020 1:17 AM Workstation Name: [id number]
[2020-04-30] MEDS ORDERED: SODIUM CHLORIDE 0.9% 1000 ML 1,000 ML IV ONE (01:27)
--- NOTE | 2020-04-30 01:27 | XRay Report ---
CHEST 1 VIEW INDICATION: dyspnea. COMPARISON: 04/03/2020 FINDINGS: Support devices: None. Heart: Normal. Lungs/Pleura: No acute pulmonary or pleural findings. IMPRESSION: 1. No acute findings. Signer Name: Lenin Portillo MD Signed: 04/30/2020 1:22 AM Workstation Name: [id number]
[2020-04-30 01:30] LABS: Alanine Aminotransferase 18 units/L (7-56); Albumin 4.4 g/dL (3.9-5); BUN/Creatinine Ratio 9; Blood Urea Nitrogen 9 mg/dL (9-20); Calcium 9.1 mg/dL (8.4-10.2); Hemolysis Index 7
[2020-04-30] MEDS ORDERED: ONDANSETRON 4 MG ODT TAB PO ONE (03:09)
[2020-04-30] MEDS ORDERED: HYDROcodone/ACETAMINOPHEN 7.5-325MG TAB PO ONE (03:09)
[2020-04-30] MEDS ORDERED: CLINDAMYCIN 300 MG CAP PO ONE (03:09)
[2020-04-30] MEDS ORDERED: HYDROcodone/ACETAMINOPHEN 5-325 MG TAB ONE (06:20)
[2020-04-30] MEDS ORDERED: ONDANSETRON 4 MG ODT TAB ONE (06:21)
[2020-04-30] MEDS ORDERED: CLINDAMYCIN 300 MG CAP ONE (06:22)
[2020-04-30] MEDS ORDERED: HYDROcodone/ACETAMINOPHEN 5-325 MG TAB PO ONE (06:25)
[2020-04-30 08:04] VITALS: BP 122/79
== END 2020-04-30 08:11 | disposition home or self-care (01) ==
LOC: ED 19:23
DX: S00.502A Unspecified superficial injury of oral cavity, initial encounter (principal); G40.909 Epilepsy, unspecified, not intractable, without status epilepticus; K02.9 Dental caries, unspecified; I25.2 Old myocardial infarction; I10 Essential (primary) hypertension; E11.9 Type 2 diabetes mellitus without complications; F41.9 Anxiety disorder, unspecified; J45.909 Unspecified asthma, uncomplicated; Z90.49 Acquired absence of other specified parts of digestive tract; Z98.890 Other specified postprocedural states; Z79.2 Long term (current) use of antibiotics; Z79.4 Long term (current) use of insulin; Z79.899 Other long term (current) drug therapy; Z88.0 Allergy status to penicillin; Z88.8 Allergy status to other drugs, medicaments and biological substances; X58.XXXA Exposure to other specified factors, initial encounter; Y93.89 Activity, other specified; Y92.89 Other specified places as the place of occurrence of the external cause; Y99.8 Other external cause status
CPT/HCPCS: 36415; 70450; 71045; 80053; 84484; 85025; 93005; 96365; 96366; 96375; 99285; J1953; J2060; J7030; Q0162

== ENCOUNTER 2020-05-03 15:23 | Emergency (ER) | payer MEDICAID ==
--- NOTE | 2020-05-03 19:38 | Emergency Department Report ---
- General Chief complaint: Extremity Problem,Nontraumatic Stated complaint: RT LEG PAIN Time Seen by Provider: 05/03/20 19:12 Source: patient Mode of arrival: Ambulatory Limitations: No Limitations - History of Present Illness Initial comments: 49-year-old -Citizen Of [place] male with a history of diabetes presents to the emergency room stating that his pain is increased in his right foot where he has an ulcer. Patient was recently seen here on 04/30/2020 and placed on clindamycin and Tylenol 3. Patient states he did discuss his concerns with his primary care provider and they told him to come to the emergency room. Patient denies any fever chills no nausea no vomiting no drainage or swelling to the site of his wound. Patient denies any recent injury. Patient has multiple allergies of penicillin Reglan ibuprofen and IV contrast dye. MD complaint: lesion Onset/Timin -: week(s) Tetanus Up to Date: yes Location: R foot Severity scale (0 -10): 9 Quality: sharp Consistency: constant Improves with: immobilization Worsens with: palpation Associated symptoms: denies other symptoms Treatments Prior to Arrival: bandages - Related Data Home Medications Medication Instructions Recorded Confirmed Last Taken Aspirin [Aspirin BABY CHEW TAB] 81 mg PO QDAY 08/13/15 06/06/19 01/11/19 Insulin Glargine,Hum.rec.anlog 42 units SQ QHS 04/07/18 06/06/19 01/11/19 [Lantus] Previous Rx's Medication Instructions Recorded Last Taken Type raNITIdine HCl [Zantac] 150 mg PO BID 30 Days #60 tablet 01/12/19 Unknown Rx Cetirizine HCl [Zyrtec 10mg tab] 10 mg PO DAILY #30 tablet 04/25/19 Unknown Rx Ipratropium/Albuterol Sulfate 1 ampul IH Q6HRT PRN #30 ampul.neb 06/08/19 Unknown Rx [DUONEB *Not for PRN Use*] Sucralfate [Carafate] 1 gm PO ACHS #30 tablet 06/08/19 Unknown Rx methylPREDNISolone [Medrol 4MG 4 mg PO ONCE #1 tab.ds.pk 08/07/19 Unknown Rx DOSEPAK (21 tabs)] traMADoL [Ultram 50 MG tab] 50 mg PO Q4HR PRN #9 tablet 08/07/19 Unknown Rx Ondansetron [Zofran ODT TAB] 8 mg PO Q8HR PRN #12 tab.rapdis 09/04/19 Unknown Rx Ondansetron [Zofran Odt] 4 mg PO Q8HR PRN #14 tab.rapdis 09/06/19 Unknown Rx guaiFENesin [Robitussin] 10 ml PO TID PRN #100 ml 09/06/19 Unknown Rx Acetaminophen/Codeine [Tylenol 1 tab PO Q6H PRN #12 tab 02/14/20 Unknown Rx /Codeine # 3 tab] Capsaicin 0.075% [Zostrix Hp 1 applicatio TP TID #1 tube 02/14/20 Unknown Rx 0.075%] HYDROcodone/APAP 5-325 [[place] 1 - 2 each PO Q6HR PRN #14 tablet 03/03/20 Unknown Rx 5/325] HYDROcodone/APAP 5-325 [[place] 1 each PO Q6HR PRN #12 tablet 03/28/20 Unknown Rx 5/325] levETIRAcetam [Keppra TAB] 500 mg PO BID #150 tablet 03/28/20 Unknown Rx Azithromycin [Zithromax Z-RIRI] 250 mg PO DAILY #6 tab 04/03/20 Unknown Rx Benzonatate [Tessalon Perles] 100 mg PO Q8HR #20 capsule 04/03/20 Unknown Rx Ondansetron [Zofran Odt] 4 mg PO Q8HR PRN #15 tab.rapdis 04/03/20 Unknown Rx Acetaminophen/Codeine [Tylenol 1 tab PO Q6H PRN #12 tab 04/30/20 Unknown Rx /Codeine # 3 tab] Clindamycin [Clindamycin CAP] 300 mg PO Q8HR #60 capsule 04/30/20 Unknown Rx levETIRAcetam [Keppra TAB] 1,000 mg PO BID #60 04/30/20 Unknown Rx Allergies Allergy/AdvReac Type Severity Reaction Status Date / Time Penicillins Allergy Severe Anaphylaxis Verified 04/03/20 12:38 metoclopramide HCl Allergy Unknown Verified 04/03/20 12:38 [From Reglan] ibuprofen AdvReac Unknown Swelling Verified 04/03/20 12:38 iv contract dy Allergy Severe Anaphylaxis Uncoded 08/07/19 08:14 Abscess Boil HPI - HPI Chief Complaint: Extremity Problem,Nontraumatic Stated Complaint: RT LEG PAIN Time Seen by Provider: 05/03/20 19:12 Home Medications: Home Medications Medication Instructions Recorded Confirmed Last Taken Aspirin [Aspirin BABY CHEW TAB] 81 mg PO QDAY 08/13/15 06/06/19 01/11/19 Insulin Glargine,Hum.rec.anlog 42 units SQ QHS 04/07/18 06/06/19 01/11/19 [Lantus] Previous Rx's Medication Instructions Recorded Last Taken Type raNITIdine HCl [Zantac] 150 mg PO BID 30 Days #60 tablet 01/12/19 Unknown Rx Cetirizine HCl [Zyrtec 10mg tab] 10 mg PO DAILY #30 tablet 04/25/19 Unknown Rx Ipratropium/Albuterol Sulfate 1 ampul IH Q6HRT PRN #30 ampul.neb 06/08/19 Unknown Rx [DUONEB *Not for PRN Use*] Sucralfate [Carafate] 1 gm PO ACHS #30 tablet 06/08/19 Unknown Rx methylPREDNISolone [Medrol 4MG 4 mg PO ONCE #1 tab.ds.pk 08/07/19 Unknown Rx DOSEPAK (21 tabs)] traMADoL [Ultram 50 MG tab] 50 mg PO Q4HR PRN #9 tablet 08/07/19 Unknown Rx Ondansetron [Zofran ODT TAB] 8 mg PO Q8HR PRN #12 tab.rapdis 09/04/19 Unknown Rx Ondansetron [Zofran Odt] 4 mg PO Q8HR PRN #14 tab.rapdis 09/06/19 Unknown Rx guaiFENesin [Robitussin] 10 ml PO TID PRN #100 ml 09/06/19 Unknown Rx Acetaminophen/Codeine [Tylenol 1 tab PO Q6H PRN #12 tab 02/14/20 Unknown Rx /Codeine # 3 tab] Capsaicin 0.075% [Zostrix Hp 1 applicatio TP TID #1 tube 02/14/20 Unknown Rx 0.075%] HYDROcodone/APAP 5-325 [[place] 1 - 2 each PO Q6HR PRN #14 tablet 03/03/20 Unknown Rx 5/325] HYDROcodone/APAP 5-325 [[place] 1 each PO Q6HR PRN #12 tablet 03/28/20 Unknown Rx 5/325] levETIRAcetam [Keppra TAB] 500 mg PO BID #150 tablet 03/28/20 Unknown Rx Azithromycin [Zithromax Z-RIRI] 250 mg PO DAILY #6 tab 04/03/20 Unknown Rx Benzonatate [Tessalon Perles] 100 mg PO Q8HR #20 capsule 04/03/20 Unknown Rx Ondansetron [Zofran Odt] 4 mg PO Q8HR PRN #15 tab.rapdis 04/03/20 Unknown Rx Acetaminophen/Codeine [Tylenol 1 tab PO Q6H PRN #12 tab 04/30/20 Unknown Rx /Codeine # 3 tab] Clindamycin [Clindamycin CAP] 300 mg PO Q8HR #60 capsule 04/30/20 Unknown Rx levETIRAcetam [Keppra TAB] 1,000 mg PO BID #60 04/30/20 Unknown Rx Allergies/Adverse Reactions: Allergies Allergy/AdvReac Type Severity Reaction Status Date / Time Penicillins Allergy Severe Anaphylaxis Verified 04/03/20 12:38 metoclopramide HCl Allergy Unknown Verified 04/03/20 12:38 [From Reglan] ibuprofen AdvReac Unknown Swelling Verified 04/03/20 12:38 iv contract dy Allergy Severe Anaphylaxis Uncoded 08/07/19 08:14 ED Review of Systems ROS: Stated complaint: RT LEG PAIN Other details as noted in HPI ED Past Medical Hx - Past Medical History Previous Medical History?: Yes Hx Hypertension: Yes Hx Heart Attack/AMI: Yes Hx Diabetes: Yes Hx Seizures: Yes Hx Psychiatric Treatment: Yes (anxiety) Hx Asthma: Yes Additional medical history: H.pylori - Surgical History Past Surgical History?: Yes Hx Coronary Stent: Yes (CARDIAC STENTS X3) Hx Appendectomy: Yes 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 - Social History Smoking Status: Never Smoker Substance Use Type: None - Medications Home Medications: Home Medications Medication Instructions Recorded Confirmed Last Taken Type Aspirin [Aspirin BABY CHEW TAB] 81 mg PO QDAY 08/13/15 06/06/19 01/11/19 History Insulin Glargine,Hum.rec.anlog 42 units SQ QHS 04/07/18 06/06/19 01/11/19 History [Lantus] raNITIdine HCl [Zantac] 150 mg PO BID 30 Days #60 tablet 01/12/19 06/06/19 Unknown Rx Cetirizine HCl [Zyrtec 10mg tab] 10 mg PO DAILY #30 tablet 04/25/19 06/06/19 Unknown Rx Ipratropium/Albuterol Sulfate 1 ampul IH Q6HRT PRN #30 ampul.neb 06/08/19 Unknown Rx [DUONEB *Not for PRN Use*] Sucralfate [Carafate] 1 gm PO ACHS #30 tablet 06/08/19 Unknown Rx methylPREDNISolone [Medrol 4MG 4 mg PO ONCE #1 tab.ds.pk 08/07/19 Unknown Rx DOSEPAK (21 tabs)] traMADoL [Ultram 50 MG tab] 50 mg PO Q4HR PRN #9 tablet 08/07/19 Unknown Rx Ondansetron [Zofran ODT TAB] 8 mg PO Q8HR PRN #12 tab.rapdis 09/04/19 Unknown Rx Ondansetron [Zofran Odt] 4 mg PO Q8HR PRN #14 tab.rapdis 09/06/19 Unknown Rx guaiFENesin [Robitussin] 10 ml PO TID PRN #100 ml 09/06/19 Unknown Rx Acetaminophen/Codeine [Tylenol 1 tab PO Q6H PRN #12 tab 02/14/20 Unknown Rx /Codeine # 3 tab] Capsaicin 0.075% [Zostrix Hp 1 applicatio TP TID #1 tube 02/14/20 Unknown Rx 0.075%] HYDROcodone/APAP 5-325 [[place] 1 - 2 each PO Q6HR PRN #14 tablet 03/03/20 Unknown Rx 5/325] HYDROcodone/APAP 5-325 [[place] 1 each PO Q6HR PRN #12 tablet 03/28/20 Unknown Rx 5/325] levETIRAcetam [Keppra TAB] 500 mg PO BID #150 tablet 03/28/20 Unknown Rx Azithromycin [Zithromax Z-RIRI] 250 mg PO DAILY #6 tab 04/03/20 Unknown Rx Benzonatate [Tessalon Perles] 100 mg PO Q8HR #20 capsule 04/03/20 Unknown Rx Ondansetron [Zofran Odt] 4 mg PO Q8HR PRN #15 tab.rapdis 04/03/20 Unknown Rx Acetaminophen/Codeine [Tylenol 1 tab PO Q6H PRN #12 tab 04/30/20 Unknown Rx /Codeine # 3 tab] Clindamycin [Clindamycin CAP] 300 mg PO Q8HR #60 capsule 04/30/20 Unknown Rx levETIRAcetam [Keppra TAB] 1,000 mg PO BID #60 04/30/20 Unknown Rx ED Physical Exam - General Limitations: No Limitations General appearance: alert, in no apparent distress - Head Head exam: Present: atraumatic, normocephalic - Eye Eye exam: Present: normal appearance - ENT ENT exam: Present: mucous membranes moist - Neck Neck exam: Present: normal inspection, full ROM - Respiratory Respiratory exam: Absent: accessory muscle use - Extremities Exam Extremities exam: Present: full ROM - Expanded Lower Extremity Exam Right Foot/Toe exam: Present: full ROM, tenderness (Right lateral). Absent: swelling Neuro vascular tendon exam: Present: no vascular compromise - Back Exam Back exam: Present: full ROM - Neurological Exam Neurological exam: Present: alert, oriented X3 - Psychiatric Psychiatric exam: Present: normal affect, normal mood - Skin Skin exam: Present: other (Right lateral foot nickel size dry wound with non- erythematous nonedematous skin.) ED Course Vital Signs 05/03/20 15:35 Temperature 98.2 F Pulse Rate 96 H Respiratory 20 Rate Blood Pressure 136/93 O2 Sat by Pulse 98 Oximetry ED Medical Decision Making - Medical Decision Making 49-year-old -Citizen Of [place] male with a history of diabetes presents to the emergency room stating that his pain is increased in his right foot where he has an ulcer. Patient was recently seen here on 04/30/2020 and placed on clindamycin and Tylenol 3. Patient states he did discuss his concerns with his primary care provider and they told him to come to the emergency room. Patient denies any fever chills no nausea no vomiting no drainage or swelling to the site of his wound. Patient denies any recent injury. Patient has multiple allergies of penicillin Reglan ibuprofen and IV contrast dye. Dressing change done by this provider. Discussed with patient he can continue with Tylenol Benadryl for pain management complete his antibiotics follow-up with the wound care clinic this week. Critical care attestation.: If time is entered above; I have spent that time in minutes in the direct care of this critically ill patient, excluding procedure time. ED Disposition Clinical Impression: Diabetic ulcer of foot associated with diabetes mellitus due to underlying condition, limited to breakdown of skin, Visit for wound check Disposition: TO HOME OR SELFCARE Is pt being admited?: No Does the pt Need Aspirin: No Condition: Stable Instructions: Diabetes Mellitus Type 2 in Adults (ED) Additional Instructions: Continue wound changes daily. Follow-up with the wound care clinic Tuesday or Tuesday. Take Tylenol for pain. Referrals: MARU KNIGHT MD [Staff Physician] - 3-5 Days [facility] [Outside] - 3-5 Days
[2020-05-03 21:02] VITALS: BP 132/74
== END 2020-05-03 21:04 | disposition home or self-care (01) ==
LOC: ED 15:23
DX: E08.621 Diabetes mellitus due to underlying condition with foot ulcer (principal); I10 Essential (primary) hypertension; I25.2 Old myocardial infarction; F41.9 Anxiety disorder, unspecified; Z90.49 Acquired absence of other specified parts of digestive tract; Z86.69 Personal history of other diseases of the nervous system and sense organs; Z98.890 Other specified postprocedural states; Z48.00 Encounter for change or removal of nonsurgical wound dressing; Z79.4 Long term (current) use of insulin; Z79.82 Long term (current) use of aspirin; Z79.899 Other long term (current) drug therapy; Z88.0 Allergy status to penicillin; Z88.1 Allergy status to other antibiotic agents; Z88.8 Allergy status to other drugs, medicaments and biological substances
CPT/HCPCS: 99282

== ENCOUNTER 2020-05-12 15:14 | Emergency (ER) | payer MEDICAID ==
[2020-05-12 15:50] VITALS: BP 170/104
[2020-05-12] MEDS ORDERED: ONDANSETRON 4 MG/2 ML INJ IM ONE (20:51)
[2020-05-12] MEDS ORDERED: MORPHINE 4 MG/1 ML INJ IM ONE (20:51)
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
--- NOTE | 2020-05-12 21:25 | XRay Report ---
RIGHT FOOT 3 VIEW(S) INDICATION / CLINICAL INFORMATION: Foot pain, infection 04/17/2020. COMPARISON: None available. FINDINGS: BONES / JOINT(S): No acute fracture or subluxation. Mild degenerative changes are seen throughout the midfoot and great toe interphalangeal joint. No osseous erosion or destruction. SOFT TISSUES: No significant abnormality. ADDITIONAL FINDINGS: None. Signer Name: Herminio Charles MD Signed: 05/12/2020 9:20 PM Workstation Name: [id number]
[2020-05-12 21:48] LABS: Basophils % (Auto) 0.7 % (0.0-1.8); Eosinophils # (Auto) 0.1 K/mm3 (0.0-0.4); Hematocrit 47.2 % (35.5-45.6); Hemoglobin 16.3 gm/dl (11.8-15.2); Lymphocytes # (Auto) 2.5 K/mm3 (1.2-5.4); Lymphocytes % (Auto) 39.8 % (13.4-35.0); Mean Corpuscular HGB Conc 35 % (32-34); Mean Corpuscular Volume 87 fl (84-94); Monocytes # (Auto) 0.5 K/mm3 (0.0-0.8); Monocytes % (Auto) 7.5 % (0.0-7.3); Platelet Count 140 K/mm3 (140-440); Red Cell Distribution Width 13.5 % (13.2-15.2)
[2020-05-12 21:53] LABS: BUN/Creatinine Ratio 10; Blood Urea Nitrogen 11 mg/dL (9-20); Calcium 9.1 mg/dL (8.4-10.2); Hemolysis Index 23
[2020-05-12] MEDS ORDERED: INSULIN REGULAR, HUMAN 100 UNIT/ML 3ML VIAL SUB-Q ONE (22:44)
[2020-05-12] MEDS ORDERED: INSULIN REGULAR, HUMAN 100 UNITS/1 ML ONE (23:00)
[2020-05-13] MEDS ORDERED: INSULIN REGULAR, HUMAN 100 UNITS/1 ML ONE (00:31)
== END 2020-05-12 22:55 | disposition home or self-care (01) ==
LOC: ED 15:14
DX: L08.89 Other specified local infections of the skin and subcutaneous tissue (principal); E11.65 Type 2 diabetes mellitus with hyperglycemia; I10 Essential (primary) hypertension; I25.2 Old myocardial infarction; J45.909 Unspecified asthma, uncomplicated; F41.9 Anxiety disorder, unspecified; Z90.49 Acquired absence of other specified parts of digestive tract; Z86.69 Personal history of other diseases of the nervous system and sense organs; Z79.4 Long term (current) use of insulin; Z79.82 Long term (current) use of aspirin; Z88.8 Allergy status to other drugs, medicaments and biological substances; Z88.0 Allergy status to penicillin; Z79.899 Other long term (current) drug therapy
CPT/HCPCS: 36415; 73630; 80048; 82962; 85025; 96372; 99283; J2270; J2405; J1815

== ENCOUNTER 2020-05-22 08:05 | Outpatient (CLI) | payer MEDICAID ==
[2020-05-22] MEDS ORDERED: LIDOCAINE (4%) 40 MG/ML TOPICAL SOLN 50 ML BOTTLE TP SCH (08:30)
== END 2020-05-22 08:06 | disposition home or self-care (01) ==
LOC: WOUND 08:05
PROVIDERS: ATTEND Surgery
DX: E11.621 Type 2 diabetes mellitus with foot ulcer (principal); L97.512 Non-pressure chronic ulcer of other part of right foot with fat layer exposed; L84 Corns and callosities; I10 Essential (primary) hypertension; J45.909 Unspecified asthma, uncomplicated; F41.9 Anxiety disorder, unspecified; Z90.49 Acquired absence of other specified parts of digestive tract
CPT/HCPCS: 11042; G0463; 99215

== ENCOUNTER 2020-06-05 10:21 | Outpatient (CLI) | payer MEDICAID ==
[2020-06-05] MEDS ORDERED: LIDOCAINE (4%) 40 MG/ML TOPICAL SOLN 50 ML BOTTLE TP ONE (10:42)
[2020-06-05] MEDS ORDERED: SODIUM CHLORIDE 0.9% IRR 500 ML BOTTLE IR ONE (14:00)
== END 2020-06-05 10:22 | disposition home or self-care (01) ==
LOC: WOUND 10:21
PROVIDERS: ATTEND Surgery
DX: E11.621 Type 2 diabetes mellitus with foot ulcer (principal); L97.512 Non-pressure chronic ulcer of other part of right foot with fat layer exposed; L84 Corns and callosities; I10 Essential (primary) hypertension; J45.909 Unspecified asthma, uncomplicated; F41.9 Anxiety disorder, unspecified; Z90.49 Acquired absence of other specified parts of digestive tract

== ENCOUNTER 2020-06-10 08:23 | Outpatient (CLI) | payer MEDICAID ==
--- NOTE | 2020-06-10 10:00 | Vascular Lab Report ---
DUPLEX DOPPLER LOWER EXTREMITY ARTERIAL, BILATERAL INDICATION: TYPE 2 DIABETES MELLITUS WITH FOOT ULCER. TECHNIQUE: Arterial duplex examination of both lower extremities performed using B-mode, color flow and spectral Doppler assessment. FINDINGS: RIGHT: Common Femoral Artery: PSV 111 cm/sec. Triphasic waveform. Proximal SFA: PSV 91 cm/sec. Triphasic waveform. Mid SFA: PSV 110 cm/sec. Triphasic waveform. Distal SFA: PSV 85 cm/sec. Triphasic waveform. Popliteal artery: PSV 86 cm/sec. Triphasic waveform. Posterior tibial artery: PSV 73 cm/sec. Triphasic waveform. Dorsalis Pedis Artery: PSV 97 cm/sec. Biphasic waveform. IMPRESSION: No significant lower extremity peripheral artery disease. Right lower extremity arterial structures a re patent with multiphasic waveforms. Doppler Waveform: * Triphasic is normal. * Biphasic is abnormal if clear transition from triphasic signal along vascular tree. * Monophasic is abnormal. Signer Name: Shimon Sesay Jr, MD Signed: 06/10/2020 9:55 AM Workstation Name: [id number]
== END 2020-06-10 08:24 | disposition home or self-care (01) ==
LOC: VAS 08:23
PROVIDERS: ATTEND Surgery
DX: E11.621 Type 2 diabetes mellitus with foot ulcer (principal); L97.512 Non-pressure chronic ulcer of other part of right foot with fat layer exposed

== ENCOUNTER 2020-06-16 09:31 | Outpatient (CLI) | payer MEDICAID ==
--- NOTE | 2020-06-16 14:16 | Magnetic Resonance Report ---
MRI RIGHT FOOT WITHOUT CONTRAST INDICATION / CLINICAL INFORMATION: CHRONIC ULCER. TECHNIQUE: Multiplanar, multisequence MR images were obtained. COMPARISON: Radiograph dated 04/17/2020. FINDINGS: This examination is somewhat limited secondary to incomplete fat saturation. BONES: No significant bone marrow edema. No fracture. No bony destruction/erosion. There is subchondr al cystic change within the medial talar dome without definitive cartilage defect. JOINTS: Mild degenerative change at the great toe MTP joint. No significant joint effusion or synovit is. SOFT TISSUES: There is moderate dorsal subcutaneous edema throughout the midfoot and forefoot. 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 FLEXOR TENDONS: No significant abnormality. EXTENSOR TENDONS: No significant abnormality. LIGAMENTS: No significant abnormality. ADDITIONAL FINDINGS: None. IMPRESSION: 1. No compelling MR evidence of osteomyelitis on this limited examination. If there is continued clin ical concern, an MRI of the forefoot with STIR sequences and postcontrast sequences may be helpful fo r further evaluation. 2. Moderate dorsal subcutaneous edema throughout the midfoot and forefoot. 3. Moderate tibiotalar joint degenerative arthrosis with developing osteochondral lesion of the media l talar dome. 4. Diffuse muscular edema throughout the foot is compatible with neuropathic myelopathy. 5. Mild degenerative arthrosis of the great toe MTP joint. Report dictated by: Herminio Charles MD Report dictated on: 06/16/2020 12:47 PM I have reviewed the images, agree with this report, and edited this report as needed. Signer Name: Lenin Portillo MD Signed: 06/16/2020 2:11 PM Workstation Name: [email or web address]
[2020-06-17] MEDS ORDERED: HYDROmorphone 1 MG/1 ML INJ ONE (16:54)
== END 2020-06-16 09:32 | disposition home or self-care (01) ==
LOC: MRI 09:31
PROVIDERS: ATTEND Surgery
DX: M19.071 Primary osteoarthritis, right ankle and foot (principal); L97.512 Non-pressure chronic ulcer of other part of right foot with fat layer exposed; E11.621 Type 2 diabetes mellitus with foot ulcer
CPT/HCPCS: 73721; J1170

== ENCOUNTER 2020-06-17 07:46 | Observation (INO) | payer MEDICAID ==
[2020-06-17] MEDS ORDERED: ASPIRIN 325 MG TAB PO ONE (08:08)
--- NOTE | 2020-06-17 08:36 | XRay Report ---
CHEST 2 VIEWS INDICATION / CLINICAL INFORMATION: Chest Pain. COMPARISON: 04/30/20. FINDINGS: SUPPORT DEVICES: None. HEART / MEDIASTINUM: The heart size and pulmonary vasculature are normal. The aorta is normal in paige grazyna. LUNGS / PLEURA: No significant pulmonary or pleural abnormality. No pneumothorax. ADDITIONAL FINDINGS: No significant additional findings. IMPRESSION: No acute abnormality or significant change. Signer Name: Ryan Sosa MD Signed: 06/17/2020 8:31 AM Workstation Name: [email or web address]
[2020-06-17 08:48] LABS: Basophils % (Auto) 0.7 % (0.0-1.8); Eosinophils # (Auto) 0.1 K/mm3 (0.0-0.4); Eosinophils % (Auto) 2.4 % (0.0-4.3); Hemoglobin 15.4 gm/dl (11.8-15.2); Lymphocytes # (Auto) 2.2 K/mm3 (1.2-5.4); Lymphocytes % (Auto) 36.2 % (13.4-35.0); Mean Corpuscular HGB Conc 34 % (32-34); Mean Corpuscular Volume 87 fl (84-94); Monocytes # (Auto) 0.4 K/mm3 (0.0-0.8); Platelet Count 156 K/mm3 (140-440); Red Blood Count 5.17 M/mm3 (3.65-5.03); Red Cell Distribution Width 13.8 % (13.2-15.2)
[2020-06-17] MEDS ORDERED: ONDANSETRON 4 MG/2 ML INJ IV ONE (10:25)
[2020-06-17] MEDS ORDERED: MORPHINE 4 MG/1 ML INJ IV ONE (10:25)
--- NOTE | 2020-06-17 10:30 | Emergency Department Report ---
ED Chest Pain HPI - General Chief Complaint: Chest Pain Stated Complaint: CHEST PAIN Time Seen by Provider: 06/17/20 10:17 Source: patient Mode of arrival: Ambulatory Limitations: No Limitations - History of Present Illness Initial Comments: Patient is 49 years old male with history of coronary artery disease, hypertension, diabetes, seizure and asthma. Patient presented to the ER complaining of left-sided chest pain, tightness in nature with radiation to the left upper extremity. Patient stated that pain started last night and get worse this morning. Patient also complaining of shortness of breath. Patient had 3 cardiac stents before. Patient denied any fever however he stated that he has some chills and sweating last night. MD Complaint: chest pain -: Last night Onset: during rest Pain Location: left chest Pain Radiation: LUE Severity scale (0 -10): 5 Quality: tightness Consistency: intermittent - Related Data Home Medications Medication Instructions Recorded Confirmed Last Taken Aspirin [Aspirin BABY CHEW TAB] 81 mg PO QDAY 08/13/15 06/06/19 01/11/19 Insulin Glargine,Hum.rec.anlog 42 units SQ QHS 04/07/18 06/06/19 01/11/19 [Lantus] Previous Rx's Medication Instructions Recorded Last Taken Type raNITIdine HCl [Zantac] 150 mg PO BID 30 Days #60 tablet 01/12/19 Unknown Rx Cetirizine HCl [Zyrtec 10mg tab] 10 mg PO DAILY #30 tablet 04/25/19 Unknown Rx Ipratropium/Albuterol Sulfate 1 ampul IH Q6HRT PRN #30 ampul.neb 06/08/19 Unknown Rx [DUONEB *Not for PRN Use*] Sucralfate [Carafate] 1 gm PO ACHS #30 tablet 06/08/19 Unknown Rx methylPREDNISolone [Medrol 4MG 4 mg PO ONCE #1 tab.ds.pk 08/07/19 Unknown Rx DOSEPAK (21 tabs)] traMADoL [Ultram 50 MG tab] 50 mg PO Q4HR PRN #9 tablet 08/07/19 Unknown Rx Ondansetron [Zofran ODT TAB] 8 mg PO Q8HR PRN #12 tab.rapdis 09/04/19 Unknown Rx Ondansetron [Zofran Odt] 4 mg PO Q8HR PRN #14 tab.rapdis 09/06/19 Unknown Rx guaiFENesin [Robitussin] 10 ml PO TID PRN #100 ml 09/06/19 Unknown Rx Acetaminophen/Codeine [Tylenol 1 tab PO Q6H PRN #12 tab 02/14/20 Unknown Rx /Codeine # 3 tab] Capsaicin 0.075% [Zostrix Hp 1 applicatio TP TID #1 tube 02/14/20 Unknown Rx 0.075%] HYDROcodone/APAP 5-325 [[place] 1 - 2 each PO Q6HR PRN #14 tablet 03/03/20 Unknown Rx 5/325] HYDROcodone/APAP 5-325 [[place] 1 each PO Q6HR PRN #12 tablet 03/28/20 Unknown Rx 5/325] levETIRAcetam [Keppra TAB] 500 mg PO BID #150 tablet 03/28/20 Unknown Rx Azithromycin [Zithromax Z-RIRI] 250 mg PO DAILY #6 tab 04/03/20 Unknown Rx Benzonatate [Tessalon Perles] 100 mg PO Q8HR #20 capsule 04/03/20 Unknown Rx Ondansetron [Zofran Odt] 4 mg PO Q8HR PRN #15 tab.rapdis 04/03/20 Unknown Rx Acetaminophen/Codeine [Tylenol 1 tab PO Q6H PRN #12 tab 04/30/20 Unknown Rx /Codeine # 3 tab] Clindamycin [Clindamycin CAP] 300 mg PO Q8HR #60 capsule 04/30/20 Unknown Rx levETIRAcetam [Keppra TAB] 1,000 mg PO BID #60 04/30/20 Unknown Rx amLODIPine 5 mg PO DAILY #30 tab 05/03/20 Unknown Rx Ciprofloxacin HCl [Ciprofloxacin 500 mg PO Q12HR #14 tab 05/12/20 Unknown Rx TAB] HYDROcodone/APAP 5-325 [[place] 1 each PO Q6HR PRN #14 tablet 05/12/20 Unknown Rx 5/325] Ondansetron [Zofran Odt] 4 mg PO Q8HR PRN #14 tab.rapdis 05/12/20 Unknown Rx Allergies Allergy/AdvReac Type Severity Reaction Status Date / Time Penicillins Allergy Severe Anaphylaxis Verified 04/03/20 12:38 metoclopramide HCl Allergy Unknown Verified 04/03/20 12:38 [From Reglan] ibuprofen AdvReac Unknown Swelling Verified 04/03/20 12:38 iv contract dy Allergy Severe Anaphylaxis Uncoded 08/07/19 08:14 Heart Score - HEART Score History: Moderately suspicious EKG: Non-specific Age: 45-65 Risk factors: > 3 risk factors or hx of atherosclerotic disease Troponin: < normal limit HEART Score: 5 - Critical Actions Critical Actions: 4-6 pts:12-16.6% risk of adverse cardiac event. Should be admitted ED Review of Systems ROS: Stated complaint: CHEST PAIN Other details as noted in HPI Comment: All other systems reviewed and negative Constitutional: chills. denies: fever Respiratory: shortness of breath. denies: cough, SOB with exertion, SOB at rest, wheezing Cardiovascular: chest pain. 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 - Social History Smoking Status: Never Smoker Substance Use Type: None - Medications Home Medications: Home Medications Medication Instructions Recorded Confirmed Last Taken Type Aspirin [Aspirin BABY CHEW TAB] 81 mg PO QDAY 08/13/15 06/06/19 01/11/19 History Insulin Glargine,Hum.rec.anlog 42 units SQ QHS 04/07/18 06/06/19 01/11/19 History [Lantus] raNITIdine HCl [Zantac] 150 mg PO BID 30 Days #60 tablet 01/12/19 06/06/19 Unknown Rx Cetirizine HCl [Zyrtec 10mg tab] 10 mg PO DAILY #30 tablet 04/25/19 06/06/19 Unknown Rx Ipratropium/Albuterol Sulfate 1 ampul IH Q6HRT PRN #30 ampul.neb 06/08/19 Unknown Rx [DUONEB *Not for PRN Use*] Sucralfate [Carafate] 1 gm PO ACHS #30 tablet 06/08/19 Unknown Rx methylPREDNISolone [Medrol 4MG 4 mg PO ONCE #1 tab.ds.pk 08/07/19 Unknown Rx DOSEPAK (21 tabs)] traMADoL [Ultram 50 MG tab] 50 mg PO Q4HR PRN #9 tablet 08/07/19 Unknown Rx Ondansetron [Zofran ODT TAB] 8 mg PO Q8HR PRN #12 tab.rapdis 09/04/19 Unknown Rx Ondansetron [Zofran Odt] 4 mg PO Q8HR PRN #14 tab.rapdis 09/06/19 Unknown Rx guaiFENesin [Robitussin] 10 ml PO TID PRN #100 ml 09/06/19 Unknown Rx Acetaminophen/Codeine [Tylenol 1 tab PO Q6H PRN #12 tab 02/14/20 Unknown Rx /Codeine # 3 tab] Capsaicin 0.075% [Zostrix Hp 1 applicatio TP TID #1 tube 02/14/20 Unknown Rx 0.075%] HYDROcodone/APAP 5-325 [[place] 1 - 2 each PO Q6HR PRN #14 tablet 03/03/20 Unknown Rx 5/325] HYDROcodone/APAP 5-325 [[place] 1 each PO Q6HR PRN #12 tablet 03/28/20 Unknown Rx 5/325] levETIRAcetam [Keppra TAB] 500 mg PO BID #150 tablet 03/28/20 Unknown Rx Azithromycin [Zithromax Z-RIRI] 250 mg PO DAILY #6 tab 04/03/20 Unknown Rx Benzonatate [Tessalon Perles] 100 mg PO Q8HR #20 capsule 04/03/20 Unknown Rx Ondansetron [Zofran Odt] 4 mg PO Q8HR PRN #15 tab.rapdis 04/03/20 Unknown Rx Acetaminophen/Codeine [Tylenol 1 tab PO Q6H PRN #12 tab 04/30/20 Unknown Rx /Codeine # 3 tab] Clindamycin [Clindamycin CAP] 300 mg PO Q8HR #60 capsule 04/30/20 Unknown Rx levETIRAcetam [Keppra TAB] 1,000 mg PO BID #60 04/30/20 Unknown Rx amLODIPine 5 mg PO DAILY #30 tab 05/03/20 Unknown Rx Ciprofloxacin HCl [Ciprofloxacin 500 mg PO Q12HR #14 tab 05/12/20 Unknown Rx TAB] HYDROcodone/APAP 5-325 [[place] 1 each PO Q6HR PRN #14 tablet 05/12/20 Unknown Rx 5/325] Ondansetron [Zofran Odt] 4 mg PO Q8HR PRN #14 tab.rapdis 05/12/20 Unknown Rx ED Physical Exam - General Limitations: No Limitations General appearance: alert, in no apparent distress - Head Head exam: Present: atraumatic, normocephalic, normal inspection - Eye Eye exam: Present: normal appearance - ENT ENT exam: Present: normal exam, normal orophraynx, mucous membranes moist - Neck Neck exam: Present: normal inspection, full ROM. Absent: tenderness, meningismu s - Respiratory Respiratory exam: Present: normal lung sounds bilaterally - Cardiovascular Cardiovascular Exam: Present: regular rate, normal rhythm, normal heart sounds - GI/Abdominal GI/Abdominal exam: Present: soft, normal bowel sounds. Absent: distended, tenderness, guarding, rebound, rigid, organomegaly, mass, bruit, pulsatile mass, hernia - Extremities Exam Extremities exam: Present: normal inspection, full ROM. Absent: tenderness, normal capillary refill, pedal edema, joint swelling, calf tenderness - Back Exam Back exam: Present: normal inspection, full ROM. Absent: CVA tenderness (R), C VA tenderness (L) - Neurological Exam Neurological exam: Present: alert, oriented X3, CN II-XII intact - Psychiatric Psychiatric exam: Present: normal mood - Skin Skin exam: Present: warm, intact, normal color ED Course Vital Signs 06/17/20 06/17/20 10:22 10:41 Temperature 98.1 F Pulse Rate 89 Respiratory 18 12 Rate Blood Pressure 142/82 [Right] O2 Sat by Pulse 100 Oximetry MARLYN score - Marlyn Score Age > 65: (0) No Aspirin use within the Past 7 Days: (1) Yes 3 or more CAD Risk Factors: (1) Yes 2 or more Angina events in past 24 hrs: (1) Yes Known CAD with more than 50% Stenosis: (1) Yes Elevated Cardiac Markers: (0) No ST Deviation Greater than 0.5mm: (0) No MARLYN Score: 4 ED Medical Decision Making - Lab Data Result diagrams: 06/17/20 08:34 06/17/20 08:34 - EKG Data -: EKG Interpreted by Me EKG shows normal: sinus rhythm Rate: normal - EKG Data Interpretation: no acute changes - Radiology Data Radiology results: report reviewed - Medical Decision Making Patient is 49 years old male with history of coronary artery disease, hypertension, diabetes, seizure and asthma. Patient presented to the ER complaining of left-sided chest pain, tightness in nature with radiation to the left upper extremity. Patient stated that pain started last night and get worse this morning. Patient also complaining of shortness of breath. Patient had 3 cardiac stents before. Patient denied any fever however he stated that he has some chills and sweating last night. EKG showed no ST elevation. Chest x-ray is unremarkable. Labs reviewed and is unremarkable including a negative troponin x1. Patient received morphine and Zofran and stated that his pain is much better. I discussed the patient with Dr. Resendez, he agreed to admit the patient to medical service for further management. Critical care attestation.: If time is entered above; I have spent that time in minutes in the direct care of this critically ill patient, excluding procedure time. ED Disposition Clinical Impression: Acute chest pain Disposition: -09 OP ADMIT IP TO THIS HOSP Is pt being admited?: Yes Condition: Stable Instructions: Chest Pain (ED) Referrals: PRIMARY CARE, [Primary Care Provider] - 3-5 Days
[2020-06-17] MEDS ORDERED: ASPIRIN 325 MG TAB ONE (10:31)
[2020-06-17 10:49] LABS: BUN/Creatinine Ratio 12; Blood Urea Nitrogen 11 mg/dL (9-20); Calcium 9.5 mg/dL (8.4-10.2); Hemolysis Index 19
[2020-06-17 11:18] LABS: INR 0.92 (0.87-1.13)
[2020-06-17 11:19] LABS: Partial Thromboplastin Time 28.5 Sec. (24.2-36.6)
--- NOTE | 2020-06-17 14:00 | Ultrasound Report ---
US extremity nonvascular LT INDICATION / CLINICAL INFORMATION: LEFT THIGH SWELLING. COMPARISON: None available. FINDINGS: In the area of clinical concern, there is no mass, lymphadenopathy, fluid collection, or significant other sonographic abnormality. IMPRESSION: No significant sonographic abnormality. Signer Name: Akhil Grajeda MD Signed: 06/17/2020 1:55 PM Workstation Name: [id number]
[2020-06-17] MEDS ORDERED: HYDROmorphone 1 MG/1 ML INJ IV ONE (16:54)
[2020-06-17] MEDS ORDERED: HYDROmorphone 1 MG/1 ML INJ ONE (18:02)
[2020-06-17] MEDS ORDERED: MORPHINE 2 MG/1 ML INJ ONE (22:47)
[2020-06-17] MEDS ORDERED: MORPHINE 2 MG/1 ML INJ IV ONE (22:47)
[2020-06-17] MEDS ORDERED: IPRATROPIUM/ALBUTEROL SULFATE 3 ML AMPUL.NEB IH PRN (22:55)
[2020-06-17] MEDS ORDERED: traMADol 50 MG TAB PO PRN (22:55)
[2020-06-17] MEDS ORDERED: HYDROcodone/ACETAMINOPHEN 5-325 MG TAB PO PRN (22:55)
[2020-06-17] MEDS ORDERED: ONDANSETRON 4 MG ODT TAB PO PRN (22:55)
--- NOTE | 2020-06-17 22:55 | History and Physical Report ---
History of Present Illness Date of examination: 06/17/20 Date of admission: 06/17/20 12:34 Chief complaint: Chest pain since yesterday History of present illness: 49-year-old -Citizen Of [place] male with history of coronary artery disease hypertension seizures insulin-dependent diabetes comes in for left-sided chest pain and retrosternal chest pain since yesterday. Chest pain is about 8 on a scale of 1-10. Associated with diaphoresis. No shortness of breath. No palpitations. Patient had 3 stents to be in 2007 and 1 stent last year. Patient does not know the details about the stents. Patient has multiple medical problems. Patient compliant with medications. Chest pain is retrosternal and nonradiating. No shortness of breath. Chest pain is about 7-8 on a scale of 1-10. Heart Score - HEART Score History: Moderately suspicious EKG: Non-specific Age: 45-65 Risk factors: > 3 risk factors or hx of atherosclerotic disease Troponin: < normal limit HEART Score: 5 - Critical Actions Critical Actions: 4-6 pts:12-16.6% risk of adverse cardiac event. 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 - Social History Smoking Status: Never Smoker Substance Use Type: None Family history Htn - Medications Home Medications: Home Medications Medication Instructions Recorded Confirmed Last Taken Type Aspirin [Aspirin BABY CHEW TAB] 81 mg PO QDAY 08/13/15 06/06/19 01/11/19 History Insulin Glargine,Hum.rec.anlog 42 units SQ QHS 04/07/18 06/06/19 01/11/19 History [Lantus] raNITIdine HCl [Zantac] 150 mg PO BID 30 Days #60 tablet 01/12/19 06/06/19 Unknown Rx Cetirizine HCl [Zyrtec 10mg tab] 10 mg PO DAILY #30 tablet 04/25/19 06/06/19 Unknown Rx Ipratropium/Albuterol Sulfate 1 ampul IH Q6HRT PRN #30 ampul.neb 06/08/19 Unknown Rx [DUONEB *Not for PRN Use*] Sucralfate [Carafate] 1 gm PO ACHS #30 tablet 06/08/19 Unknown Rx methylPREDNISolone [Medrol 4MG 4 mg PO ONCE #1 tab.ds.pk 08/07/19 Unknown Rx DOSEPAK (21 tabs)] traMADoL [Ultram 50 MG tab] 50 mg PO Q4HR PRN #9 tablet 08/07/19 Unknown Rx Ondansetron [Zofran ODT TAB] 8 mg PO Q8HR PRN #12 tab.rapdis 09/04/19 Unknown Rx Ondansetron [Zofran Odt] 4 mg PO Q8HR PRN #14 tab.rapdis 09/06/19 Unknown Rx guaiFENesin [Robitussin] 10 ml PO TID PRN #100 ml 09/06/19 Unknown Rx Acetaminophen/Codeine [Tylenol 1 tab PO Q6H PRN #12 tab 02/14/20 Unknown Rx /Codeine # 3 tab] Capsaicin 0.075% [Zostrix Hp 1 applicatio TP TID #1 tube 02/14/20 Unknown Rx 0.075%] HYDROcodone/APAP 5-325 [[place] 1 - 2 each PO Q6HR PRN #14 tablet 03/03/20 Unknown Rx 5/325] HYDROcodone/APAP 5-325 [[place] 1 each PO Q6HR PRN #12 tablet 03/28/20 Unknown Rx 5/325] levETIRAcetam [Keppra TAB] 500 mg PO BID #150 tablet 03/28/20 Unknown Rx Azithromycin [Zithromax Z-RIRI] 250 mg PO DAILY #6 tab 04/03/20 Unknown Rx Benzonatate [Tessalon Perles] 100 mg PO Q8HR #20 capsule 04/03/20 Unknown Rx Ondansetron [Zofran Odt] 4 mg PO Q8HR PRN #15 tab.rapdis 04/03/20 Unknown Rx Acetaminophen/Codeine [Tylenol 1 tab PO Q6H PRN #12 tab 04/30/20 Unknown Rx /Codeine # 3 tab] Clindamycin [Clindamycin CAP] 300 mg PO Q8HR #60 capsule 04/30/20 Unknown Rx levETIRAcetam [Keppra TAB] 1,000 mg PO BID #60 04/30/20 Unknown Rx amLODIPine 5 mg PO DAILY #30 tab 05/03/20 Unknown Rx Ciprofloxacin HCl [Ciprofloxacin 500 mg PO Q12HR #14 tab 05/12/20 Unknown Rx TAB] HYDROcodone/APAP 5-325 [[place] 1 each PO Q6HR PRN #14 tablet 05/12/20 Unknown Rx 5/325] Ondansetron [Zofran Odt] 4 mg PO Q8HR PRN #14 tab.rapdis 05/12/20 Unknown Rx Review of Systems ROS: Stated complaint: CHEST PAIN Other details as noted in HPI Comment: All other systems reviewed and negative Constitutional: chills. denies: fever Respiratory: shortness of breath. denies: cough, SOB with exertion, SOB at rest, wheezing Cardiovascular: chest pain. denies: palpitations Gastrointestinal: denies: abdominal pain, nausea, vomiting, diarrhea Musculoskeletal: denies: back pain Neurological: denies: headache, weakness, numbness, paresthesias, confusion, abnormal gait Medications and Allergies Allergies Allergy/AdvReac Type Severity Reaction Status Date / Time Penicillins Allergy Severe Anaphylaxis Verified 04/03/20 12:38 metoclopramide HCl Allergy Unknown Verified 04/03/20 12:38 [From Reglan] ibuprofen AdvReac Unknown Swelling Verified 04/03/20 12:38 iv contract dy Allergy Severe Anaphylaxis Uncoded 08/07/19 08:14 Home Medications Medication Instructions Recorded Confirmed Last Taken Type Aspirin [Aspirin BABY CHEW TAB] 81 mg PO QDAY 08/13/15 06/06/19 01/11/19 History Insulin Glargine,Hum.rec.anlog 42 units SQ QHS 04/07/18 06/06/19 01/11/19 History [Lantus] raNITIdine HCl [Zantac] 150 mg PO BID 30 Days #60 tablet 01/12/19 06/06/19 Unknown Rx Cetirizine HCl [Zyrtec 10mg tab] 10 mg PO DAILY #30 tablet 04/25/19 06/06/19 Unknown Rx Ipratropium/Albuterol Sulfate 1 ampul IH Q6HRT PRN #30 ampul.neb 06/08/19 Unknown Rx [DUONEB *Not for PRN Use*] Sucralfate [Carafate] 1 gm PO ACHS #30 tablet 06/08/19 Unknown Rx methylPREDNISolone [Medrol 4MG 4 mg PO ONCE #1 tab.ds.pk 08/07/19 Unknown Rx DOSEPAK (21 tabs)] traMADoL [Ultram 50 MG tab] 50 mg PO Q4HR PRN #9 tablet 08/07/19 Unknown Rx Ondansetron [Zofran ODT TAB] 8 mg PO Q8HR PRN #12 tab.rapdis 09/04/19 Unknown Rx Ondansetron [Zofran Odt] 4 mg PO Q8HR PRN #14 tab.rapdis 09/06/19 Unknown Rx guaiFENesin [Robitussin] 10 ml PO TID PRN #100 ml 09/06/19 Unknown Rx Acetaminophen/Codeine [Tylenol 1 tab PO Q6H PRN #12 tab 02/14/20 Unknown Rx /Codeine # 3 tab] Capsaicin 0.075% [Zostrix Hp 1 applicatio TP TID #1 tube 02/14/20 Unknown Rx 0.075%] HYDROcodone/APAP 5-325 [[place] 1 - 2 each PO Q6HR PRN #14 tablet 03/03/20 Unknown Rx 5/325] HYDROcodone/APAP 5-325 [[place] 1 each PO Q6HR PRN #12 tablet 03/28/20 Unknown Rx 5/325] levETIRAcetam [Keppra TAB] 500 mg PO BID #150 tablet 03/28/20 Unknown Rx Azithromycin [Zithromax Z-RIRI] 250 mg PO DAILY #6 tab 04/03/20 Unknown Rx Benzonatate [Tessalon Perles] 100 mg PO Q8HR #20 capsule 04/03/20 Unknown Rx Ondansetron [Zofran Odt] 4 mg PO Q8HR PRN #15 tab.rapdis 04/03/20 Unknown Rx Acetaminophen/Codeine [Tylenol 1 tab PO Q6H PRN #12 tab 04/30/20 Unknown Rx /Codeine # 3 tab] Clindamycin [Clindamycin CAP] 300 mg PO Q8HR #60 capsule 04/30/20 Unknown Rx levETIRAcetam [Keppra TAB] 1,000 mg PO BID #60 10/14/20 Unknown Rx amLODIPine 5 mg PO DAILY #30 tab 05/03/20 Unknown Rx Ciprofloxacin HCl [Ciprofloxacin 500 mg PO Q12HR #14 tab 05/12/20 Unknown Rx TAB] HYDROcodone/APAP 5-325 [[place] 1 each PO Q6HR PRN #14 tablet 05/12/20 Unknown Rx 5/325] Ondansetron [Zofran Odt] 4 mg PO Q8HR PRN #14 tab.rapdis 05/12/20 Unknown Rx Exam - Constitutional Vitals: Temp Pulse Resp BP Pulse Ox 97.6 F 94 H 15 108/20 97 06/17/20 19:30 06/17/20 20:45 06/17/20 20:45 06/17/20 22:45 06/17/20 22:45 General appearance: Present: no acute distress, well-nourished - EENT Eyes: Present: PERRL ENT: hearing intact, clear oral mucosa - Neck Neck: Present: supple, normal ROM - Respiratory Respiratory effort: normal Respiratory: bilateral: CTA - Cardiovascular Heart rate: 78 Rhythm: regular Heart Sounds: Present: S1 & S2. Absent: rub, click - Extremities Extremities: no ischemia, pulses symmetrical, No edema Peripheral Pulses: within normal limits - Abdominal General gastrointestinal: Present: soft, non-tender, non-distended, normal bowel sounds Male genitourinary: Present: normal - Rectal Rectal Exam: deferred - Integumentary Integumentary: Present: clear, warm, dry - Musculoskeletal Musculoskeletal: gait normal, strength equal bilaterally - Psychiatric Psychiatric: appropriate mood/affect, intact judgment & insight - Neurologic Neurologic: CNII-XII intact, moves all extremities - Allied Health Allied health notes reviewed: nursing, case management HEART Score - HEART Score EKG: Non-specific Age: 45-65 Risk factors: > 3 risk factors or hx of atherosclerotic disease Troponin: Troponin T < 0.010 ng/mL (0.00-0.029) 06/17/20 14:42 Troponin: < normal limit - Critical Actions Critical Actions: 4-6 pts:12-16.6% risk of adverse cardiac event. Should be admitted Results - Labs CBC & Chem 7: 06/17/20 08:34 06/17/20 08:34 Labs: Laboratory Last Values WBC 6.0 K/mm3 (4.5-11.0) 06/17/20 08:34 RBC 5.17 M/mm3 (3.65-5.03) H 06/17/20 08:34 Hgb 15.4 gm/dl (11.8-15.2) H 06/17/20 08:34 Hct 45.0 % (35.5-45.6) 06/17/20 08:34 MCV 87 fl (84-94) 06/17/20 08:34 MCH 30 pg (28-32) 06/17/20 08:34 MCHC 34 % (32-34) 06/17/20 08:34 RDW 13.8 % (13.2-15.2) 06/17/20 08:34 Plt Count 156 K/mm3 (140-440) 06/17/20 08:34 Lymph % (Auto) 36.2 % (13.4-35.0) H 06/17/20 08:34 [place] % (Auto) 7.0 % (0.0-7.3) 06/17/20 08:34 Eos % (Auto) 2.4 % (0.0-4.3) 06/17/20 08:34 Baso % (Auto) 0.7 % (0.0-1.8) 06/17/20 08:34 Lymph # (Auto) 2.2 K/mm3 (1.2-5.4) 06/17/20 08:34 [place] # (Auto) 0.4 K/mm3 (0.0-0.8) 06/17/20 08:34 Eos # (Auto) 0.1 K/mm3 (0.0-0.4) 06/17/20 08:34 Baso # (Auto) 0.0 K/mm3 (0.0-0.1) 06/17/20 08:34 Seg Neutrophils % 53.7 % (40.0-70.0) 06/17/20 08:34 Seg Neutrophils # 3.2 K/mm3 (1.8-7.7) 06/17/20 08:34 PT 12.2 Sec. (12.2-14.9) 06/17/20 10:33 INR 0.92 (0.87-1.13) 06/17/20 10:33 APTT 28.5 Sec. (24.2-36.6) 06/17/20 10:33 D-Dimer < 135.00 ng/mlDDU (0-234) 06/17/20 10:33 Sodium 138 mmol/L (137-145) 06/17/20 08:34 Potassium 3.7 mmol/L (3.6-5.0) 06/17/20 08:34 Chloride 101.7 mmol/L (98-107) 06/17/20 08:34 Carbon Dioxide 26 mmol/L (22-30) 06/17/20 08:34 Anion Gap 14 mmol/L 06/17/20 08:34 BUN 11 mg/dL (9-20) 06/17/20 08:34 Creatinine 0.9 mg/dL (0.8-1.3) 06/17/20 08:34 Estimated GFR > 60 ml/min 06/17/20 08:34 BUN/Creatinine Ratio 12 % 06/17/20 08:34 Glucose 239 mg/dL (75-100) H 06/17/20 08:34 Calcium 9.5 mg/dL (8.4-10.2) 06/17/20 08:34 Troponin T < 0.010 ng/mL (0.00-0.029) 06/17/20 14:42 NT-Pro-B Natriuret Pep 34.19 pg/mL (0-900) 06/17/20 10:33 - Imaging and Cardiology EKG: report reviewed (Sinus rhythm no acute ST-T wave changes) Chest x-ray: report reviewed (IMPRESSION: No acute abnormality or significant change. ) Assessment and Plan Advance Directives: Yes (Full code) VTE prophylaxis?: Chemical Plan of care discussed with patient/family: Yes - Patient Problems (1) Acute coronary syndrome Current Visit: Yes Status: Acute Plan to address problem: Patient with history of coronary artery disease and stents In favor of acute coronary syndrome Serial troponins Lexiscan in the morning Cardiology consult (2) Hypertension Current Visit: Yes Status: Chronic Qualifiers: Hypertension type: essential hypertension Qualified Code(s): I10 - [place] [facility] (primary) hypertension Plan to address problem: Continue antihypertensives (3) Insulin dependent diabetes mellitus Current Visit: Yes Status: Chronic Plan to address problem: Continue home insulin and coverage Check hemoglobin A1c (4) Seizure disorder Current Visit: Yes Status: Chronic Plan to address problem: Continue Keppra (5) CAD (coronary artery disease) Current Visit: Yes Status: Chronic Qualifiers: Coronary Disease-Associated Artery/Lesion type: [place] artery [place] vs. transplanted heart: [place] heart Associated angina: with stable angina Qualified Code(s): I25.118 - Atherosclerotic heart disease of [place] coronary artery with other forms of angina pectoris Plan to address problem: Continue aspirin and isosorbide (6) DVT prophylaxis Current Visit: Yes Status: Acute Plan to address problem: On heparin and GI prophylaxis
[2020-06-17] MEDS ORDERED: ACETAMINOPHEN 325 MG TAB PO PRN (23:01)
[2020-06-17] MEDS ORDERED: METOCLOPRAMIDE 10 MG/2 ML INJ IV PRN (23:01)
[2020-06-17] MEDS ORDERED: ONDANSETRON 4 MG/2 ML INJ IV PRN (23:01)
[2020-06-17] MEDS ORDERED: ALBUTEROL 2.5 MG/3 ML NEBU IH PRN (23:06)
[2020-06-17] MEDS ORDERED: levETIRAcetam 500 MG TAB PO ONE (23:08)
[2020-06-17] MEDS: levETIRAcetam 500 MG TAB PO SCH (23:15)
[2020-06-17] MEDS ORDERED: FAMOTIDINE 20 MG/2 ML INJ IV ONE (23:53)
[2020-06-18] MEDS ORDERED: INSULIN GLARGINE 100 UNITS/ML SUB-Q ONE (00:14)
[2020-06-18] MEDS: FAMOTIDINE 20 MG/2 ML INJ IV SCH ×2 (00:18→11:03)
[2020-06-18] MEDS: HYDROmorphone 1 MG/1 ML INJ IV PRN ×2 (01:23→13:16)
[2020-06-18 04:07] VITALS: BP 106/62
[2020-06-18 05:28] LABS: Basophils % (Auto) 0.5 % (0.0-1.8); Eosinophils # (Auto) 0.1 K/mm3 (0.0-0.4); Eosinophils % (Auto) 2.2 % (0.0-4.3); Hematocrit 43.1 % (35.5-45.6); Hemoglobin 14.9 gm/dl (11.8-15.2); Lymphocytes # (Auto) 2.5 K/mm3 (1.2-5.4); Lymphocytes % (Auto) 45.7 % (13.4-35.0); Mean Corpuscular HGB Conc 35 % (32-34); Mean Corpuscular Volume 88 fl (84-94); Monocytes # (Auto) 0.6 K/mm3 (0.0-0.8); Monocytes % (Auto) 10.4 % (0.0-7.3); Platelet Count 140 K/mm3 (140-440); Red Blood Count 4.91 M/mm3 (3.65-5.03); Red Cell Distribution Width 13.7 % (13.2-15.2)
[2020-06-18 05:49] LABS: Alanine Aminotransferase 27 units/L (7-56); Albumin 3.8 g/dL (3.9-5); BUN/Creatinine Ratio 12; Blood Urea Nitrogen 13 mg/dL (9-20); Calcium 8.9 mg/dL (8.4-10.2); Hemolysis Index 10
[2020-06-18] MEDS: INSULIN LISPRO 100 UNIT/ML VIAL 3 mL SUB-Q SCH ×2 (07:35→12:12)
[2020-06-18] MEDS: SUCRALFATE 1 GM TAB PO SCH ×3 (07:36→11:37)
[2020-06-18] MEDS ORDERED: REGADENOSON 0.4 MG/5 ML INJ IV ONE ×2 (08:13→08:16)
[2020-06-18] MEDS ORDERED: CETIRIZINE 10 MG TAB PO SCH (10:00)
[2020-06-18] MEDS ORDERED: ASPIRIN 81 MG TAB CHEW PO SCH (10:00)
[2020-06-18] MEDS ORDERED: amLODIPine 5 MG TAB PO SCH (10:00)
[2020-06-18] MEDS: levETIRAcetam 500 MG TAB PO SCH (11:02)
--- NOTE | 2020-06-18 11:47 | Consultation ---
History of Present Illness Consult date: 06/18/20 Consult reason: chest pain History of present illness: This is a 49-year old M who presents to this hospital with chest pain. His chest pain is poorly characterized and non-exertional. Cycled troponin measurements were normal and a chest x-ray is negative. 12-lead ECG is normal sinus rhythm, no acute ST or T wave changes. He was admitted by the hospitalist and ordered to have a stress thallium test. Patient has no prior cardiac history. In fact, 2 years ago, while hospitalized at [facility], he underwent a cardiac cath that showed angiographically normal coronary arteries. Ejection fraction 60%. Co-morbidities includes seizure disorder, hypertension and diabetes. Past History Past Medical History: diabetes, hypertension, seizures Social history: denies: smoking Medications and Allergies Allergies Allergy/AdvReac Type Severity Reaction Status Date / Time Penicillins Allergy Severe Anaphylaxis Verified 04/03/20 12:38 metoclopramide HCl Allergy Unknown Verified 04/03/20 12:38 [From Reglan] ibuprofen AdvReac Unknown Swelling Verified 04/03/20 12:38 iv contract dy Allergy Severe Anaphylaxis Uncoded 08/07/19 08:14 Home Medications Medication Instructions Recorded Confirmed Last Taken Type Aspirin [Aspirin BABY CHEW TAB] 81 mg PO QDAY 08/13/15 06/06/19 01/11/19 History Insulin Glargine,Hum.rec.anlog 42 units SQ QHS 04/07/18 06/06/19 01/11/19 History [Lantus] raNITIdine HCl [Zantac] 150 mg PO BID 30 Days #60 tablet 01/12/19 06/06/19 Unknown Rx Cetirizine HCl [Zyrtec 10mg tab] 10 mg PO DAILY #30 tablet 04/25/19 06/06/19 Unknown Rx Ipratropium/Albuterol Sulfate 1 ampul IH Q6HRT PRN #30 ampul.neb 06/08/19 Unknown Rx [DUONEB *Not for PRN Use*] Sucralfate [Carafate] 1 gm PO ACHS #30 tablet 06/08/19 Unknown Rx methylPREDNISolone [Medrol 4MG 4 mg PO ONCE #1 tab.ds.pk 08/07/19 Unknown Rx DOSEPAK (21 tabs)] traMADoL [Ultram 50 MG tab] 50 mg PO Q4HR PRN #9 tablet 08/07/19 Unknown Rx Ondansetron [Zofran ODT TAB] 8 mg PO Q8HR PRN #12 tab.rapdis 09/04/19 Unknown Rx Ondansetron [Zofran Odt] 4 mg PO Q8HR PRN #14 tab.rapdis 09/06/19 Unknown Rx guaiFENesin [Robitussin] 10 ml PO TID PRN #100 ml 09/06/19 Unknown Rx Acetaminophen/Codeine [Tylenol 1 tab PO Q6H PRN #12 tab 02/14/20 Unknown Rx /Codeine # 3 tab] Capsaicin 0.075% [Zostrix Hp 1 applicatio TP TID #1 tube 02/14/20 Unknown Rx 0.075%] HYDROcodone/APAP 5-325 [[place] 1 - 2 each PO Q6HR PRN #14 tablet 03/03/20 Unknown Rx 5/325] HYDROcodone/APAP 5-325 [[place] 1 each PO Q6HR PRN #12 tablet 03/28/20 Unknown Rx 5/325] levETIRAcetam [Keppra TAB] 500 mg PO BID #150 tablet 03/28/20 Unknown Rx Azithromycin [Zithromax Z-RIRI] 250 mg PO DAILY #6 tab 04/03/20 Unknown Rx Benzonatate [Tessalon Perles] 100 mg PO Q8HR #20 capsule 04/03/20 Unknown Rx Ondansetron [Zofran Odt] 4 mg PO Q8HR PRN #15 tab.rapdis 04/03/20 Unknown Rx Acetaminophen/Codeine [Tylenol 1 tab PO Q6H PRN #12 tab 04/30/20 Unknown Rx /Codeine # 3 tab] Clindamycin [Clindamycin CAP] 300 mg PO Q8HR #60 capsule 04/30/20 Unknown Rx levETIRAcetam [Keppra TAB] 1,000 mg PO BID #60 04/30/20 Unknown Rx amLODIPine 5 mg PO DAILY #30 tab 05/03/20 Unknown Rx Ciprofloxacin HCl [Ciprofloxacin 500 mg PO Q12HR #14 tab 05/12/20 Unknown Rx TAB] HYDROcodone/APAP 5-325 [[place] 1 each PO Q6HR PRN #14 tablet 05/12/20 Unknown Rx 5/325] Ondansetron [Zofran Odt] 4 mg PO Q8HR PRN #14 tab.rapdis 05/12/20 Unknown Rx Active Meds: Active Medications Acetaminophen (Tylenol) 650 mg PO Q4H PRN PRN Reason: Pain MILD(1-3)/Fever >100.5/LOVE Hydrocodone Bitart/Acetaminophen ([place] 5/325) 1 each PO Q6H PRN PRN Reason: PAIN (4-6) Albuterol (Proventil) 2.5 mg IH Q6HRT PRN PRN Reason: Shortness Of Breath Amlodipine Besylate (Amlodipine) 5 mg PO DAILY [facility] Last Admin: 06/18/20 11:03 Dose: 5 mg Documented by: Aspirin (Baby Aspirin) 81 mg PO QDAY [facility] Last Admin: 06/18/20 11:02 Dose: 81 mg Documented by: Cetirizine HCl (Cetirizine) 10 mg PO DAILY [facility] Last Admin: 06/18/20 11:03 Dose: 10 mg Documented by: Famotidine (Pepcid) 20 mg IV BID [facility] Last Admin: 06/18/20 11:03 Dose: 20 mg Documented by: Hydromorphone HCl (Dilaudid) 0.5 mg IV Q3H PRN PRN Reason: Pain , Severe (7-10) Last Admin: 06/18/20 01:23 Dose: 0.5 mg Documented by: Insulin Glargine (Lantus) 42 units SUB-Q QHS [facility] Insulin Human Lispro (Humalog) 0 unit SUB-Q ACHS [facility]; Protocol Last Admin: 06/18/20 07:35 Dose: Not Given Documented by: Levetiracetam (Keppra) 1,000 mg PO BID [facility] Last Admin: 06/18/20 11:02 Dose: 1,000 mg Documented by: Ondansetron HCl (Zofran Odt) 8 mg PO Q8H PRN PRN Reason: Vomiting Ondansetron HCl (Zofran) 4 mg IV Q8H PRN PRN Reason: Nausea And Vomiting Sodium Chloride (Sodium Chloride Flush Syringe 10 Ml) 10 ml IV BID [facility] Last Admin: 06/18/20 11:03 Dose: 10 ml Documented by: Sodium Chloride (Sodium Chloride Flush Syringe 10 Ml) 10 ml IV PRN PRN PRN Reason: LINE FLUSH Sucralfate (Carafate) 1 gm PO ACHS [facility] Last Admin: 06/18/20 11:37 Dose: 1 gm Documented by: Tramadol HCl (Ultram) 50 mg PO Q4H PRN PRN Reason: PAIN (1-3) Review of Systems Cardiovascular: chest pain, no palpitations, no edema, no syncope, no shortness of breath Physical Examination Vital Signs Temp Pulse Resp BP Pulse Ox 97.5 F L 102 H 18 194/113 96 06/17/20 07:53 06/17/20 07:53 06/17/20 07:53 06/17/20 07:53 06/17/20 07:53 General appearance: no acute distress HEENT: Positive: PERRL Neck: Positive: trachea midline Cardiac: Positive: Reg Rate and Rhythm Lungs: Positive: Normal Breath Sounds Neuro: Positive: Grossly Intact Extremities: Absent: edema Results 06/18/20 04:39 06/18/20 04:39 Cardiac Enzymes 06/18/20 Range/Units 04:39 AST 19 (5-40) units/L CBC 06/18/20 Range/Units 04:39 WBC 5.4 (4.5-11.0) K/mm3 RBC 4.91 (3.65-5.03) M/mm3 Hgb 14.9 (11.8-15.2) gm/dl Hct 43.1 (35.5-45.6) % Plt Count 140 (140-440) K/mm3 Lymph # (Auto) 2.5 (1.2-5.4) K/mm3 [place] # (Auto) 0.6 (0.0-0.8) K/mm3 Eos # (Auto) 0.1 (0.0-0.4) K/mm3 Baso # (Auto) 0.0 (0.0-0.1) K/mm3 Comprehensive Metabolic Panel 06/18/20 Range/Units 04:39 Sodium 142 (137-145) mmol/L Potassium 4.3 (3.6-5.0) mmol/L Chloride 106.8 (98-107) mmol/L Carbon Dioxide 24 (22-30) mmol/L BUN 13 (9-20) mg/dL Creatinine 1.1 (0.8-1.3) mg/dL Glucose 223 H (75-100) mg/dL Calcium 8.9 (8.4-10.2) mg/dL AST 19 (5-40) units/L ALT 27 (7-56) units/L Alkaline Phosphatase 96 (35-129) units/L Total Protein 6.5 (6.3-8.2) g/dL Albumin 3.8 L (3.9-5) g/dL Assessment and Plan - Patient Problems (1) Chest pain Current Visit: No Status: Acute Qualifiers: Qualified Code(s): R07.9 - Chest pain, unspecified Plan to address problem: Chest pain is atypical In March of 2018, patient underwent a cardiac cath at [facility] that showed angiographically normal coronary arteries. Ejection fraction 60%. Stress test has been canceled. No further cardiac workup indicated. Will defer to the hospitalist for evaluation and management of non-cardiac chest pain. Will sign off.
--- NOTE | 2020-06-18 15:48 | Discharge Summary ---
Providers - Providers Date of Admission: 06/17/20 12:34 Date of discharge: 06/18/20 Attending physician: CARINA JOHN 06/17/20 23:01 Consult to Physician [CONS] Routine Comment: Consulting Provider: PETERSON DANG Physician Instructions: Reason For Exam: Acute coronary syndrome 06/18/20 06:29 Consult to Wound/ET Nurse [CONS] Routine Reason For Exam: wound eval - right foot Primary care physician: IVORY POLISHER Hospitalization Condition: Stable Disposition: DC-01 TO HOME OR SELFCARE Time spent for discharge: 32 min Core Measure Documentation - Palliative Care Palliative Care/ Comfort Measures: Not Applicable - Core Measures Any of the following diagnoses?: none Exam - Constitutional Vitals: Temp Pulse Resp BP Pulse Ox 97.5 F L 80 16 106/62 96 06/18/20 03:31 06/18/20 08:41 06/18/20 03:31 06/18/20 03:31 06/18/20 03:31 General appearance: Present: no acute distress, well-nourished - EENT Eyes: Present: PERRL, EOM intact - Neck Neck: Present: supple, normal ROM - Respiratory Respiratory effort: normal Respiratory: bilateral: diminished, negative: rales, rhonchi, wheezing - Cardiovascular Rhythm: regular Heart Sounds: Present: S1 & S2 - Extremities Extremities: no ischemia, No edema - Abdominal General gastrointestinal: Present: soft, non-tender, non-distended, normal bowel sounds - Integumentary Integumentary: Present: clear, warm - Musculoskeletal Musculoskeletal: strength equal bilaterally - Psychiatric Psychiatric: appropriate mood/affect, cooperative - Neurologic Neurologic: moves all extremities Plan Activity: advance as tolerated, no driving until cleared by PCP (Until you are cleared by PCP/neurologist due to your seizures), other (Seizure precautions) Diet: low cholesterol Additional Instructions: You have worsening symptoms contact MD or go to emergency room. Advised to follow wound care surgeon Dr. Lake per schedule. Follow geothermal electrical engineer if needed Follow up with: KRISHAN BASSETT MD [Primary Care Provider] - 3-5 Days AUBREY LAKE MD [Staff Physician] - 7 Days TONY BARRETT MD [Staff Physician] - 14 Days Prescriptions: HYDROcodone/APAP 5-325 [[place] 5-325 mg TAB] 1 each PO BID PRN #10 tablet PRN Reason: Pain Other Discharge Orders: Glucometer (Amb) Location: None Selected Glucometer supplies[Amb] Location: None Selected
[2020-06-18] MEDS ORDERED: PREGABALIN 25 MG, PREGABALIN 75 MG PO ONE (15:51)
[2020-06-18] MEDS ORDERED: PREGABALIN 75 MG CAP PO NR (16:30)
[2020-06-18] MEDS ORDERED: PREGABALIN 25 MG CAP PO NR (16:30)
[2020-06-18] MEDS ORDERED: FAMOTIDINE 20 MG TAB PO SCH (22:00)
[2020-06-18] MEDS ORDERED: INSULIN GLARGINE 100 UNITS/ML SUB-Q SCH (22:00)
== END 2020-06-18 17:13 | disposition home or self-care (01) ==
LOC: ED 07:46 → 4A 12:34
PROVIDERS: ADMIT Internal Medicine; ATTEND Internal Medicine
DX: I24.9 Acute ischemic heart disease, unspecified (principal); I11.0 Hypertensive heart disease with heart failure; I50.9 Heart failure, unspecified; E11.9 Type 2 diabetes mellitus without complications; I25.10 Atherosclerotic heart disease of native coronary artery without angina pectoris; G40.909 Epilepsy, unspecified, not intractable, without status epilepticus; J45.909 Unspecified asthma, uncomplicated; F41.9 Anxiety disorder, unspecified; Z79.4 Long term (current) use of insulin; Z79.82 Long term (current) use of aspirin; Z95.1 Presence of aortocoronary bypass graft
CPT/HCPCS: 36415; 71046; 76881; 80048; 80053; 82962; 83036; 83880; 84484; 85025; 85379; 85610; 85730; 93005; 96372; 96374; 96375; 96376; 99285; G0378; J1170; J2270; J2405; J1815; J2785

== ENCOUNTER 2020-06-19 10:17 | Outpatient (CLI) | payer MEDICAID ==
[2020-06-19] MEDS ORDERED: LIDOCAINE (4%) 40 MG/ML TOPICAL SOLN 50 ML BOTTLE TP ONE (10:26)
== END 2020-06-19 10:18 | disposition home or self-care (01) ==
LOC: WOUND 10:17
PROVIDERS: ATTEND Surgery
DX: E11.621 Type 2 diabetes mellitus with foot ulcer (principal); L97.512 Non-pressure chronic ulcer of other part of right foot with fat layer exposed; L84 Corns and callosities; I10 Essential (primary) hypertension; J45.909 Unspecified asthma, uncomplicated; F41.9 Anxiety disorder, unspecified; Z90.49 Acquired absence of other specified parts of digestive tract

== ENCOUNTER 2020-06-26 10:07 | Outpatient (CLI) | payer MEDICAID ==
[2020-06-26] MEDS ORDERED: LIDOCAINE (4%) 40 MG/ML TOPICAL SOLN 50 ML BOTTLE TP ONE (11:25)
== END 2020-06-26 10:08 | disposition home or self-care (01) ==
LOC: WOUND 10:07
PROVIDERS: ATTEND Surgery
DX: E11.621 Type 2 diabetes mellitus with foot ulcer (principal); L97.518 Non-pressure chronic ulcer of other part of right foot with other specified severity; L84 Corns and callosities; I10 Essential (primary) hypertension; J45.909 Unspecified asthma, uncomplicated; F41.9 Anxiety disorder, unspecified; Z90.49 Acquired absence of other specified parts of digestive tract
CPT/HCPCS: 82962; G0463; 99213

== ENCOUNTER 2020-06-29 01:26 | Inpatient (IN) | payer MEDICAID ==
[2020-06-29] MEDS ORDERED: ONDANSETRON 4 MG ODT TAB ONE (01:31)
[2020-06-29] MEDS ORDERED: ONDANSETRON 4 MG ODT TAB PO ONE (02:20)
[2020-06-29 03:23] LABS: Basophils # (Auto) 0.1 K/mm3 (0.0-0.1); Basophils % (Auto) 0.5 % (0.0-1.8); Eosinophils # (Auto) 0.8 K/mm3 (0.0-0.4); Hematocrit 47.4 % (35.5-45.6); Hemoglobin 16.2 gm/dl (11.8-15.2); Lymphocytes # (Auto) 4.1 K/mm3 (1.2-5.4); Lymphocytes % (Auto) 37.7 % (13.4-35.0); Mean Corpuscular HGB Conc 34 % (32-34); Mean Corpuscular Volume 87 fl (84-94); Monocytes # (Auto) 0.9 K/mm3 (0.0-0.8); Monocytes % (Auto) 8.1 % (0.0-7.3); Platelet Count 231 K/mm3 (140-440); Red Blood Count 5.44 M/mm3 (3.65-5.03); Red Cell Distribution Width 13.9 % (13.2-15.2)
[2020-06-29] MEDS ORDERED: DEXTROSE 50% IN WATER (25GM) 50 ML SYRINGE IV ONE ×4 (03:33→05:53)
[2020-06-29] MEDS ORDERED: levETIRAcetam 1000 MG/NS 0.75% 1,000 MG/100 ML BAG IV ONE (03:34)
--- NOTE | 2020-06-29 03:37 | Emergency Department Report ---
ED Seizure HPI - General Chief Complaint: Seizure Stated Complaint: LOW BLOOD SUGAR Time Seen by Provider: 06/29/20 03:27 Source: patient, family Mode of arrival: Ambulatory Limitations: No Limitations - History of Present Illness Initial Comments: Patient is a 49-year-old male presents emergency room with complaints of seizure activity. Patient states his blood sugar has been dropping low. Patient states he had a seizure while he was sleeping due to his low blood sugar. Patient states he has not been able to get his blood sugar up. Patient that she is taken multiple cups of orange juice and sugar packets and his sugar still remains low. Patient states his claim professional put him on a sliding scale insulin and is currently taking Lantus 42 units. Patient states he took Lantus prior to going to bed. Patient states he has a known seizure history but is compliant with his Keppra. They states and Keppra 1000 mg twice a day. Patient states his significant other witnessed the seizure. Patient denies head trauma. Patient does not have any other complaints except from fatigue. Patient denies chest pain shortness breath. Patient denies fever or chills. Patient denies recent travel. Patient denies recent international travel. Dandy vang denies exposure to the novel coronavirus. Patient denies sick contacts. Patient denies fever and chills. Patient denies cough. Patient denies diarrhea. Patient denies coming in contact with anybody with symptoms of the novel coronavirus. Complaint: seizure -: Sudden Description of Episode: loss of consciousness, tonic-clonic movement -: second(s) Witnessed:: Yes Trauma: No Seizure History: known seizure disorder, compliant with medication Place: home Possible Precipitating Event: other Associated Symptoms: denies other symptoms, malaise, weakness. denies: chest pain, confusion, cough, diaphoresis, fever/chills, loss of appetite, rash, shortness of breath, syncope, tongue injury, shoulder dislocation Treatments Prior to Arrival: none (Low sugars) - Related Data Home Medications Medication Instructions Recorded Confirmed Last Taken Aspirin [Aspirin BABY CHEW TAB] 81 mg PO QDAY 08/13/15 06/06/19 01/11/19 Insulin Glargine,Hum.rec.anlog 42 units SQ QHS 04/07/18 06/06/19 01/11/19 [Lantus] Previous Rx's Medication Instructions Recorded Last Taken Type levETIRAcetam [Keppra TAB] 1,000 mg PO BID #60 04/30/20 Unknown Rx HYDROcodone/APAP 5-325 [[place] 1 each PO BID PRN #10 tablet 06/18/20 Unknown Rx 5-325 mg TAB] Insulin Lispro [Humalog] 0 unit SUB-Q ACHS vial 06/18/20 Unknown Rx Allergies Allergy/AdvReac Type Severity Reaction Status Date / Time Penicillins Allergy Severe Anaphylaxis Verified 04/03/20 12:38 acetaminophen [From Tylenol] Allergy Swelling Verified 06/29/20 04:42 metoclopramide HCl Allergy Unknown Verified 04/03/20 12:38 [From Reglan] ibuprofen AdvReac Unknown Swelling Verified 04/03/20 12:38 iv contract dy Allergy Severe Anaphylaxis Uncoded 08/07/19 08:14 ED Review of Systems ROS: Stated complaint: LOW BLOOD SUGAR Other details as noted in HPI Constitutional: malaise. denies: chills, fever Eyes: denies: eye pain, eye discharge, vision change ENT: denies: ear pain, throat pain Respiratory: denies: cough, shortness of breath, wheezing Cardiovascular: denies: chest pain, palpitations Endocrine: no symptoms reported Gastrointestinal: denies: abdominal pain, nausea, diarrhea Genitourinary: denies: urgency, dysuria Musculoskeletal: denies: back pain, joint swelling, arthralgia Skin: denies: rash, lesions Neurological: as per HPI, weakness. 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 - Family History Family history: no significant - Social History Smoking Status: Never Smoker Substance Use Type: None - Medications Home Medications: Home Medications Medication Instructions Recorded Confirmed Last Taken Type Aspirin [Aspirin BABY CHEW TAB] 81 mg PO QDAY 08/13/15 06/06/19 01/11/19 History Insulin Glargine,Hum.rec.anlog 42 units SQ QHS 04/07/18 06/06/19 01/11/19 History [Lantus] levETIRAcetam [Keppra TAB] 1,000 mg PO BID #60 04/30/20 Unknown Rx HYDROcodone/APAP 5-325 [[place] 1 each PO BID PRN #10 tablet 06/18/20 Unknown Rx 5-325 mg TAB] Insulin Lispro [Humalog] 0 unit SUB-Q ACHS vial 06/18/20 Unknown Rx ED Physical Exam - General Limitations: No Limitations General appearance: alert, in no apparent distress - Head Head exam: Present: atraumatic, normocephalic - Eye Eye exam: Present: normal appearance, PERRL Pupils: Present: normal accommodation - ENT ENT exam: Present: mucous membranes dry - Neck Neck exam: Present: normal inspection - Respiratory Respiratory exam: Present: normal lung sounds bilaterally. Absent: respiratory distress - Cardiovascular Cardiovascular Exam: Present: regular rate, normal rhythm. Absent: systolic murmur, diastolic murmur, rubs, gallop - GI/Abdominal GI/Abdominal exam: Present: soft, normal bowel sounds - Rectal Rectal exam: Present: deferred - Extremities Exam Extremities exam: Present: normal inspection - Back Exam Back exam: Present: normal inspection - Neurological Exam Neurological exam: Present: alert, oriented X3, CN II-XII intact - Psychiatric Psychiatric exam: Present: normal affect, normal mood - Skin Skin exam: Present: warm, dry, intact, normal color. Absent: rash ED Course Vital Signs 06/29/20 06/29/20 06/29/20 02:00 04:00 04:15 Temperature 98.2 F 98.2 F Pulse Rate 109 H 102 H 96 H Respiratory 18 19 19 Rate Blood Pressure 189/91 140/87 146/94 Blood Pressure 146/94 [Left] O2 Sat by Pulse 100 98 97 Oximetry 06/29/20 06/29/20 06/29/20 04:35 04:45 04:55 Temperature Pulse Rate 94 H 93 H Respiratory 20 17 18 Rate Blood Pressure 155/96 Blood Pressure [Left] O2 Sat by Pulse 97 98 Oximetry 06/29/20 06/29/20 06/29/20 05:00 05:15 05:30 Temperature Pulse Rate 93 H 91 H 89 Respiratory 15 14 14 Rate Blood Pressure 168/90 173/89 158/89 Blood Pressure [Left] O2 Sat by Pulse 95 93 95 Oximetry - Reevaluation(s) Reevaluation #1: Initial evaluation done. Patient will be given D50 06/29/20 03:38 Reevaluation #2: Blood sugar continues to fluctuate. Patient's current blood sugar 74. Patient is currently on D5 half-normal and received amps of D50. I discussed all results with patient. I discussed plan of care with patient. Patient agrees with plan of care and admission. Patient to be admitted to the hospitalist service. 06/29/20 05:27 - Consultations Consultation #1: Hospitalist consulted for admission. Hospitalist to admit patient. 06/29/20 05:28 ED Medical Decision Making - Lab Data Result diagrams: 06/29/20 02:22 06/29/20 02:22 - EKG Data -: EKG Interpreted by Me EKG shows normal: sinus rhythm, axis, intervals, QRS complexes, ST-T waves Rate: normal - Radiology Data Radiology results: report reviewed Examination: CT of the head without contrast Clinical information: Seizure Comparison: CT of the head, 04/30/2020 Technical: Multiple axial CT images of the head were obtained without intravenous contrast. Sagittal and coronal reformats were obtained. All CTs at this facility utilize dose reduction techniques including automated exposure control, iterative reconstruction and weight based dosing when appropriate to reduce patient radiation dose to as low as reasonable achievable. Findings: INTRACRANIAL CONTENTS: There is no CT evidence of acute intracranial hemorrhage or large territorial infarct. The ventricular system is normal in size. No extra-axial fluid collection is identified. ORBITS: The bilateral orbits and globes appear normal SKULL: No acute calvarial abnormality is identified. PARANASAL SINUSES / MASTOID AIR CELLS: Paranasal sinuses and mastoid air cells appear clear. Impression: 1. No CT evidence of acute intracranial process. - Medical Decision Making Patient is a 49-year-old male that presents emergency room with complaints of seizure and hypoglycemia. Patient had a hypoglycemic seizure while sleeping. Patient has a recent dosage change of his long-acting insulin. Patient took the insulin just prior to bedtime. Patient had multiple cups of juice in her way, continue to have hypoglycemia. Patient eventually given D50 and placed on D5 half-normal. Patient's blood glucose continue to fluctuate and drop low. Patient had labs done which were essentially unremarkable except for hyperglycemia. Patient had a head CT due for the seizure. Patient head CT is negative for acute finding. Patient admitted to the hospital service for further evaluation treatment. - Differential Diagnosis Hyperglycemia, long-acting insulin, incorrect insulin dose, seizure Critical Care Time: Yes Critical care time in (mins) excluding proc time.: 35 Critical care attestation.: If time is entered above; I have spent that time in minutes in the direct care of this critically ill patient, excluding procedure time. Critical Care Time: 35 minutes ED Disposition Clinical Impression: Insulin dependent diabetes mellitus, Seizure, Hypoglycemia, Seizure disorder Disposition: OP ADMIT IP TO THIS HOSP Is pt being admited?: Yes Does the pt Need Aspirin: No Condition: Critical Time of Disposition: 05:27
[2020-06-29 03:43] LABS: Alanine Aminotransferase 30 units/L (7-56); Albumin 4.4 g/dL (3.9-5); BUN/Creatinine Ratio 10; Blood Urea Nitrogen 12 mg/dL (9-20); Calcium 9.9 mg/dL (8.4-10.2); Hemolysis Index 13
[2020-06-29] MEDS ORDERED: D5W/0.45% NACL 1,000 ML IV SCH (04:00)
[2020-06-29] MEDS ORDERED: ACETAMINOPHEN 500 MG TAB ONE (04:26)
[2020-06-29] MEDS ORDERED: ACETAMINOPHEN 500 MG TAB PO ONE (04:38)
[2020-06-29] MEDS ORDERED: HYDROmorphone 1 MG/1 ML INJ IV ONE (04:47)
--- NOTE | 2020-06-29 05:00 | Cat Scan Report ---
Examination: CT of the head without contrast Clinical information: Seizure Comparison: CT of the head, 04/30/2020 Technical: Multiple axial CT images of the head were obtained without intravenous contrast. Sagittal and coronal reformats were obtained. All CTs at this facility utilize dose reduction techniques inc luding automated exposure control, iterative reconstruction and weight based dosing when appropriate to reduce patient radiation dose to as low as reasonable achievable. Findings: INTRACRANIAL CONTENTS: There is no CT evidence of acute intracranial hemorrhage or large territorial infarct. The ventricular system is normal in size. No extra-axial fluid collection is identified. ORBITS: The bilateral orbits and globes appear normal SKULL: No acute calvarial abnormality is identified. PARANASAL SINUSES / MASTOID AIR CELLS: Paranasal sinuses and mastoid air cells appear clear. Impression: 1. No CT evidence of acute intracranial process. Signer Name: Ashwini Arriaza MD Signed: 06/29/2020 4:56 AM Workstation Name: [id number]
[2020-06-29] MEDS ORDERED: DEXTROSE 50% IN WATER (25GM) 50 ML SYRINGE IV PRN (05:56)
[2020-06-29] MEDS ORDERED: ACETAMINOPHEN 325 MG TAB PO PRN (05:56)
[2020-06-29] MEDS ORDERED: MAGNESIUM HYDROXIDE (MOM) ORAL LIQD UDC PO PRN (05:56)
--- NOTE | 2020-06-29 06:06 | History and Physical Report ---
History of Present Illness Date of examination: 06/29/20 Date of admission: 06/29/2020 Chief complaint: Seizures Hypoglycemia History of present illness: 79-year-old -German male with known history of coronary artery disease, seizure disorder, hypertension and diabetes mellitus presenting to the emergency room today with seizure disorder secondary to low blood glucose. Patient states he has been checking his blood sugar at home it has been fluctuating and a relatively low. He has been following up with his data warehouse consultant Dr. Kenney in [place] who put him on a long-acting insulin recently. He has been compliant with his medications. Patient states that he had dinner and also take his insulin injections yesterday about work-up and discovered that his blood sugar was low and thereafter had seizure disorder. He has been compliant with his Keppra. He denies any fever or chills, no chest pain or shortness of breath, no nausea vomiting, no abdominal pain, no hematuria or dysuria, no headache. Patient denies any sick contacts and no recent travel. Denies any contact with anyone with COVID-19. Upon arrival in the emergency room patient blood glucose was in the 40s. He has been given multiple doses of D50 and also has had oral glucose drinks with some improvement in his blood sugar. Patient was subsequently started on D5 half-normal saline. Work-up in the emergency room including CT scan on of the head was unremarkable. Patient being admitted with hypoglycemia and seizure disorder. Past History Past Medical History: CAD (With [place] in the past.), diabetes, hypertension, seizures, other (Asthma,H.Pylori,Anxiety,) Past Surgical History: appendectomy, PTCA, Other (Cornea Tranplant righ eye,) Social history: no significant social history Family history: no significant family history Medications and Allergies Allergies Allergy/AdvReac Type Severity Reaction Status Date / Time Penicillins Allergy Severe Anaphylaxis Verified 04/03/20 12:38 acetaminophen [From Tylenol] Allergy Swelling Verified 06/29/20 04:42 metoclopramide HCl Allergy Unknown Verified 04/03/20 12:38 [From Reglan] ibuprofen AdvReac Unknown Swelling Verified 04/03/20 12:38 iv contract dy Allergy Severe Anaphylaxis Uncoded 08/07/19 08:14 Home Medications Medication Instructions Recorded Confirmed Last Taken Type Aspirin [Aspirin BABY CHEW TAB] 81 mg PO QDAY 08/13/15 06/06/19 01/11/19 History Insulin Glargine,Hum.rec.anlog 42 units SQ QHS 04/07/18 06/06/19 01/11/19 History [Lantus] levETIRAcetam [Keppra TAB] 1,000 mg PO BID #60 04/30/20 Unknown Rx HYDROcodone/APAP 5-325 [[place] 1 each PO BID PRN #10 tablet 06/18/20 Unknown Rx 5-325 mg TAB] Insulin Lispro [Humalog] 0 unit SUB-Q ACHS vial 06/18/20 Unknown Rx Active Meds: Active Medications Acetaminophen (Acetaminophen 325 Mg Tab) 650 mg PO Q4H PRN PRN Reason: Pain MILD(1-3)/Fever >100.5/LOVE Dextrose (Dextrose 50% In Water (25gm) 50 Ml Syringe) 50 ml IV Q30MIN PRN; Protocol PRN Reason: Hypoglycemia Dextrose (Dextrose 50% In Water (25gm) 50 Ml Syringe) 50 ml IV Q30MIN PRN; Protocol PRN Reason: Hypoglycemia Heparin Sodium (Porcine) (Heparin 5,000 Unit/1 Ml Vial) 5,000 unit SUB-Q Q8HR MIKE Dextrose/Sodium Chloride (D5/0.45ns) 1,000 mls @ 125 mls/hr IV DIRECT MIKE Last Admin: 06/29/20 04:43 Dose: 125 mls/hr Documented by: Dextrose/Sodium Chloride (D5ns) 1,000 mls @ 125 mls/hr IV DIRECT MIKE Magnesium Hydroxide (Magnesium Hydroxide (Mom) Oral Liqd Udc) 30 ml PO Q4H PRN PRN Reason: Constipation Morphine Sulfate (Morphine 2 Mg/1 Ml Inj) 2 mg IV Q4H PRN PRN Reason: Pain, Moderate (4-6) Ondansetron HCl (Ondansetron 4 Mg/2 Ml Inj) 4 mg IV Q8H PRN PRN Reason: Nausea And Vomiting Sodium Chloride (Sodium Chloride 0.9% 10 Ml Flush Syringe) 10 ml IV BID MIKE Sodium Chloride (Sodium Chloride 0.9% 10 Ml Flush Syringe) 10 ml IV PRN PRN PRN Reason: LINE FLUSH Review of Systems Constitutional: no fever, no chills Ears, nose, mouth and throat: no nasal congestion, no sore throat Cardiovascular: no chest pain, no palpitations Respiratory: no cough, no shortness of breath Gastrointestinal: no abdominal pain, no nausea, no vomiting, no diarrhea Genitourinary Male: no dysuria, no hematuria, no flank pain Musculoskeletal: no neck pain, no low back pain Integumentary: no rash, no pruritis Neurological: seizures, no tremors, no headaches, no confusion Psychiatric: no anxiety, no paranoia Exam - Constitutional Vitals: Temp Pulse Resp BP Pulse Ox 98.2 F 89 14 158/89 95 06/29/20 04:00 06/29/20 05:30 06/29/20 05:30 06/29/20 05:30 06/29/20 05:30 General appearance: Present: no acute distress, well-nourished, obese - EENT Eyes: Present: PERRL, EOM intact. Absent: scleral icterus ENT: hearing intact, clear oral mucosa, dentition normal - Neck Neck: Present: supple, normal ROM - Respiratory Respiratory effort: normal Respiratory: bilateral: CTA - Cardiovascular Rhythm: regular Heart Sounds: Present: S1 & S2. Absent: gallop, systolic murmur, diastolic murmur, rub - Extremities Extremities: no ischemia, pulses intact, pulses symmetrical, No edema, normal temperature, normal color, Full ROM Peripheral Pulses: within normal limits - Abdominal General gastrointestinal: Present: soft, non-tender, non-distended, normal bowel sounds. Absent: mass - Integumentary Integumentary: Present: clear, warm, dry - Musculoskeletal Musculoskeletal: strength equal bilaterally - Psychiatric Psychiatric: appropriate mood/affect, intact judgment & insight, memory intact, cooperative - Neurologic Neurologic: CNII-XII intact, no focal deficits, moves all extremities Results - Labs CBC & Chem 7: 06/29/20 02:22 06/29/20 02:22 Labs: Abnormal lab results 06/29/20 06/29/20 06/29/20 Range/Units 02:22 02:22 02:24 RBC 5.44 H (3.65-5.03) M/mm3 Hgb 16.2 H (11.8-15.2) gm/dl Hct 47.4 H (35.5-45.6) % Lymph % (Auto) 37.7 H (13.4-35.0) % [place] % (Auto) 8.1 H (0.0-7.3) % Eos % (Auto) 7.0 H (0.0-4.3) % [place] # (Auto) 0.9 H (0.0-0.8) K/mm3 Eos # (Auto) 0.8 H (0.0-0.4) K/mm3 Potassium 3.5 L (3.6-5.0) mmol/L Glucose 54 L (75-100) mg/dL POC Glucose 48 L (70-105) mg/dL 06/29/20 Range/Units 03:09 RBC (3.65-5.03) M/mm3 Hgb (11.8-15.2) gm/dl Hct (35.5-45.6) % Lymph % (Auto) (13.4-35.0) % [place] % (Auto) (0.0-7.3) % Eos % (Auto) (0.0-4.3) % [place] # (Auto) (0.0-0.8) K/mm3 Eos # (Auto) (0.0-0.4) K/mm3 Potassium (3.6-5.0) mmol/L Glucose (75-100) mg/dL POC Glucose 59 L (70-105) mg/dL Assessment and Plan - Patient Problems (1) Seizure disorder Current Visit: Yes Status: Chronic Plan to address problem: Patient will be placed on seizure precautions. He has known history of seizure disorder however he developed hypoglycemia today. We will resume routine home medications. We will place a consult to neurology for evaluation and recommendations. (2) Hypoglycemia Current Visit: Yes Status: Acute Plan to address problem: Patient started on D5 normal saline. Will monitor Accu-Cheks closely. We will also check hemoglobin A1c. (3) CAD (coronary artery disease) Current Visit: No Status: Chronic Qualifiers: Coronary Disease-Associated Artery/Lesion type: [place] artery [place] vs. transplanted heart: [place] heart Associated angina: with stable angina Qualified Code(s): I25.118 - Atherosclerotic heart disease of [place] coronary artery with other forms of angina pectoris Plan to address problem: Patient has known history of [place] with cardiac stent placement in the past. We will resume routine home medications. (4) Hypertension Current Visit: No Status: Chronic Qualifiers: Hypertension type: essential hypertension Qualified Code(s): I10 - Essential (primary) hypertension Plan to address problem: Blood pressure appears stable. We will resume routine home medications and monitor vital signs closely. (5) DVT prophylaxis Current Visit: No Status: Acute Plan to address problem: Patient placed on anticoagulation with subcutaneous heparin. (6) Full code status Current Visit: Yes Status: Acute
[2020-06-29] MEDS: HEPARIN 5,000 UNIT/1 ML VIAL SUB-Q SCH ×3 (06:22→21:29)
[2020-06-29] MEDS: D5W/0.9% NACL 1,000 ML IV SCH ×2 (06:24→21:28)
[2020-06-29] MEDS: MORPHINE 2 MG/1 ML INJ IV PRN ×2 (11:13→22:10)
[2020-06-29] MEDS: ONDANSETRON 4 MG/2 ML INJ IV PRN (13:52)
--- NOTE | 2020-06-29 14:42 | Event Note ---
Date: 06/29/20 Patient seen and examined admitted for seizure cont azeb, neuro consulted - will follow recommendation cont D5Ns for hypoglycemia, hold insulin
[2020-06-29] MEDS: ASPIRIN 81 MG TAB CHEW PO SCH (16:00)
[2020-06-29] MEDS: levETIRAcetam 500 MG TAB PO SCH (21:28)
[2020-06-29] MEDS ORDERED: NON-FORMULARY EACH (Levetiracetam [Keppra Tab] 1,000 MG Tablet) PO SCH (22:00)
[2020-06-29] MEDS: DEXTROSE 10% IN WATER 1,000 ML IV SCH (22:08)
[2020-06-30] MEDS: MORPHINE 2 MG/1 ML INJ IV PRN ×2 (03:11→13:01)
[2020-06-30 04:20] LABS: Bilirubin,Urine NEG (Negative); Blood,Urine NEG (Negative); Color,Urine Yellow (Yellow); Mucus,Urine FEW /HPF; Protein,Urine <15 mg/dL mg/dL (Negative); Urobilinogen,Urine < 2.0 mg/dL (<2.0); WBC,Urine < 1.0 /HPF (0.0-6.0)
[2020-06-30] MEDS: DEXTROSE 10% IN WATER 1,000 ML IV SCH (05:43)
[2020-06-30] MEDS: HEPARIN 5,000 UNIT/1 ML VIAL SUB-Q SCH ×3 (06:42→22:19)
[2020-06-30 07:27] LABS: Basophils # (Auto) 0.1 K/mm3 (0.0-0.1); Eosinophils # (Auto) 0.5 K/mm3 (0.0-0.4); Eosinophils % (Auto) 9.6 % (0.0-4.3); Hematocrit 43.5 % (35.5-45.6); Hemoglobin 14.9 gm/dl (11.8-15.2); Lymphocytes # (Auto) 2.1 K/mm3 (1.2-5.4); Lymphocytes % (Auto) 36.2 % (13.4-35.0); Mean Corpuscular HGB Conc 34 % (32-34); Mean Corpuscular Volume 86 fl (84-94); Monocytes # (Auto) 0.5 K/mm3 (0.0-0.8); Monocytes % (Auto) 8.2 % (0.0-7.3); Platelet Count 156 K/mm3 (140-440); Red Blood Count 5.04 M/mm3 (3.65-5.03); Red Cell Distribution Width 13.8 % (13.2-15.2)
[2020-06-30 07:37] LABS: INR 0.98 (0.87-1.13)
[2020-06-30 07:46] LABS: BUN/Creatinine Ratio 10; Blood Urea Nitrogen 11 mg/dL (9-20); Calcium 8.3 mg/dL (8.4-10.2); Hemolysis Index 5
[2020-06-30] MEDS ORDERED: PREGABALIN 25 MG, PREGABALIN 75 MG PO SCH (08:00)
[2020-06-30] MEDS: ASPIRIN 81 MG TAB CHEW PO SCH (10:31)
[2020-06-30] MEDS: levETIRAcetam 500 MG TAB PO SCH ×2 (10:31→22:19)
[2020-06-30] MEDS: ONDANSETRON 4 MG/2 ML INJ IV PRN (10:34)
--- NOTE | 2020-06-30 10:41 | Consultation ---
History of Present Illness Consult date: 06/30/20 Requesting physician: RAGHU WILKERSON Reason for Consult: Seizure Chief complaint: Low blood sugar w/ seizure History of present illness: 49 yo male with dm, seizure d/o (since childhood, age 9), htn, cadx, who presents s/p lantus 42 units and noted hypoglycemia with a witnessed (by friend) seizure (generalized) w/ urinary incontinence at home and noted with BGL in the 40s at the ED, requiring D5NS. No further seizure activity since admission. He notes he is compliant with Keppra 1000 mg bid. He is currently at his baseline. Past History Past Medical History: CAD (With [place] in the past.), diabetes, hypertension, seizures, other (Asthma,H.Pylori,Anxiety,) Past Surgical History: appendectomy, PTCA, Other (Cornea Tranplant righ eye,) Social history: no significant social history Family history: no significant family history Medications and Allergies Allergies Allergy/AdvReac Type Severity Reaction Status Date / Time Penicillins Allergy Severe Anaphylaxis Verified 04/03/20 12:38 acetaminophen [From Tylenol] Allergy Swelling Verified 06/29/20 04:42 metoclopramide HCl Allergy Unknown Verified 04/03/20 12:38 [From Reglan] ibuprofen AdvReac Unknown Swelling Verified 04/03/20 12:38 iv contract dy Allergy Severe Anaphylaxis Uncoded 08/07/19 08:14 Home Medications Medication Instructions Recorded Confirmed Last Taken Type Aspirin [Aspirin BABY CHEW TAB] 81 mg PO QDAY 08/13/15 06/30/20 06/28/20 History Insulin Glargine,Hum.rec.anlog 42 units SQ QHS 04/07/18 06/30/20 06/28/20 History [Lantus] levETIRAcetam [Keppra TAB] 1,000 mg PO BID #60 04/30/20 06/30/20 06/28/20 Rx HYDROcodone/APAP 5-325 [[place] 1 each PO BID PRN #10 tablet 06/18/20 06/30/20 06/28/20 Rx 5-325 mg TAB] Insulin Lispro [Humalog] 0 unit SUB-Q ACHS vial 06/18/20 06/30/20 06/28/20 Rx Pregabalin [Lyrica] 100 mg PO 4XD 1206/30/20 06/28/20 History Active Meds: Active Medications Aspirin (Aspirin 81 Mg Tab Chew) 81 mg PO QDAY [facility] Last Admin: 06/30/20 10:31 Dose: 81 mg Documented by: Dextrose (Dextrose 50% In Water (25gm) 50 Ml Syringe) 0 ml IV Q30MIN PRN; Protocol PRN Reason: Hypoglycemia Heparin Sodium (Porcine) (Heparin 5,000 Unit/1 Ml Vial) 5,000 unit SUB-Q Q8HR [facility] Last Admin: 06/30/20 06:42 Dose: 5,000 unit Documented by: Dextrose (D10w) 1,000 mls @ 125 mls/hr IV DIRECT [facility] Last Admin: 06/30/20 05:43 Dose: 125 mls/hr Documented by: Levetiracetam (Levetiracetam 500 Mg Tab) 1,000 mg PO BID [facility] Last Admin: 06/30/20 10:31 Dose: 1,000 mg Documented by: Magnesium Hydroxide (Magnesium Hydroxide (Mom) Oral Liqd Udc) 30 ml PO Q4H PRN PRN Reason: Constipation Morphine Sulfate (Morphine 2 Mg/1 Ml Inj) 2 mg IV Q4H PRN PRN Reason: Pain, Moderate (4-6) Last Admin: 06/30/20 03:11 Dose: 2 mg Documented by: Ondansetron HCl (Ondansetron 4 Mg/2 Ml Inj) 4 mg IV Q8H PRN PRN Reason: Nausea And Vomiting Last Admin: 06/30/20 10:34 Dose: 4 mg Documented by: Sodium Chloride (Sodium Chloride 0.9% 10 Ml Flush Syringe) 10 ml IV BID [facility] Last Admin: 06/30/20 10:31 Dose: 10 ml Documented by: Sodium Chloride (Sodium Chloride 0.9% 10 Ml Flush Syringe) 10 ml IV PRN PRN PRN Reason: LINE FLUSH Review of Systems All systems: negative (except as per HPI;) Physical Examination - Vital Signs Vital Signs: Vital Signs Temp Pulse Resp BP Pulse Ox 98.2 F 109 H 18 189/91 100 06/29/20 02:00 06/29/20 02:00 06/29/20 02:00 06/29/20 02:00 06/29/20 02:00 - Additional Exam Additional Exam: Gen: nad, well-nourished; Head: normocephalic; Eyes: no gaze deviation; no ptosis; ENT: normal vocalization; CVS: warm and well-perfused; Pulm: no respiratory distress; GI: non-distended, protuberant; Ext: no cyanosis at distal extremities; Skin: no acute rash at distal extremities; Heme: no pathologic bruising at distal extremities; Neuro: alert, oriented to name, age, month, year, surroundings, no dysarthria, no aphasia, CN 2 - PERRL, visual cline intact, CN 3, 4, 6 - EOMI, CN 5 - facial sensation symmetric to light touch, CN 7 - facial movement symmetric, CN 8 - hearing grossly intact, CN 9, 10 - uvula midline, CN 11 - shrug symmetric, CN 12 - tongue midline; Motor - at least 4+/5 at all exts; Sensory - light touch symmetric, Cerebellar - fnf /hts intact, Gait - deferred secondary to seizure precautions; Results - Laboratory Findings CBC and BMP: 06/30/20 07:18 06/30/20 07:18 Abnormal Lab Findings: Abnormal Labs 06/29/20 06/29/20 06/29/20 02:22 02:22 02:22 RBC 5.44 H Hgb 16.2 H Hct 47.4 H Lymph % (Auto) 37.7 H [place] % (Auto) 8.1 H Eos % (Auto) 7.0 H [place] # (Auto) 0.9 H Eos # (Auto) 0.8 H Potassium 3.5 L Glucose 54 L POC Glucose Hemoglobin A1c 8.7 H Calcium 06/29/20 06/29/20 06/29/20 02:24 03:09 06:55 RBC Hgb Hct Lymph % (Auto) [place] % (Auto) Eos % (Auto) [place] # (Auto) Eos # (Auto) Potassium Glucose POC Glucose 48 L 59 L 114 H Hemoglobin A1c Calcium 06/29/20 06/29/20 06/29/20 07:56 10:25 13:47 RBC Hgb Hct Lymph % (Auto) [place] % (Auto) Eos % (Auto) [place] # (Auto) Eos # (Auto) Potassium Glucose POC Glucose 133 H 139 H 55 L Hemoglobin A1c Calcium 06/29/20 06/29/20 06/30/20 15:05 16:58 01:05 RBC Hgb Hct Lymph % (Auto) [place] % (Auto) Eos % (Auto) [place] # (Auto) Eos # (Auto) Potassium Glucose POC Glucose 134 H 179 H 114 H Hemoglobin A1c Calcium 06/30/20 06/30/20 06/30/20 06:17 07:18 07:18 RBC 5.04 H Hgb Hct Lymph % (Auto) 36.2 H [place] % (Auto) 8.2 H Eos % (Auto) 9.6 H [place] # (Auto) Eos # (Auto) 0.5 H Potassium Glucose 170 H POC Glucose 172 H Hemoglobin A1c Calcium 8.3 L D 06/30/20 09:34 RBC Hgb Hct Lymph % (Auto) [place] % (Auto) Eos % (Auto) [place] # (Auto) Eos # (Auto) Potassium Glucose POC Glucose 66 L Hemoglobin A1c Calcium Assessment and Plan 49 yo male with dm, seizure d/o (since age 9), htn, cadx, who presents s/p lantus 42 units and noted hypoglycemia with a witnessed (by ) seizure at home and noted with BGL in the 40s at the ED, requiring D5NS. No further sei zure activity since admission. He notes he is compliant with Keppra 1000 mg bid. 1. Seizure d/o - ordered EEG; triggered by hypoglycemia; continue Keppra 1000 mg bid; pt notes he is at his neurologic baseline w/ no focal findings on exam. No driving, operation of heavy machinery, self-bath/climb/cook/swim, or supervisory role, until cleared by a neurologist. Followup with established neurologist in 4 weeks. If EEG reveals no ictal or epileptiform activity, Neurology will signoff. 2. Hypoglycemia - per primary team. Kaushal Sosa MD Neurology
--- NOTE | 2020-06-30 15:43 | Progress Note ---
Assessment and Plan -- Seizure disorder Patient on seizure precautions. He has known history of seizure disorder however he developed hypoglycemia cont Keppra now, follow EEG result neurology following -- Hypoglycemia Patient now on D10 W. Will monitor Accu-Cheks closely. hold any insulin -- CAD (coronary artery disease) Patient has known history of [place] with cardiac stent placement in the past. resume routine home medications. -- Hypertension Blood pressure appears stable. resume routine home medications and monitor vital signs closely. -- DVT prophylaxis Patient placed on anticoagulation with subcutaneous heparin. -- Full code status 06/30: patient remains hypoglycemic - now placed on D10, cont to monitor. cont AED, follow EEG result. Subjective Date of service: 06/30/20 Interval history: Patient seen and examined. Medical records and medication list reviewed. No acute event overnight noted by the RN. Patient denies any chest pain or difficulty breathing. Patient is tolerating diet. His blood sugar remains intermittently low as low as 60s even on D5 normal saline Discussed plan of care at bedside with patient. Objective - Exam Narrative Exam: GENERAL: well-developed and obese -Italian male lying on bed appeared to be in no discomfort. HEENT: Normocephalic. Atraumatic. No conjunctival congestion or icterus. Patient has moist mucous membranes. NECK: Supple. Trachea midline. CHEST/LUNGS: Clear to auscultated bilaterally, breathing nonlabored. No wheezes crackles or rhonchi. HEART/CARDIOVASCULAR: Regular in rate and rhythm. S1 and S2 positive. ABDOMEN: Abdomen is soft, nontender. Patient has normal bowel sounds. SKIN: There is no rash. Warm and dry. NEURO: No focal motor deficit. Follows command. MUSCULOSKELETAL: No joint effusion or tenderness. EXTRIMITY: No edema, no cyanosis or clubbing. PSYCH: Cooperative. - Constitutional Vitals: Vital Signs - 12hr 06/30/20 06/30/20 06:19 07:18 Temperature 97.9 F 97.5 F L Pulse Rate 86 82 Respiratory 20 20 Rate Blood Pressure 140/90 133/80 O2 Sat by Pulse 96 96 Oximetry - Labs CBC & Chem 7: 06/30/20 07:18 06/30/20 07:18 Labs: Abnormal lab results 06/29/20 06/30/20 06/30/20 Range/Units 16:58 01:05 06:17 RBC (3.65-5.03) M/mm3 Lymph % (Auto) (13.4-35.0) % [place] % (Auto) (0.0-7.3) % Eos % (Auto) (0.0-4.3) % Eos # (Auto) (0.0-0.4) K/mm3 Glucose (75-100) mg/dL POC Glucose 179 H 114 H 172 H (70-105) mg/dL Calcium (8.4-10.2) mg/dL 06/30/20 06/30/20 06/30/20 Range/Units 07:18 07:18 09:34 RBC 5.04 H (3.65-5.03) M/mm3 Lymph % (Auto) 36.2 H (13.4-35.0) % [place] % (Auto) 8.2 H (0.0-7.3) % Eos % (Auto) 9.6 H (0.0-4.3) % Eos # (Auto) 0.5 H (0.0-0.4) K/mm3 Glucose 170 H (75-100) mg/dL POC Glucose 66 L (70-105) mg/dL Calcium 8.3 L D (8.4-10.2) mg/dL 06/30/20 Range/Units 14:18 RBC (3.65-5.03) M/mm3 Lymph % (Auto) (13.4-35.0) % [place] % (Auto) (0.0-7.3) % Eos % (Auto) (0.0-4.3) % Eos # (Auto) (0.0-0.4) K/mm3 Glucose (75-100) mg/dL POC Glucose 169 H (70-105) mg/dL Calcium (8.4-10.2) mg/dL
[2020-06-30] MEDS ORDERED: GABAPENTIN 300 MG CAP PO SCH (17:00)
[2020-06-30] MEDS: PREGABALIN 25 MG CAP PO SCH (22:18)
[2020-06-30] MEDS: PREGABALIN 75 MG CAP PO SCH (22:18)
[2020-07-01] MEDS ORDERED: MORPHINE 2 MG/1 ML INJ IV ONE (00:15)
[2020-07-01] MEDS: DEXTROSE 10% IN WATER 1,000 ML IV SCH (01:21)
[2020-07-01] MEDS: HEPARIN 5,000 UNIT/1 ML VIAL SUB-Q SCH ×2 (06:02→13:14)
[2020-07-01] MEDS: PREGABALIN 75 MG CAP PO SCH ×2 (07:58→13:12)
[2020-07-01] MEDS: ASPIRIN 81 MG TAB CHEW PO SCH (07:58)
[2020-07-01] MEDS: PREGABALIN 25 MG CAP PO SCH ×2 (07:58→13:12)
[2020-07-01] MEDS: levETIRAcetam 500 MG TAB PO SCH (07:58)
[2020-07-01] MEDS ORDERED: oxyCODONE /ACETAMINOPHEN 5-325MG TAB PO PRN (09:00)
[2020-07-01 12:13] VITALS: BP 120/81
--- NOTE | 2020-07-01 13:11 | Discharge Summary ---
Providers - Providers Date of Admission: 06/30/20 14:00 Date of discharge: 07/01/20 Attending physician: IDRIS ROSADO 06/29/20 05:56 Consult to Physician [CONS] Routine Comment: Consulting Provider: [facility]ARR[facility] Physician Instructions: Reason For Exam: Seizures 06/29/20 05:57 Consult to Dietitian/Nutrition [CONS] Routine Physician Instructions: Reason For Exam: Reason for Consult: Diet education Primary care physician: BAG MAKER Hospitalization Condition: Critical Pertinent studies: Head CT Hospital course: 49 yo male with h/o diabetes mellitus on insulin, seizure resolved since childhood on Keppra 1000 twice daily, hypertension, coronary artery disease who presents to the hospital following a hypoglycemia after injecting 42 units of Lantus with a witnessed (by friend) seizure (generalized) and urinary incontinence at home. In the ER his blood sugar noted to be at 40s. He was placed on D5 normal saline, CT head showed no acute process, and admitted to the hospital for further evaluation and management. Following admission patient did not have any seizure-like activity. His blood glucose remained hypoglycemic, D5 normal saline then changed to D10W. He was monitored with frequent blood glucose check. All insulin doses were on hold. His blood glucose stabilized, monitored off D10W. Patient was then discharged home in stable condition with outpatient endocrinology follow-up. Discharge diagnosis: Acute breakthrough seizure likely due to profound hypoglycemia Hypoglycemia, iatrogenic due to insulin Coronary artery disease Hypertension Diabetes mellitus type 2 Obesity Time spent for discharge: 34 minutes Core Measure Documentation - Palliative Care Palliative Care/ Comfort Measures: Not Applicable - Core Measures Any of the following diagnoses?: none Exam - Physical Exam Narrative exam: GENERAL: well-developed and obese -[place] male lying on bed appeared to be in no discomfort. HEENT: Normocephalic. Atraumatic. No conjunctival congestion or icterus. Patient has moist mucous membranes. NECK: Supple. Trachea midline. CHEST/LUNGS: Clear to auscultated bilaterally, breathing nonlabored. No wheezes crackles or rhonchi. HEART/CARDIOVASCULAR: Regular in rate and rhythm. S1 and S2 positive. ABDOMEN: Abdomen is soft, nontender. Patient has normal bowel sounds. SKIN: There is no rash. Warm and dry. NEURO: No focal motor deficit. Follows command. MUSCULOSKELETAL: No joint effusion or tenderness. EXTRIMITY: No edema, no cyanosis or clubbing. PSYCH: Cooperative. - Constitutional Vitals: Temp Pulse Resp BP Pulse Ox 97.9 F 89 18 120/81 95 07/01/20 11:51 07/01/20 11:51 07/01/20 11:51 07/01/20 11:51 07/01/20 11:51 Plan Activity: advance as tolerated Weight Bearing Status: Weight Bear as Tolerated Diet: diabetic Special Instructions: record blood sugar diary Additional Instructions: Follow-up with your hemotherapist by Tuesday
[2020-07-01] MEDS ORDERED: dexAMETHasone 4 MG/ML VIAL IV ONE (13:18)
== END 2020-07-01 19:46 | disposition home or self-care (01) | DRG 101 ==
LOC: ED 01:26 → 3A 05:32 → 3B 16:39 → OBSVTOIN 06-30 14:00
PROVIDERS: ADMIT Internal Medicine Geriatric Medicine; ATTEND Internal Medicine
DX: G40.909 Epilepsy, unspecified, not intractable, without status epilepticus (principal); E11.649 Type 2 diabetes mellitus with hypoglycemia without coma; I10 Essential (primary) hypertension; F41.9 Anxiety disorder, unspecified; I25.118 Atherosclerotic heart disease of native coronary artery with other forms of angina pectoris; J45.909 Unspecified asthma, uncomplicated; E66.9 Obesity, unspecified; Z79.4 Long term (current) use of insulin; Z79.82 Long term (current) use of aspirin; I25.2 Old myocardial infarction; Z88.6 Allergy status to analgesic agent; Z88.0 Allergy status to penicillin; Z88.8 Allergy status to other drugs, medicaments and biological substances; Z68.38 Body mass index [BMI] 38.0-38.9, adult; Z95.5 Presence of coronary angioplasty implant and graft; T38.3X5A Adverse effect of insulin and oral hypoglycemic [antidiabetic] drugs, initial encounter; Y92.89 Other specified places as the place of occurrence of the external cause
CPT/HCPCS: 36415; 70450; 80048; 80053; 81001; 82805; 82962; 83036; 83690; 85025; 85610; 93005; 95819; 96374; 96375; G0378; J1100; J1170; J1644; J1953; J2270; J2405; J7042; Q0162

== ENCOUNTER 2020-07-05 13:47 | Emergency (ER) | payer MEDICAID ==
[2020-07-05 15:36] VITALS: BP 182/99
[2020-07-05] MEDS ORDERED: DIPHtheria,PERTUSSIS(ACELL),TETANUS VACCINE/PF 0.5 ML VIAL IM ONE (17:17)
--- NOTE | 2020-07-05 17:22 | Emergency Department Report ---
ED Animal Bite HPI - General Chief Complaint: Animal Bite Stated Complaint: DOG BITE/LOW SUGAR Time Seen by Provider: 07/05/20 17:06 Source: patient Mode of arrival: Ambulatory Limitations: No Limitations - History of Present Illness Initial Comments: 49-year-old -[place] male diabetic presents emerged department complaining attacked by pit bull resulting in a fall sustaining abrasions to his elbows knees and bite to the hand just prior to arrival. He was seen earlier and was discharged when he went home tried to go for dog where this injury occurred. Reports some vague dull throbbing pain but states he primarily just wanted his wounds to be clean irrigated and and then dressed appropriately due to his history of diabetes to give the best possible chance for preventing infection -: Gradual Left: Hand, Right: Elbow, Knee Animal: dog Animal Control Notified: No Mechanism: bite Pain Description: dull Treatments Prior to Arrival: wound dressing(s) - Related Data Home Medications Medication Instructions Recorded Confirmed Last Taken Aspirin [Aspirin BABY CHEW TAB] 81 mg PO QDAY 08/13/15 06/30/20 06/28/20 Pregabalin [Lyrica] 100 mg PO 4XD 06/30/20 06/30/20 06/28/20 Previous Rx's Medication Instructions Recorded Last Taken Type levETIRAcetam [Keppra TAB] 1,000 mg PO BID #60 04/30/20 06/28/20 Rx HYDROcodone/APAP 5-325 [[place] 1 each PO BID PRN #10 tablet 06/18/20 06/28/20 Rx 5-325 mg TAB] Chlorhexidine Gluconate [Hibiclens] 10 ml TP BID #240 liquid 07/05/20 Unknown Rx Clindamycin [Clindamycin CAP] 150 mg PO Q8HR #21 capsule 07/05/20 Unknown Rx Allergies Allergy/AdvReac Type Severity Reaction Status Date / Time Penicillins Allergy Severe Anaphylaxis Verified 04/03/20 12:38 acetaminophen [From Tylenol] Allergy Swelling Verified 06/29/20 04:42 metoclopramide HCl Allergy Unknown Verified 04/03/20 12:38 [From Reglan] ibuprofen AdvReac Unknown Swelling Verified 04/03/20 12:38 iv contract dy Allergy Severe Anaphylaxis Uncoded 08/07/19 08:14 ED Review of Systems ROS: Stated complaint: DOG BITE/LOW SUGAR Other details as noted in HPI Comment: All other systems reviewed and negative ED Past Medical Hx - Past Medical History Previous Medical History?: Yes Hx Hypertension: Yes Hx Heart Attack/AMI: Yes Hx Congestive Heart Failure: No Hx Diabetes: Yes Hx Seizures: Yes Hx Psychiatric Treatment: Yes (anxiety) Hx Asthma: Yes Hx COPD: No Additional medical history: H.pylori, Hypoglycemia - Surgical History Past Surgical History?: Yes Hx Coronary Stent: Yes (x3) Hx Appendectomy: Yes 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 - Social History Smoking Status: Never Smoker Substance Use Type: None - Medications Home Medications: Home Medications Medication Instructions Recorded Confirmed Last Taken Type Aspirin [Aspirin BABY CHEW TAB] 81 mg PO QDAY 08/13/15 06/30/20 06/28/20 History levETIRAcetam [Keppra TAB] 1,000 mg PO BID #60 04/30/20 06/30/20 06/28/20 Rx HYDROcodone/APAP 5-325 [[place] 1 each PO BID PRN #10 tablet 06/18/20 06/30/20 06/28/20 Rx 5-325 mg TAB] Pregabalin [Lyrica] 100 mg PO 4XD 06/30/20 06/30/20 06/28/20 History Chlorhexidine Gluconate [Hibiclens] 10 ml TP BID #240 liquid 07/05/20 Unknown Rx Clindamycin [Clindamycin CAP] 150 mg PO Q8HR #21 capsule 07/05/20 Unknown Rx ED Physical Exam - General Limitations: No Limitations General appearance: alert, in no apparent distress - Head Head exam: Present: atraumatic, normocephalic - Eye Eye exam: Present: normal appearance - ENT ENT exam: Present: mucous membranes moist - Neck Neck exam: Present: normal inspection - Respiratory Respiratory exam: Present: normal lung sounds bilaterally. Absent: respiratory distress - Cardiovascular Cardiovascular Exam: Present: regular rate, normal rhythm. Absent: systolic murmur, diastolic murmur, rubs, gallop - GI/Abdominal GI/Abdominal exam: Present: soft, normal bowel sounds - Rectal Rectal exam: Present: deferred - Extremities Exam Extremities exam: Present: normal inspection, other (Multiple abrasions to the knees and elbows and left fifth digit with mild bleeding.) - Back Exam Back exam: Present: normal inspection. Absent: CVA tenderness (R), CVA tenderness (L) - Neurological Exam Neurological exam: Present: alert, oriented X3 - Psychiatric Psychiatric exam: Present: normal affect, normal mood - Skin Skin exam: Present: warm, dry, intact, normal color. Absent: rash ED Course Vital Signs 07/05/20 07/05/20 15:34 15:35 Temperature 97.8 F 97.8 F Pulse Rate 99 H 99 H Respiratory 20 20 Rate Blood Pressure 182/99 Blood Pressure 182/99 [Right] O2 Sat by Pulse 98 98 Oximetry - Procedure Description Procedures done: Wound was irrigated and dressed with a Xeroform dressing no complications tetanus shot was provided Critical care attestation.: If time is entered above; I have spent that time in minutes in the direct care of this critically ill patient, excluding procedure time. ED Disposition Clinical Impression: Dog bite, Multiple abrasions, Tetanus toxoid inoculation Disposition: [id number]-01 TO HOME OR SELFCARE Is pt being admited?: No Does the pt Need Aspirin: No Condition: Stable Instructions: Animal Bite, Adult, [id number], Abrasion, Animal Bite, Adult Prescriptions: Clindamycin [Clindamycin CAP] 150 mg PO Q8HR #21 capsule Chlorhexidine Gluconate [Hibiclens] 10 ml TP BID #240 liquid Referrals: [facility] [Provider Group] - 3-5 Days
== END 2020-07-05 17:36 | disposition home or self-care (01) ==
LOC: ED 13:47
DX: S80.211A Abrasion, right knee, initial encounter (principal); S50.311A Abrasion of right elbow, initial encounter; T88.1XXA Other complications following immunization, not elsewhere classified, initial encounter; I10 Essential (primary) hypertension; I25.2 Old myocardial infarction; E11.9 Type 2 diabetes mellitus without complications; G40.909 Epilepsy, unspecified, not intractable, without status epilepticus; J45.909 Unspecified asthma, uncomplicated; Z90.49 Acquired absence of other specified parts of digestive tract; Z98.890 Other specified postprocedural states; Z79.899 Other long term (current) drug therapy; Z88.0 Allergy status to penicillin; Z88.6 Allergy status to analgesic agent; Z88.8 Allergy status to other drugs, medicaments and biological substances; W54.0XXA Bitten by dog, initial encounter; Y93.89 Activity, other specified; Y92.89 Other specified places as the place of occurrence of the external cause; Y99.8 Other external cause status
CPT/HCPCS: 90471; 90715; 99282

== ENCOUNTER 2020-07-25 10:55 | Emergency (ER) | payer MEDICAID ==
--- NOTE | 2020-07-25 11:02 | Event Note ---
ED Screening Note Date of service: 07/25/20 Time: 11:01 ED Screening Note: Patient complains of seizure this morning along with abdominal pain and skin lesions to the abdomen States compliance with Keppra Denies headache or chest pain States nausea and diarrhea Patient in no acute distress at this time This initial assessment/diagnostic orders/clinical plan/treatment(s) is/are subject to change based on patients health status, clinical progression and re- assessment by fellow clinical providers in the ED. Further treatment and workup at subsequent clinical providers discretion. Patient/guardian urged not to elope from the ED as their condition may be serious if not clinically assessed and managed. Initial orders include: Labs EKG
[2020-07-25 13:05] LABS: Basophils # (Auto) 0.1 K/mm3 (0.0-0.1); Eosinophils # (Auto) 0.2 K/mm3 (0.0-0.4); Eosinophils % (Auto) 3.4 % (0.0-4.3); Hematocrit 45.6 % (35.5-45.6); Hemoglobin 15.7 gm/dl (11.8-15.2); Lymphocytes # (Auto) 1.9 K/mm3 (1.2-5.4); Lymphocytes % (Auto) 36.2 % (13.4-35.0); Mean Corpuscular HGB Conc 34 % (32-34); Mean Corpuscular Volume 87 fl (84-94); Monocytes # (Auto) 0.4 K/mm3 (0.0-0.8); Monocytes % (Auto) 7.5 % (0.0-7.3); Platelet Count 180 K/mm3 (140-440); Red Blood Count 5.22 M/mm3 (3.65-5.03); Red Cell Distribution Width 13.8 % (13.2-15.2)
[2020-07-25 13:26] LABS: Alanine Aminotransferase 32 units/L (7-56); Albumin 4.1 g/dL (3.9-5); BUN/Creatinine Ratio 8; Blood Urea Nitrogen 8 mg/dL (9-20); Calcium 9.1 mg/dL (8.4-10.2); Hemolysis Index 18
[2020-07-25] MEDS ORDERED: ONDANSETRON 4 MG/2 ML INJ IV ONE (15:30)
[2020-07-25] MEDS ORDERED: MORPHINE 4 MG/1 ML INJ IV ONE (15:30)
[2020-07-25] MEDS ORDERED: SODIUM CHLORIDE 0.9% 1000 ML 1,000 ML IV ONE (15:30)
[2020-07-25] MEDS ORDERED: PANTOPRAZOLE 40 MG INJ IV ONE (15:30)
[2020-07-25] MEDS ORDERED: LACTULOSE 20 GM/30 ML ORAL LIQD PO ONE (15:31)
--- NOTE | 2020-07-25 15:39 | Emergency Department Report ---
ED General Adult HPI - General Chief complaint: Seizure Stated complaint: ABD PAIN/SEIZURE/SORE THROAT Time Seen by Provider: 07/25/20 15:30 Source: patient Mode of arrival: Ambulatory Limitations: No Limitations - History of Present Illness Initial comments: Patient is a 49-year-old male presents emergency room with complaints of a seizure that occurred this morning. He states that it occurred at home and he lives alone so it was not witnessed. He states he did have an episode of urinary incontinence due to the seizure. He denies any symptoms at all related to his seizure. he denies biting his tongue, headache or neck pain. He states that he has also been having generalized abdominal pain. He states he went to a GI doctor 2 days ago and was diagnosed with a hernia and states that he has oral thrush which he is being treated by the GI doctor for. He states that the GI doctor plans to do an ultrasound of his abdomen. He states that he has been constipated for a week and has been taking Colace without relief, he states he is still able to pass gas and tolerate PO intake. He denies any nausea, vomiting, chills, fever, hematochezia, hematemesis, melena. He states that also he noticed a blister to his abdomen after giving himself a subcutaneous injection of insulin. He denies any drainage or redness surrounding the site. He has a past medical history of DM, CAD with stents, seizure. He states that he did not take his morning dose of Keppra. - Related Data Home Medications Medication Instructions Recorded Confirmed Last Taken Aspirin [Aspirin BABY CHEW TAB] 81 mg PO QDAY 08/13/15 06/30/20 06/28/20 Pregabalin [Lyrica] 100 mg PO 4XD 06/30/20 06/30/20 06/28/20 Previous Rx's Medication Instructions Recorded Last Taken Type levETIRAcetam [Keppra TAB] 1,000 mg PO BID #60 04/30/20 06/28/20 Rx HYDROcodone/APAP 5-325 [[place] 1 each PO BID PRN #10 tablet 06/18/20 06/28/20 Rx 5-325 mg TAB] Chlorhexidine Gluconate [Hibiclens] 10 ml TP BID #240 liquid 07/05/20 Unknown Rx Clindamycin [Clindamycin CAP] 150 mg PO Q8HR #21 capsule 07/05/20 Unknown Rx Famotidine [Pepcid] 40 mg PO QHS #30 tablet 07/25/20 Unknown Rx Neomycin/Bacitracin/Polymyxinb 1 applicatio TP BID #14 oint...g. 07/25/20 Unknown Rx [Triple Antibiotic Ointment] Polyethylene Glycol 3350 [Miralax] 7 gm PO DAILY PRN #1 powder 07/25/20 Unknown Rx Sucralfate [Carafate] 1 gm PO ACHS 7 Days #21 tablet 07/25/20 Unknown Rx Allergies Allergy/AdvReac Type Severity Reaction Status Date / Time Penicillins Allergy Severe Anaphylaxis Verified 04/03/20 12:38 acetaminophen [From Tylenol] Allergy Swelling Verified 06/29/20 04:42 metoclopramide HCl Allergy Unknown Verified 04/03/20 12:38 [From Reglan] ibuprofen AdvReac Unknown Swelling Verified 04/03/20 12:38 iv contract dy Allergy Severe Anaphylaxis Uncoded 08/07/19 08:14 ED Review of Systems ROS: Stated complaint: ABD PAIN/SEIZURE/SORE THROAT Other details as noted in HPI Comment: All other systems reviewed and negative ED Past Medical Hx - Past Medical History Previous Medical History?: Yes Hx Hypertension: Yes Hx Heart Attack/AMI: Yes Hx Congestive Heart Failure: No Hx Diabetes: Yes Hx Seizures: Yes Hx Psychiatric Treatment: Yes (anxiety) Hx Asthma: Yes Hx COPD: No Additional medical history: H.pylori, Hypoglycemia - Surgical History Past Surgical History?: Yes Hx Coronary Stent: Yes (x3) Hx Appendectomy: Yes 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 - Social History Smoking Status: Never Smoker Substance Use Type: None - Medications Home Medications: Home Medications Medication Instructions Recorded Confirmed Last Taken Type Aspirin [Aspirin BABY CHEW TAB] 81 mg PO QDAY 08/13/15 06/30/20 06/28/20 History levETIRAcetam [Keppra TAB] 1,000 mg PO BID #60 04/30/20 06/30/20 06/28/20 Rx HYDROcodone/APAP 5-325 [[place] 1 each PO BID PRN #10 tablet 06/18/20 06/30/20 06/28/20 Rx 5-325 mg TAB] Pregabalin [Lyrica] 100 mg PO 4XD 06/30/20 06/30/20 06/28/20 History Chlorhexidine Gluconate [Hibiclens] 10 ml TP BID #240 liquid 07/05/20 Unknown Rx Clindamycin [Clindamycin CAP] 150 mg PO Q8HR #21 capsule 07/05/20 Unknown Rx Famotidine [Pepcid] 40 mg PO QHS #30 tablet 07/25/20 Unknown Rx Neomycin/Bacitracin/Polymyxinb 1 applicatio TP BID #14 oint...g. 07/25/20 Unknown Rx [Triple Antibiotic Ointment] Polyethylene Glycol 3350 [Miralax] 7 gm PO DAILY PRN #1 powder 07/25/20 Unknown Rx Sucralfate [Carafate] 1 gm PO ACHS 7 Days #21 tablet 07/25/20 Unknown Rx ED Physical Exam - General Limitations: No Limitations General appearance: alert, in no apparent distress - Head Head exam: Present: atraumatic, normocephalic - Eye Eye exam: Present: normal appearance - ENT ENT exam: Present: mucous membranes moist - Respiratory Respiratory exam: Present: normal lung sounds bilaterally. Absent: respiratory distress, wheezes, rales, rhonchi, stridor, chest wall tenderness, accessory muscle use, decreased breath sounds, prolonged expiratory - Cardiovascular Cardiovascular Exam: Present: regular rate, normal rhythm, normal heart sounds. Absent: systolic murmur, diastolic murmur, rubs, gallop - GI/Abdominal GI/Abdominal exam: Present: soft, tenderness (mild generalized), normal bowel sounds, other (small one cm fluid filled blister present to the left lower abdomen, no surrounding erythem, no increased warmth, no fluctuance). Absent: distended, guarding, rebound, rigid - Neurological Exam Neurological exam: Present: alert, oriented X3 - Psychiatric Psychiatric exam: Present: normal affect, normal mood - Skin Skin exam: Present: warm, dry ED Course Vital Signs 07/25/20 07/25/20 10:58 19:17 Temperature 97.5 F L Pulse Rate 103 H 75 Respiratory 18 20 Rate Blood Pressure 177/109 Blood Pressure 151/104 [Right] O2 Sat by Pulse 96 100 Oximetry ED Medical Decision Making - Lab Data Result diagrams: 07/25/20 12:28 07/25/20 12:28 Lab Results 07/25/20 07/25/20 Range/Units 12:28 12:28 WBC 5.1 (4.5-11.0) K/mm3 RBC 5.22 H (3.65-5.03) M/mm3 Hgb 15.7 H (11.8-15.2) gm/dl Hct 45.6 (35.5-45.6) % MCV 87 (84-94) fl MCH 30 (28-32) pg MCHC 34 (32-34) % RDW 13.8 (13.2-15.2) % Plt Count 180 (140-440) K/mm3 Lymph % (Auto) 36.2 H (13.4-35.0) % [place] % (Auto) 7.5 H (0.0-7.3) % Eos % (Auto) 3.4 (0.0-4.3) % Baso % (Auto) 1.0 (0.0-1.8) % Lymph # (Auto) 1.9 (1.2-5.4) K/mm3 [place] # (Auto) 0.4 (0.0-0.8) K/mm3 Eos # (Auto) 0.2 (0.0-0.4) K/mm3 Baso # (Auto) 0.1 (0.0-0.1) K/mm3 Seg Neutrophils % 51.9 (40.0-70.0) % Seg Neutrophils # 2.7 (1.8-7.7) K/mm3 Sodium 138 (137-145) mmol/L Potassium 4.2 (3.6-5.0) mmol/L Chloride 103.0 (98-107) mmol/L Carbon Dioxide 28 (22-30) mmol/L Anion Gap 11 mmol/L BUN 8 L (9-20) mg/dL Creatinine 1.0 (0.8-1.3) mg/dL Estimated GFR > 60 ml/min BUN/Creatinine Ratio 8 % Glucose 225 H (75-100) mg/dL Calcium 9.1 (8.4-10.2) mg/dL Magnesium 2.00 (1.7-2.3) mg/dL Total Bilirubin 0.30 (0.1-1.2) mg/dL AST 23 (5-40) units/L ALT 32 (7-56) units/L Alkaline Phosphatase 99 (35-129) units/L Total Protein 7.2 (6.3-8.2) g/dL Albumin 4.1 (3.9-5) g/dL Albumin/Globulin Ratio 1.3 % Lipase 31 (13-60) units/L Vital Signs 07/25/20 07/25/20 10:58 19:17 Temperature 97.5 F L Pulse Rate 103 H 75 Respiratory 18 20 Rate Blood Pressure 177/109 Blood Pressure 151/104 [Right] O2 Sat by Pulse 96 100 Oximetry - Radiology Data Radiology results: report reviewed CT OF THE ABDOMEN AND PELVIS WITHOUT CONTRAST INDICATION / CLINICAL INFORMATION: Abdominal pain and constipation. History of hernia. TECHNIQUE: All CT scans at this location are performed using CT dose reduction for ALARA by means of automated exposure control. COMPARISON: 08/07/2019. FINDINGS: ABDOMEN: The liver, spleen, gallbladder, bile ducts, pancreas, adrenal glands and kidneys are normal. There is a moderate amount of stool throughout the colon. I see no evidence of bowel obstruction, wall thickening or free air. No adenopathy is identified. The lung bases are clear. PELVIS: The distal ureters, urinary bladder and prostate gland are normal. Bilateral vas deferens calcification can be seen with diabetes. There are a few sigmoid diverticula without acute inflammation. There is no evidence of appendicitis. No abnormal mass or fluid collection is seen. There is a tiny fat-containing periumbilical hernia without complication. Mild spondylosis is present. IMPRESSION: 1. No acute abnormality. 2. Moderate amount of stool throughout the colon. Signer Name: Ryan Sosa MD Signed: 07/25/2020 4:05 PM Workstation Name: [id number] Transcribed By: RT Dictated By: Ryan Sosa MD Electronically Authenticated By: Ryan Sosa MD Signed Date/Time: 07/25/20 1605 DD/ 1601 TD/TT: - Medical Decision Making Patient is a 49-year-old male presents emergency room with complaints of a seizure that occurred this morning. He states that it occurred at home and he lives alone so it was not witnessed. He states he did have an episode of urinary incontinence due to the seizure. He denies any symptoms at all related to his seizure. he denies biting his tongue, headache or neck pain. He states that he has also been having generalized abdominal pain. He states he went to a GI doctor 2 days ago and was diagnosed with a hernia and states that he has oral thrush which he is being treated by the GI doctor for. He states that the GI doctor plans to do an ultrasound of his abdomen. He states that he has been constipated for a week and has been taking Colace without relief, he states he is still able to pass gas and tolerate PO intake. He denies any nausea, vomiting, chills, fever, hematochezia, hematemesis, melena. He states that also he noticed a blister to his abdomen after giving himself a subcutaneous injection of insulin. He denies any drainage or redness surrounding the site. He has a past medical history of DM, CAD with stents, seizure. He states that he did not take his morning dose of Keppra. Initial vitals with mildly elevated heart rate and blood pressure which improved upon repeat. On exam: Mild generalized abdominal tenderness on exam, no guarding, no rebound, no rigidity, normal bowel sounds, no peritoneal signs, small one cm fluid filled blister present to the left lower abdomen, no surrounding erythema, no increased warmth, no fluctuance. Labs are stable. CT abdomen pelvis without contrast 1. No acute abnormality. 2. Moderate amount of stool throughout the colon. After medication administration patient broke out in urticaria, given IV Benadryl and symptoms improved, no facial swelling, difficulty swallowing, sensation of throat closing, difficulty breathing. symptoms improved with medications. pt was given IV keppra loading dose, had no seizure activity while in the ED. was observed for multiple hours with no further complications. Discussed all results with patient and answered questions. Discussed the importance of GI follow-up. Advised nurse to update allergy list. Patient given prescription for Carafate, Pepcid, MiraLAX, triple abx ointment. Advised patient Please take medication as prescribed. Increase your water intake. Increase your fiber intake. Follow-up with your GI doctor. Follow-up with your primary care doctor. Return to emergency room for any new or worsening symptoms. Critical care attestation.: If time is entered above; I have spent that time in minutes in the direct care of this critically ill patient, excluding procedure time. ED Disposition Clinical Impression: Seizure, Blistered skin Abdominal pain Qualifiers: Abdominal location: generalized Qualified Code(s): R10.84 - Generalized abdominal pain Constipation Qualifiers: Constipation type: unspecified constipation type Qualified Code(s): K59.00 - Constipation, unspecified Disposition: TO HOME OR SELFCARE Is pt being admited?: No Does the pt Need Aspirin: No Condition: Stable Instructions: Constipation, Adult, [id number], Seizure, Adult, [id number] Additional Instructions: Please take medication as prescribed. Increase your water intake. Increase your fiber intake. Follow-up with your GI doctor. Follow-up with your primary care doctor. Return to emergency room for any new or worsening symptoms. Prescriptions: Famotidine [Pepcid] 40 mg PO QHS #30 tablet Sucralfate [Carafate] 1 gm PO ACHS 7 Days #21 tablet Polyethylene Glycol 3350 [Miralax] 7 gm PO DAILY PRN #1 powder PRN Reason: constipation Neomycin/Bacitracin/Polymyxinb [Triple Antibiotic Ointment] 1 applicatio TP BID #14 oint...g. Referrals: PRIMARY CARE, [Primary Care Provider] - 2-3 Days your, GI doctor [Other] - 2-3 Days Time of Disposition: 18:19 Print Language: NAMIBIAN
[2020-07-25] MEDS ORDERED: levETIRAcetam 1,000 MG in DEXTROSE 5% IN WATER 100 ML IV ONE (16:00)
--- NOTE | 2020-07-25 16:09 | Cat Scan Report ---
CT OF THE ABDOMEN AND PELVIS WITHOUT CONTRAST INDICATION / CLINICAL INFORMATION: Abdominal pain and constipation. History of hernia. TECHNIQUE: All CT scans at this location are performed using CT dose reduction for ALARA by means of automated e xposure control. COMPARISON: 08/07/2019. FINDINGS: ABDOMEN: The liver, spleen, gallbladder, bile ducts, pancreas, adrenal glands and kidneys are normal. There is a moderate amount of stool throughout the colon. I see no evidence of bowel obstruction, wa ll thickening or free air. No adenopathy is identified. The lung bases are clear. PELVIS: The distal ureters, urinary bladder and prostate gland are normal. Bilateral vas deferens lencho cification can be seen with diabetes. There are a few sigmoid diverticula without acute inflammation. There is no evidence of appendicitis. No abnormal mass or fluid collection is seen. There is a tiny fat-containing periumbilical hernia without complication. Mild spondylosis is present. IMPRESSION: 1. No acute abnormality. 2. Moderate amount of stool throughout the colon. Signer Name: Ryan Sosa MD Signed: 07/25/2020 4:05 PM Workstation Name: [id number]
[2020-07-25] MEDS ORDERED: diphenhydrAMINE 50 MG/ML VIAL IV ONE (16:32)
[2020-07-25] MEDS ORDERED: diphenhydrAMINE 50 MG/ML VIAL ONE (16:32)
[2020-07-25 19:18] VITALS: BP 151/104
== END 2020-07-25 19:18 | disposition home or self-care (01) ==
LOC: ED 10:55
DX: K59.00 Constipation, unspecified (principal); R10.84 Generalized abdominal pain; R56.9 Unspecified convulsions; I25.2 Old myocardial infarction; I10 Essential (primary) hypertension; E11.9 Type 2 diabetes mellitus without complications; F41.9 Anxiety disorder, unspecified; J45.909 Unspecified asthma, uncomplicated; Z90.49 Acquired absence of other specified parts of digestive tract; Z98.890 Other specified postprocedural states; Z79.2 Long term (current) use of antibiotics; Z79.899 Other long term (current) drug therapy; Z88.8 Allergy status to other drugs, medicaments and biological substances; Z88.0 Allergy status to penicillin
CPT/HCPCS: 36415; 74176; 80053; 83690; 83735; 85025; 93005; 96365; 96375; 99284; C9113; J1200; J1953; J2270; J2405; J7030

== ENCOUNTER 2020-08-29 12:22 | Emergency (ER) | payer MEDICAID ==
[2020-08-29 12:42] VITALS: BP 160/98
--- NOTE | 2020-08-29 13:14 | Emergency Department Report ---
ED Abdominal Pain HPI - General Chief Complaint: Abdominal Pain Stated Complaint: ABD PAIN/SCIZURES/CONSTIPATION Time Seen by Provider: 08/29/20 12:42 Source: patient Mode of arrival: Ambulatory Limitations: No Limitations - History of Present Illness Initial Comments: Patient is a 49-year-old male who presents emergency room with complaints of constipation for 5 days. He states he has had generalized abdominal discomfort for a few weeks. He states that he had ultrasound performed of his abdomen 3 days ago and is still awaiting the results. Patient was evaluated for the same symptoms on 07/25/[address] abdomen pelvis at that time without contrast which showed constipation but otherwise no abnormality. He states he has an upcoming appointment with a GI doctor for colonoscopy. He denies any fever, nausea, vomiting, diarrhea, hematochezia, melena, hematemesis. He is tolerating p.o. intake without difficulty. He has a past medical history of diabetes and seizures. He states that his primary care doctor took him off of insulin. He has an allergy to penicillin, Tylenol, Reglan, ibuprofen, IV dye. Severity scale (0 -10): 9 - Related Data Home Medications Medication Instructions Recorded Confirmed Last Taken Aspirin [Aspirin BABY CHEW TAB] 81 mg PO QDAY 08/13/15 06/30/20 06/28/20 Pregabalin [Lyrica] 100 mg PO 4XD 06/30/20 06/30/20 06/28/20 Previous Rx's Medication Instructions Recorded Last Taken Type levETIRAcetam [Keppra TAB] 1,000 mg PO BID #60 04/30/20 06/28/20 Rx HYDROcodone/APAP 5-325 [[place] 1 each PO BID PRN #10 tablet 06/18/20 06/28/20 Rx 5-325 mg TAB] Chlorhexidine Gluconate [Hibiclens] 10 ml TP BID #240 liquid 07/05/20 Unknown Rx Clindamycin [Clindamycin CAP] 150 mg PO Q8HR #21 capsule 07/05/20 Unknown Rx Famotidine [Pepcid] 40 mg PO QHS #30 tablet 07/25/20 Unknown Rx Neomycin/Bacitracin/Polymyxinb 1 applicatio TP BID #14 oint...g. 07/25/20 Unknown Rx [Triple Antibiotic Ointment] Polyethylene Glycol 3350 [Miralax] 7 gm PO DAILY PRN #1 powder 07/25/20 Unknown Rx Sucralfate [Carafate] 1 gm PO ACHS 7 Days #21 tablet 07/25/20 Unknown Rx Allergies Allergy/AdvReac Type Severity Reaction Status Date / Time Penicillins Allergy Severe Anaphylaxis Verified 08/29/20 12:40 acetaminophen [From Tylenol] Allergy Swelling Verified 08/29/20 12:40 metoclopramide HCl Allergy Unknown Verified 08/29/20 12:40 [From Reglan] ibuprofen AdvReac Unknown Swelling Verified 08/29/20 12:40 iv contract dy Allergy Severe Anaphylaxis Uncoded 08/07/19 08:14 ED Review of Systems ROS: Stated complaint: ABD PAIN/SCIZURES/CONSTIPATION Other details as noted in HPI Comment: All other systems reviewed and negative ED Past Medical Hx - Past Medical History Hx Hypertension: Yes Hx Heart Attack/AMI: Yes Hx Congestive Heart Failure: No Hx Diabetes: Yes Hx Seizures: Yes Hx Psychiatric Treatment: Yes (anxiety) Hx Asthma: Yes Hx COPD: No Additional medical history: H.pylori, Hypoglycemia - Surgical History Hx Coronary Stent: Yes (x3) Hx Appendectomy: Yes 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 - Social History Smoking Status: Never Smoker Substance Use Type: None - Medications Home Medications: Home Medications Medication Instructions Recorded Confirmed Last Taken Type Aspirin [Aspirin BABY CHEW TAB] 81 mg PO QDAY 08/13/15 06/30/20 06/28/20 History levETIRAcetam [Keppra TAB] 1,000 mg PO BID #60 04/30/20 06/30/20 06/28/20 Rx HYDROcodone/APAP 5-325 [[place] 1 each PO BID PRN #10 tablet 06/18/20 06/30/20 06/28/20 Rx 5-325 mg TAB] Pregabalin [Lyrica] 100 mg PO 4XD 06/30/20 06/30/20 06/28/20 History Chlorhexidine Gluconate [Hibiclens] 10 ml TP BID #240 liquid 07/05/20 Unknown Rx Clindamycin [Clindamycin CAP] 150 mg PO Q8HR #21 capsule 07/05/20 Unknown Rx Famotidine [Pepcid] 40 mg PO QHS #30 tablet 07/25/20 Unknown Rx Neomycin/Bacitracin/Polymyxinb 1 applicatio TP BID #14 oint...g. 07/25/20 Unknown Rx [Triple Antibiotic Ointment] Polyethylene Glycol 3350 [Miralax] 7 gm PO DAILY PRN #1 powder 07/25/20 Unknown Rx Sucralfate [Carafate] 1 gm PO ACHS 7 Days #21 tablet 07/25/20 Unknown Rx ED Physical Exam - General Limitations: No Limitations General appearance: alert, in no apparent distress - Head Head exam: Present: atraumatic, normocephalic - Eye Eye exam: Present: normal appearance - ENT ENT exam: Present: mucous membranes moist - Respiratory Respiratory exam: Present: normal lung sounds bilaterally. Absent: respiratory distress, wheezes, rales, rhonchi, stridor, chest wall tenderness, accessory muscle use, decreased breath sounds, prolonged expiratory - Cardiovascular Cardiovascular Exam: Present: regular rate, normal rhythm, normal heart sounds. Absent: systolic murmur, diastolic murmur, rubs, gallop - GI/Abdominal GI/Abdominal exam: Present: soft, normal bowel sounds. Absent: distended, tenderness, guarding, rebound, rigid - Neurological Exam Neurological exam: Present: alert, oriented X3 - Psychiatric Psychiatric exam: Present: normal affect, normal mood - Skin Skin exam: Present: warm, dry, intact ED Course Vital Signs 08/29/20 08/29/20 12:41 12:42 Temperature 98.3 F 98.3 F Pulse Rate 102 H 102 H Respiratory 18 18 Rate Blood Pressure 160/98 Blood Pressure 160/98 [Right] O2 Sat by Pulse 100 98 Oximetry ED Medical Decision Making - Medical Decision Making Patient is a 49-year-old male who presents emergency room with complaints of constipation for 5 days. He states he has had generalized abdominal discomfort for a few weeks. He states that he had ultrasound performed of his abdomen 3 days ago and is still awaiting the results. Patient was evaluated for the same symptoms on 07/25/[address] abdomen pelvis at that time without contrast which showed constipation but otherwise no abnormality. He states he has an upcoming appointment with a GI doctor for colonoscopy. He denies any fever, nausea, vomiting, diarrhea, hematochezia, melena, hematemesis. He is tolerating p.o. intake without difficulty. He has a past medical history of diabetes and seizures. He states that his primary care doctor took him off of insulin. He has an allergy to penicillin, Tylenol, Reglan, ibuprofen, IV dye. VSS. blood glucose point of care is 108. No abdominal tenderness on exam, no guarding, no rebound, no rigidity, no bowel sounds, no peritoneal signs. Abdominal x-ray ordered. Do not suspect obstruction. Likely has constipation, x-ray ordered to rule out fecal impaction. Patient is already had a CT of his abdomen last month. He already had an outpatient ultrasound performed 3 days ago. Advised patient that we would discuss his x-ray results once they have been completed. Patient eloped from the emergency department prior to receiving x-ray and complete medical examination. Critical care attestation.: If time is entered above; I have spent that time in minutes in the direct care of this critically ill patient, excluding procedure time. ED Disposition Clinical Impression: Constipation Qualifiers: Constipation type: unspecified constipation type Qualified Code(s): K59.00 - Constipation, unspecified Abdominal pain Qualifiers: Abdominal location: generalized Qualified Code(s): R10.84 - Generalized abdominal pain Disposition: Z07 ELOPED Is pt being admited?: No Does the pt Need Aspirin: No Condition: Undetermined Referrals: PRIMARY CARE, [Primary Care Provider] - 3-5 Days
== END 2020-08-29 13:00 | disposition left against medical advice (07) ==
LOC: ED 12:22
DX: K59.00 Constipation, unspecified (principal); R10.84 Generalized abdominal pain; I25.2 Old myocardial infarction; I10 Essential (primary) hypertension; E11.9 Type 2 diabetes mellitus without complications; R56.9 Unspecified convulsions; F41.9 Anxiety disorder, unspecified; J45.909 Unspecified asthma, uncomplicated; Z90.49 Acquired absence of other specified parts of digestive tract; Z98.890 Other specified postprocedural states; Z79.899 Other long term (current) drug therapy; Z88.8 Allergy status to other drugs, medicaments and biological substances
CPT/HCPCS: 82962; 99282

== ENCOUNTER 2020-09-19 20:03 | Observation (INO) | payer MEDICAID ==
--- NOTE | 2020-09-19 21:46 | Event Note ---
ED Screening Note Date of service: 09/19/20 Time: 21:45 ED Screening Note: 49-year-old -[place] male with states that he had a seizure today and has low blood sugar nausea vomiting and abdominal pain. This initial assessment/diagnostic orders/clinical plan/treatment(s) is/are subject to change based on patients health status, clinical progression and re- assessment by fellow clinical providers in the ED. Further treatment and workup at subsequent clinical providers discretion. Patient/guardian urged not to elope from the ED as their condition may be serious if not clinically assessed and managed. Initial orders include:
[2020-09-19 21:55] LABS: Hematocrit 49.6 % (35.5-45.6); Hemoglobin 17.2 gm/dl (11.8-15.2); Mean Corpuscular HGB Conc 35 % (32-34); Mean Corpuscular Volume 86 fl (84-94); Platelet Count 224 K/mm3 (140-440); Red Blood Count 5.75 M/mm3 (3.65-5.03); Red Cell Distribution Width 13.8 % (13.2-15.2)
[2020-09-19 22:19] LABS: Alanine Aminotransferase 42 units/L (7-56); Albumin 4.7 g/dL (3.9-5); BUN/Creatinine Ratio 8; Blood Urea Nitrogen 10 mg/dL (9-20); Calcium 9.9 mg/dL (8.4-10.2); Hemolysis Index 21
--- NOTE | 2020-09-19 22:57 | Emergency Department Report ---
ED Seizure HPI - General Chief Complaint: Seizure Stated Complaint: SEIZURE/ABD PAIN/GLUCOSE PROBLEM Time Seen by Provider: 09/19/20 22:41 Source: patient Mode of arrival: Ambulatory Limitations: No Limitations - History of Present Illness Initial Comments: Patient is a 49-year-old male who presents emergency with complaints of seizure, abdominal pain and hypoglycemia. Patient states that he was getting off a plane from a trip from [place] back to here and he developed abdominal pain in his right upper quadrant and then had a seizure. Patient states they checked his sugar and it was low. Patient states he is also having nausea and vomiting. Patient states the abdominal pain is a 10 out of 10. Patient states the pain is better with rest and worse with palpation and movement. Patient states he is compliant with his Keppra. 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 Patient denies blood in his vomitus. Patient denies constipation. Patient denies diarrhea. Patient states the order events were abdominal pain and seizure hypoglycemia. Patient states he has had seizures in the past from hypoglycemia. Patient denies recent travel. Patient denies recent international travel. Patient denies exposure to the novel coronavirus. Patient denies sick contacts. Patient denies fever and chills. Patient denies cough. Patient denies diarrhea. Patient denies coming in contact with anybody with symptoms of the novel coronavirus. MD Complaint: seizure -: Sudden Description of Episode: loss of consciousness -: second(s) Witnessed:: Yes Trauma: No Seizure History: known seizure disorder, compliant with medication Place: home Possible Precipitating Event: stress (Pain) Associated Symptoms: denies: chest pain, confusion, cough, diaphoresis, fever/chills, loss of appetite, malaise, rash, shortness of breath Treatments Prior to Arrival: none - Related Data Home Medications Medication Instructions Recorded Confirmed Last Taken Aspirin [Aspirin BABY CHEW TAB] 81 mg PO QDAY 08/13/15 06/30/20 06/28/20 Pregabalin [Lyrica] 100 mg PO 4XD 06/30/20 06/30/20 06/28/20 Previous Rx's Medication Instructions Recorded Last Taken Type levETIRAcetam [Keppra TAB] 1,000 mg PO BID #60 04/30/20 06/28/20 Rx HYDROcodone/APAP 5-325 [[place] 1 each PO BID PRN #10 tablet 06/18/20 06/28/20 Rx 5-325 mg TAB] Chlorhexidine Gluconate [Hibiclens] 10 ml TP BID #240 liquid 07/05/20 Unknown Rx Clindamycin [Clindamycin CAP] 150 mg PO Q8HR #21 capsule 07/05/20 Unknown Rx Famotidine [Pepcid] 40 mg PO QHS #30 tablet 07/25/20 Unknown Rx Neomycin/Bacitracin/Polymyxinb 1 applicatio TP BID #14 oint...g. 07/25/20 Unknown Rx [Triple Antibiotic Ointment] Polyethylene Glycol 3350 [Miralax] 7 gm PO DAILY PRN #1 powder 07/25/20 Unknown Rx Sucralfate [Carafate] 1 gm PO ACHS 7 Days #21 tablet 07/25/20 Unknown Rx Allergies Allergy/AdvReac Type Severity Reaction Status Date / Time Penicillins Allergy Severe Anaphylaxis Verified 08/29/20 12:40 acetaminophen [From Tylenol] Allergy Swelling Verified 08/29/20 12:40 metoclopramide HCl Allergy Unknown Verified 08/29/20 12:40 [From Reglan] ibuprofen AdvReac Unknown Swelling Verified 08/29/20 12:40 iv contract dy Allergy Severe Anaphylaxis Uncoded 08/07/19 08:14 ED Review of Systems ROS: Stated complaint: SEIZURE/ABD PAIN/GLUCOSE PROBLEM Other details as noted in HPI Constitutional: denies: chills, fever Eyes: denies: eye pain, eye discharge, vision change ENT: denies: ear pain, throat pain Respiratory: denies: cough, shortness of breath, wheezing Cardiovascular: denies: chest pain, palpitations Endocrine: no symptoms reported Gastrointestinal: as per HPI, abdominal pain, nausea, vomiting. denies: diarrhea Genitourinary: denies: urgency, dysuria Musculoskeletal: denies: back pain, joint swelling, arthralgia Skin: denies: rash, lesions Neurological: as per HPI. 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 - Social History Smoking Status: Never Smoker Substance Use Type: None - Medications Home Medications: Home Medications Medication Instructions Recorded Confirmed Last Taken Type Aspirin [Aspirin BABY CHEW TAB] 81 mg PO QDAY 08/13/15 06/30/20 06/28/20 History levETIRAcetam [Keppra TAB] 1,000 mg PO BID #60 04/30/20 06/30/20 06/28/20 Rx HYDROcodone/APAP 5-325 [[place] 1 each PO BID PRN #10 tablet 06/18/20 06/30/20 06/28/20 Rx 5-325 mg TAB] Pregabalin [Lyrica] 100 mg PO 4XD 06/30/20 06/30/20 06/28/20 History Chlorhexidine Gluconate [Hibiclens] 10 ml TP BID #240 liquid 07/05/20 Unknown Rx Clindamycin [Clindamycin CAP] 150 mg PO Q8HR #21 capsule 07/05/20 Unknown Rx Famotidine [Pepcid] 40 mg PO QHS #30 tablet 07/25/20 Unknown Rx Neomycin/Bacitracin/Polymyxinb 1 applicatio TP BID #14 oint...g. 07/25/20 Unknown Rx [Triple Antibiotic Ointment] Polyethylene Glycol 3350 [Miralax] 7 gm PO DAILY PRN #1 powder 07/25/20 Unknown Rx Sucralfate [Carafate] 1 gm PO ACHS 7 Days #21 tablet 07/25/20 Unknown Rx ED Physical Exam - General Limitations: No Limitations General appearance: alert, in no apparent distress - Head Head exam: Present: atraumatic, normocephalic - Eye Eye exam: Present: normal appearance, PERRL Pupils: Present: normal accommodation - ENT ENT exam: Present: mucous membranes dry - Neck Neck exam: Present: normal inspection - Respiratory Respiratory exam: Present: normal lung sounds bilaterally. Absent: respiratory distress - Cardiovascular Cardiovascular Exam: Present: regular rate, normal rhythm. Absent: systolic murmur, diastolic murmur, rubs, gallop - GI/Abdominal GI/Abdominal exam: Present: soft, tenderness (Right upper quadrant tenderness to palpation.), normal bowel sounds - Rectal Rectal exam: Present: deferred - Extremities Exam Extremities exam: Present: normal inspection - Back Exam Back exam: Present: normal inspection - Neurological Exam Neurological exam: Present: alert, oriented X3 - Psychiatric Psychiatric exam: Present: normal affect, normal mood - Skin Skin exam: Present: warm, dry, intact, normal color. Absent: rash ED Course Vital Signs 09/19/20 09/19/20 09/19/20 20:54 23:21 23:31 Temperature 98.4 F Pulse Rate 96 H 94 H Respiratory 18 18 18 Rate Blood Pressure 171/100 141/87 O2 Sat by Pulse 96 96 Oximetry 09/19/20 09/19/20 09/20/20 23:45 23:49 00:01 Temperature Pulse Rate 88 86 87 Respiratory 17 14 13 Rate Blood Pressure 122/82 122/82 115/79 O2 Sat by Pulse 95 93 93 Oximetry 09/20/20 09/20/20 09/20/20 00:15 00:45 01:01 Temperature Pulse Rate 85 88 84 Respiratory 14 14 14 Rate Blood Pressure 107/74 117/78 111/70 O2 Sat by Pulse 92 96 96 Oximetry 09/20/20 09/20/20 09/20/20 01:15 01:31 01:45 Temperature Pulse Rate 90 93 H 92 H Respiratory 14 18 18 Rate Blood Pressure 107/69 124/77 110/70 O2 Sat by Pulse 94 97 98 Oximetry - Reevaluation(s) Reevaluation #1: Patient Accu-Chek check and the patient's blood sugar is low. Patient will be given D50. 09/19/20 23:45 Reevaluation #2: Patient states his pain is better. I discussed all results with patient. I discussed plan of care with patient. Patient agrees with plan of care and admission. Patient to be admitted to the hospitalist service. 09/20/20 01:39 - Consultations Consultation #1: Hospitalist consulted for admission. Hospitalist to admit patient. 09/20/20 01:39 ED Medical Decision Making - Lab Data Result diagrams: 09/19/20 21:42 09/19/20 21:42 - Radiology Data Radiology results: report reviewed CT head/brain w con INDICATION: sz.. TECHNIQUE: All CT scans at this location are performed using the following dose modulation technique: Automated exposure control. CONTRAST: None. COMPARISON: 06/29/2020. FINDINGS: The ventricular system is appropriate in size and configuration w ithout midline shift. Negative for mass, stroke or hemorrhage. Imaged portions the paranasal sinuses are clear. IMPRESSION: Negative CT brain without contrast. CT abdomen pelvis wo con INDICATION: abd pain. n/v. TECHNIQUE: All CT scans at this location are performed using the following dose modulation technique: Automated exposure control. CONTRAST: None. COMPARISON: CT abdomen and pelvis 07/25/2020. CT ABDOMEN: The parenchymal organs are unremarkable in appearance. Negative for abdominal mass, fluid or inflammation. The bowel is not dilated or thickened. A fat-containing umbilical hernia is small. CT PELVIS: Negative for distal ureteral stone, pelvic fluid collection or inflammation. IMPRESSION: Negative for obstruction or localized inflammation. - Medical Decision Making Patient is a 49-year-old male who presents emergency room with complaints of a bdominal pain, seizure and hypoglycemia. Patient not sure whether the hypoglycemia cause a seizure or the stress from the abdominal pain, seizure. Patient complains of right upper quadrant abdominal pain. Patient symptoms started today of arrival. Patient has frequent hypoglycemias. Patient hyp oglycemic in the ER and the patient was given D50 and the patient's blood sugar improved. Patient given Keppra for his seizure precaution. Patient had a head CT which was negative for acute findings. Patient given Zofran and Dilaudid for abdominal pain. CT scan done for the abdominal pain. Patient's CT scan was negative for acute findings. Patient admitted to the hospital service for further evaluation treatment and observation. - Differential Diagnosis Seizure, hypoglycemia, insulin overdose, abdominal pain, gallbladder d/o Critical Care Time: Yes Critical care time in (mins) excluding proc time.: 35 Critical care attestation.: If time is entered above; I have spent that time in minutes in the direct care of this critically ill patient, excluding procedure time. Critical Care Time: 35 minutes Critical care time documented due to the multiple reassessments, prolonged time at the bedside, interpretation of diagnostics and labs. ED Disposition Clinical Impression: Seizure, Hypoglycemia, Seizure due to hypoglycemia Abdominal pain Qualifiers: Abdominal location: right upper quadrant Qualified Code(s): R10.11 - Right upper quadrant pain Disposition: DC-09 OP ADMIT IP TO THIS HOSP Is pt being admited?: Yes Does the pt Need Aspirin: No Condition: Critical Time of Disposition: 01:40
[2020-09-19] MEDS ORDERED: HYDROmorphone 2 MG/1 ML INJ IV ONE (23:03)
[2020-09-19] MEDS ORDERED: ONDANSETRON 4 MG/2 ML INJ IV ONE (23:03)
[2020-09-19 23:09] LABS: Macrocytosis Rare; Total Cells Counted 100
[2020-09-19 23:10] LABS: Ovalocytes Rare
[2020-09-19 23:12] LABS: Platelet Estimate Consistent w Auto
[2020-09-19] MEDS ORDERED: DEXTROSE 50% IN WATER (25GM) 50 ML SYRINGE IV ONE ×2 (23:42→23:52)
[2020-09-19] MEDS ORDERED: levETIRAcetam 1000 MG/NS 0.75% 1,000 MG/100 ML BAG IV ONE (23:45)
--- NOTE | 2020-09-20 01:24 | Cat Scan Report ---
CT abdomen pelvis wo con INDICATION: abd pain. n/v. TECHNIQUE: All CT scans at this location are performed using the following dose modulation technique: Automated exposure control. CONTRAST: None. COMPARISON: CT abdomen and pelvis 07/25/2020. CT ABDOMEN: The parenchymal organs are unremarkable in appearance. Negative for abdominal mass, fluid or inflammation. The bowel is not dilated or thickened. A fat-containing umbilical hernia is small. CT PELVIS: Negative for distal ureteral stone, pelvic fluid collection or inflammation. IMPRESSION: Negative for obstruction or localized inflammation. Signer Name: Antonino Ventura MD Signed: 09/20/2020 1:20 AM Workstation Name: [email or web address]
--- NOTE | 2020-09-20 01:29 | Cat Scan Report ---
CT head/brain w con INDICATION: sz.. TECHNIQUE: All CT scans at this location are performed using the following dose modulation technique: Automated exposure control. CONTRAST: None. COMPARISON: 06/29/2020. FINDINGS: The ventricular system is appropriate in size and configuration without midline shift. Nega tive for mass, stroke or hemorrhage. Imaged portions the paranasal sinuses are clear. IMPRESSION: Negative CT brain without contrast. Signer Name: Antonino Ventura MD Signed: 09/20/2020 1:25 AM Workstation Name: [email or web address]
--- NOTE | 2020-09-20 02:08 | History and Physical Report ---
History of Present Illness Date of examination: 09/20/20 Date of admission: 09/20/20 Chief complaint: seizure Hypoglycemic History of present illness: Patient is a 49-year-old male who presents emergency with complaints of seizure, abdominal pain and hypoglycemia. Patient states that he was getting off a plane from a trip from [place] back to here and he developed abdominal pain in his right upper quadrant and then had a seizure. Patient states they checked his sugar and it was low. Patient states he is also having nausea and vomiting. Patient states the abdominal pain is a 10 out of 10. Patient states the pain is better with rest and worse with palpation and movement. Patient states he is compliant with his Keppra. 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 Patient denies blood in his vomitus. Patient denies constipation. Patient denies diarrhea. Patient states the order events were abdominal pain and seizure hypoglycemia. Patient states he has had seizures in the past from hypoglycemia. ED work-up shows WBC 9.7, hemoglobin 17.2, sodium 140, potassium 3.6 creatinine 1.2 Glucose 55, next CK level 353. CT of the abdomen done negative for acute process Patient seen in ED at bedside. He reports history of hypoglycemia and seizure disorder. Patient reports he said he was brought here by ambulance from airport. He reports history of multiple admission for similar problem including him low blood sugar and seizures. He reports a history of hypoglycemia over 500 he said he was on insulin and now have his blood sugars are low which triggers his seizures. History of TX with 3 stents placement. Reviewed lab, medication record, and vital signs. Past History Past Medical History: diabetes, seizures Past Surgical History: No surgical history Social history: lives with family. denies: smoking, alcohol abuse, prescription drug abuse Family history: diabetes (mother and father have diabetes) Medications and Allergies Allergies Allergy/AdvReac Type Severity Reaction Status Date / Time Penicillins Allergy Severe Anaphylaxis Verified 08/29/20 12:40 acetaminophen [From Tylenol] Allergy Swelling Verified 08/29/20 12:40 metoclopramide HCl Allergy Unknown Verified 08/29/20 12:40 [From Reglan] ibuprofen AdvReac Unknown Swelling Verified 08/29/20 12:40 iv contract dy Allergy Severe Anaphylaxis Uncoded 08/07/19 08:14 Home Medications Medication Instructions Recorded Confirmed Last Taken Type Aspirin [Aspirin BABY CHEW TAB] 81 mg PO QDAY 08/13/15 06/30/20 06/28/20 History levETIRAcetam [Keppra TAB] 1,000 mg PO BID #60 04/30/20 06/30/20 06/28/20 Rx HYDROcodone/APAP 5-325 [[place] 1 each PO BID PRN #10 tablet 06/18/20 06/30/20 06/28/20 Rx 5-325 mg TAB] Pregabalin [Lyrica] 100 mg PO 4XD 06/30/20 06/30/20 06/28/20 History Chlorhexidine Gluconate [Hibiclens] 10 ml TP BID #240 liquid 07/05/20 Unknown Rx Clindamycin [Clindamycin CAP] 150 mg PO Q8HR #21 capsule 07/05/20 Unknown Rx Famotidine [Pepcid] 40 mg PO QHS #30 tablet 07/25/20 Unknown Rx Neomycin/Bacitracin/Polymyxinb 1 applicatio TP BID #14 oint...g. 07/25/20 Unknown Rx [Triple Antibiotic Ointment] Polyethylene Glycol 3350 [Miralax] 7 gm PO DAILY PRN #1 powder 07/25/20 Unknown Rx Sucralfate [Carafate] 1 gm PO ACHS 7 Days #21 tablet 07/25/20 Unknown Rx Review of Systems Constitutional: fatigue, weakness Ears, nose, mouth and throat: no epistaxis, no bleeding gums Respiratory: no congestion Gastrointestinal: abdominal pain Genitourinary Male: no incontinence Rectal: no hemorrhoids Musculoskeletal: no neck stiffness Integumentary: no rash, no pruritis Neurological: no head injury Psychiatric: no paranoia Hematologic/Lymphatic: no easy bruising, no easy bleeding Allergic/Immunologic: no urticaria Exam - Constitutional Vitals: Temp Pulse Resp BP Pulse Ox 98.4 F 92 H 18 110/70 98 09/19/20 20:54 09/20/20 01:45 09/20/20 01:45 09/20/20 01:45 09/20/20 01:45 General appearance: Present: mild distress, obese - EENT Eyes: Present: PERRL ENT: hearing intact, clear oral mucosa - Neck Neck: Present: supple, normal ROM - Respiratory Respiratory effort: normal Respiratory: bilateral: CTA - Cardiovascular Heart rate: 92 Heart Sounds: Present: S1 & S2. Absent: rub, click - Extremities Extremities: pulses symmetrical, No edema Peripheral Pulses: within normal limits - Abdominal General gastrointestinal: Present: soft, non-tender, non-distended, normal bowel sounds Male genitourinary: Present: normal - Integumentary Integumentary: Present: clear, warm, dry - Musculoskeletal Musculoskeletal: gait normal, strength equal bilaterally - Psychiatric Psychiatric: appropriate mood/affect, intact judgment & insight, cooperative - Neurologic Neurologic: CNII-XII intact, moves all extremities - Allied Health Allied health notes reviewed: nursing Results - Labs CBC & Chem 7: 09/19/20 21:42 09/19/20 21:42 Labs: Abnormal lab results 09/19/20 09/19/20 09/19/20 Range/Units 21:07 21:42 21:42 RBC 5.75 H (3.65-5.03) M/mm3 Hgb 17.2 H (11.8-15.2) gm/dl Hct 49.6 H (35.5-45.6) % MCHC 35 H (32-34) % Seg Neuts % (Manual) 30.0 L (40.0-70.0) % Monocytes % (Manual) 8.0 H (0.0-7.3) % Lymphocytes # (Manual) 5.6 H (1.2-5.4) K/mm3 POC Glucose 67 L (70-105) mg/dL Total Creatine Kinase 353 H (55-170) units/L Lipase (13-60) units/L 09/19/20 09/19/20 Range/Units 21:49 23:26 RBC (3.65-5.03) M/mm3 Hgb (11.8-15.2) gm/dl Hct (35.5-45.6) % MCHC (32-34) % Seg Neuts % (Manual) (40.0-70.0) % Monocytes % (Manual) (0.0-7.3) % Lymphocytes # (Manual) (1.2-5.4) K/mm3 POC Glucose 55 L (70-105) mg/dL Total Creatine Kinase (55-170) units/L Lipase 11 L (13-60) units/L Assessment and Plan - Patient Problems (1) Hypoglycemia Current Visit: Yes Status: Acute Plan to address problem: monitor blood sugar Dextrose PRN (2) Seizure due to hypoglycemia Current Visit: Yes Status: Acute Plan to address problem: monitor blood sugar and follow hypoglycemic protocol Monitor for seizures (3) Abdominal pain Current Visit: Yes Status: Acute Qualifiers: Abdominal location: right upper quadrant Qualified Code(s): R10.11 - Right upper quadrant pain Plan to address problem: ct of the abdomen -No acute process (4) Seizure Current Visit: Yes Status: Acute Plan to address problem: resume home keppra Seizure precaution (5) DVT prophylaxis Current Visit: Yes Status: Acute Plan to address problem: SBQ levonox
[2020-09-20] MEDS ORDERED: ONDANSETRON 4 MG/2 ML INJ IV PRN (02:13)
[2020-09-20] MEDS ORDERED: hydrALAZINE 20 MG/1 ML INJ IV PRN (02:13)
[2020-09-20] MEDS ORDERED: ACETAMINOPHEN 325 MG TAB PO PRN (02:13)
[2020-09-20] MEDS ORDERED: SENNOSIDES 8.6 MG TAB PO PRN (02:13)
[2020-09-20] MEDS ORDERED: traZODone 50 MG TAB PO PRN (02:18)
[2020-09-20] MEDS: traMADol 50 MG TAB PO PRN ×2 (03:05→12:14)
[2020-09-20] MEDS ORDERED: HYDROmorphone 1 MG/1 ML INJ IV PRN (04:51)
[2020-09-20] MEDS: levETIRAcetam 500 MG TAB PO SCH ×2 (09:01→22:37)
[2020-09-20] MEDS: ENOXAPARIN 40 MG/0.4 ML INJ SUB-Q SCH (09:01)
[2020-09-20 09:04] LABS: Bilirubin,Urine NEG (Negative); Blood,Urine NEG (Negative); Calcium Oxalate Crystals,Urine FEW; Color,Urine Yellow (Yellow); Mucus,Urine 1+ /HPF
[2020-09-20] MEDS ORDERED: PREGABALIN 75 MG CAP PO SCH (10:00)
[2020-09-20] MEDS ORDERED: NON-FORMULARY EACH (Pregabalin [Lyrica] 100 MG Capsule) PO SCH (10:00)
[2020-09-20] MEDS ORDERED: ASPIRIN EC 81 MG TAB PO SCH (10:00)
[2020-09-20] MEDS: D5W/0.9% NACL 1,000 ML IV SCH (10:08)
[2020-09-20] MEDS: PREGABALIN 50 MG CAP PO SCH ×3 (10:08→18:16)
--- NOTE | 2020-09-20 12:01 | Event Note ---
Date: 09/20/20 Patient seen and examined This is the second visit after midnight 49-year-old male presented to emergency complains of seizure, abdominal pain and hypoglycemia. ED work-up shows WBC 9.7, hemoglobin 17.2, sodium 140, potassium 3.6 creatinine 1.2 Glucose 55, next CK level 353. CT of the abdomen done negative for acute process Continue D5 normal saline, monitor blood glucose Continue Keppra IV twice daily, neuro consult If clinically stable possible discharge tomorrow
[2020-09-20] MEDS: INSULIN REGULAR, HUMAN 100 UNITS/1 ML SUB-Q SCH ×3 (12:22→22:36)
[2020-09-20] MEDS: PANTOPRAZOLE 40 MG INJ IV SCH (14:02)
[2020-09-20] MEDS: PREGABALIN 25 MG CAP PO SCH (22:37)
[2020-09-20] MEDS: PREGABALIN 75 MG CAP PO SCH (22:40)
[2020-09-20] MEDS ORDERED: HYDROmorphone 1 MG/1 ML INJ IV ONE (23:49)
[2020-09-21] MEDS: D5W/0.9% NACL 1,000 ML IV SCH (04:18)
[2020-09-21 06:06] LABS: Basophils % (Auto) 0.6 % (0.0-1.8); Eosinophils # (Auto) 0.2 K/mm3 (0.0-0.4); Eosinophils % (Auto) 3.5 % (0.0-4.3); Hematocrit 44.2 % (35.5-45.6); Hemoglobin 15.4 gm/dl (11.8-15.2); Lymphocytes # (Auto) 2.6 K/mm3 (1.2-5.4); Lymphocytes % (Auto) 48.9 % (13.4-35.0); Mean Corpuscular HGB Conc 35 % (32-34); Mean Corpuscular Volume 86 fl (84-94); Monocytes # (Auto) 0.5 K/mm3 (0.0-0.8); Monocytes % (Auto) 9.8 % (0.0-7.3); Platelet Count 168 K/mm3 (140-440); Red Blood Count 5.14 M/mm3 (3.65-5.03); Red Cell Distribution Width 13.9 % (13.2-15.2)
[2020-09-21 06:20] LABS: BUN/Creatinine Ratio 9; Blood Urea Nitrogen 10 mg/dL (9-20); Calcium 8.4 mg/dL (8.4-10.2); Hemolysis Index 13
[2020-09-21] MEDS: INSULIN REGULAR, HUMAN 100 UNITS/1 ML SUB-Q SCH ×2 (08:07→12:25)
[2020-09-21] MEDS ORDERED: LORazepam 1 MG TAB PO ONE (08:55)
[2020-09-21] MEDS: PREGABALIN 75 MG CAP PO SCH ×2 (09:43→13:07)
[2020-09-21] MEDS: PANTOPRAZOLE 40 MG INJ IV SCH (09:43)
[2020-09-21] MEDS: levETIRAcetam 500 MG TAB PO SCH (09:43)
[2020-09-21] MEDS: PREGABALIN 25 MG CAP PO SCH ×2 (09:44→13:07)
[2020-09-21] MEDS: ENOXAPARIN 40 MG/0.4 ML INJ SUB-Q SCH (09:44)
[2020-09-21] MEDS ORDERED: ASPIRIN 81 MG TAB CHEW PO SCH (10:00)
--- NOTE | 2020-09-21 13:31 | Discharge Summary ---
Providers - Providers Date of Admission: 09/20/20 01:38 Date of discharge: 09/21/20 Attending physician: IDRIS ROSADO 09/20/20 08:49 Consult to Physician [CONS] Routine Comment: Consulting Provider: [facility] Physician Instructions: Reason For Exam: seizure [facility] Condition: Critical Pertinent studies: CT head, CT abdomen pelvis Hospital course: 49-year-old male with history of type 2 diabetes mellitus, seizure disorder presented to emergency complains of seizure, abdominal pain and hypoglycemia. ED work-up showed WBC 9.7, hemoglobin 17.2, sodium 140, potassium 3.6 creatinine 1.2, Glucose 55, CK level 353. CT of the abdomen done negative for acute process, head CT was unremarkable Patient was placed on D5 normal saline, monitored blood glucose. Started Keppra IV twice daily, monitored for any further seizure activity. Patient's BG remained stable, had no seizure, vitals remained stable. Patient will be discharged home in stable condition with outpatient follow-up. Patient was encouraged not to use long-acting insulin insulin and only manage his blood glucose with sliding scale until he is seen by his engineering technical specialist as outpatient. Discharge Diagnosis; --Hypoglycemia, due to medication --Seizure due to hypoglycemia --Abdominal pain, likely due to GERD --Morbid obesity, diet and exercise regimen recommended as outpatient. Disposition: [id number] HOME [facility] Time spent for discharge: 34 minutes Core Measure Documentation - Palliative Care Palliative Care/ Comfort Measures: Not Applicable - Core Measures Any of the following diagnoses?: history only Exam - Physical Exam Narrative exam: GENERAL: well-developed and morbidly obese male lying on bed appeared to be in no discomfort. HEENT: Normocephalic. Atraumatic. No conjunctival congestion or icterus. Patient has moist mucous membranes. NECK: Supple. Trachea midline. CHEST/LUNGS: Clear to auscultated bilaterally, breathing nonlabored. No wheezes crackles or rhonchi. HEART/CARDIOVASCULAR: Regular in rate and rhythm. S1 and S2 positive. ABDOMEN: Abdomen is soft, nontender. Patient has normal bowel sounds. SKIN: There is no rash. Warm and dry. NEURO: No focal motor deficit. Follows command. MUSCULOSKELETAL: No joint effusion or tenderness. EXTRIMITY: No edema, no cyanosis or clubbing. PSYCH: Cooperative. - Constitutional Vitals: Temp Pulse Resp BP Pulse Ox 97.5 F L 74 18 132/80 98 09/21/20 05:45 09/21/20 05:45 09/21/20 05:45 09/21/20 05:45 09/21/20 05:45 Plan Activity: advance as tolerated Weight Bearing Status: Weight Bear as Tolerated Diet: diabetic Special Instructions: record blood sugar diary Additional Instructions: Follow-up with your engineering technical specialist in 1 week. Continue only sliding scale of insulin to manage your blood glucose [facility]Primary Care Provider] - 3-5 Days JOSE DHILLON MD [Staff Physician] - 7 Days Prescriptions: Insulin Regular, Human [HumuLIN R] 0 units SUB-Q ACHS 30 Days Pantoprazole [Protonix TAB] 40 mg PO QDAC #30 tablet
[2020-09-21 15:02] VITALS: BP 138/92
[2020-09-22] MEDS ORDERED: PANTOPRAZOLE 40 MG TAB PO SCH (07:30)
== END 2020-09-21 16:45 | disposition home health service (06) ==
LOC: ED 20:03 → 3A 09-20 01:38
PROVIDERS: ADMIT Internal Medicine Geriatric Medicine; ATTEND Internal Medicine
DX: E11.649 Type 2 diabetes mellitus with hypoglycemia without coma (principal); G40.909 Epilepsy, unspecified, not intractable, without status epilepticus; R10.9 Unspecified abdominal pain; F41.9 Anxiety disorder, unspecified; E66.01 Morbid (severe) obesity due to excess calories; J45.909 Unspecified asthma, uncomplicated; Z79.82 Long term (current) use of aspirin; Z98.890 Other specified postprocedural states; Z90.49 Acquired absence of other specified parts of digestive tract; Z95.1 Presence of aortocoronary bypass graft; Z68.38 Body mass index [BMI] 38.0-38.9, adult
CPT/HCPCS: 36415; 70460; 74176; 80048; 80053; 81001; 82550; 82962; 83036; 83690; 83735; 84100; 85007; 85025; 87116; 96361; 96365; 96366; 96372; 96375; 96376; 99291; C9113; G0378; J1170; J1650; J1953; J2405; J7042; 70450; J1815

== ENCOUNTER 2020-11-18 16:41 | Emergency (ER) | payer MEDICAID ==
--- NOTE | 2020-11-18 20:23 | Event Note ---
ED Screening Note Date of service: 11/18/20 Time: 20:21 ED Screening Note: pt is a 50 y/o aam with hx of AL and DVT 1 week ago, who presents for SOB and bilat LE pain 12/25 states has not had plavix in 1 week. pt symptoms are exacerbated by activity , symptoms relieved by nothing This initial assessment/diagnostic orders/clinical plan/treatment(s) is/are subject to change based on patients health status, clinical progression and re- assessment by fellow clinical providers in the ED. Further treatment and workup at subsequent clinical providers discretion. Patient/guardian urged not to elope from the ED as their condition may be serious if not clinically assessed and managed. Initial orders include: cxr, ekg, trop, pt, ptt, cmp, cbc
[2020-11-18 20:38] LABS: Basophils % (Auto) 0.8 % (0.0-1.8); Eosinophils # (Auto) 0.2 K/mm3 (0.0-0.4); Eosinophils % (Auto) 2.9 % (0.0-4.3); Hemoglobin 15.5 gm/dl (11.8-15.2); Lymphocytes # (Auto) 2.2 K/mm3 (1.2-5.4); Lymphocytes % (Auto) 34.2 % (13.4-35.0); Mean Corpuscular HGB Conc 35 % (32-34); Mean Corpuscular Volume 86 fl (84-94); Monocytes # (Auto) 0.6 K/mm3 (0.0-0.8); Monocytes % (Auto) 8.9 % (0.0-7.3); Platelet Count 160 K/mm3 (140-440); Red Blood Count 5.22 M/mm3 (3.65-5.03); Red Cell Distribution Width 13.8 % (13.2-15.2)
[2020-11-18 20:47] LABS: INR 0.98 (0.87-1.13); Partial Thromboplastin Time 29.3 Sec. (24.2-36.6)
[2020-11-18 20:54] LABS: Alanine Aminotransferase 21 units/L (7-56); Albumin 4.5 g/dL (3.9-5); BUN/Creatinine Ratio 10; Blood Urea Nitrogen 11 mg/dL (9-20); Hemolysis Index 13
--- NOTE | 2020-11-18 20:55 | XRay Report ---
CHEST 2 VIEWS INDICATION / CLINICAL INFORMATION: sob hx dvt 1 week ago. COMPARISON: 06/17/20 FINDINGS: SUPPORT DEVICES: None. HEART / MEDIASTINUM: No significant abnormality. LUNGS / PLEURA: No significant pulmonary or pleural abnormality. No pneumothorax. ADDITIONAL FINDINGS: No significant additional findings. IMPRESSION: 1. No acute findings. No change. Signer Name: Izabella Brown MD Signed: 11/18/2020 8:50 PM Workstation Name: [id number]
--- NOTE | 2020-11-19 01:17 | Emergency Department Report ---
ED General Adult HPI - General Chief complaint: Extremity Problem,Nontraumatic Stated complaint: LEGS AND BACK PAIN Time Seen by Provider: 11/19/20 00:49 Source: patient Mode of arrival: Ambulatory Limitations: No Limitations - History of Present Illness Initial comments: CC: "I know by blood pressure is high. My legs are burning." HPI: This is a 50-year-old male with history of type 2 diabetes mellitus, seizure disorder, coronary artery disease status post stent, GERD, asthma, blood clots who presents with leg burning for 2 weeks. Patient takes Lyrica for diabetic neuropathy. Patient had pain in the feet. As outside hospital, patient was prescribed Plavix for CAD. He has hx of 3 cardiac stents. He was also prescribed Plavix for blood clots in his legs. He admits to being noncompliant with his blood pressure medications. He denies shortness of breath. He explained that he has had epigstric discomfort/fullness for the past 4 weeks. He denies shortness of breath. He has had pretibial leg burning bilaterally for 2 weeks. Accordng to bilateral arterial ultrasound obtained 06/10/20: no significant lower extremity peripheral artery disease 09/04/19: no DVT seen on Duplex of either lower extremity -: Gradual, week(s) (2 weeks) Location: left, right, lower extremity Severity scale (0 -10): 7 Quality: burning Consistency: constant Improves with: none Worsens with: none Associated Symptoms: denies other symptoms Treatments Prior to Arrival: none - Related Data Home Medications Medication Instructions Recorded Confirmed Last Taken Aspirin [Aspirin BABY CHEW TAB] 81 mg PO QDAY 08/13/15 09/20/20 09/19/20 Pregabalin [Lyrica] 100 mg PO 4XD 06/30/20 09/20/20 09/19/20 Previous Rx's Medication Instructions Recorded Last Taken Type levETIRAcetam [Keppra TAB] 1,000 mg PO BID #60 04/30/20 09/19/20 Rx Insulin Regular, Human [HumuLIN R] 0 units SUB-Q ACHS 30 Days 09/21/20 Unknown Rx Pantoprazole [Protonix TAB] 40 mg PO QDAC #30 tablet 09/21/20 Unknown Rx oxyCODONE [roxiCODONE] 5 mg PO Q6HR PRN #10 tablet 11/19/20 Unknown Rx Allergies Allergy/AdvReac Type Severity Reaction Status Date / Time Penicillins Allergy Severe Anaphylaxis Verified 11/18/20 17:16 acetaminophen [From Tylenol] Allergy Swelling Verified 11/18/20 17:16 metoclopramide HCl Allergy Unknown Verified 11/18/20 17:16 [From Reglan] ibuprofen AdvReac Unknown Swelling Verified 11/18/20 17:16 iv contract dy Allergy Severe Anaphylaxis Uncoded 08/07/19 08:14 ED Review of Systems ROS: Stated complaint: LEGS AND BACK PAIN Other details as noted in HPI Comment: All other systems reviewed and negative Constitutional: denies: fever, malaise Respiratory: denies: cough, shortness of breath Gastrointestinal: abdominal pain. 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 - Social History Smoking Status: Never Smoker Substance Use Type: None - Medications Home Medications: Home Medications Medication Instructions Recorded Confirmed Last Taken Type Aspirin [Aspirin BABY CHEW TAB] 81 mg PO QDAY 08/13/15 09/20/20 09/19/20 History levETIRAcetam [Keppra TAB] 1,000 mg PO BID #60 04/30/20 09/20/20 09/19/20 Rx Pregabalin [Lyrica] 100 mg PO 4XD 06/30/20 09/20/20 09/19/20 History Insulin Regular, Human [HumuLIN R] 0 units SUB-Q ACHS 30 Days 09/21/20 Unknown Rx Pantoprazole [Protonix TAB] 40 mg PO QDAC #30 tablet 09/21/20 Unknown Rx oxyCODONE [roxiCODONE] 5 mg PO Q6HR PRN #10 tablet 11/19/20 Unknown Rx ED Physical Exam - General Limitations: No Limitations General appearance: alert, in no apparent distress, other (pleasant, brisk ambulation to room) - Head Head exam: Present: atraumatic, normocephalic - Eye Eye exam: Present: normal appearance - ENT ENT exam: Present: mucous membranes moist - Neck Neck exam: Present: normal inspection, full ROM - Respiratory Respiratory exam: Present: normal lung sounds bilaterally. Absent: respiratory distress, wheezes, rales, rhonchi, stridor - Cardiovascular Cardiovascular Exam: Present: regular rate, normal rhythm. Absent: systolic murmur, diastolic murmur, rubs, gallop - GI/Abdominal GI/Abdominal exam: Present: soft, normal bowel sounds. Absent: distended, tenderness, guarding, rebound - Rectal Rectal exam: Present: deferred - Extremities Exam Extremities exam: Present: normal inspection - Expanded Lower Extremity Exam Left Upper Leg exam: Present: normal inspection, full ROM Knee exam: Present: normal inspection, full ROM Lower Leg exam: Present: normal inspection, full ROM Ankle exam: Present: normal inspection Foot/Toe exam: Present: normal inspection, full ROM Neuro vascular tendon exam: Present: no vascular compromise Gait: Positive: observed and normal Right Upper Leg exam: Present: normal inspection, full ROM Knee exam: Present: normal inspection, full ROM Lower Leg exam: Present: normal inspection, full ROM Ankle exam: Present: normal inspection, full ROM Foot/Toe exam: Present: normal inspection Neuro vascular tendon exam: Present: no vascular compromise - Back Exam Back exam: Present: normal inspection - Neurological Exam Neurological exam: Present: alert, oriented X3 - Psychiatric Psychiatric exam: Present: normal affect, normal mood - Skin Skin exam: Present: warm, dry, intact, normal color. Absent: rash ED Course Vital Signs 11/18/20 17:13 Temperature 98.4 F Pulse Rate 104 H Respiratory 18 Rate Blood Pressure 228/131 O2 Sat by Pulse 98 Oximetry ED Medical Decision Making - Lab Data Result diagrams: 11/18/20 20:29 11/18/20 20:29 Laboratory Results - last 24 hr 11/18/20 11/18/20 11/18/20 20:29 20:29 20:29 WBC 6.4 RBC 5.22 H Hgb 15.5 H Hct 45.0 MCV 86 MCH 30 MCHC 35 H RDW 13.8 Plt Count 160 Lymph % (Auto) 34.2 King % (Auto) 8.9 H Eos % (Auto) 2.9 Baso % (Auto) 0.8 Lymph # (Auto) 2.2 King # (Auto) 0.6 Eos # (Auto) 0.2 Baso # (Auto) 0.0 Seg Neutrophils % 53.2 Seg Neutrophils # 3.4 PT 12.9 INR 0.98 APTT 29.3 Sodium 137 Potassium 4.0 Chloride 99.5 Carbon Dioxide 28 Anion Gap 14 BUN 11 Creatinine 1.1 Estimated GFR > 60 BUN/Creatinine Ratio 10 Glucose 319 H POC Glucose Calcium 9.0 Total Bilirubin 0.40 AST 15 ALT 21 Alkaline Phosphatase 121 Troponin T Total Protein 7.1 Albumin 4.5 Albumin/Globulin Ratio 1.7 11/18/20 11/18/20 20:29 23:09 WBC RBC Hgb Hct MCV MCH MCHC RDW Plt Count Lymph % (Auto) King % (Auto) Eos % (Auto) Baso % (Auto) Lymph # (Auto) King # (Auto) Eos # (Auto) Baso # (Auto) Seg Neutrophils % Seg Neutrophils # PT INR APTT Sodium Potassium Chloride Carbon Dioxide Anion Gap BUN Creatinine Estimated GFR BUN/Creatinine Ratio Glucose POC Glucose 210 H Calcium Total Bilirubin AST ALT Alkaline Phosphatase Troponin T 0.010 Total Protein Albumin Albumin/Globulin Ratio - EKG Data -: EKG Interpreted by Ga EKG shows normal: sinus rhythm, axis, intervals, QRS complexes, ST-T waves Rate: normal - EKG Data Interpretation: normal EKG 11/19/20 01:16 EKG obtained 2057 EKG interpreted by az Rate 90 bpm normal sinus rhythm normal rate normal axis normal intervals no ST elevation no ST-T signs of ischemia normal EKG - Radiology Data Radiology results: report reviewed Chest radiograph 2 views: No acute findings according to radiology impression - Medical Decision Making 1. bilateral leg pain: Clinically no evidence of peripheral artery disease or DV T, suspect diabetic neuropathy progression rx: Oxycodone 2. hypertensive urgency due to medication noncompliance, no indication of end- organ damage Work-up did not reveal any acute abnormalities including EKG chest radiograph labs CBC within normal limits. Troponin within normal limits. CMP within normal limits with exception of mild hyperglycemia PT PTT within normal limits Critical care attestation.: If time is entered above; I have spent that time in minutes in the direct care of this critically ill patient, excluding procedure time. ED Disposition Clinical Impression: Diabetic neuropathy, Hypertensive urgency Disposition: TO HOME OR SELFCARE Is pt being admited?: No Does the pt Need Aspirin: No Condition: Stable Instructions: Diabetes Mellitus Type 2 in Adults (ED) Prescriptions: oxyCODONE [roxiCODONE] 5 mg PO Q6HR PRN #10 tablet PRN Reason: Pain Referrals: PRIMARY CARE, [Primary Care Provider] - 3-5 Days
[2020-11-19 01:29] VITALS: BP 142/89
--- NOTE | 2020-11-20 17:33 | Electrocardiograph Report ---
[facility] Test Date: 2020-11-18 Test Time: 23:58:53 Pat Name: QUINCY CORDERO JR Department: Room: Gender: M Director Of Community Life: JULITA : 1970 Requested By: ANKUR VICK Order Number: [id number] Reading MD: Xavier Lorenzo Measurements Intervals [place] Rate: 91 P: 50 DC: 156 QRS: 69 QRSD: 82 T: 11 QT: 352 QTc: 432 Interpretive Statements Sinus rhythm Probable left atrial enlargement No previous ECG available for comparison Electronically Signed On 11-20-2020 17:32:56 EDT by Xavier Lorenzo
== END 2020-11-19 02:00 | disposition home or self-care (01) ==
LOC: ED 16:41
DX: E11.40 Type 2 diabetes mellitus with diabetic neuropathy, unspecified (principal); I16.0 Hypertensive urgency; I25.2 Old myocardial infarction; R56.9 Unspecified convulsions; F41.9 Anxiety disorder, unspecified; J45.909 Unspecified asthma, uncomplicated; Z90.49 Acquired absence of other specified parts of digestive tract; Z98.890 Other specified postprocedural states; Z79.4 Long term (current) use of insulin; Z79.899 Other long term (current) drug therapy; Z88.0 Allergy status to penicillin; Z88.8 Allergy status to other drugs, medicaments and biological substances
CPT/HCPCS: 36415; 71046; 80053; 82962; 84484; 85025; 85610; 85730; 93005

== ENCOUNTER 2020-11-28 14:32 | Emergency (ER) | payer MEDICAID ==
--- NOTE | 2020-11-28 15:05 | Event Note ---
ED Screening Note Date of service: 11/28/20 Time: 15:03 ED Screening Note: 50-year-old male presents to the ER today with complaints of seizure. Patient states that he had a seizure yesterday and today. Patient has a history of known seizure disorder, is currently taking Keppra which he states that he has been compliant with. Patient states that he was sent here by his neurologist because he had a seizure 2 days in a row which is not typical for him. He states that during the seizure yesterday he did hit his head and has a laceration to the occipital aspect of his head. His past medical history also includes coronary artery disease status post stent placement, hypertension, diabetes currently on insulin pump, and hyperlipidemia. Patient states that he has been under a lot of stress lately, recently lost his sister to a drunk milk tanker driver and thinks stress could be what is triggering his s eizures. He denies any alcohol abuse. He denies any illicit drug use. This initial assessment/diagnostic orders/clinical plan/treatment(s) is/are subject to change based on patients health status, clinical progression and re- assessment by fellow clinical providers in the ED. Further treatment and workup at subsequent clinical providers discretion. Patient/guardian urged not to elope from the ED as their condition may be serious if not clinically assessed and managed. Initial orders include: Labs include head CT, EKG
[2020-11-28 15:19] LABS: Basophils % (Auto) 0.8 % (0.0-1.8); Eosinophils # (Auto) 0.3 K/mm3 (0.0-0.4); Eosinophils % (Auto) 5.2 % (0.0-4.3); Hematocrit 47.1 % (35.5-45.6); Hemoglobin 16.5 gm/dl (11.8-15.2); Lymphocytes # (Auto) 2.2 K/mm3 (1.2-5.4); Lymphocytes % (Auto) 41.3 % (13.4-35.0); Mean Corpuscular HGB Conc 35 % (32-34); Mean Corpuscular Volume 85 fl (84-94); Monocytes # (Auto) 0.4 K/mm3 (0.0-0.8); Monocytes % (Auto) 8.3 % (0.0-7.3); Platelet Count 151 K/mm3 (140-440); Red Blood Count 5.52 M/mm3 (3.65-5.03); Red Cell Distribution Width 14.2 % (13.2-15.2)
--- NOTE | 2020-11-28 15:50 | Cat Scan Report ---
CT BRAIN: 11/28/2020 INDICATION / CLINICAL INFORMATION: hit head during seizure, on plavix/asa. COMPARISON: 09/20/2020 FINDINGS: BRAIN/INTRACRANIAL STRUCTURES: Unenhanced CT images of the brain demonstrate no evidence of acute int racranial abnormality. Ventricles and sulci are at the upper limits of normal in size for a patient of this age. There is no evidence of acute ischemic injury, hemorrhage, or mass. There are no abnormal extra-axial fluid collections. There is been no significant change when compared to the prior exam. EXTRACRANIAL STRUCTURES: Unremarkable. IMPRESSION: No acute abnormality. All CT scans at this location are performed using dose reduction to ALARA by means of automated expos ure control. Signer Name: Dilan Albright MD Signed: 11/28/2020 3:46 PM Workstation Name: [email or web address] [id number]
[2020-11-28 15:57] LABS: Amphetamine Screen,Urine Negative; Benzodiazepines Screen,Urine Negative; Cannabinoid Screen,Urine Negative; Cocaine Screen,Urine Negative; Methadone Screen,Urine Negative; Opiate Screen,Urine Negative
[2020-11-28 16:00] LABS: Alanine Aminotransferase 26 units/L (7-56); BUN/Creatinine Ratio 6; Blood Urea Nitrogen 6 mg/dL (9-20); Hemolysis Index 15
[2020-11-28 16:02] LABS: Bilirubin,Urine NEG (Negative); Blood,Urine MOD (Negative); Color,Urine Yellow (Yellow); Protein,Urine <15 mg/dL mg/dL (Negative); Urobilinogen,Urine < 2.0 mg/dL (<2.0)
[2020-11-28] MEDS ORDERED: levETIRAcetam 1000 MG/NS 0.75% 1,000 MG/100 ML BAG IV ONE (20:02)
[2020-11-28] MEDS ORDERED: BACITRACIN ZINC OINT 28.4 GM TP ONE (20:10)
[2020-11-28 20:11] VITALS: BP 159/100
[2020-11-28] MEDS ORDERED: ONDANSETRON 4 MG/2 ML INJ IV ONE (20:11)
[2020-11-28] MEDS ORDERED: MORPHINE 4 MG/1 ML INJ IV ONE (20:11)
--- NOTE | 2020-11-28 20:19 | Emergency Department Report ---
HPI - General Chief Complaint: Seizure Time Seen by Provider: 11/28/20 20:01 - HPI HPI: Room 7 The patient is a 50-year-old male present with a chief complaint of seizure. Patient has a history of seizures and states he has been compliant with his Kepp ra. Patient stated had a seizure yesterday causing him to fall and strike his head. Patient sustained a skin tear to the right scalp but states he did not go to the hospital. Patient states he had another seizure today now complains of a headache. Patient gives his headache a score of 10/10. Patient states his last seizure before these 2 occurred approximately 3 weeks ago. 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 - Family History Family history: no significant - Social History Smoking Status: Former Smoker (No cigars x1 year) Substance Use Type: None (Denies illicit drug use) - Medications Home Medications: Home Medications Medication Instructions Recorded Confirmed Last Taken Type Aspirin [Aspirin BABY CHEW TAB] 81 mg PO QDAY 08/13/15 09/20/20 09/19/20 History levETIRAcetam [Keppra TAB] 1,000 mg PO BID #60 04/30/20 09/20/20 09/19/20 Rx Pregabalin [Lyrica] 100 mg PO 4XD 06/30/20 09/20/20 09/19/20 History Insulin Regular, Human [HumuLIN R] 0 units SUB-Q ACHS 30 Days 09/21/20 Unknown Rx Pantoprazole [Protonix TAB] 40 mg PO QDAC #30 tablet 09/21/20 Unknown Rx oxyCODONE [roxiCODONE] 5 mg PO Q6HR PRN #10 tablet 11/19/20 Unknown Rx Sulfamethoxazole/Trimethoprim 1 each PO BID #14 tablet 11/28/20 Unknown Rx [Bactrim DS TAB] ED Review of Systems ROS: Stated complaint: LAC TO HEAD Other details as noted in HPI Constitutional: no symptoms reported Eyes: denies: eye pain ENT: denies: throat pain Respiratory: no symptoms reported Cardiovascular: denies: chest pain Endocrine: no symptoms reported Gastrointestinal: denies: abdominal pain Genitourinary: denies: dysuria Skin: other (Skin avulsion on scalp) Neurological: headache Physical Exam - Physical Exam Vital Signs: Vital Signs 11/28/20 11/28/20 14:57 20:10 Temperature 98.2 F Pulse Rate 99 H 92 H Respiratory 20 13 Rate Blood Pressure 136/106 159/100 [Right] O2 Sat by Pulse 99 99 Oximetry Physical Exam: GENERAL: The patient is well-developed well-nourished male lying on stretcher not appearing to be in acute distress. [] HEENT: Normocephalic. Subacute triangular skin avulsion to the right parietal region. Extraocular motions are intact. Patient has moist mucous membranes. NECK: Supple. No axial tenderness to palpation CHEST/LUNGS: Clear to auscultation. There is no respiratory distress noted. HEART/CARDIOVASCULAR: Regular. There is no tachycardia. There is no gallop rub or murmur. ABDOMEN: Abdomen is soft, nontender. Patient has normal bowel sounds. There is no abdominal distention. SKIN: There is a subacute appearing triangular-shaped skin avulsion to the right parietal scalp. There is no diaphoresis. NEURO: The patient is awake, alert, and oriented. The patient is cooperative. The patient has no focal neurologic deficits. The patient has normal speech. Cranial nerves II through XII grossly intact MUSCULOSKELETAL: There is no evidence of acute injury. ED Course Vital Signs 11/28/20 11/28/20 14:57 20:10 Temperature 98.2 F Pulse Rate 99 H 92 H Respiratory 20 13 Rate Blood Pressure 136/106 159/100 [Right] O2 Sat by Pulse 99 99 Oximetry ED Medical Decision Making - Lab Data Result diagrams: 11/28/20 Unknown 11/28/20 Unknown Laboratory Tests 11/28/20 11/28/20 11/28/20 Unknown Unknown Unknown WBC 5.3 RBC 5.52 H Hgb 16.5 H Hct 47.1 H MCV 85 MCH 30 MCHC 35 H RDW 14.2 Plt Count 151 Lymph % (Auto) 41.3 H Terrell % (Auto) 8.3 H Eos % (Auto) 5.2 H Baso % (Auto) 0.8 Lymph # (Auto) 2.2 Terrell # (Auto) 0.4 Eos # (Auto) 0.3 Baso # (Auto) 0.0 Seg Neutrophils % 44.4 Seg Neutrophils # 2.3 Sodium Potassium Chloride Carbon Dioxide Anion Gap BUN Creatinine Estimated GFR BUN/Creatinine Ratio Glucose Calcium Magnesium Total Bilirubin AST ALT Alkaline Phosphatase Total Creatine Kinase Troponin T Total Protein Albumin Albumin/Globulin Ratio Urine Color Yellow Urine Turbidity Clear Urine pH 6.0 Ur Specific Silex 1.010 Urine Protein <15 mg/dl Urine Glucose (UA) Neg Urine Ketones Neg Urine Blood Mod Urine Nitrite Neg Urine Bilirubin Neg Urine Urobilinogen < 2.0 Ur Leukocyte Esterase Sm Urine WBC (Auto) 11.0 H Urine RBC (Auto) 29.0 U Epithel Cells (Auto) 1.0 Urine Opiates Screen Negative Urine Methadone Screen Negative Ur Barbiturates Screen Negative Ur Phencyclidine Scrn Negative Ur Amphetamines Screen Negative U Benzodiazepines Scrn Negative Urine Cocaine Screen Negative U Marijuana (THC) Screen Negative Drugs of Abuse Note Disclamer 11/28/20 11/28/20 Unknown Unknown WBC RBC Hgb Hct MCV MCH MCHC RDW Plt Count Lymph % (Auto) Terrell % (Auto) Eos % (Auto) Baso % (Auto) Lymph # (Auto) Terrell # (Auto) Eos # (Auto) Baso # (Auto) Seg Neutrophils % Seg Neutrophils # Sodium 140 Potassium 4.4 Chloride 104.2 Carbon Dioxide 25 Anion Gap 15 BUN 6 L Creatinine 1.0 Estimated GFR > 60 BUN/Creatinine Ratio 6 Glucose 135 H Calcium 9.0 Magnesium 1.70 Total Bilirubin 0.30 AST 24 ALT 26 Alkaline Phosphatase 112 Total Creatine Kinase 431 H Troponin T 0.015 Total Protein 6.8 Albumin 4.0 Albumin/Globulin Ratio 1.4 Urine Color Urine Turbidity Urine pH Ur Specific Silex Urine Protein Urine Glucose (UA) Urine Ketones Urine Blood Urine Nitrite Urine Bilirubin Urine Urobilinogen Ur Leukocyte Esterase Urine WBC (Auto) Urine RBC (Auto) U Epithel Cells (Auto) Urine Opiates Screen Urine Methadone Screen Ur Barbiturates Screen Ur Phencyclidine Scrn Ur Amphetamines Screen U Benzodiazepines Scrn Urine Cocaine Screen U Marijuana (THC) Screen Drugs of Abuse Note - Radiology Data Radiology results: report reviewed (CT head), image reviewed (CT head) [facility] [address] [place] [address] Cat Scan Report Signed Patient: CONSUELO PORTERQUINCY MR#: [id number] : 1970 Acct:[id number] Age/Sex: 50 / M ADM Date: 11/28/20 Loc: ED Attending Dr: Ordering Physician: NOEMI CURRAN Date of Service: 11/28/20 Procedure(s): CT head/brain wo con Accession Number(s): [id number] cc: NOEMI CURRAN CT BRAIN: 11/28/2020 INDICATION / CLINICAL INFORMATION: hit head during seizure, on plavix/asa. COMPARISON: 09/20/2020 FINDINGS: BRAIN/INTRACRANIAL STRUCTURES: Unenhanced CT images of the brain demonstrate no evidence of acute intracranial abnormality. Ventricles and sulci are at the upper limits of normal in size for a patient of this age. There is no evidence of acute ischemic injury, hemorrhage, or mass. There are no abnormal extra- axial fluid collections. There is been no significant change when compared to the prior exam. EXTRACRANIAL STRUCTURES: Unremarkable. IMPRESSION: No acute abnormality. A ll CT scans at this location are performed using dose reduction to ALARA by means of automated exposure control. Signer Name: Dilan Albright MD Signed: 11/28/2020 3:46 PM Workstation Name: [id number] Transcribed By: AO Dictated By: Dilan Albright MD Electronically Authenticated By: Dilan Albright MD Signed Date/Time: 11/28/201545 DD/ 43 TD/TT: Print Cancel - Differential Diagnosis Seizure, skin avulsion Critical care attestation.: If time is entered above; I have spent that time in minutes in the direct care of this critically ill patient, excluding procedure time. ED Disposition Clinical Impression: Seizure, Avulsion, skin Disposition: DC-01 TO HOME OR SELFCARE Is pt being admited?: No Does the pt Need Aspirin: No Condition: Stable Instructions: Epilepsy, [id number], Deep Skin Avulsion Additional Instructions: Return to the emergency department should you develop worsening symptoms, inability to tolerate food or liquids, high fever or any other concerns Prescriptions: Sulfamethoxazole/Trimethoprim [Bactrim DS TAB] 1 each PO BID #14 tablet Referrals: JESSY BEASLEY CNM [Primary Care Provider] - 3-5 Days Time of Disposition: 20:24
--- NOTE | 2020-12-02 17:33 | Electrocardiograph Report ---
[facility] Test Date: 2020-11-28 Test Time: 15:05:22 Pat Name: QUINCY CORDERO JR Department: Room: Gender: M Clinical Transformation Specialist: MARY : 1970 Requested By: CARLOS HAWKINS Order Number: [id number] Reading MD: Dustin Ellington Measurements Intervals [place] Rate: 89 P: 49 [place]: 161 QRS: 60 QRSD: 75 T: 24 QT: 361 QTc: 439 Interpretive Statements Sinus rhythm Probable left atrial enlargement Compared to ECG 11/18/2020 23:58:53 No significant changes Electronically Signed On 12-02-2020 17:33:09 EDT by Dustin Ellington
== END 2020-11-28 22:40 | disposition home or self-care (01) ==
LOC: ED 14:32
DX: S01.90XA Unspecified open wound of unspecified part of head, initial encounter (principal); R56.9 Unspecified convulsions; I10 Essential (primary) hypertension; I25.2 Old myocardial infarction; E11.9 Type 2 diabetes mellitus without complications; F41.9 Anxiety disorder, unspecified; J45.909 Unspecified asthma, uncomplicated; Z87.891 Personal history of nicotine dependence; Z98.890 Other specified postprocedural states; Z79.4 Long term (current) use of insulin; Z79.899 Other long term (current) drug therapy; Z88.0 Allergy status to penicillin; W19.XXXA Unspecified fall, initial encounter; Y93.89 Activity, other specified; Y92.89 Other specified places as the place of occurrence of the external cause; Y99.8 Other external cause status; Z88.8 Allergy status to other drugs, medicaments and biological substances
CPT/HCPCS: 36415; 70450; 80053; 80307; 81001; 82550; 83735; 84484; 85025; 87086; 93005; 96374; 96375; 99284; J1953; J2270; J2405

== ENCOUNTER 2021-02-16 00:21 | Emergency (ER) | payer MEDICAID ==
[2021-02-16 01:24] VITALS: BP 140/85
[2021-02-16] MEDS ORDERED: ASPIRIN 325 MG TAB PO ONE (01:24)
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
[2021-02-16 03:34] LABS: Basophils % (Auto) 0.7 % (0.0-1.8); Eosinophils # (Auto) 0.2 K/mm3 (0.0-0.4); Eosinophils % (Auto) 2.6 % (0.0-4.3); Hematocrit 43.4 % (35.5-45.6); Hemoglobin 15.2 gm/dl (11.8-15.2); Lymphocytes # (Auto) 2.5 K/mm3 (1.2-5.4); Lymphocytes % (Auto) 40.3 % (13.4-35.0); Mean Corpuscular HGB Conc 35 % (32-34); Mean Corpuscular Volume 85 fl (84-94); Monocytes # (Auto) 0.4 K/mm3 (0.0-0.8); Monocytes % (Auto) 6.5 % (0.0-7.3); Platelet Count 158 K/mm3 (140-440); Red Blood Count 5.13 M/mm3 (3.65-5.03); Red Cell Distribution Width 13.7 % (13.2-15.2)
[2021-02-16 03:37] LABS: Alanine Aminotransferase 24 units/L (7-56); Albumin 4.4 g/dL (3.9-5); BUN/Creatinine Ratio 9; Blood Urea Nitrogen 9 mg/dL (9-20); Calcium 9.4 mg/dL (8.4-10.2); Hemolysis Index 12
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
--- NOTE | 2021-02-16 12:46 | Electrocardiograph Report ---
[facility] Test Date: 2021-02-16 Test Time: 01:13:40 Pat Name: QUINCY CORDERO JR Department: Room: Gender: M Entry Operator: GONZALO : 1970 Requested By: TREE THOMPSON Order Number: [id number] Reading MD: Dustin Ellington Measurements Intervals [place] Rate: 78 P: 47 NE: 164 QRS: 62 QRSD: 79 T: 43 QT: 376 QTc: 429 Interpretive Statements Sinus rhythm Compared to ECG 11/28/2020 15:05:22 No significant changes Electronically Signed On 02-16-2021 12:46:16 EDT by Dustin Ellington
== END 2021-02-16 08:19 | disposition home or self-care (01) ==
LOC: ED 00:21
DX: S20.219A Contusion of unspecified front wall of thorax, initial encounter (principal); G40.909 Epilepsy, unspecified, not intractable, without status epilepticus; E11.8 Type 2 diabetes mellitus with unspecified complications; I10 Essential (primary) hypertension; J45.909 Unspecified asthma, uncomplicated; F41.8 Other specified anxiety disorders; Z98.890 Other specified postprocedural states; Z88.0 Allergy status to penicillin; Z88.6 Allergy status to analgesic agent; Z88.8 Allergy status to other drugs, medicaments and biological substances; Z91.040 Latex allergy status; X58.XXXA Exposure to other specified factors, initial encounter; Y93.89 Activity, other specified; Y92.89 Other specified places as the place of occurrence of the external cause; Y99.8 Other external cause status
CPT/HCPCS: 36415; 71046; 80053; 82962; 83735; 84484; 85025; 93005; 99284

== ENCOUNTER 2021-02-22 00:39 | Emergency (ER) | payer MEDICAID ==
[2021-02-22] MEDS ORDERED: ASPIRIN 325 MG TAB PO ONE (01:04)
[2021-02-22 01:29] LABS: Basophils % (Auto) 0.5 % (0.0-1.8); Eosinophils # (Auto) 0.2 K/mm3 (0.0-0.4); Eosinophils % (Auto) 2.5 % (0.0-4.3); Lymphocytes % (Auto) 27.2 % (13.4-35.0); Mean Corpuscular HGB Conc 36 % (32-34); Mean Corpuscular Volume 84 fl (84-94); Monocytes # (Auto) 0.5 K/mm3 (0.0-0.8); Monocytes % (Auto) 7.1 % (0.0-7.3); Platelet Count 166 K/mm3 (140-440); Red Blood Count 5.21 M/mm3 (3.65-5.03); Red Cell Distribution Width 13.7 % (13.2-15.2)
[2021-02-22 01:30] LABS: Hematocrit 43.9 % (35.5-45.6); Hemoglobin 15.7 gm/dl (11.8-15.2)
[2021-02-22 01:51] LABS: Alanine Aminotransferase 24 units/L (7-56); BUN/Creatinine Ratio 9; Blood Urea Nitrogen 9 mg/dL (9-20); Calcium 8.6 mg/dL (8.4-10.2); Hemolysis Index 9
--- NOTE | 2021-02-22 02:09 | XRay Report ---
CHEST 2 VIEWS INDICATION: chestpain. COMPARISON: 02/16/2021 FINDINGS: SUPPORT DEVICES: None. HEART: Within normal limits. LUNGS/PLEURA: No acute air space or interstitial disease. No pneumothorax. ADDITIONAL FINDINGS: None. IMPRESSION: 1. No acute findings. Signer Name: Seven Carmona MD Signed: 02/22/2021 2:05 AM Workstation Name: [id number]
[2021-02-22] MEDS ORDERED: SODIUM CHLORIDE 0.9% 1000 ML 1,000 ML IV ONE (08:56)
[2021-02-22] MEDS ORDERED: MORPHINE 4 MG/1 ML INJ IV ONE (08:56)
--- NOTE | 2021-02-22 10:36 | Cat Scan Report ---
CT CHEST WITHOUT CONTRAST INDICATION / CLINICAL INFORMATION: LEFT SIDE CHEST/RIB PAIN. TECHNIQUE: Axial CT images were obtained through the chest without contrast. All CT scans at this [facility] ation are performed using CT dose reduction for ALARA by means of automated exposure control. COMPARISON: None available. FINDINGS: HEART: No significant abnormality. CORONARY ARTERY CALCIFICATION: None. THORACIC AORTA: No significant abnormality. MEDIASTINUM / MARIA A: No significant abnormality. PLEURA: No pleural effusion. No pneumothorax. LUNGS: No acute air space or interstitial disease. ADDITIONAL FINDINGS: None. UPPER ABDOMEN: No significant abnormality. SKELETAL SYSTEM: No significant abnormality. IMPRESSION: No acute abnormality. Signer Name: Antonino Ventura MD Signed: 02/22/2021 10:31 AM Workstation Name: [id number]
[2021-02-22] MEDS ORDERED: ONDANSETRON 4 MG/2 ML INJ IV ONE (10:40)
[2021-02-22] MEDS ORDERED: ONDANSETRON 4 MG/2 ML INJ ONE (10:41)
[2021-02-22 10:43] VITALS: BP 130/85
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
--- NOTE | 2021-02-22 13:39 | Electrocardiograph Report ---
[facility] Test Date: 2021-02-22 Test Time: 01:01:20 Pat Name: QUINCY CORDERO JR Department: Room: Gender: M Iso Coordinator: NICOLÁS : 1970 Requested By: ED DOC Order Number: [id number] Reading MD: Dustin Ellington Measurements Intervals [place] Rate: 90 P: 48 CT: 159 QRS: 66 QRSD: 78 T: 4 QT: 339 QTc: 416 Interpretive Statements Sinus rhythm Probable left atrial enlargement Compared to ECG 02/16/2021 01:13:40 No significant changes Electronically Signed On 02-22-2021 13:38:34 EDT by Dustin Ellington
== END 2021-02-22 11:16 | disposition home or self-care (01) ==
LOC: ED 00:39
DX: S29.011A Strain of muscle and tendon of front wall of thorax, initial encounter (principal); I10 Essential (primary) hypertension; E11.9 Type 2 diabetes mellitus without complications; J45.909 Unspecified asthma, uncomplicated; Z90.49 Acquired absence of other specified parts of digestive tract; Z88.0 Allergy status to penicillin; Z88.6 Allergy status to analgesic agent; Z91.041 Radiographic dye allergy status; Z88.8 Allergy status to other drugs, medicaments and biological substances; Z79.899 Other long term (current) drug therapy; Z79.82 Long term (current) use of aspirin; W22.8XXA Striking against or struck by other objects, initial encounter; Y93.89 Activity, other specified; Y92.89 Other specified places as the place of occurrence of the external cause; Y99.8 Other external cause status
CPT/HCPCS: 36415; 71046; 71250; 80053; 84484; 85025; 93005; 96361; 96374; 96375; 99284; J2270; J2405; J7030

== ENCOUNTER 2021-05-01 18:50 | Emergency (ER) | payer MEDICAID ==
[2021-05-01] MEDS ORDERED: levETIRAcetam 1000 MG/NS 0.75% 1,000 MG/100 ML BAG IV ONE (19:51)
--- NOTE | 2021-05-01 19:56 | Emergency Department Report ---
HPI - General Chief Complaint: Seizure Time Seen by Provider: 05/01/21 19:41 - HPI HPI: Room 35 Patient is a 50-year-old male present with chief complaint of seizure. Patient has history of seizures and states he has been compliant with his Keppra. The patient states he was with a friend when he was witnessed to have his eyes rolled back and have a generalized tonic-clonic seizure. The patient states his last seizure occurred approximate 1 month ago. When asked how he is feeling down the patient replies sleepy. The patient states she was told he had blood coming out of his left ear after the seizure. 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 - Family History Family history: no significant - Social History Smoking Status: Never Smoker Substance Use Type: None - Medications Home Medications: Home Medications Medication Instructions Recorded Confirmed Last Taken Type Aspirin [Aspirin BABY CHEW TAB] 81 mg PO QDAY 08/13/15 09/20/20 09/19/20 History Pregabalin [Lyrica] 100 mg PO 4XD 06/30/20 09/20/20 09/19/20 History Insulin Regular, Human [HumuLIN R] 0 units SUB-Q ACHS 30 Days 09/21/20 Unknown Rx Pantoprazole [Protonix TAB] 40 mg PO QDAC #30 tablet 09/21/20 Unknown Rx oxyCODONE [roxiCODONE] 5 mg PO Q6HR PRN #10 tablet 11/19/20 Unknown Rx Sulfamethoxazole/Trimethoprim 1 each PO BID #14 tablet 11/28/20 Unknown Rx [Bactrim DS TAB] Cyclobenzaprine [Flexeril] 10 mg PO QHS PRN #10 tablet 02/22/21 Unknown Rx levETIRAcetam [Keppra TAB] 1,000 mg PO BID #60 05/01/21 Unknown Rx ED Review of Systems ROS: Stated complaint: SEIZURE Other details as noted in HPI Constitutional: no symptoms reported Eyes: denies: eye pain ENT: as per HPI. denies: throat pain Respiratory: no symptoms reported Cardiovascular: denies: chest pain Endocrine: no symptoms reported Gastrointestinal: denies: abdominal pain Musculoskeletal: denies: back pain Neurological: other (Seizure) Physical Exam - Physical Exam Vital Signs: Vital Signs 05/01/21 18:52 Temperature 98 F Pulse Rate 91 H Respiratory 16 Rate Blood Pressure 115/69 [Left] O2 Sat by Pulse 96 Oximetry Physical Exam: GENERAL: The patient is well-developed well-nourished male lying on stretcher not appearing to be in acute distress. [] HEENT: Normocephalic. Atraumatic. Extraocular motions are intact. Left TM clear, no hemotympanum or dried blood visualized. Canal has some dried cerumen in place NECK: Supple. Trachea midline CHEST/LUNGS: Clear to auscultation. There is no respiratory distress noted. HEART/CARDIOVASCULAR: Regular. There is no tachycardia. There is no gallop rub or murmur. ABDOMEN: Abdomen is soft, nontender. Patient has normal bowel sounds. There is no abdominal distention. SKIN: There is no rash. There is no edema. There is no diaphoresis. NEURO: The patient is awake, alert, and oriented. The patient is cooperative. The patient has no focal neurologic deficits. The patient has normal speech. GCS 15 MUSCULOSKELETAL: There is no evidence of acute injury. ED Course Vital Signs 05/01/21 18:52 Temperature 98 F Pulse Rate 91 H Respiratory 16 Rate Blood Pressure 115/69 [Left] O2 Sat by Pulse 96 Oximetry ED Medical Decision Making - Lab Data Result diagrams: 05/01/21 19:56 05/01/21 19:56 Laboratory Tests 05/01/21 05/01/21 19:56 19:56 WBC 6.2 RBC 5.12 H Hgb 15.3 H Hct 44.3 MCV 87 MCH 30 MCHC 35 H RDW 14.1 Plt Count 160 Lymph % (Auto) 31.2 [place] % (Auto) 8.3 H Eos % (Auto) 1.4 Baso % (Auto) 0.3 Lymph # (Auto) 1.9 [place] # (Auto) 0.5 Eos # (Auto) 0.1 Baso # (Auto) 0.0 Seg Neutrophils % 58.8 Seg Neutrophils # 3.7 Sodium 143 Potassium 3.8 Chloride 105.9 Carbon Dioxide 23 Anion Gap 18 BUN 12 Creatinine 1.7 H Estimated GFR 51 BUN/Creatinine Ratio 7 Glucose 117 H Calcium 9.2 Magnesium 2.10 - Differential Diagnosis Seizure Critical care attestation.: If time is entered above; I have spent that time in minutes in the direct care of this critically ill patient, excluding procedure time. ED Disposition Clinical Impression: Seizure, Renal insufficiency Disposition: HOME / SELF CARE / HOMELESS Is pt being admited?: No Does the pt Need Aspirin: No Condition: Stable Instructions: Seizure, Adult, Preventing Chronic Kidney Disease Additional Instructions: Return to the emergency department should you develop worsening symptoms, inability to tolerate food or liquids, high fever or any other concerns Prescriptions: levETIRAcetam [Keppra TAB] 1,000 mg PO BID #60 Referrals: CELESTINO BRYANT MD [Staff Physician] - 3-5 Days (Dr. Bryant is a ne phrologist (kidney doctor). Please follow-up with her for further evaluation) Time of Disposition: 20:50
[2021-05-01 20:28] LABS: Calcium 9.2 mg/dL (8.4-10.2)
[2021-05-01 20:29] LABS: Basophils % (Auto) 0.3 % (0.0-1.8); Eosinophils # (Auto) 0.1 K/mm3 (0.0-0.4); Eosinophils % (Auto) 1.4 % (0.0-4.3); Hematocrit 44.3 % (35.5-45.6); Hemoglobin 15.3 gm/dl (11.8-15.2); Lymphocytes # (Auto) 1.9 K/mm3 (1.2-5.4); Lymphocytes % (Auto) 31.2 % (13.4-35.0); Mean Corpuscular HGB Conc 35 % (32-34); Mean Corpuscular Volume 87 fl (84-94); Monocytes # (Auto) 0.5 K/mm3 (0.0-0.8); Monocytes % (Auto) 8.3 % (0.0-7.3); Platelet Count 160 K/mm3 (140-440); Red Blood Count 5.12 M/mm3 (3.65-5.03); Red Cell Distribution Width 14.1 % (13.2-15.2)
--- NOTE | 2021-05-01 23:19 | Cat Scan Report ---
CT HEAD WITHOUT CONTRAST INDICATION / CLINICAL INFORMATION: Headache after seizure and fall. TECHNIQUE: All CT scans at this location are performed using CT dose reduction for ALARA by means of automated exposure control. COMPARISON: None available. FINDINGS: HEMORRHAGE: None. EXTRA-AXIAL SPACES: Normal in size and morphology for the patient's age. VENTRICULAR SYSTEM: Normal in size and morphology for the patient's age. CEREBRAL PARENCHYMA: No significant abnormality. No acute territorial infarct. MIDLINE SHIFT / HERNIATION: None. CEREBELLUM / BRAINSTEM: No significant abnormality. ORBITS: Status post right cataract surgery SOFT TISSUES: No significant abnormality. SKULL: No significant abnormality. PARANASAL SINUSES / MASTOID AIR CELLS: Normal as visualized. ADDITIONAL FINDINGS: None. IMPRESSION: 1. No acute intracranial abnormality. Signer Name: Vance Mills DO Signed: 05/01/2021 11:15 PM Workstation Name: [email or web address]
[2021-05-01 23:49] VITALS: BP 122/78
== END 2021-05-02 00:08 | disposition home or self-care (01) ==
LOC: ED 18:50
DX: R56.9 Unspecified convulsions (principal); N28.9 Disorder of kidney and ureter, unspecified; I10 Essential (primary) hypertension; E11.649 Type 2 diabetes mellitus with hypoglycemia without coma; F41.9 Anxiety disorder, unspecified; J45.909 Unspecified asthma, uncomplicated; Z90.89 Acquired absence of other organs; Z98.890 Other specified postprocedural states
CPT/HCPCS: 36415; 70450; 80048; 83735; 85025; 96365; 96366; 99284; J1953

== ENCOUNTER 2021-07-23 13:43 | Emergency (ER) | payer MEDICAID ==
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
[2021-07-23] MEDS ORDERED: levETIRAcetam 1000 MG/NS 0.75% 1,000 MG/100 ML BAG IV ONE (13:58)
[2021-07-23] MEDS ORDERED: SODIUM CHLORIDE 0.9% 1000 ML 1,000 ML IV ONE (14:15)
--- NOTE | 2021-07-23 14:15 | Emergency Department Report ---
ED Seizure HPI - General Chief Complaint: Seizure Stated Complaint: HIT HEAD Time Seen by Provider: 07/23/21 14:06 Source: patient Mode of arrival: Ambulatory Limitations: No Limitations - Related Data Home Medications Medication Instructions Recorded Confirmed Last Taken Aspirin [Aspirin BABY CHEW TAB] 81 mg PO QDAY 08/13/15 09/20/20 09/19/20 Pregabalin [Lyrica] 100 mg PO 4XD 06/30/20 09/20/20 09/19/20 Previous Rx's Medication Instructions Recorded Last Taken Type Insulin Regular, Human [HumuLIN R] 0 units SUB-Q ACHS 30 Days 09/21/20 Unknown Rx Pantoprazole [Protonix TAB] 40 mg PO QDAC #30 tablet 09/21/20 Unknown Rx levETIRAcetam [Keppra TAB] 1,000 mg PO BID #60 05/01/21 Unknown Rx Lidocaine [Lidoderm] 1 each TP DAILY #30 patch 07/23/21 Unknown Rx Allergies Allergy/AdvReac Type Severity Reaction Status Date / Time Penicillins Allergy Severe Anaphylaxis Verified 07/23/21 13:50 acetaminophen [From Tylenol] Allergy Swelling Verified 07/23/21 13:50 metoclopramide HCl Allergy Unknown Verified 07/23/21 13:50 [From Reglan] ibuprofen AdvReac Unknown Swelling Verified 07/23/21 13:50 iv contract dy Allergy Severe Anaphylaxis Uncoded 08/07/19 08:14 ED Review of Systems ROS: Stated complaint: HIT HEAD Other details as noted in HPI ED Past Medical Hx - Past Medical History Hx Hypertension: Yes Hx Heart Attack/AMI: Yes Hx Congestive Heart Failure: No Hx Diabetes: Yes Hx Seizures: Yes Hx Psychiatric Treatment: Yes (anxiety) Hx Asthma: Yes Hx COPD: No Additional medical history: H.pylori, Hypoglycemia - Surgical History Hx Coronary Stent: Yes (x3) Hx Appendectomy: Yes 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 - Social History Smoking Status: Never Smoker Substance Use Type: None - Medications Home Medications: Home Medications Medication Instructions Recorded Confirmed Last Taken Type Aspirin [Aspirin BABY CHEW TAB] 81 mg PO QDAY 08/13/15 09/20/20 09/19/20 History Pregabalin [Lyrica] 100 mg PO 4XD 06/30/20 09/20/20 09/19/20 History Insulin Regular, Human [HumuLIN R] 0 units SUB-Q ACHS 30 Days 09/21/20 Unknown Rx Pantoprazole [Protonix TAB] 40 mg PO QDAC #30 tablet 09/21/20 Unknown Rx levETIRAcetam [Keppra TAB] 1,000 mg PO BID #60 05/01/21 Unknown Rx Lidocaine [Lidoderm] 1 each TP DAILY #30 patch 07/23/21 Unknown Rx ED Physical Exam - General Limitations: No Limitations ED Course Vital Signs 07/23/21 07/23/21 13:55 16:04 Temperature 99.2 F 98.0 F Pulse Rate 91 H 84 Respiratory 20 18 Rate Blood Pressure 113/74 Blood Pressure 133/85 [Left] O2 Sat by Pulse 99 96 Oximetry - Reevaluation(s) Reevaluation #1: 07/23/21 14:14 IV and labs were noted. CT had been ordered. Old records reviewed. Reevaluation #2: 07/23/21 17:38 Labs have finally resulted. Patient does not have any profound electrolyte derangement. CT was noted. Patient was discharged. ED Medical Decision Making - Lab Data Result diagrams: 07/23/21 15:36 07/23/21 15:36 Rhythm strip: Normal sinus rhythm without ectopy. Monitor observed in seconds. - Radiology Data Radiology results: report reviewed - Medical Decision Making Patient presented with a seizure. Etiology for this is unclear. He does not have a metabolic derangement that would have accounted for this. He is hyperglycemic, not hypo but does not have DKA. There is no CT evidence of injury. By the same token there was no CT evidence of tumor, mass, or bleed. Patient does have known seizure disorder. He does not have any obvious infectious pathology. He is not anemic. Patient has not had any ongoing seizure activity here. He certainly could have had a subtherapeutic level with his antiepileptic medication but that would not be delineated today. He does not have any evidence of stroke or meningitis. He was treated symptomatically. He did complain of soreness in the chest after the seizure. There was no point tenderness. There is no crepitus. There is no adventitious breath sounds. He had good oxygenation without hypoxia. I was not concerned for pneumothorax. Critical Care Time: No Critical care attestation.: If time is entered above; I have spent that time in minutes in the direct care of this critically ill patient, excluding procedure time. ED Disposition Clinical Impression: Seizure Chest wall contusion Qualifiers: Encounter type: initial encounter Laterality: left Qualified Code(s): S20.212A - Contusion of left front wall of thorax, initial encounter Disposition: HOME / SELF CARE / HOMELESS Is pt being admited?: No Condition: Stable Instructions: Contusion, [id number], Epilepsy, How to Use Cold Therapy Additional Instructions: Take your seizure medication. Follow-up with your family doctor and your neurologist. Return for problems. Drink plenty of fluids. Avoid flashing light in caffeine and other stimulants. Prescriptions: Lidocaine [Lidoderm] 1 each TP DAILY #30 patch Referrals: PRIMARY CAREMD [Primary Care Provider] - 3-5 Days JULIA WHITAKER MD [Staff Physician] - 3-5 Days
[2021-07-23 14:50] LABS: INR 0.84 (0.87-1.13)
--- NOTE | 2021-07-23 16:01 | Cat Scan Report ---
CT BRAIN: 07/23/2021 INDICATION / CLINICAL INFORMATION: trauma w/otorrhea. COMPARISON: CT brain 05/01/2021 FINDINGS: BRAIN/INTRACRANIAL STRUCTURES: Unenhanced CT images of the brain demonstrate no evidence of acute int racranial abnormality. Ventricles and sulci are within normal limits of size and shape for a patient of this age. There is no evidence of hemorrhage or mass. There are no abnormal extra-axial fluid collections. Bone windows demonstrate no evidence of abnormality. Temporal bone airspaces and middle ear cavities are well aerated with no evidence of abnormal fluid. EXTRACRANIAL STRUCTURES: Unremarkable. IMPRESSION: No acute abnormality. Overall, no significant change compared to 05/01/[address] scans at this location are performed using dose reduction to ALARA by means of automated expos ure control. Signer Name: Dilan Albright MD Signed: 07/23/2021 3:57 PM Workstation Name: [id number]
[2021-07-23 16:53] LABS: Basophils % (Auto) 0.4 % (0.0-1.8); Eosinophils # (Auto) 0.1 K/mm3 (0.0-0.4); Eosinophils % (Auto) 3.6 % (0.0-4.3); Hematocrit 44.1 % (35.5-45.6); Hemoglobin 14.7 gm/dl (11.8-15.2); Lymphocytes # (Auto) 1.1 K/mm3 (1.2-5.4); Lymphocytes % (Auto) 30.5 % (13.4-35.0); Mean Corpuscular HGB Conc 33 % (32-34); Mean Corpuscular Volume 86 fl (84-94); Monocytes # (Auto) 0.4 K/mm3 (0.0-0.8); Platelet Count 127 K/mm3 (140-440); Red Blood Count 5.16 M/mm3 (3.65-5.03); Red Cell Distribution Width 13.5 % (13.2-15.2)
[2021-07-23 17:08] LABS: BUN/Creatinine Ratio 8; Blood Urea Nitrogen 8 mg/dL (9-20); Hemolysis Index 9
[2021-07-23 17:11] LABS: Alanine Aminotransferase 33 units/L (7-56); Albumin 4.1 g/dL (3.9-5)
[2021-07-23] MEDS ORDERED: HALOPERIDOL LACTATE 5 MG/1 ML INJ IM ONE (17:17)
[2021-07-23 17:20] LABS: Bilirubin,Direct < 0.2 mg/dL (0-0.2)
[2021-07-23 18:28] VITALS: BP 128/52
== END 2021-07-23 18:28 | disposition home or self-care (01) ==
LOC: ED 13:43
DX: S20.212A Contusion of left front wall of thorax, initial encounter (principal); E11.9 Type 2 diabetes mellitus without complications; F41.9 Anxiety disorder, unspecified; I10 Essential (primary) hypertension; I21.9 Acute myocardial infarction, unspecified; J45.909 Unspecified asthma, uncomplicated; Z98.890 Other specified postprocedural states; X58.XXXA Exposure to other specified factors, initial encounter; Y93.89 Activity, other specified; Y92.89 Other specified places as the place of occurrence of the external cause; Y99.8 Other external cause status
CPT/HCPCS: 36415; 70450; 80048; 80076; 80177; 83735; 85025; 85610; 96361; 96372; 96374; 99284; J1630; J1953; J7030; 80320; Q0162; G0480

== ENCOUNTER 2021-08-20 22:57 | Inpatient (IN) | payer MEDICAID ==
[2021-08-21] MEDS ORDERED: FAMOTIDINE 20 MG/2 ML INJ IV ONE (02:04)
[2021-08-21] MEDS ORDERED: SODIUM CHLORIDE 0.9% 1000 ML 1,000 ML IV ONE ×2 (02:04→02:07)
[2021-08-21] MEDS ORDERED: ONDANSETRON 4 MG/2 ML INJ IV ONE (02:04)
[2021-08-21] MEDS ORDERED: CLINDAMYCIN 600 MG/50 mL 600 MG/50 ML BAG IV ONE (02:06)
--- NOTE | 2021-08-21 02:30 | XRay Report ---
CHEST 1 VIEW INDICATION / CLINICAL INFORMATION: cough dyspnea. COMPARISON: 02/22/2021 FINDINGS: SUPPORT DEVICES: None. HEART / MEDIASTINUM: No significant abnormality. LUNGS / PLEURA: No significant pulmonary or pleural abnormality. No pneumothorax. ADDITIONAL FINDINGS: No significant additional findings. IMPRESSION: 1. No acute findings. No interval change. Signer Name: Alena De León MD Signed: 08/21/2021 2:26 AM Workstation Name: [id number]
--- NOTE | 2021-08-21 02:36 | Emergency Department Report ---
ED General Adult HPI - General Chief complaint: Dyspnea/Respdistress Stated complaint: CHEST,LEG,FOOT PAIN Time Seen by Provider: 08/21/21 02:03 Source: patient Mode of arrival: Ambulatory Limitations: No Limitations - History of Present Illness Initial comments: Patient is a 50-year-old F [place] male with past medical history of diabetes hypertension who is presenting with cough cold congestion body aches. Patient states he did test positive for Covid approximately a week ago. Does continue to cough and have shortness of breath especially with exertion. Patient with some nausea vomiting is unable to keep anything down for the last several days. Patient also is complaining of pain to his left second toe. There is hyperpigmentation over the last several days. Denies any injury. States the toe is painful. - Related Data Home Medications Medication Instructions Recorded Confirmed Last Taken Aspirin [Aspirin BABY CHEW TAB] 81 mg PO QDAY 08/13/15 09/20/20 09/19/20 Pregabalin [Lyrica] 100 mg PO 4XD 06/30/20 09/20/20 09/19/20 Previous Rx's Medication Instructions Recorded Last Taken Type Insulin Regular, Human [HumuLIN R] 0 units SUB-Q ACHS 30 Days 09/21/20 Unknown Rx Pantoprazole [Protonix TAB] 40 mg PO QDAC #30 tablet 09/21/20 Unknown Rx levETIRAcetam [Keppra TAB] 1,000 mg PO BID #60 05/01/21 Unknown Rx Lidocaine [Lidoderm] 1 each TP DAILY #30 patch 07/23/21 Unknown Rx Allergies Allergy/AdvReac Type Severity Reaction Status Date / Time Penicillins Allergy Severe Anaphylaxis Verified 07/23/21 13:50 acetaminophen [From Tylenol] Allergy Swelling Verified 07/23/21 13:50 metoclopramide HCl Allergy Unknown Verified 07/23/21 13:50 [From Reglan] ibuprofen AdvReac Unknown Swelling Verified 07/23/21 13:50 iv contract dy Allergy Severe Anaphylaxis Uncoded 08/07/19 08:14 ED Review of Systems ROS: Stated complaint: CHEST,LEG,FOOT PAIN Other details as noted in HPI Comment: All other systems reviewed and negative ED Past Medical Hx - Past Medical History Previous Medical History?: Yes Hx Hypertension: Yes Hx Heart Attack/AMI: Yes Hx Congestive Heart Failure: No Hx Diabetes: Yes Hx Seizures: Yes Hx Psychiatric Treatment: Yes (anxiety) Hx Asthma: Yes Hx COPD: No Additional medical history: H.pylori, Hypoglycemia - Surgical History Past Surgical History?: Yes Hx Coronary Stent: Yes (x3) Hx Appendectomy: Yes 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 - Social History Smoking Status: Never Smoker Substance Use Type: None - Medications Home Medications: Home Medications Medication Instructions Recorded Confirmed Last Taken Type Aspirin [Aspirin BABY CHEW TAB] 81 mg PO QDAY 08/13/15 09/20/20 09/19/20 History Pregabalin [Lyrica] 100 mg PO 4XD 06/30/20 09/20/20 09/19/20 History Insulin Regular, Human [HumuLIN R] 0 units SUB-Q ACHS 30 Days 09/21/20 Unknown Rx Pantoprazole [Protonix TAB] 40 mg PO QDAC #30 tablet 09/21/20 Unknown Rx levETIRAcetam [Keppra TAB] 1,000 mg PO BID #60 05/01/21 Unknown Rx Lidocaine [Lidoderm] 1 each TP DAILY #30 patch 07/23/21 Unknown Rx ED Physical Exam - General Limitations: No Limitations General appearance: alert, in no apparent distress - Head Head exam: Present: atraumatic, normocephalic - Eye Eye exam: Present: normal appearance - ENT ENT exam: Present: mucous membranes moist - Neck Neck exam: Present: normal inspection - Respiratory Respiratory exam: Present: normal lung sounds bilaterally. Absent: respiratory distress, wheezes, rales, rhonchi - Cardiovascular Cardiovascular Exam: Present: regular rate, normal rhythm, normal heart sounds. Absent: systolic murmur, diastolic murmur, rubs, gallop - GI/Abdominal GI/Abdominal exam: Present: soft, normal bowel sounds. Absent: distended, tenderness, guarding, rebound - Rectal Rectal exam: Present: deferred - Extremities Exam Extremities exam: Present: normal inspection, other (swelling and hyperpigmentaton to the 2nd left toe) - Back Exam Back exam: Present: normal inspection - Neurological Exam Neurological exam: Present: alert, oriented X3 - Psychiatric Psychiatric exam: Present: normal affect, normal mood - Skin Skin exam: Present: warm, dry, intact, normal color. Absent: rash ED Course Vital Signs 08/20/21 08/21/21 08/21/21 23:48 02:17 03:32 Temperature 97.8 F 98.5 F Pulse Rate 99 H 95 H Respiratory 20 20 18 Rate Blood Pressure 142/88 Blood Pressure 125/73 [Left] O2 Sat by Pulse 97 99 Oximetry ED Medical Decision Making - Lab Data Result diagrams: 08/21/21 02:17 08/21/21 02:17 Lab Results 08/21/21 08/21/21 08/21/21 Range/Units 02:17 02:17 02:17 WBC 5.9 (4.5-11.0) K/mm3 RBC 5.44 H (3.65-5.03) M/mm3 Hgb 15.3 H (11.8-15.2) gm/dl Hct 46.3 H (35.5-45.6) % MCV 85 (84-94) fl MCH 28 (28-32) pg MCHC 33 (32-34) % RDW 13.4 (13.2-15.2) % Plt Count 159 (140-440) K/mm3 Lymph % (Auto) 29.5 (13.4-35.0) % Richardson % (Auto) 9.7 H (0.0-7.3) % Eos % (Auto) 2.6 (0.0-4.3) % Baso % (Auto) [employer] Lymph # (Auto) 1.7 (1.2-5.4) K/mm3 Richardson # (Auto) 0.6 (0.0-0.8) K/mm3 Eos # (Auto) 0.2 (0.0-0.4) K/mm3 Baso # (Auto) 0.0 (0.0-0.1) K/mm3 Seg Neutrophils % 57.5 (40.0-70.0) % Seg Neutrophils # 3.4 (1.8-7.7) K/mm3 Sodium 131 L (137-145) mmol/L Potassium 4.0 (3.6-5.0) mmol/L Chloride 95.7 L (98-107) mmol/L Carbon Dioxide 25 (22-30) mmol/L Anion Gap 14 mmol/L BUN 14 (9-20) mg/dL Creatinine 1.1 (0.8-1.3) mg/dL Estimated GFR > 60 ml/min BUN/Creatinine Ratio 13 % Glucose 358 H (75-100) mg/dL Lactic Acid 1.40 (0.7-2.0) mmol/L Calcium 9.2 (8.4-10.2) mg/dL Total Bilirubin 0.40 (0.1-1.2) mg/dL AST 13 (5-40) units/L ALT 22 (7-56) units/L Alkaline Phosphatase 157 H (35-129) units/L Total Protein 7.9 (6.3-8.2) g/dL Albumin 4.3 (3.9-5) g/dL Albumin/Globulin Ratio 1.2 % - Radiology Data CHEST 1 VIEW INDICATION / CLINICAL INFORMATION: cough dyspnea. COMPARISON: 02/22/2021 FINDINGS: SUPPORT DEVICES: None. HEART / MEDIASTINUM: No significant abnormality. LUNGS / PLEURA: No significant pulmonary or pleural abnormality. No pneumothorax. ADDITIONAL FINDINGS: No significant additional findings. IMPRESSION: 1. No acute findings. No interval change. Signer Name: Alena De León MD Signed: 08/21/2021 2:26 AM Workstation Name: [id number] - Medical Decision Making Patient is a 50-year-old gentleman who is presenting with cough cold congestion body aches secondary to Covid. Patient is been vomiting. Unable to keep a nything down. Does appear dehydrated has a low sodium. Glucose is 350 but not in DKA.. More concerning is the fact that the patient has what appears to be early gangrene of his left second toe. Started on clindamycin. We will have vascular see the patient the patient be admitted to the hospitalist service. Critical care attestation.: If time is entered above; I have spent that time in minutes in the direct care of this critically ill patient, excluding procedure time. ED Disposition Clinical Impression: Gangrene of toe, COVID, Acute bronchitis, Dehydration, Hyperglycemia, Nausea & vomiting Disposition: ADMITTED INPATIENT Is pt being admited?: Yes Does the pt Need Aspirin: No Condition: Stable Instructions: Acute Bronchitis (ED) Time of Disposition: 03:45
[2021-08-21] MEDS ORDERED: AZITHROMYCIN/NS 500 MG/250 ML 500 MG/250 ML BAG IV ONE (02:45)
[2021-08-21 02:54] LABS: Eosinophils # (Auto) 0.2 K/mm3 (0.0-0.4); Eosinophils % (Auto) 2.6 % (0.0-4.3); Hematocrit 46.3 % (35.5-45.6); Hemoglobin 15.3 gm/dl (11.8-15.2); Lymphocytes # (Auto) 1.7 K/mm3 (1.2-5.4); Lymphocytes % (Auto) 29.5 % (13.4-35.0); Mean Corpuscular HGB Conc 33 % (32-34); Mean Corpuscular Volume 85 fl (84-94); Monocytes # (Auto) 0.6 K/mm3 (0.0-0.8); Monocytes % (Auto) 9.7 % (0.0-7.3); Platelet Count 159 K/mm3 (140-440); Red Blood Count 5.44 M/mm3 (3.65-5.03); Red Cell Distribution Width 13.4 % (13.2-15.2)
[2021-08-21 03:05] LABS: Alanine Aminotransferase 22 units/L (7-56); Albumin 4.3 g/dL (3.9-5); BUN/Creatinine Ratio 13; Blood Urea Nitrogen 14 mg/dL (9-20); Calcium 9.2 mg/dL (8.4-10.2); Hemolysis Index 3
[2021-08-21] MEDS ORDERED: MORPHINE 4 MG/1 ML INJ IV ONE (03:27)
[2021-08-21] MEDS ORDERED: MORPHINE 4 MG/1 ML INJ IV PRN (04:07)
[2021-08-21] MEDS ORDERED: MAGNESIUM HYDROXIDE (MOM) ORAL LIQD UDC PO PRN (04:07)
[2021-08-21] MEDS ORDERED: ACETAMINOPHEN 325 MG TAB PO PRN (04:07)
[2021-08-21] MEDS ORDERED: ONDANSETRON 4 MG/2 ML INJ IV PRN (04:07)
[2021-08-21] MEDS ORDERED: DEXTROSE 10% *Hypoglycemia IV PRN (04:34)
--- NOTE | 2021-08-21 04:36 | History and Physical Report ---
History of Present Illness Date of examination: 08/21/21 Date of admission: 08/21/2021 Chief complaint: Nausea and vomiting Cough and generalized body aches History of present illness: 50-year-old -[place] male with known history of hypertension, diabetes mellitus was diagnosed with COVID about a week ago presents to the emergency room today complaining of cough, generalized body aches and pain nausea and vomiting for the past few days. Patient has also been having some shortness of breath but denies any chest pain. She denies any diarrhea, no abdominal pain, no hematuria or dysuria. He states he has not been able to keep any food down over the past few days. Patient also indicates that he has been having some pain on the second toe of the left foot. He denies any fall and no recent trauma to the foot. Patient denies any fever or chills, no sick contacts and no recent travel. Work-up in the emergency room today, labs reveals sodium of 131, blood glucose of 358 Chest x-ray shows no acute findings. Past History Past Medical History: diabetes, hypertension, other (History of H. pylori, anxiety) Past Surgical History: PTCA, Other (cornea transplant right eye) Medications and Allergies Allergies Allergy/AdvReac Type Severity Reaction Status Date / Time Penicillins Allergy Severe Anaphylaxis Verified 07/23/21 13:50 acetaminophen [From Tylenol] Allergy Swelling Verified 07/23/21 13:50 metoclopramide HCl Allergy Unknown Verified 07/23/21 13:50 [From Reglan] ibuprofen AdvReac Unknown Swelling Verified 07/23/21 13:50 iv contract dy Allergy Severe Anaphylaxis Uncoded 08/07/19 08:14 Home Medications Medication Instructions Recorded Confirmed Last Taken Type Aspirin [Aspirin BABY CHEW TAB] 81 mg PO QDAY 08/13/15 09/20/20 09/19/20 History Pregabalin [Lyrica] 100 mg PO 4XD 06/30/20 09/20/20 09/19/20 History Insulin Regular, Human [HumuLIN R] 0 units SUB-Q ACHS 30 Days 09/21/20 Unknown Rx Pantoprazole [Protonix TAB] 40 mg PO QDAC #30 tablet 09/21/20 Unknown Rx levETIRAcetam [Keppra TAB] 1,000 mg PO BID #60 05/01/21 Unknown Rx Lidocaine [Lidoderm] 1 each TP DAILY #30 patch 07/23/21 Unknown Rx Active Meds: Active Medications Acetaminophen (Acetaminophen 325 Mg Tab) 650 mg PO Q4H PRN PRN Reason: Pain MILD(1-3)/Fever >100.5/LOVE Dextrose (Dextrose 50% In Water (25gm) 50 Ml Syringe) 50 ml IV Q30MIN PRN; Protocol PRN Reason: Hypoglycemia Sodium Chloride (Nacl 0.9% 1000 Ml) 1,000 mls @ 125 mls/hr IV DIRECT MIKE Insulin Human Lispro (Insulin Lispro 100 Unit/Ml) 0 unit SUB-Q ACHS MIKE; Protocol Magnesium Hydroxide (Magnesium Hydroxide (Mom) Oral Liqd Udc) 30 ml PO Q4H PRN PRN Reason: Constipation Morphine Sulfate (Morphine 2 Mg/1 Ml Inj) 2 mg IV Q4H PRN PRN Reason: Pain, Moderate (4-6) Morphine Sulfate (Morphine 4 Mg/1 Ml Inj) 4 mg IV Q4H PRN PRN Reason: Pain , Severe (7-10) Ondansetron HCl (Ondansetron 4 Mg/2 Ml Inj) 4 mg IV Q8H PRN PRN Reason: Nausea And Vomiting Sodium Chloride (Sodium Chloride 0.9% 10 Ml Flush Syringe) 10 ml IV BID MIKE Sodium Chloride (Sodium Chloride 0.9% 10 Ml Flush Syringe) 10 ml IV PRN PRN PRN Reason: LINE FLUSH Review of Systems Constitutional: no fever, no chills Ears, nose, mouth and throat: no nasal congestion, no sore throat Cardiovascular: no chest pain, no palpitations Respiratory: cough, shortness of breath Gastrointestinal: nausea, vomiting, no abdominal pain, no diarrhea Genitourinary Male: no dysuria, no hematuria, no flank pain Musculoskeletal: no neck pain, no low back pain Integumentary: no rash, no pruritis Neurological: headaches, no confusion Psychiatric: anxiety, depression Endocrine: no polyphagia, no polydipsia, no polyuria, no nocturia Exam - Constitutional Vitals: Temp Pulse Resp BP Pulse Ox 98.5 F 95 H 18 133/83 99 08/21/21 02:17 08/21/21 02:17 08/21/21 03:32 08/21/21 03:46 08/21/21 03:46 General appearance: Present: no acute distress, well-nourished - EENT Eyes: Present: PERRL, EOM intact. Absent: scleral icterus ENT: hearing intact, clear oral mucosa, dentition normal - Neck Neck: Present: supple, normal ROM - Respiratory Respiratory effort: normal Respiratory: bilateral: CTA - Cardiovascular Rhythm: regular Heart Sounds: Present: S1 & S2, gallop. Absent: systolic murmur, diastolic murmur, rub, click - Extremities Extremities: no ischemia, pulses intact, pulses symmetrical, No edema, normal temperature, Full ROM, abnormal (Mild tenderness and hematoma under skin of second toe of left foot.) - Abdominal General gastrointestinal: Present: soft, non-tender, non-distended, normal bowel sounds. Absent: mass - Integumentary Integumentary: Present: clear, warm, dry - Musculoskeletal Musculoskeletal: strength equal bilaterally - Psychiatric Psychiatric: appropriate mood/affect, intact judgment & insight, memory intact - Neurologic Neurologic: CNII-XII intact, no focal deficits, moves all extremities Results - Labs CBC & Chem 7: 08/21/21 02:17 08/21/21 02:17 Labs: Abnormal lab results 08/21/21 08/21/21 Range/Units 02:17 02:17 RBC 5.44 H (3.65-5.03) M/mm3 Hgb 15.3 H (11.8-15.2) gm/dl Hct 46.3 H (35.5-45.6) % Weber % (Auto) 9.7 H (0.0-7.3) % Sodium 131 L (137-145) mmol/L Chloride 95.7 L (98-107) mmol/L Glucose 358 H (75-100) mg/dL Alkaline Phosphatase 157 H (35-129) units/L Assessment and Plan - Patient Problems (1) Dehydration Current Visit: Yes Status: Acute Plan to address problem: Possibly secondary to the nausea and vomiting. Patient placed on IV fluid normal saline. Will monitor chemistry. (2) Nausea & vomiting Current Visit: Yes Status: Acute Plan to address problem: Patient placed on antiemetic. (3) Hyperglycemia Current Visit: Yes Status: Acute Plan to address problem: Patient placed on sliding scale insulin. We will monitor Accu-Cheks. (4) Hematoma of toe of left foot Current Visit: Yes Status: Acute Plan to address problem: Hematoma over second toe of left foot possibly secondary to recent trauma. Doubt toe gangrene. Patient received a dose of antibiotics in the emergency room. (5) COVID Current Visit: Yes Status: Acute Plan to address problem: We will consult infectious disease for further recommendations. (6) DVT prophylaxis Current Visit: No Status: Acute Plan to address problem: Patient placed on subcutaneous heparin. (7) Full code status Current Visit: No Status: Acute Plan to address problem: Patient is full code.
[2021-08-21] MEDS ORDERED: dexAMETHasone 4 MG/ML VIAL IV ONE (05:56)
[2021-08-21] MEDS: HEPARIN 5,000 UNIT/1 ML VIAL SUB-Q SCH ×3 (06:08→22:15)
[2021-08-21 06:28] LABS: C-Reactive Protein 0.7 mg/dL (0.00-1.30)
[2021-08-21 07:52] LABS: C-Reactive Protein 0.8 mg/dL (0.00-1.30)
[2021-08-21] MEDS ORDERED: CLINDAMYCIN 600 MG/50 mL 600 MG/50 ML BAG IV SCH (08:00)
[2021-08-21] MEDS: SODIUM CHLORIDE 0.9% 1000 ML 1,000 ML IV SCH ×2 (08:42→17:54)
[2021-08-21] MEDS: INSULIN LISPRO 100 UNIT/ML SUB-Q SCH ×4 (08:43→22:15)
[2021-08-21] MEDS: MORPHINE 2 MG/1 ML INJ IV PRN ×2 (08:49→18:39)
--- NOTE | 2021-08-21 09:50 | Progress Note ---
Assessment and Plan Assessment and plan: COVID-19 pneumonia. Patient with outpatient diagnosis approximately 1 week ago. Diabetes mellitus type 2 Hypertension Hematoma of left second toe 08/21/2021. Follow-up Covid PCR testing. Check procalcitonin. Chest x-ray shows no acute findings. Patient reportedly with some shortness of breath on exertion per documentation with the vital signs. However, patient appears comfortable upon my evaluation. We will have respiratory therapy assess and treat per protocol. If patient is hypoxic, we will start dexamethasone and consider remdesivir. ID consultation pending. Check bilateral lower extremity Dopplers to rule out ischemia or possibly Covid toe. Continue SSRI and Accu-Cheks. History Interval history: No new issues overnight. Hospitalist Physical - Constitutional Vitals: Temp Pulse Resp BP Pulse Ox 98.5 F 85 21 116/74 96 08/21/21 02:17 08/21/21 05:15 08/21/21 05:29 08/21/21 05:15 08/21/21 05:29 General appearance: Present: no acute distress, well-nourished - EENT Eyes: Present: PERRL, EOM intact ENT: hearing intact, clear oral mucosa, dentition normal - Neck Neck: Present: supple, normal ROM - Respiratory Respiratory effort: normal Respiratory: bilateral: CTA - Cardiovascular Rhythm: regular Heart Sounds: Present: S1 & S2. Absent: gallop, rub - Extremities Extremities: no ischemia, No edema, Full ROM - Abdominal General gastrointestinal: soft, non-tender, non-distended, normal bowel sounds - Integumentary Integumentary: Present: clear, warm, dry - Neurologic Neurologic: CNII-XII intact, moves all extremities Results - Labs CBC & Chem 7: 08/21/21 02:17 08/21/21 06:46 Labs: Laboratory Last Values WBC 5.9 K/mm3 (4.5-11.0) 08/21/21 02:17 RBC 5.44 M/mm3 (3.65-5.03) H 08/21/21 02:17 Hgb 15.3 gm/dl (11.8-15.2) H 08/21/21 02:17 Hct 46.3 % (35.5-45.6) H 08/21/21 02:17 MCV 85 fl (84-94) 08/21/21 02:17 MCH 28 pg (28-32) 08/21/21 02:17 MCHC 33 % (32-34) 08/21/21 02:17 RDW 13.4 % (13.2-15.2) 08/21/21 02:17 Plt Count 159 K/mm3 (140-440) 08/21/21 02:17 Lymph % (Auto) 29.5 % (13.4-35.0) 08/21/21 02:17 [place] % (Auto) 9.7 % (0.0-7.3) H 08/21/21 02:17 Eos % (Auto) 2.6 % (0.0-4.3) 08/21/21 02:17 Baso % (Auto) [employer] Garments 08/21/21 02:17 Lymph # (Auto) 1.7 K/mm3 (1.2-5.4) 08/21/21 02:17 [place] # (Auto) 0.6 K/mm3 (0.0-0.8) 08/21/21 02:17 Eos # (Auto) 0.2 K/mm3 (0.0-0.4) 08/21/21 02:17 Baso # (Auto) 0.0 K/mm3 (0.0-0.1) 08/21/21 02:17 Seg Neutrophils % 57.5 % (40.0-70.0) 08/21/21 02:17 Seg Neutrophils # 3.4 K/mm3 (1.8-7.7) 08/21/21 02:17 D-Dimer 262.77 ng/mlDDU (0-234) H 08/21/21 06:46 Sodium 131 mmol/L (137-145) L 08/21/21 02:17 Potassium 4.0 mmol/L (3.6-5.0) 08/21/21 02:17 Chloride 95.7 mmol/L (98-107) L 08/21/21 02:17 Carbon Dioxide 25 mmol/L (22-30) 08/21/21 02:17 Anion Gap 14 mmol/L 08/21/21 02:17 BUN 14 mg/dL (9-20) 08/21/21 02:17 Creatinine 1.1 mg/dL (0.8-1.3) 08/21/21 02:17 Estimated GFR > 60 ml/min 02/04/22 02:17 BUN/Creatinine Ratio 13 % 08/21/21 02:17 Glucose 265 mg/dL (75-100) H 08/21/21 06:46 Lactic Acid 1.20 mmol/L (0.7-2.0) 08/21/21 04:25 Calcium 9.2 mg/dL (8.4-10.2) 08/21/21 02:17 Ferritin 327.0 ng/mL (30.0-300.0) H 08/21/21 06:46 Total Bilirubin 0.40 mg/dL (0.1-1.2) 08/21/21 02:17 AST 13 units/L (5-40) 08/21/21 02:17 ALT 22 units/L (7-56) 08/21/21 02:17 Alkaline Phosphatase 157 units/L (35-129) H 08/21/21 02:17 Lactate Dehydrogenase 188 units/L (91-180) H 08/21/21 06:46 C-Reactive Protein 0.80 mg/dL (0.00-1.30) 08/21/21 06:46 Total Protein 7.9 g/dL (6.3-8.2) 08/21/21 02:17 Albumin 4.3 g/dL (3.9-5) 08/21/21 02:17 Albumin/Globulin Ratio 1.2 % 08/21/21 02:17 Microbiology: Microbiology 08/21/21 02:44 Peripheral/Venous Blood Culture - Preliminary Culture in Progress 08/21/21 02:24 Peripheral/Venous Blood Culture - Preliminary Culture in Progress Vance/IV: Voiding Method Toilet Active Medications - Current Medications Current Medications: Generic Name Dose Route Start Last Admin Trade Name Freq PRN Reason Stop Dose Admin Acetaminophen 650 mg 08/21/21 04:07 Acetaminophen 325 Mg Tab PO Q4H PRN Pain MILD(1-3)/Fever >100.5/LOVE Dextrose 0 ml 08/21/21 04:34 Dextrose 10% *Hypoglycemia IV DIRECT PRN Hypoglycemia Protocol Heparin Sodium (Porcine) 5,000 unit 08/21/21 06:00 08/21/21 06:08 Heparin 5,000 Unit/1 Ml Vial SUB-Q 5,000 unit Q8HR MIKE Administration Sodium Chloride 1,000 mls @ 125 mls/hr 08/21/21 04:15 08/21/21 08:42 Nacl 0.9% 1000 Ml IV 125 mls/hr DIRECT MIKE Administration Insulin Human Lispro 0 unit 08/21/21 07:30 08/21/21 08:43 Insulin Lispro 100 Unit/Ml SUB-Q 4 unit ACHS MIKE Administration Protocol Magnesium Hydroxide 30 ml 08/21/21 04:07 Magnesium Hydroxide (Mom) Oral Liqd Udc PO Q4H PRN Constipation Morphine Sulfate 2 mg 08/21/21 04:07 08/21/21 08:49 Morphine 2 Mg/1 Ml Inj IV 2 mg Q4H PRN Administration Pain, Moderate (4-6) Morphine Sulfate 4 mg 08/21/21 04:07 Morphine 4 Mg/1 Ml Inj IV Q4H PRN Pain , Severe (7-10) Ondansetron HCl 4 mg 08/21/21 04:07 Ondansetron 4 Mg/2 Ml Inj IV Q8H PRN Nausea And Vomiting Sodium Chloride 10 ml 08/21/21 10:00 08/21/21 09:06 Sodium Chloride 0.9% 10 Ml Flush Syringe IV 10 ml BID MIKE Administration Sodium Chloride 10 ml 08/21/21 04:07 Sodium Chloride 0.9% 10 Ml Flush Syringe IV PRN PRN LINE FLUSH
[2021-08-21 12:00] LABS: Bilirubin,Urine NEG (Negative); Blood,Urine NEG (Negative); Color,Urine Straw (Yellow); Protein,Urine <15 mg/dL mg/dL (Negative); RBC,Urine < 1.0 /HPF (0.0-6.0); Urobilinogen,Urine < 2.0 mg/dL (<2.0); WBC,Urine < 1.0 /HPF (0.0-6.0)
--- NOTE | 2021-08-21 12:33 | Consultation ---
History of Present Illness - Reason for Consult Consult date: 08/21/21 - History of Present Illness 50-year-old male past medical history hypertension, diabetes, recent COVID-19 diagnosis 1 week prior presented to hospital complaining of cough, myalgias, nausea, vomiting. He also complains of some shortness of breath and cough. Otherwise no acute issues. Afebrile since admission with a white count of 5.9. Normal renal function. Pending procalcitonin. Currently no antibiotics. On room air. No hypoxia. Imaging personally reviewed: Chest x-ray: No acute findings. Review of systems: Deferred to reduce to the risk of transmission of COVID-19 Past History Past Medical History: diabetes, hypertension, other (History of H. pylori, anxiety) Past Surgical History: PTCA, Other (cornea transplant right eye) Social history: denies: smoking Family history: diabetes Medications and Allergies Allergies Allergy/AdvReac Type Severity Reaction Status Date / Time Penicillins Allergy Severe Anaphylaxis Verified 08/21/21 10:18 acetaminophen [From Tylenol] Allergy Rash Verified 08/21/21 10:18 metoclopramide HCl Allergy hallucinati Verified 08/21/21 10:51 [From Reglan] on ibuprofen AdvReac Severe Anaphylaxis Verified 08/21/21 10:24 iv contrast dye AdvReac Anaphylaxis Uncoded 08/21/21 10:26 Home Medications Medication Instructions Recorded Confirmed Last Taken Type Aspirin [Aspirin BABY CHEW TAB] 81 mg PO QDAY 08/13/15 08/21/21 09/19/20 History Pregabalin [Lyrica] 100 mg PO TID 06/30/20 08/21/21 09/19/20 History Insulin Regular, Human [HumuLIN R] 0 units SUB-Q ACHS 30 Days 09/21/20 08/21/21 Unknown Rx Pantoprazole [Protonix TAB] 40 mg PO QDAC #30 tablet 09/21/20 08/21/21 Unknown Rx levETIRAcetam [Keppra TAB] 1,000 mg PO BID #60 05/01/21 08/21/21 Unknown Rx Ascorbic Acid [C-1000] 1,000 mg PO QDAY 08/21/21 08/21/21 Unknown History Cholecalciferol Vit D3 [Vitamin D3 1,000 unit PO QDAY 08/21/21 08/21/21 Unknown History 1,000 UNIT TAB] Liraglutide [Victoza 2-Odin] 1.2 mg SQ DAILY 08/21/21 08/21/21 Unknown History Lisinopril [Zestril] 5 mg PO QDAY 08/21/21 08/21/21 Unknown History Zinc Sulfate 220 mg PO QDAY 08/21/21 08/21/21 Unknown History Active Meds: Active Medications Acetaminophen (Acetaminophen 325 Mg Tab) 650 mg PO Q4H PRN PRN Reason: Pain MILD(1-3)/Fever >100.5/LOVE Dextrose (Dextrose 10% *Hypoglycemia) 0 ml IV DIRECT PRN; Protocol PRN Reason: Hypoglycemia Heparin Sodium (Porcine) (Heparin 5,000 Unit/1 Ml Vial) 5,000 unit SUB-Q Q8HR MIKE Last Admin: 08/21/21 06:08 Dose: 5,000 unit Sodium Chloride (Nacl 0.9% 1000 Ml) 1,000 mls @ 125 mls/hr IV DIRECT MIKE Last Admin: 08/21/21 08:42 Dose: 125 mls/hr Insulin Human Lispro (Insulin Lispro 100 Unit/Ml) 0 unit SUB-Q ACHS MIKE; Pr otocol Last Admin: 08/21/21 08:43 Dose: 4 unit Magnesium Hydroxide (Magnesium Hydroxide (Mom) Oral Liqd Udc) 30 ml PO Q4H PRN PRN Reason: Constipation Morphine Sulfate (Morphine 2 Mg/1 Ml Inj) 2 mg IV Q4H PRN PRN Reason: Pain, Moderate (4-6) Last Admin: 08/21/21 08:49 Dose: 2 mg Morphine Sulfate (Morphine 4 Mg/1 Ml Inj) 4 mg IV Q4H PRN PRN Reason: Pain , Severe (7-10) Ondansetron HCl (Ondansetron 4 Mg/2 Ml Inj) 4 mg IV Q8H PRN PRN Reason: Nausea And Vomiting Sodium Chloride (Sodium Chloride 0.9% 10 Ml Flush Syringe) 10 ml IV BID MIKE Last Admin: 08/21/21 09:06 Dose: 10 ml Sodium Chloride (Sodium Chloride 0.9% 10 Ml Flush Syringe) 10 ml IV PRN PRN PRN Reason: LINE FLUSH Physical Examination - Physical Exam Narrative exam: Physical exam deferred to reduce risk of transmission of COVID-19. Please refer to primary team's note. - Constitutional Vitals: Vital Signs Temp Pulse Resp BP Pulse Ox 98.5 F 85 21 116/74 96 08/21/21 02:17 08/21/21 05:15 08/21/21 05:29 08/21/21 05:15 08/21/21 05:29 Temperature -Last 24 Hours Temperature 98.5 F Temperature 97.8 F Results - Labs CBC & Chem 7: 08/21/21 02:17 08/21/21 06:46 Labs: Abnormal lab results 08/21/21 08/21/21 08/21/21 Range/Units 02:17 02: 04:25 RBC 5.44 H (3.65-5.03) M/mm3 Hgb 15.3 H (11.8-15.2) gm/dl Hct 46.3 H (35.5-45.6) % [place] % (Auto) 9.7 H (0.0-7.3) % D-Dimer (0-234) ng/mlDDU Sodium 131 L (137-145) mmol/L Chloride 95.7 L (98-107) mmol/L Glucose 358 H (75-100) mg/dL Ferritin 347.6 H (30.0-300.0) ng/mL Alkaline Phosphatase 157 H (35-129) units/L Lactate Dehydrogenase (91-180) units/L 08/21/21 08/21/21 08/21/21 Range/Units 04:25 06:46 06:46 RBC (3.65-5.03) M/mm3 Hgb (11.8-15.2) gm/dl Hct (35.5-45.6) % [place] % (Auto) (0.0-7.3) % D-Dimer 262.77 H (0-234) ng/mlDDU Sodium (137-145) mmol/L Chloride (98-107) mmol/L Glucose 265 H (75-100) mg/dL Ferritin (30.0-300.0) ng/mL Alkaline Phosphatase (35-129) units/L Lactate Dehydrogenase 188 H 188 H (91-180) units/L 08/21/21 Range/Units 06:46 RBC (3.65-5.03) M/mm3 Hgb (11.8-15.2) gm/dl Hct (35.5-45.6) % [place] % (Auto) (0.0-7.3) % D-Dimer (0-234) ng/mlDDU Sodium (137-145) mmol/L Chloride (98-107) mmol/L Glucose (75-100) mg/dL Ferritin 327.0 H (30.0-300.0) ng/mL Alkaline Phosphatase (35-129) units/L Lactate Dehydrogenase (91-180) units/L Assessment and Plan Cultures: None A/P: 50-year-old male past medical history hypertension, diabetes #COVID infection: no PNA on CXR, not hypoxic. Has some GI symptoms #Diabetes: tight glycemic control for best outcomes. #Morbid obesity: Associated with worse COVID-19 outcomes Recommendations: -Not hypoxic, no PNA, no need for acute COVID treatment -Remain off antibiotics as afebrile, normal white count. -Symptmatic treatment for GI symptoms. Thank you for the consult, we will continue to follow. Eli Viveros MD [facility], [facility] ([facility] O: [phone] F: [phone]
--- NOTE | 2021-08-21 14:27 | Vascular Lab Report ---
DUPLEX DOPPLER LOWER EXTREMITY ARTERIAL, BILATERAL INDICATION / CLINICAL INFORMATION: toe ischemia. TECHNIQUE: Arterial duplex examination of both lower extremities performed using B-mode, color flow a nd spectral Doppler assessment. FINDINGS: RIGHT: Common Femoral Artery: PSV 129 cm/sec. Triphasic waveform. Proximal SFA: PSV 121 cm/sec. Triphasic waveform. Mid SFA: PSV 107 cm/sec. Triphasic waveform. Distal SFA: PSV 91 cm/sec. Triphasic waveform. Popliteal artery: PSV 108 cm/sec. Triphasic waveform. Posterior tibial artery: PSV 110 cm/sec. Triphasic waveform. Dorsalis Pedis Artery: PSV 51 cm/sec. Triphasic waveform. LEFT: Common Femoral Artery: PSV 116 cm/sec. Triphasic waveform. Proximal SFA: PSV 109 cm/sec. Triphasic waveform. Mid SFA: PSV 110 cm/sec. Triphasic waveform. Distal SFA: PSV 91 cm/sec. Triphasic waveform. Popliteal artery: PSV 100 cm/sec. Triphasic waveform. Posterior tibial artery: PSV 112 cm/sec. Triphasic waveform. Dorsalis Pedis Artery: PSV 44 cm/sec. Triphasic waveform. Right FREDRICK: Not performed. Left FREDRICK: Not performed. IMPRESSION: 1. No significant lower extremity peripheral artery disease. Ankle-Brachial Index (FREDRICK): - Calcified arteries > 1.4 - Normal = 0.9-1.4 - Mild PAD = 0.7-0.89 - Moderate PAD = 0.51-0.69 - Severe PAD < 0.5 Doppler Waveform: - Triphasic is normal. - Biphasic is abnormal if clear transition from triphasic signal along vascular tree. - Monophasic is abnormal. Scribed by: Lorraine Ahumada RDMS, RVT Scribed: 08/21/2021 12:58 PM I have reviewed the images, agree with this report, and edited this report as needed. Signer Name: Mayank Yu MD Signed: 08/21/2021 2:23 PM Workstation Name: [id number]
[2021-08-21] MEDS ORDERED: INSULIN LISPRO 100 UNIT/ML SUB-Q ONE (22:00)
[2021-08-22] MEDS: HEPARIN 5,000 UNIT/1 ML VIAL SUB-Q SCH (05:20)
[2021-08-22] MEDS: MORPHINE 2 MG/1 ML INJ IV PRN (05:50)
[2021-08-22 06:04] VITALS: BP 169/85
[2021-08-22 08:00] LABS: BUN/Creatinine Ratio 14; Blood Urea Nitrogen 13 mg/dL (9-20); Calcium 8.9 mg/dL (8.4-10.2); Hemolysis Index 37
[2021-08-22 08:07] LABS: Eosinophils % (Auto) 0.1 % (0.0-4.3); Monocytes # (Auto) 1.1 K/mm3 (0.0-0.8); Monocytes % (Auto) 9.1 % (0.0-7.3)
[2021-08-22] MEDS: INSULIN LISPRO 100 UNIT/ML SUB-Q SCH (09:06)
--- NOTE | 2021-08-22 09:29 | Discharge Summary ---
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 Condition: Stable Hospital course: 50-year-old male past medical history hypertension, diabetes, recent COVID-19 diagnosis 1 week prior presented to hospital complaining of cough, myalgias, nausea, vomiting. He also complains of some shortness of breath and cough. Otherwise no acute issues. The patient was admitted with diagnosis of Covid infection, diabetes mellitus type 2 and morbid obesity. Patient also had a question Covid toe or ischemic second left toe. Arterial duplex completed and found to have no evidence of peripheral vascular disease. Appears as though minerva goodwin has a hematoma of the left second toe. ID saw the patient in consultation for the COVID-19 infection. Patient not hypoxic and no evidence of pneumonia. Therefore, ID recommends no acute Covid treatment. Patient was off antibiotics and remained afebrile with normal white count. Patient felt stable for discharge home. Dedicated discharge time 35 minutes Disposition: 01 HOME / SELF CARE / HOMELESS Final Discharge Diagnosis (Prints w/discharge instructions): Covid infection, morbid obesity, diabetes mellitus type 2 Core Measure Documentation - Palliative Care Palliative Care/ Comfort Measures: Not Applicable - Core Measures Any of the following diagnoses?: none Exam - Constitutional Vitals: Temp Pulse Resp BP Pulse Ox 97.4 F L 91 H 20 169/85 99 08/22/21 04:55 08/22/21 04:55 08/22/21 04:55 08/22/21 04:55 08/22/21 04:55 General appearance: Present: no acute distress, well-nourished - EENT Eyes: Present: PERRL ENT: hearing intact, clear oral mucosa - Neck Neck: Present: supple, normal ROM - Respiratory Respiratory effort: normal Respiratory: bilateral: CTA - Cardiovascular Heart Sounds: Present: S1 & S2. Absent: rub, click - Extremities Extremities: pulses symmetrical, No edema Peripheral Pulses: within normal limits - Abdominal General gastrointestinal: Present: soft, non-tender, non-distended, normal bowel sounds Male genitourinary: Present: normal - Integumentary Integumentary: Present: clear, warm, dry - Musculoskeletal Musculoskeletal: gait normal, strength equal bilaterally - Psychiatric Psychiatric: appropriate mood/affect, intact judgment & insight - Neurologic Neurologic: CNII-XII intact, moves all extremities Plan Activity: advance as tolerated Weight Bearing Status: Weight Bear as Tolerated Diet: regular Follow up with: PRIMARY CARE, [Primary Care Provider] - 7 Days
[2021-08-22 11:18] LABS: Hematocrit 43.1 % (35.5-45.6); Hemoglobin 14.1 gm/dl (11.8-15.2); Lymphocytes # (Auto) 2.4 K/mm3 (1.2-5.4); Lymphocytes % (Auto) 17.1 % (13.4-35.0); Mean Corpuscular HGB Conc 33 % (32-34); Mean Corpuscular Volume 85 fl (84-94); Red Blood Count 5.08 M/mm3 (3.65-5.03); Red Cell Distribution Width 13.8 % (13.2-15.2)
[2021-08-22 11:27] LABS: Basophils % (Auto) 0.1 % (0.0-1.8)
[2021-08-22 13:34] LABS: Mean Platelet Volume 9.8 fl (6-12); Platelet Count 161 K/mm3 (140-440)
== END 2021-08-22 14:48 | disposition home or self-care (01) | DRG 178 ==
LOC: ED 22:57 → 3A 08-21 04:07 → OBSVTOIN 08-21 11:50 → 3A 08-22 08:07
PROVIDERS: ADMIT Internal Medicine Geriatric Medicine; ATTEND Hospitalist
DX: U07.1 COVID-19 (principal); E11.52 Type 2 diabetes mellitus with diabetic peripheral angiopathy with gangrene; I96 Gangrene, not elsewhere classified; Z68.41 Body mass index [BMI] 40.0-44.9, adult; E86.0 Dehydration; E11.65 Type 2 diabetes mellitus with hyperglycemia; I10 Essential (primary) hypertension; F41.9 Anxiety disorder, unspecified; J45.909 Unspecified asthma, uncomplicated; I25.2 Old myocardial infarction; Z94.7 Corneal transplant status; J20.9 Acute bronchitis, unspecified; S90.122A Contusion of left lesser toe(s) without damage to nail, initial encounter; X58.XXXA Exposure to other specified factors, initial encounter; Y93.89 Activity, other specified; Y92.89 Other specified places as the place of occurrence of the external cause; Y99.8 Other external cause status; E66.01 Morbid (severe) obesity due to excess calories; Z79.82 Long term (current) use of aspirin; Z79.4 Long term (current) use of insulin; Z90.49 Acquired absence of other specified parts of digestive tract; Z88.0 Allergy status to penicillin; Z88.8 Allergy status to other drugs, medicaments and biological substances; Z91.041 Radiographic dye allergy status
CPT/HCPCS: 36415; 71045; 80048; 80053; 81001; 82140; 82728; 82947; 82962; 83615; 84145; 85025; 85379; 86140; 87040; 93925; G0378; J3490; J7502; Q0162; Q9967; J0456; J1100; J1644; J1815; J2270; J2405; J7030; U0003

== ENCOUNTER 2021-09-24 21:38 | Emergency (ER) | payer MEDICAID ==
[2021-09-25 00:09] VITALS: BP 148/88
== END 2021-09-25 11:00 ==
LOC: ED 21:38
DX: M79.606 Pain in leg, unspecified (principal); Z53.21 Procedure and treatment not carried out due to patient leaving prior to being seen by health care provider

== ENCOUNTER 2022-01-11 16:59 | Emergency (ER) | payer MEDICAID ==
[2022-01-11 17:22] VITALS: BP 189/91
--- NOTE | 2022-01-11 18:10 | XRay Report ---
CHEST 2 VIEWS INDICATION: HTN. COMPARISON: 08/21/2021 FINDINGS: Support devices: None. Heart: Within normal limits. Lungs/Pleura: No acute air space or interstitial disease. No significant pleural effusion. IMPRESSION: No acute findings. Signer Name: Antonino Ventura MD Signed: 01/11/2022 6:06 PM Workstation Name: [id number]
[2022-01-11 18:15] LABS: Alanine Aminotransferase 30 units/L (7-56); Albumin 4.2 g/dL (3.9-5); BUN/Creatinine Ratio 5; Blood Urea Nitrogen 6 mg/dL (9-20); Calcium 8.8 mg/dL (8.4-10.2); Hemolysis Index 31
[2022-01-11 18:18] LABS: Basophils % (Auto) 0.7 % (0.0-1.8); Eosinophils # (Auto) 0.1 K/mm3 (0.0-0.4); Eosinophils % (Auto) 1.9 % (0.0-4.3); Hematocrit 44.1 % (35.5-45.6); Lymphocytes # (Auto) 1.9 K/mm3 (1.2-5.4); Mean Corpuscular HGB Conc 34 % (32-34); Mean Corpuscular Volume 87 fl (84-94); Monocytes # (Auto) 0.4 K/mm3 (0.0-0.8); Monocytes % (Auto) 8.4 % (0.0-7.3); Platelet Count 149 K/mm3 (140-440); Red Blood Count 5.05 M/mm3 (3.65-5.03); Red Cell Distribution Width 13.8 % (13.2-15.2)
--- NOTE | 2022-01-12 02:38 | Emergency Department Report ---
ED Extremity Problem HPI - General Chief complaint: Extremity Problem,Nontraumatic Stated complaint: SWELLING/BURNING BACK/FEET Time Seen by Provider: 01/12/22 02:30 Source: patient Mode of arrival: Ambulatory Limitations: No Limitations - History of Present Illness Initial comments: 51-year-old F [place] male with past medical history of hypertension and diabetes presents emerged department complaining of a few day history of bilateral lower extremity swelling and presents emergency department seeking evaluation and treatment for the edema. Reports no orthopnea or chest pain. No palpitations. No nausea or vomiting. No hemoptysis no hematemesis hematochezia Complaint: extremity swelling -: Gradual Location: left, right History of Same: Yes Radiation: none Quality: dull Consistency: constant Improves with: nothing Worsens with: nothing Associated Symptoms: denies other symptoms - Related Data Home Medications Medication Instructions Recorded Confirmed Last Taken Aspirin [Aspirin BABY CHEW TAB] 81 mg PO QDAY 08/13/15 08/21/21 09/19/20 Pregabalin [Lyrica] 100 mg PO TID 06/30/20 08/21/21 09/19/20 Ascorbic Acid [C-1000] 1,000 mg PO QDAY 08/21/21 08/21/21 Unknown Cholecalciferol Vit D3 [Vitamin D3 1,000 unit PO QDAY 08/21/21 08/21/21 Unknown 1,000 UNIT TAB] Liraglutide [Victoza 2-Odin] 1.2 mg SQ DAILY 08/21/21 08/21/21 Unknown Lisinopril [Zestril] 5 mg PO QDAY 08/21/21 08/21/21 Unknown Zinc Sulfate 220 mg PO QDAY 08/21/21 08/21/21 Unknown Previous Rx's Medication Instructions Recorded Last Taken Type Insulin Regular, Human [HumuLIN R] 0 units SUB-Q ACHS 30 Days 09/21/20 Unknown Rx Pantoprazole [Protonix TAB] 40 mg PO QDAC #30 tablet 09/21/20 Unknown Rx levETIRAcetam [Keppra TAB] 1,000 mg PO BID #60 05/01/21 Unknown Rx Furosemide [Lasix] 20 mg PO QDAY #7 tablet 01/12/22 Unknown Rx Allergies Allergy/AdvReac Type Severity Reaction Status Date / Time Penicillins Allergy Severe Anaphylaxis Verified 08/21/21 10:18 acetaminophen [From Tylenol] Allergy Rash Verified 08/21/21 10:18 metoclopramide HCl Allergy hallucinati Verified 08/21/21 10:51 [From Reglan] on ibuprofen AdvReac Severe Anaphylaxis Verified 08/21/21 10:24 iv contrast dye AdvReac Anaphylaxis Uncoded 08/21/21 10:26 ED Review of Systems ROS: Stated complaint: SWELLING/BURNING BACK/FEET Other details as noted in HPI Comment: All other systems reviewed and negative ED Past Medical Hx - Past Medical History Hx Hypertension: Yes Hx Heart Attack/AMI: Yes Hx Congestive Heart Failure: No Hx Diabetes: Yes Hx Seizures: Yes Hx Psychiatric Treatment: Yes (anxiety) Hx Asthma: Yes Hx COPD: No Additional medical history: H.pylori, Hypoglycemia, cardiac stents - Surgical History Hx Coronary Stent: Yes (x3) Hx Appendectomy: Yes 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 - Social History Smoking Status: Light Tobacco Smoker - Medications Home Medications: Home Medications Medication Instructions Recorded Confirmed Last Taken Type Aspirin [Aspirin BABY CHEW TAB] 81 mg PO QDAY 08/13/15 08/21/21 09/19/20 History Pregabalin [Lyrica] 100 mg PO TID 06/30/20 08/21/21 09/19/20 History Insulin Regular, Human [HumuLIN R] 0 units SUB-Q ACHS 30 Days 09/21/20 08/21/21 Unknown Rx Pantoprazole [Protonix TAB] 40 mg PO QDAC #30 tablet 09/21/20 08/21/21 Unknown Rx levETIRAcetam [Keppra TAB] 1,000 mg PO BID #60 05/01/21 08/21/21 Unknown Rx Ascorbic Acid [C-1000] 1,000 mg PO QDAY 08/21/21 08/21/21 Unknown History Cholecalciferol Vit D3 [Vitamin D3 1,000 unit PO QDAY 08/21/21 08/21/21 Unknown History 1,000 UNIT TAB] Liraglutide [Victoza 2-Odin] 1.2 mg SQ DAILY 08/21/21 08/21/21 Unknown History Lisinopril [Zestril] 5 mg PO QDAY 08/21/21 08/21/21 Unknown History Zinc Sulfate 220 mg PO QDAY 08/21/21 08/21/21 Unknown History Furosemide [Lasix] 20 mg PO QDAY #7 tablet 01/12/22 Unknown Rx ED Physical Exam - General Limitations: No Limitations General appearance: alert, in no apparent distress - Head Head exam: Present: atraumatic, normocephalic - Eye Eye exam: Present: normal appearance, PERRL Pupils: Present: normal accommodation - ENT ENT exam: Present: normal exam, normal orophraynx, mucous membranes moist, TM's normal bilaterally - Neck Neck exam: Present: normal inspection, full ROM - Respiratory Respiratory exam: Present: normal lung sounds bilaterally. Absent: respiratory distress, wheezes, chest wall tenderness, accessory muscle use, decreased breath sounds - Cardiovascular Cardiovascular Exam: Present: regular rate, normal rhythm. Absent: systolic murmur, diastolic murmur, rubs, gallop - GI/Abdominal GI/Abdominal exam: Present: soft, normal bowel sounds - Rectal Rectal exam: Present: deferred - Extremities Exam Extremities exam: Present: normal inspection, normal capillary refill, pedal edema - Back Exam Back exam: Present: normal inspection. Absent: CVA tenderness (R), CVA tenderne ss (L) - Neurological Exam Neurological exam: Present: alert, oriented X3, CN II-XII intact, normal gait, motor sensory deficit, reflexes normal - Psychiatric Psychiatric exam: Present: normal affect, normal mood - Skin Skin exam: Present: warm, dry, intact, normal color. Absent: rash ED Course Vital Signs 01/11/22 17:15 Temperature 97.8 F Pulse Rate 86 Respiratory 18 Rate Blood Pressure 189/91 O2 Sat by Pulse 99 Oximetry ED Medical Decision Making - Lab Data Result diagrams: 01/11/22 17:48 01/11/22 17:48 Lab Results 01/11/22 01/11/22 Range/Units 17:48 17:48 WBC 5.3 (4.5-11.0) K/mm3 RBC 5.05 H (3.65-5.03) M/mm3 Hgb 15.0 (11.8-15.2) gm/dl Hct 44.1 (35.5-45.6) % MCV 87 (84-94) fl MCH 30 (28-32) pg MCHC 34 (32-34) % RDW 13.8 (13.2-15.2) % Plt Count 149 (140-440) K/mm3 Lymph % (Auto) 36.0 H (13.4-35.0) % [place]oll[place] % (Auto) 8.4 H (0.0-7.3) % Eos % (Auto) 1.9 (0.0-4.3) % Baso % (Auto) 0.7 (0.0-1.8) % Lymph # (Auto) 1.9 (1.2-5.4) K/mm3 [place]olls # (Auto) 0.4 (0.0-0.8) K/mm3 Eos # (Auto) 0.1 (0.0-0.4) K/mm3 Baso # (Auto) 0.0 (0.0-0.1) K/mm3 Seg Neutrophils % 53.0 (40.0-70.0) % Seg Neutrophils # 2.8 (1.8-7.7) K/mm3 Sodium 142 (137-145) mmol/L Potassium 4.0 (3.6-5.0) mmol/L Chloride 105.4 (98-107) mmol/L Carbon Dioxide 27 (22-30) mmol/L Anion Gap 14 mmol/L BUN 6 L (9-20) mg/dL Creatinine 1.1 (0.8-1.3) mg/dL Estimated GFR > 60 ml/min BUN/Creatinine Ratio 5 % Glucose 181 H (75-100) mg/dL Calcium 8.8 (8.4-10.2) mg/dL Total Bilirubin 0.40 (0.1-1.2) mg/dL AST 21 (5-40) units/L ALT 30 (7-56) units/L Alkaline Phosphatase 96 (35-129) units/L NT-Pro-B Natriuret Pep 357.4 (0-900) pg/mL Total Protein 6.8 (6.3-8.2) g/dL Albumin 4.2 (3.9-5) g/dL Albumin/Globulin Ratio 1.6 % - EKG Data EKG shows normal: sinus rhythm Rate: normal - Radiology Data Radiology results: report reviewed [facility] [address] [place] [address] XRay Report Signed Patient: QUINCY CORDERO JR MR#: [id number] : 1970 Acct:[id number] Age/Sex: 51 / M ADM Date: 01/11/22 Loc: ED Attending Dr: Ordering Physician: DIDIER MALDONADO MD Date of Service: 01/11/22 Procedure(s): XR chest routine 2V Accession Number(s): [id number] cc: DIDIER MALDONADO MD Fluoro Time In Minutes: CHEST 2 VIEWS INDICATION: HTN. COMPARISON: 08/21/2021 FINDINGS: Support devices: None. Heart: Within normal limits. Lungs/Pleura: No acute air space or interstitial disease. No significant pleural effusion. IMPRESSION: No acute findings. Signer Name: Antonino Ventura MD Signed: 01/11/2022 6:06 PM Workstation Name: [id number] Transcribed By: ES Dictated By: Antonino Ventura MD Electronically Authenticated By: Antonino Ventura MD Signed Date/Time: 01/11/221805 DD/ 04 TD/TT: Critical care attestation.: If time is entered above; I have spent that time in minutes in the direct care of this critically ill patient, excluding procedure time. ED Disposition Clinical Impression: Pedal edema, HTN (hypertension) Disposition: 01 HOME / SELF CARE / HOMELESS Is pt being admited?: No Does the pt Need Aspirin: No Condition: Stable Instructions: Hypertension (ED), Hypertension, Adult, Edema, Peripheral Edema Prescriptions: Furosemide [Lasix] 20 mg PO QDAY #7 tablet Referrals: [facility] [Provider Group] - 3-5 Days
--- NOTE | 2022-01-12 12:16 | Electrocardiograph Report ---
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
--- NOTE | 2022-01-12 12:21 | Electrocardiograph Report ---
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
== END 2022-01-12 13:08 | disposition home or self-care (01) ==
LOC: ED 16:59
DX: R60.0 Localized edema (principal); I10 Essential (primary) hypertension; E11.65 Type 2 diabetes mellitus with hyperglycemia; R56.9 Unspecified convulsions; F41.9 Anxiety disorder, unspecified; J45.909 Unspecified asthma, uncomplicated; Z90.89 Acquired absence of other organs; Z98.890 Other specified postprocedural states; F17.290 Nicotine dependence, other tobacco product, uncomplicated; Z88.0 Allergy status to penicillin; Z88.6 Allergy status to analgesic agent; Z88.8 Allergy status to other drugs, medicaments and biological substances; Z91.041 Radiographic dye allergy status
CPT/HCPCS: 36415; 71046; 80053; 83880; 85025; 93005; 99283

== ENCOUNTER 2022-02-22 08:39 | Outpatient (CLI) | payer OTHER, MEDICAID ==
[2022-02-22] MEDS ORDERED: LIDOCAINE (4%) 40 MG/ML TOPICAL SOLN 50 ML BOTTLE TP ONE (09:27)
== END 2022-02-22 08:40 | disposition home or self-care (01) ==
LOC: WOUND 08:39
PROVIDERS: ATTEND Surgery
DX: S90.561A Insect bite (nonvenomous), right ankle, initial encounter (principal); S91.302A Unspecified open wound, left foot, initial encounter; E11.9 Type 2 diabetes mellitus without complications; I10 Essential (primary) hypertension; F41.9 Anxiety disorder, unspecified; J45.909 Unspecified asthma, uncomplicated; Z95.818 Presence of other cardiac implants and grafts; Z79.4 Long term (current) use of insulin; Z79.899 Other long term (current) drug therapy; V03.90XA Pedestrian on foot injured in collision with car, pick-up truck or van, unspecified whether traffic or nontraffic accident, initial encounter; W57.XXXA Bitten or stung by nonvenomous insect and other nonvenomous arthropods, initial encounter; Y93.89 Activity, other specified; Y92.89 Other specified places as the place of occurrence of the external cause; Y99.8 Other external cause status
CPT/HCPCS: 99214; G0463

== ENCOUNTER 2022-03-09 10:18 | Outpatient (CLI) | payer OTHER, MEDICAID | END 2022-03-09 10:19 | disposition home or self-care (01) | LOC: WOUND 10:18 | PROVIDERS: ATTEND Surgery | DX: S90.561D Insect bite (nonvenomous), right ankle, subsequent encounter (principal); S91.302D Unspecified open wound, left foot, subsequent encounter; E11.9 Type 2 diabetes mellitus without complications; I10 Essential (primary) hypertension; J45.909 Unspecified asthma, uncomplicated; F41.9 Anxiety disorder, unspecified; Z95.818 Presence of other cardiac implants and grafts; Z79.4 Long term (current) use of insulin; Z79.899 Other long term (current) drug therapy; V03.90XD Pedestrian on foot injured in collision with car, pick-up truck or van, unspecified whether traffic or nontraffic accident, subsequent encounter; W57.XXXD Bitten or stung by nonvenomous insect and other nonvenomous arthropods, subsequent encounter | CPT/HCPCS: 99211; 99212; G0463 ==

== ENCOUNTER 2022-03-15 10:53 | Outpatient (CLI) | payer MEDICAID | END 2022-03-15 10:54 | disposition home or self-care (01) | LOC: WOUND 10:53 | PROVIDERS: ATTEND Surgery | DX: S90.561D Insect bite (nonvenomous), right ankle, subsequent encounter (principal); S90.861D Insect bite (nonvenomous), right foot, subsequent encounter; E11.9 Type 2 diabetes mellitus without complications; I10 Essential (primary) hypertension; F41.9 Anxiety disorder, unspecified; J45.909 Unspecified asthma, uncomplicated; Z95.818 Presence of other cardiac implants and grafts; Z79.4 Long term (current) use of insulin; Z79.899 Other long term (current) drug therapy; W57.XXXD Bitten or stung by nonvenomous insect and other nonvenomous arthropods, subsequent encounter | CPT/HCPCS: 99214; G0463 ==

== ENCOUNTER 2022-04-02 14:52 | Outpatient (CLI) | payer OTHER, MEDICAID | END 2022-04-02 14:53 | disposition home or self-care (01) | LOC: WOUND 14:52 | PROVIDERS: ATTEND Surgery | DX: S90.561D Insect bite (nonvenomous), right ankle, subsequent encounter (principal); S91.302D Unspecified open wound, left foot, subsequent encounter; E11.9 Type 2 diabetes mellitus without complications; I10 Essential (primary) hypertension; F41.9 Anxiety disorder, unspecified; J45.909 Unspecified asthma, uncomplicated; Z95.818 Presence of other cardiac implants and grafts; Z79.4 Long term (current) use of insulin; Z79.899 Other long term (current) drug therapy; V03.90XD Pedestrian on foot injured in collision with car, pick-up truck or van, unspecified whether traffic or nontraffic accident, subsequent encounter; W57.XXXD Bitten or stung by nonvenomous insect and other nonvenomous arthropods, subsequent encounter | CPT/HCPCS: 99211; 99213; G0463 ==

== ENCOUNTER 2022-04-12 10:14 | Outpatient (CLI) | payer MEDICAID ==
[2022-04-12] MEDS ORDERED: VITAMIN A & D OINT 56.7 GM TP SCH (11:00)
== END 2022-04-12 10:15 | disposition home or self-care (01) ==
LOC: WOUND 10:14
PROVIDERS: ATTEND Surgery
DX: S90.561D Insect bite (nonvenomous), right ankle, subsequent encounter (principal); S90.861D Insect bite (nonvenomous), right foot, subsequent encounter; E11.9 Type 2 diabetes mellitus without complications; I10 Essential (primary) hypertension; F41.9 Anxiety disorder, unspecified; J45.909 Unspecified asthma, uncomplicated; Z95.818 Presence of other cardiac implants and grafts; Z79.4 Long term (current) use of insulin; Z79.899 Other long term (current) drug therapy; W57.XXXD Bitten or stung by nonvenomous insect and other nonvenomous arthropods, subsequent encounter
CPT/HCPCS: 99213; G0463